=== PATIENT | female | born 1945 | race Caucasian/White ===

== ENCOUNTER → 2017-05-17 | Outpatient (CLI) | payer MEDICARE, OTHER ==
[~2017-05-17] MED LIST: ACET325 PO; ACETYLCYSTEINE 200 MG/ML NEB; ALBU90OI INH; ALBU90OI61 INH; ALBUIS; AMOCLA875 PO; ATOR10 PO; AZIT250 PO; Acetylcyst200 MG/1 M NEB; Advair Hfa 230-12 GM INH; BENZ100A PO; BIEST; BIEST TOP; CALCIUM; CIPR500 PO; CLIM.025TP TOP; Colace100 MG PO; DELTASONE20 MG PO; DOXY100 PO; ESTRASORB; ETHA400 PO; ETHAMBUTOL HCL PO; FAMO20 PO; FOLI1 PO; GABA300 PO; GUAI600T33 PO; HYDACE5 PO; HYDR1TAB94 PO; LEVFLO500 PO; LEVO750 PO; MEROPENEM1000 MG IV; METR500 PO; NAPR500 PO; NEXIUM 24HR20 MG PO; NYST100SU PO; OMEGA 3; PRAV20 PO; PRED10 PO; PRED20 PO; PREMARIN PATCH TOP; PROBIOTIC1 EAC1 PO; PROM25 PO; REQUIP PO; RIFA300 PO; ROPI2 PO; SACC250C; SERT100 PO; SERT50 PO; SODIUM CHLORIDE4 ML INH; STIOLTO RESPIMAT4 GM INH; TIOT18; TIOT18 INH; TOBRAMYCIN300 MG/5 M INH; TOBRAMYCIN300 MG/5 M NEB; TRIAMCINOLONE PO; Tylenol325 MG PO; VITAMIN B122500 MCG PO; VITAMIN D-32000 UNIT PO; Ventolin5 MG/1 ML INH; Zithromax250 MG PO; metronidazole 500 mg PO
== END | disposition home or self-care (01) ==
LOC: OLS 14:35
DX: A31.9 Mycobacterial infection, unspecified (principal)
CPT/HCPCS: 87015; 87116; 87206

== ENCOUNTER 2017-06-11 12:14 | Inpatient (IN) | payer MEDICARE, OTHER ==
[~2017-06-11] VITALS: Ht 152.4 cm; Wt 53.1 kg
[~2017-06-11 12:14] MED LIST changes: -ATOR10 PO; -Acetylcyst200 MG/1 M NEB; -Advair Hfa 230-12 GM INH; -DELTASONE20 MG PO; -FOLI1 PO; -GABA300 PO; -SODIUM CHLORIDE4 ML INH; -TOBRAMYCIN300 MG/5 M NEB; -Zithromax250 MG PO
[2017-06-11 13:30] LABS: Source, Urine Clean Catch
[2017-06-11 13:35] LABS: Bilirubin, Urine Neg (Neg); Blood, Urine Neg (Neg); Glucose Qualitative, Urine Neg (Neg); Ketones, Urine Neg (Neg); Leukocyte Esterase, Urine Neg (Neg); Nitrite, Urine Neg (Neg); Protein, Urine 1+ (Neg); Specific Gravity, Urine 1.025 (1.003-1.022); Urobilinogen, Urine NORM (Normal)
[2017-06-11 13:35] LABS: BASOPHILS ABSOLUTE AUTO 0.07 K/mm3 (0.00-0.23); BASOPHILS PERCENT AUTO 1 % (0-2); EOSINOPHILS ABSOLUTE AUTO 1.28 K/mm3 (0.00-0.68); EOSINOPHILS PERCENT AUTO 15 % (0-6); Hematocrit 35.9 % (33.0-51.0); Hemoglobin 12.2 g/dL (11.5-16.0); IMMATURE GRAN ABSOLUTE AUTO 0.02 K/mm3 (0.00-0.10); IMMATURE GRAN PERCENT AUTO 0 % (0-1); LYMPHOCYTES ABSOLUTE AUTO 0.83 K/mm3 (0.84-5.20); LYMPHOCYTES PERCENT AUTO 9 % (21-46); MONOCYTES PERCENT AUTO 8 % (4-13); Mean Corpuscular HGB 29.7 pg (26.0-34.0); Mean Corpuscular Volume 87 fL (80-100); Mean Platelet Volume 8.8 fL (9.1-12.4); NEUTROPHILS ABSOLUTE AUTO 5.93 K/mm3 (1.96-9.15); NEUTROPHILS PERCENT AUTO 67 % (41-73); Platelet Count 236 K/mm3 (150-400); RDW Coefficient Variation 12.8 % (11.7-14.2); RDW Standard Deviation 41.3 fL (35.1-46.3); Red Blood Cell Count 4.11 M/mm3 (3.80-5.20); White Blood Cell Count 8.83 K/mm3 (4.00-11.30)
[2017-06-11 13:36] LABS: Appearance, Urine Clear (Clear); Color, Urine Yellow (P-Yellow)
[2017-06-11 13:56] LABS: Alanine Aminotransfer (ALT/SGP 20 U/L (12-78); Albumin, Blood 3.3 g/dL (3.4-5.0); Albumin/Globulin Ratio 0.7 (0.8-1.8); Alk Phos 121 U/L (50-136); Anion Gap 8 mmol/L (6-16); Aspartate Aminotrans (AST/SGOT 24 U/L (12-37); Bilirubin, Total 0.3 mg/dL (0.1-1.0); Blood Urea Nitrogen 7 mg/dL (8-24); Bun/Creatinine Ratio 14.6 (12.0-20.0); CO2, Blood 25 mmol/L (21-32); Calcium, Blood 8.8 mg/dL (8.5-10.1); Chloride, Blood 92 mmol/L (98-108); Creatinine, Blood 0.48 mg/dL (0.40-1.00); Globulin, Blood 4.9 g/dL (2.2-4.0); Glomerular Filtration Rate >60 (60-); Glucose, Blood 113 mg/dL (70-99); Potassium, Blood 4.1 mmol/L (3.5-5.5); Sodium, Blood 125 mmol/L (136-145); Total Protein, Blood 8.2 g/dL (6.4-8.2); Troponin I <0.015 ng/mL (0.000-0.040)
[2017-06-11] MEDS ORDERED: Zithromax250 MG PO (16:19)
[2017-06-11] MEDS ORDERED: TOBRAMYCIN300 MG/5 M NEB (16:21)
[2017-06-12 05:06] LABS: BASOPHILS ABSOLUTE AUTO 0.02 K/mm3 (0.00-0.23); BASOPHILS PERCENT AUTO 0 % (0-2); EOSINOPHILS ABSOLUTE AUTO 0.06 K/mm3 (0.00-0.68); EOSINOPHILS PERCENT AUTO 1 % (0-6); Hematocrit 34.7 % (33.0-51.0); Hemoglobin 11.5 g/dL (11.5-16.0); IMMATURE GRAN ABSOLUTE AUTO 0.01 K/mm3 (0.00-0.10); IMMATURE GRAN PERCENT AUTO 0 % (0-1); LYMPHOCYTES PERCENT AUTO 13 % (21-46); MONOCYTES ABSOLUTE AUTO 0.17 K/mm3 (0.16-1.47); MONOCYTES PERCENT AUTO 4 % (4-13); Mean Corpuscular HGB 29.2 pg (26.0-34.0); Mean Corpuscular HGB Conc 33.1 g/dL (31.5-36.5); Mean Corpuscular Volume 88 fL (80-100); Mean Platelet Volume 8.9 fL (9.1-12.4); NEUTROPHILS ABSOLUTE AUTO 3.76 K/mm3 (1.96-9.15); NEUTROPHILS PERCENT AUTO 81 % (41-73); Platelet Count 229 K/mm3 (150-400); RDW Coefficient Variation 12.7 % (11.7-14.2); RDW Standard Deviation 41.2 fL (35.1-46.3); Red Blood Cell Count 3.94 M/mm3 (3.80-5.20); White Blood Cell Count 4.62 K/mm3 (4.00-11.30)
[2017-06-12 05:27] LABS: Alanine Aminotransfer (ALT/SGP 19 U/L (12-78); Albumin, Blood 3.2 g/dL (3.4-5.0); Albumin/Globulin Ratio 0.7 (0.8-1.8); Alk Phos 105 U/L (50-136); Anion Gap 5 mmol/L (6-16); Aspartate Aminotrans (AST/SGOT 19 U/L (12-37); Bilirubin, Total 0.5 mg/dL (0.1-1.0); Blood Urea Nitrogen 5 mg/dL (8-24); Bun/Creatinine Ratio 11.6 (12.0-20.0); CO2, Blood 27 mmol/L (21-32); Calcium, Blood 8.6 mg/dL (8.5-10.1); Chloride, Blood 96 mmol/L (98-108); Creatinine, Blood 0.43 mg/dL (0.40-1.00); Globulin, Blood 4.5 g/dL (2.2-4.0); Glomerular Filtration Rate >60 (60-); Glucose, Blood 119 mg/dL (70-99); Potassium, Blood 4.3 mmol/L (3.5-5.5); Sodium, Blood 128 mmol/L (136-145); Total Protein, Blood 7.7 g/dL (6.4-8.2)
[2017-06-13 05:38] LABS: Anion Gap 5 mmol/L (6-16); Blood Urea Nitrogen 6 mg/dL (8-24); Bun/Creatinine Ratio 13.1 (12.0-20.0); CO2, Blood 29 mmol/L (21-32); Calcium, Blood 8.4 mg/dL (8.5-10.1); Chloride, Blood 98 mmol/L (98-108); Creatinine, Blood 0.46 mg/dL (0.40-1.00); Glomerular Filtration Rate >60 (60-); Glucose, Blood 101 mg/dL (70-99); Potassium, Blood 3.9 mmol/L (3.5-5.5); Sodium, Blood 132 mmol/L (136-145)
[2017-06-13] MEDS ORDERED: Acetylcyst200 MG/1 M NEB (11:15)
[2017-06-13] MEDS ORDERED: DELTASONE20 MG PO (11:20)
[2018-04-25] MEDS ORDERED: FAMO20 PO (04:48)
[2018-04-25] MEDS ORDERED: Advair Hfa 230-12 GM INH (04:48)
[2018-04-25] MEDS ORDERED: FOLI1 PO (04:52)
[2018-04-25] MEDS ORDERED: REQUIP PO (10:04)
== END 2017-06-13 13:35 | disposition home or self-care (01) | DRG 191 ==
LOC: ER 12:14 → MEDS 15:15
PROVIDERS: Emergency Medicine; Internal Medicine
DX: J47.1 Bronchiectasis with (acute) exacerbation (principal); E87.1 Hypo-osmolality and hyponatremia; G25.81 Restless legs syndrome; M81.0 Age-related osteoporosis without current pathological fracture; Z90.710 Acquired absence of both cervix and uterus; E78.5 Hyperlipidemia, unspecified; Z99.2 Dependence on renal dialysis; F32.9 Major depressive disorder, single episode, unspecified
CPT/HCPCS: 36415; 71046; 80048; 80053; 83880; 84484; 85025; 87070; 87205; 93005; 93010; 94640; 94667; 94668; 94760; 96374; 96375; 99285; J0696; J1650; J2930; J7030

== ENCOUNTER → 2017-06-29 | Outpatient (CLI) | payer MEDICARE, OTHER ==
[~2017-06-29] MED LIST changes: +ATOR10 PO; +Acetylcyst200 MG/1 M NEB; +Advair Hfa 230-12 GM INH; +DELTASONE20 MG PO; +FOLI1 PO; +GABA300 PO; +SODIUM CHLORIDE4 ML INH; +TOBRAMYCIN300 MG/5 M NEB; +Zithromax250 MG PO
== END | disposition home or self-care (01) ==
LOC: OLS 13:53
DX: J47.9 Bronchiectasis, uncomplicated (principal)
CPT/HCPCS: 87070; 87106; 87205

== ENCOUNTER → 2017-08-08 | Outpatient (CLI) | payer MEDICARE, OTHER | END | disposition home or self-care (01) | LOC: OLS 09:00 | DX: J47.9 Bronchiectasis, uncomplicated (principal) | CPT/HCPCS: 87070; 87205 ==

== ENCOUNTER → 2017-08-19 | Outpatient (CLI) | payer MEDICARE, OTHER | END | disposition home or self-care (01) | LOC: PLD 07:58 → LAB SHORT 07:58 | DX: L72.12 Trichodermal cyst (principal); L82.1 Other seborrheic keratosis | CPT/HCPCS: 88304; 88305 ==

== ENCOUNTER → 2017-09-23 | Outpatient (CLI) | payer MEDICARE, OTHER ==
[~2017-09-23] MED LIST changes: -ATOR10 PO; -Advair Hfa 230-12 GM INH; -FOLI1 PO; -GABA300 PO; -SODIUM CHLORIDE4 ML INH
== END | disposition home or self-care (01) ==
LOC: LAB SHORT 10:00 → OLS 10:00
DX: A31.0 Pulmonary mycobacterial infection (principal)
CPT/HCPCS: 87015; 87116; 87206

== ENCOUNTER → 2017-10-19 | Outpatient (CLI) | payer MEDICARE, OTHER | END | disposition home or self-care (01) | LOC: LAB SHORT 07:30 → OLS 07:30 → LAB FUT 01-12 13:10 → EDSTATUS 01-12 13:10 | DX: A31.9 Mycobacterial infection, unspecified (principal) | CPT/HCPCS: 87015; 87116; 87206 ==

== ENCOUNTER → 2017-10-25 | Outpatient (CLI) | payer MEDICARE, OTHER ==
[2017-10-25 14:44] LABS: Anion Gap 9 mmol/L (6-16); Blood Urea Nitrogen 10 mg/dL (8-24); Bun/Creatinine Ratio 17.5 (12.0-20.0); CO2, Blood 25 mmol/L (21-32); Calcium, Blood 9.1 mg/dL (8.5-10.1); Chloride, Blood 92 mmol/L (98-108); Creatinine, Blood 0.57 mg/dL (0.40-1.00); Glomerular Filtration Rate >60 (60-); Glucose, Blood 108 mg/dL (70-99); Potassium, Blood 4.5 mmol/L (3.5-5.5); Sodium, Blood 126 mmol/L (136-145)
[2017-10-25 15:21] LABS: Uric Acid, Blood 2.3 mg/dL (2.6-6.0)
== END | disposition home or self-care (01) ==
LOC: LAB SHORT 11:56 → OLS 11:56 → LAB 11:56
PROVIDERS: Internal Medicine
DX: E87.1 Hypo-osmolality and hyponatremia (principal); M10.9 Gout, unspecified
CPT/HCPCS: 36415; 80048; 83935; 84300; 84550

== ENCOUNTER → 2018-01-05 | Outpatient (CLI) | payer MEDICARE, OTHER | END | disposition home or self-care (01) | LOC: EDSTATUS 10:52 → LAB SHORT 12:19 → LAB 12:19 | DX: J47.9 Bronchiectasis, uncomplicated (principal) | CPT/HCPCS: 87070; 87077; 87186; 87205 ==

== ENCOUNTER → 2018-02-09 | Outpatient (CLI) | payer MEDICARE, OTHER ==
[~2018-02-09] MED LIST changes: +ATOR10 PO; +GABA300 PO; +SODIUM CHLORIDE4 ML INH
== END | disposition home or self-care (01) ==
LOC: LAB 14:20 → LAB SHORT 14:20
DX: A31.0 Pulmonary mycobacterial infection (principal); J47.1 Bronchiectasis with (acute) exacerbation
CPT/HCPCS: 87070; 87106; 87205

== ENCOUNTER 2018-02-10 20:26 | Inpatient (IN) | payer MEDICARE, OTHER ==
[~2018-02-10] VITALS: Ht 152.4 cm; Wt 46.8 kg
[~2018-02-10 20:26] MED LIST changes: -ATOR10 PO; -GABA300 PO; -SODIUM CHLORIDE4 ML INH
[2018-02-10 20:55] LABS: PCO2 Arterial 43.8 mmHg (35-45); PO2 Arterial 94.9 mmHg (80-100)
[2018-02-10 21:59] LABS: BASOPHILS ABSOLUTE AUTO 0.07 K/mm3 (0.00-0.23); BASOPHILS PERCENT AUTO 1 % (0-2); EOSINOPHILS ABSOLUTE AUTO 0.65 K/mm3 (0.00-0.68); EOSINOPHILS PERCENT AUTO 7 % (0-6); Hematocrit 34.4 % (33.0-51.0); Hemoglobin 11.6 g/dL (11.5-16.0); IMMATURE GRAN ABSOLUTE AUTO 0.02 K/mm3 (0.00-0.10); IMMATURE GRAN PERCENT AUTO 0 % (0-1); LYMPHOCYTES ABSOLUTE AUTO 1.36 K/mm3 (0.84-5.20); LYMPHOCYTES PERCENT AUTO 14 % (21-46); MONOCYTES ABSOLUTE AUTO 0.72 K/mm3 (0.16-1.47); MONOCYTES PERCENT AUTO 7 % (4-13); Mean Corpuscular HGB 30.3 pg (26.0-34.0); Mean Corpuscular HGB Conc 33.7 g/dL (31.5-36.5); Mean Corpuscular Volume 90 fL (80-100); Mean Platelet Volume 8.6 fL (9.1-12.4); NEUTROPHILS ABSOLUTE AUTO 6.99 K/mm3 (1.96-9.15); NEUTROPHILS PERCENT AUTO 71 % (41-73); Platelet Count 205 K/mm3 (150-400); RDW Coefficient Variation 12.6 % (11.7-14.2); RDW Standard Deviation 41.7 fL (35.1-46.3); Red Blood Cell Count 3.83 M/mm3 (3.80-5.20); White Blood Cell Count 9.81 K/mm3 (4.00-11.30)
[2018-02-10 22:22] LABS: Alanine Aminotransfer (ALT/SGP 30 U/L (12-78); Albumin, Blood 3.5 g/dL (3.4-5.0); Albumin/Globulin Ratio 0.9 (0.8-1.8); Alk Phos 71 U/L (50-136); Anion Gap 8 mmol/L (6-16); Aspartate Aminotrans (AST/SGOT 33 U/L (12-37); Bilirubin, Total 0.6 mg/dL (0.1-1.0); Blood Urea Nitrogen 11 mg/dL (8-24); Bun/Creatinine Ratio 19.9 (12.0-20.0); CO2, Blood 25 mmol/L (21-32); Calcium, Blood 8.5 mg/dL (8.5-10.1); Chloride, Blood 95 mmol/L (98-108); Creatinine, Blood 0.55 mg/dL (0.40-1.00); Globulin, Blood 4.1 g/dL (2.2-4.0); Glomerular Filtration Rate >60 (60-); Glucose, Blood 90 mg/dL (70-99); Potassium, Blood 4.2 mmol/L (3.5-5.5); Sodium, Blood 128 mmol/L (136-145); Total Protein, Blood 7.6 g/dL (6.4-8.2); Troponin I <0.015 ng/mL (0.000-0.040)
[2018-02-11] MEDS ORDERED: ATOR10 PO (02:40)
[2018-02-11] MEDS ORDERED: GABA300 PO (02:41)
[2018-02-11 04:07] LABS: Hematocrit 33.8 % (33.0-51.0); Hemoglobin 11.7 g/dL (11.5-16.0); Mean Corpuscular HGB 31.2 pg (26.0-34.0); Mean Corpuscular HGB Conc 34.6 g/dL (31.5-36.5); Mean Corpuscular Volume 90 fL (80-100); Mean Platelet Volume 8.6 fL (9.1-12.4); Platelet Count 206 K/mm3 (150-400); RDW Coefficient Variation 12.5 % (11.7-14.2); RDW Standard Deviation 41.4 fL (35.1-46.3); Red Blood Cell Count 3.75 M/mm3 (3.80-5.20)
[2018-02-11 04:26] LABS: Anion Gap 9 mmol/L (6-16); Blood Urea Nitrogen 10 mg/dL (8-24); Bun/Creatinine Ratio 18.3 (12.0-20.0); CO2, Blood 25 mmol/L (21-32); Calcium, Blood 8.1 mg/dL (8.5-10.1); Chloride, Blood 96 mmol/L (98-108); Creatinine, Blood 0.55 mg/dL (0.40-1.00); Glomerular Filtration Rate >60 (60-); Glucose, Blood 125 mg/dL (70-99); Potassium, Blood 4.4 mmol/L (3.5-5.5); Sodium, Blood 130 mmol/L (136-145)
[2018-02-11 06:42] LABS: Adenovirus Not Detected (NOT DETECT); Bordetella pertussis Not Detected (NOT DETECT); Chlamydophila pneumoniae Not Detected (NOT DETECT); Coronavirus 229E Not Detected (NOT DETECT); Coronavirus HKU1 Not Detected (NOT DETECT); Coronavirus NL63 Not Detected (NOT DETECT); Coronavirus OC43 Not Detected (NOT DETECT); Human Metapneumovirus Not Detected (NOT DETECT); Human Rhinovirus/Enterovirus Not Detected (NOT DETECT); Influenza A/2009-H1 Not Detected (NOT DETECT); Influenza A/H1 Not Detected (NOT DETECT); Influenza A/H3 Not Detected (NOT DETECT); Influenza B Not Detected (NOT DETECT); Mycoplasma pneumoniae Not Detected (NOT DETECT); Parainfluenza Virus 1 Not Detected (NOT DETECT); Parainfluenza Virus 2 Not Detected (NOT DETECT); Parainfluenza Virus 3 Not Detected (NOT DETECT); Parainfluenza Virus 4 Not Detected (NOT DETECT); Respiratory Syncytial Virus Not Detected (NOT DETECT)
[2018-02-11 09:08] LABS: Influenza A Not Detected (NOT DETECT)
[2018-02-13] MEDS ORDERED: SODIUM CHLORIDE4 ML INH (12:50)
== END 2018-02-13 13:11 | disposition home or self-care (01) | DRG 190 ==
LOC: ER 20:26 → MEDS 22:47 → PCU 22:47 → MEDS 22:47 → PCU 02-11 00:17 → MEDS 02-11 21:19 → ENPENDDIS 02-13 11:00 → MEDS 02-13 13:11
PROVIDERS: Emergency Medicine; Nurse Practitioner Acute Care
DX: J47.1 Bronchiectasis with (acute) exacerbation (principal); J96.01 Acute respiratory failure with hypoxia; E87.1 Hypo-osmolality and hyponatremia; E44.0 Moderate protein-calorie malnutrition; T17.890A Other foreign object in other parts of respiratory tract causing asphyxiation, initial encounter; Z99.81 Dependence on supplemental oxygen; A31.0 Pulmonary mycobacterial infection; F32.9 Major depressive disorder, single episode, unspecified; E78.5 Hyperlipidemia, unspecified; J42 Unspecified chronic bronchitis; G25.81 Restless legs syndrome; Z87.891 Personal history of nicotine dependence; Z68.23 Body mass index [BMI] 23.0-23.9, adult
CPT/HCPCS: 36600; 71046; 80048; 80053; 82803; 84484; 85025; 85027; 87070; 87106; 87205; 87486; 87581; 87633; 87798; 93005; 93010; 94640; 94667; 94760; 94762; 96374; 99285-25; J1650; J2930

== ENCOUNTER → 2018-05-26 | Outpatient (CLI) | payer MEDICARE, OTHER ==
[~2018-05-26] MED LIST changes: +ATOR10 PO; +Advair Hfa 230-12 GM INH; +FOLI1 PO; +GABA300 PO; +SODIUM CHLORIDE4 ML INH
== END | disposition home or self-care (01) ==
LOC: LAB SHORT 16:00 → LAB 16:00
DX: J47.1 Bronchiectasis with (acute) exacerbation (principal)
CPT/HCPCS: 87070; 87077; 87186; 87205

== ENCOUNTER → 2018-06-22 | Outpatient (CLI) | payer MEDICARE, OTHER ==
[~2018-06-22] MED LIST changes: +ALBU2.5V5 NEB; +Acetylcyst200 MG/1 M INH; +Alora1 EAC1 TD; +CALCIUM 500 +1 EAC3 PO; +CYAN500 PO; +FLONASE ALLERG9.9 ML; +GABA600 PO; +METO25ER PO; +NAC600 MG PO; +NEBUSAL4 ML INH; +ONDA4ODT MM; +VENL75ER PO; -VITAMIN B122500 MCG PO; -Ventolin5 MG/1 ML INH
== END | disposition home or self-care (01) ==
LOC: LAB 16:45 → LAB SHORT 16:45
DX: N39.0 Urinary tract infection, site not specified (principal)
CPT/HCPCS: 87086

== ENCOUNTER → 2018-07-21 | Outpatient (CLI) | payer MEDICARE, OTHER | END | disposition home or self-care (01) | LOC: LAB SHORT 16:59 → LAB 16:59 | DX: J47.9 Bronchiectasis, uncomplicated (principal) | CPT/HCPCS: 87070; 87106; 87205 ==

== ENCOUNTER 2018-07-22 08:29 | Inpatient (IN) | payer MEDICARE, OTHER ==
[~2018-07-22] VITALS: Ht 152.4 cm; Wt 52.2 kg
[~2018-07-22 08:29] MED LIST changes: -Acetylcyst200 MG/1 M INH; -Alora1 EAC1 TD; -CALCIUM 500 +1 EAC3 PO; -FLONASE ALLERG9.9 ML; -GABA600 PO; -METO25ER PO; -NAC600 MG PO; -NEBUSAL4 ML INH; -ONDA4ODT MM; -VENL75ER PO
[2018-07-22] MEDS ORDERED: ATOR10 PO (08:50)
[2018-07-22] MEDS ORDERED: Alora1 EAC1 TD (08:52)
[2018-07-22] MEDS ORDERED: VENL75ER PO (08:55)
[2018-07-22] MEDS ORDERED: ALBU90OI INH (08:55)
[2018-07-22 09:08] LABS: BASOPHILS ABSOLUTE AUTO 0.08 K/mm3 (0.00-0.23); BASOPHILS PERCENT AUTO 1 % (0-2); EOSINOPHILS ABSOLUTE AUTO 0.57 K/mm3 (0.00-0.68); EOSINOPHILS PERCENT AUTO 5 % (0-6); Hematocrit 39.4 % (33.0-51.0); Hemoglobin 13.2 g/dL (11.5-16.0); IMMATURE GRAN ABSOLUTE AUTO 0.04 K/mm3 (0.00-0.10); IMMATURE GRAN PERCENT AUTO 0 % (0-1); LYMPHOCYTES ABSOLUTE AUTO 1.05 K/mm3 (0.84-5.20); LYMPHOCYTES PERCENT AUTO 9 % (21-46); MONOCYTES ABSOLUTE AUTO 0.68 K/mm3 (0.16-1.47); MONOCYTES PERCENT AUTO 6 % (4-13); Mean Corpuscular HGB 30.1 pg (26.0-34.0); Mean Corpuscular HGB Conc 33.5 g/dL (31.5-36.5); Mean Corpuscular Volume 90 fL (80-100); Mean Platelet Volume 8.6 fL (9.1-12.4); NEUTROPHILS ABSOLUTE AUTO 9.35 K/mm3 (1.96-9.15); NEUTROPHILS PERCENT AUTO 80 % (41-73); Platelet Count 221 K/mm3 (150-400); RDW Coefficient Variation 12.6 % (11.7-14.2); RDW Standard Deviation 41.4 fL (35.1-46.3); Red Blood Cell Count 4.39 M/mm3 (3.80-5.20); White Blood Cell Count 11.77 K/mm3 (4.00-11.30)
[2018-07-22 09:33] LABS: Alanine Aminotransfer (ALT/SGP 27 U/L (12-78); Albumin, Blood 3.9 g/dL (3.4-5.0); Albumin/Globulin Ratio 0.9 (0.8-1.8); Alk Phos 84 U/L (50-136); Anion Gap 8 mmol/L (6-16); Aspartate Aminotrans (AST/SGOT 20 U/L (12-37); Bilirubin, Total 0.6 mg/dL (0.1-1.0); Blood Urea Nitrogen 8 mg/dL (8-24); CO2, Blood 28 mmol/L (21-32); Calcium, Blood 9.1 mg/dL (8.5-10.1); Chloride, Blood 94 mmol/L (98-108); Globulin, Blood 4.4 g/dL (2.2-4.0); Glomerular Filtration Rate >60 (60-); Glucose, Blood 102 mg/dL (70-99); Potassium, Blood 4.2 mmol/L (3.5-5.5); Sodium, Blood 130 mmol/L (136-145); Total Protein, Blood 8.3 g/dL (6.4-8.2); Troponin I <0.015 ng/mL (0.000-0.040)
--- NOTE | 2018-07-22 14:20 | NUR ---
PATIENT ARRIVED TO THE FLOOR VIA STRETCHER, O2 @ 3 LITERS VIA NASAL CANULA. REPORT RECEIVED FROM THE ER. WILL CONTINUE TO MONITOR FOR CHANGES.
[2018-07-22] MEDS ORDERED: SERT100 PO (14:30)
[2018-07-22] MEDS ORDERED: ONDA4ODT MM (14:31)
--- NOTE | 2018-07-22 19:20 | NUR ---
NO ACUTE CHANGES NOTED. NO CURRENT COMPLAINTS OF PAIN OR DISCOMFORT. WILL CONTINUE TO MONITOR FOR CHANGES.
[2018-07-22 22:14] LABS: Adenovirus Not Detected (NOT DETECT); Coronavirus 229E Not Detected (NOT DETECT); Coronavirus HKU1 Not Detected (NOT DETECT); Coronavirus NL63 Not Detected (NOT DETECT)
[2018-07-22 22:15] LABS: Bordetella pertussis Not Detected (NOT DETECT); Chlamydophila pneumoniae Not Detected (NOT DETECT); Coronavirus OC43 Not Detected (NOT DETECT); Human Metapneumovirus Not Detected (NOT DETECT); Human Rhinovirus/Enterovirus Not Detected (NOT DETECT); Influenza A Not Detected (NOT DETECT); Influenza A/2009-H1 Not Detected (NOT DETECT); Influenza A/H1 Not Detected (NOT DETECT); Influenza A/H3 Not Detected (NOT DETECT); Influenza B Not Detected (NOT DETECT); Mycoplasma pneumoniae Not Detected (NOT DETECT); Parainfluenza Virus 1 Not Detected (NOT DETECT); Parainfluenza Virus 2 Not Detected (NOT DETECT); Parainfluenza Virus 3 Not Detected (NOT DETECT); Parainfluenza Virus 4 Not Detected (NOT DETECT); Respiratory Syncytial Virus Not Detected (NOT DETECT)
[2018-07-23 05:44] LABS: Anion Gap 8 mmol/L (6-16); Blood Urea Nitrogen 8 mg/dL (8-24); Bun/Creatinine Ratio 17.9 (12.0-20.0); CO2, Blood 25 mmol/L (21-32); Calcium, Blood 8.5 mg/dL (8.5-10.1); Chloride, Blood 103 mmol/L (98-108); Creatinine, Blood 0.45 mg/dL (0.40-1.00); Glomerular Filtration Rate >60 (60-); Glucose, Blood 117 mg/dL (70-99); Potassium, Blood 4.6 mmol/L (3.5-5.5); Sodium, Blood 136 mmol/L (136-145)
--- NOTE | 2018-07-23 05:51 | NUR ---
SHIFT SUMMARY PT SLEPT WELL T/O NIGHT. AOX4. VSS. DENIES PAIN OR N/V. REPORTED SOB LAST NIGHT & WAS GIVEN BREATHING TX BY RT PER ORDERS. LUNGS HAVE INSPIRATORY & EXPIRATORY WHEEZES IN UPPER LOBES W/BASES BEING DIMINISHED TO AUSCULTATION. PT ON 3L NC W/SPO2 @97%. PT STATES THIS AM, "I'M FEELING BETTER THAN I DID YESTERDAY WHEN I WAS @ HOME, I'M NOT SOB." PT INDEPENDENT IN ROOM. CALL LIGHT IS IN REACH & I WILL CONT. TO MONITOR PT UNTIL DAY SHIFT RN ASSUMES CARE.
[2018-07-23 06:20] LABS: Hemoglobin 11.5 g/dL (11.5-16.0); Mean Corpuscular HGB 29.9 pg (26.0-34.0); Mean Corpuscular HGB Conc 32.9 g/dL (31.5-36.5); Mean Corpuscular Volume 91 fL (80-100); Mean Platelet Volume 8.8 fL (9.1-12.4); Platelet Count 201 K/mm3 (150-400); RDW Coefficient Variation 12.7 % (11.7-14.2); RDW Standard Deviation 41.9 fL (35.1-46.3); Red Blood Cell Count 3.85 M/mm3 (3.80-5.20)
--- NOTE | 2018-07-23 18:34 | NUR ---
SHIFT SUMMARY PT INDEPENDENT IN ROOM. IN ROOM FOR MOST OF AFTERNOON. DOES COUGH REGULARLY. STATES SHE FEELS MUCH BETTER THAN ON ARRIVAL. NO RESP DISTRESS NOTED TODAY. USING FLUTTER VALVE WITHOUT PROMPTING. STATES IT HELPS HER GET THE PLUGS OUT MORE EASILY.
--- NOTE | 2018-07-24 06:23 | NUR ---
SHIFT SUMMARY NO ACUTE CHANGES THIS SHIFT. PT SLEPT WELL & IS AOX4. DENIES PAIN, N/V OR SOB WHILE @ REST. NO S/S OF SOB. SPO2 @93-98% ON 2L. PT STATES "I FEEL MUCH BETTER THAN WHEN I FIRST GOT HERE." PT DID GET TEARFUL THIS AM & REPORTED HER SON 4 WKS AGO & SHE IS STILL STRUGGLING W/LOSING HIM. PT INDEPENDENT IN ROOM. CALL LIGHT IN REACH & I WCTM PT UNTIL DAY SHIFT RN ASSUMES CARE.
--- NOTE | 2018-07-24 18:28 | NUR ---
SHIFT SUMMARY PT INDEPENDENT IN ROOM. HAS BEEN MOVING ABOUT WITH NO OXYGEN ON AND TOLERATING WITH NO INCREASE IN RESP DISTRESS. AT BEDSIDE THIS AFTERNOON. POSSIBLE DISCHARGE TOMORROW.
--- NOTE | 2018-07-25 06:37 | NUR ---
SHIFT SUMMARY PT SLEPT WELL T/O NIGHT. NO ACUTE CHANGES THIS SHIFT. DENIES PAIN OR N/V. REPORTS MILD SOB W/EXERTION WHEN AMBULATING BUT DENIES ANY WHILE @REST. PT HAS BEEN ON RA & 2L NC PRN WHEN SHE FEELS SHE NEEDS IT. SPO2 >90% WITH E/U BREATHING. CALL LIGHT IN REACH & WILL CONT. TO MONITOR PT.
[2018-07-25] MEDS ORDERED: NAC600 MG PO (12:38)
[2018-07-25] MEDS ORDERED: CALCIUM 500 +1 EAC3 PO (12:53)
[2018-07-25] MEDS ORDERED: LEVO750 PO (12:55)
--- NOTE | 2018-07-25 13:59 | NUR ---
PATIENT DISCHARGE: PATIENT DISCHARGED TO HOME THIS SHIFT. MEDICATION RECONCILIATION COMPLETED; [facility]; HOME MEDICATIONS RETURNED TO PATIENT. DISCHARGE EDUCATION COMPLETED WITH PATIENT AND SO. PATIENT TRANSPORTED TO EXIT BY [facility] STAFF WITH WHEELCHAIR AT 1350. PATIENT DEPARTED [facility] VIA PRIVATE AUTO.
[2018-07-27] MEDS ORDERED: AZIT250 PO (17:53)
[2018-07-27] MEDS ORDERED: FLONASE ALLERG9.9 ML (17:56)
[2018-07-27] MEDS ORDERED: Acetylcyst200 MG/1 M INH (18:12)
[2018-07-27] MEDS ORDERED: NEBUSAL4 ML INH (18:13)
[2018-07-27] MEDS ORDERED: GABA600 PO (20:24)
[2018-07-28] MEDS ORDERED: METO25ER PO (18:55)
== END 2018-07-25 13:48 | disposition home or self-care (01) | DRG 192 ==
LOC: ER 08:29 → MEDS 14:04
PROVIDERS: Physician Assistant; ADMIT Internal Medicine
DX: J47.9 Bronchiectasis, uncomplicated (principal); J40 Bronchitis, not specified as acute or chronic; A31.0 Pulmonary mycobacterial infection; Z90.49 Acquired absence of other specified parts of digestive tract; Z87.891 Personal history of nicotine dependence; M81.0 Age-related osteoporosis without current pathological fracture; G25.81 Restless legs syndrome; E78.5 Hyperlipidemia, unspecified; F32.9 Major depressive disorder, single episode, unspecified; K21.9 Gastro-esophageal reflux disease without esophagitis; Z79.52 Long term (current) use of systemic steroids
CPT/HCPCS: 36415; 71046; 80048; 80053; 83605; 84484; 85025; 85027; 87081; 87486; 87581; 87633; 87798; 93005; 93010; 94640; 94644; 94667; 94760; 96374; 96376; 99285-25; J0692; J1100; J1650; J2920; J2930; J7030

== ENCOUNTER → 2018-09-07 | Outpatient (CLI) | payer MEDICARE, OTHER ==
[~2018-09-07] MED LIST changes: +ALBU3IS INH; +Acetylcyst200 MG/1 M INH; +Alora1 EAC1 TD; +CALCIUM 500 +1 EAC3 PO; +FLONASE ALLERG9.9 ML; +GABA600 PO; +METO25ER PO; +NAC600 MG PO; +NEBUSAL4 ML INH; +ONDA4ODT MM; +Requip Xl2 MG PO; +VENL75ER PO
[2018-09-07 10:58] LABS: Albumin, Blood 3.4 g/dL (3.4-5.0); Anion Gap 8 mmol/L (6-16); Blood Urea Nitrogen 9 mg/dL (8-24); Bun/Creatinine Ratio 19.3 (12.0-20.0); CO2, Blood 23 mmol/L (21-32); Calcium, Blood 8.6 mg/dL (8.5-10.1); Chloride, Blood 99 mmol/L (98-108); Creatinine, Blood 0.47 mg/dL (0.40-1.00); Glomerular Filtration Rate >60 (60-); Glucose, Blood 120 mg/dL (70-99); Phosphorus, Blood 2.6 mg/dL (2.5-4.9); Sodium, Blood 130 mmol/L (136-145); Uric Acid, Blood 3.2 mg/dL (2.6-6.0)
[2018-09-07 11:29] LABS: Osmolality, Urine 311 mos/kg (15-1400)
[2018-09-07 11:44] LABS: Sodium, Urine, Random 46 mmol/L (20-110)
== END | disposition home or self-care (01) ==
LOC: LAB FUT 09-06 16:25 → LAB SHORT 06:30 → LAB 06:30
PROVIDERS: Internal Medicine
DX: J47.1 Bronchiectasis with (acute) exacerbation (principal)
CPT/HCPCS: 36415; 80069; 83935; 84300; 84550

== ENCOUNTER 2018-09-08 21:25 | Inpatient (IN) | payer MEDICARE, OTHER ==
[~2018-09-08] VITALS: Ht 152.4 cm; Wt 56.9 kg
[~2018-09-08 21:25] MED LIST changes: -ALBU3IS INH; -Requip Xl2 MG PO
[2018-09-08] MEDS ORDERED: PRED20 PO (22:00)
[2018-09-08] MEDS ORDERED: ATOR10 PO (22:01)
[2018-09-08] MEDS ORDERED: SERT100 PO (22:01)
[2018-09-08] MEDS ORDERED: GABA600 PO (22:01)
[2018-09-08] MEDS ORDERED: RIFA300 PO (22:03)
[2018-09-08] MEDS ORDERED: ETHA400 PO (22:03)
[2018-09-08] MEDS ORDERED: Requip Xl2 MG PO (22:03)
[2018-09-08] MEDS ORDERED: ALBU3IS INH (22:04)
[2018-09-08] MEDS ORDERED: STIOLTO RESPIMAT4 GM INH (22:04)
[2018-09-08] MEDS ORDERED: FOLI1 PO (22:05)
[2018-09-08 22:08] LABS: BASOPHILS ABSOLUTE AUTO 0.02 K/mm3 (0.00-0.23); BASOPHILS PERCENT AUTO 0 % (0-2); EOSINOPHILS ABSOLUTE AUTO 0.42 K/mm3 (0.00-0.68); EOSINOPHILS PERCENT AUTO 5 % (0-6); IMMATURE GRAN ABSOLUTE AUTO 0.03 K/mm3 (0.00-0.10); IMMATURE GRAN PERCENT AUTO 0 % (0-1); LYMPHOCYTES ABSOLUTE AUTO 0.87 K/mm3 (0.84-5.20); LYMPHOCYTES PERCENT AUTO 11 % (21-46); MONOCYTES ABSOLUTE AUTO 0.67 K/mm3 (0.16-1.47); MONOCYTES PERCENT AUTO 8 % (4-13); Mean Corpuscular HGB 30.6 pg (26.0-34.0); Mean Corpuscular HGB Conc 34.3 g/dL (31.5-36.5); Mean Corpuscular Volume 89 fL (80-100); Mean Platelet Volume 8.5 fL (9.1-12.4); NEUTROPHILS ABSOLUTE AUTO 6.08 K/mm3 (1.96-9.15); NEUTROPHILS PERCENT AUTO 75 % (41-73); Platelet Count 226 K/mm3 (150-400); RDW Coefficient Variation 13.1 % (11.7-14.2); RDW Standard Deviation 42.9 fL (35.1-46.3); Red Blood Cell Count 3.92 M/mm3 (3.80-5.20); White Blood Cell Count 8.09 K/mm3 (4.00-11.30)
[2018-09-08 22:28] LABS: Alanine Aminotransfer (ALT/SGP 26 U/L (12-78); Albumin, Blood 3.5 g/dL (3.4-5.0); Albumin/Globulin Ratio 0.9 (0.8-1.8); Alk Phos 84 U/L (50-136); Anion Gap 8 mmol/L (6-16); Aspartate Aminotrans (AST/SGOT 23 U/L (12-37); Bilirubin, Total 0.5 mg/dL (0.1-1.0); Blood Urea Nitrogen 7 mg/dL (8-24); Bun/Creatinine Ratio 14.3 (12.0-20.0); CO2, Blood 28 mmol/L (21-32); Calcium, Blood 8.7 mg/dL (8.5-10.1); Chloride, Blood 89 mmol/L (98-108); Creatinine, Blood 0.49 mg/dL (0.40-1.00); Globulin, Blood 3.9 g/dL (2.2-4.0); Glomerular Filtration Rate >60 (60-); Glucose, Blood 94 mg/dL (70-99); Potassium, Blood 3.9 mmol/L (3.5-5.5); Sodium, Blood 125 mmol/L (136-145); Total Protein, Blood 7.4 g/dL (6.4-8.2); Troponin I <0.015 ng/mL (0.000-0.040)
--- NOTE | 2018-09-09 03:59 | NUR ---
SHIFT SUMMARY 0245 RECEIVED PT TO RM 308 VIA GURNEY FROM ER. PT ABLE TO TX SELF TO BED. A&O, ABLE TO MAKE NEEDS KNOWN. ADMITTED FOR ACUTE RESPIRATORY FAILURE WITH HYPOXIA. RECEIVED REPORT FROM HÉCTOR MIRELES. PT TO ER WITH C/O DYSPNEA X4 WKS AND HAVING TO USE HOME O2 ALL DAY WELL AT HS. 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 PT INITIALLY UPSET AT ISOLATION ORDER. DISCUSSED SOME OF CLEARANCE PROTOCOL WITH PT AND . THEN REPORTED PT ON CHRONIC ABX FOR MYCOBACTERIUM AVIUM INFECTION, MAKING CLEARANCE DIFFICULT. PT INDEPENDANT TO BTHRM WITH MULTIPLE O2 EXTENSIONS. SOB WITH ACTIVITY, BUT RECOVERS AT REST. IVF BOLUS INFUSING AT ADMIT. CONTINOUS FLUIDS STARTED PER EMAR. PT ATTEMPTING TO GO TO SLEEP. MAINTENCE WORKING SOCIAL MEDIA DESIGNER LT IN PT'S RM. TO WHEN ADMITTED, BUT WENT HOME NOW. PT DECLINED FURTHER NEEDS AT THIS TIME. WILL MONITOR.
[2018-09-09 06:00] LABS: Adenovirus Not Detected (NOT DETECT); Bordetella pertussis Not Detected (NOT DETECT); Chlamydophila pneumoniae Not Detected (NOT DETECT); Coronavirus 229E Not Detected (NOT DETECT); Coronavirus HKU1 Not Detected (NOT DETECT); Coronavirus NL63 Not Detected (NOT DETECT); Coronavirus OC43 Not Detected (NOT DETECT); Human Metapneumovirus Not Detected (NOT DETECT); Human Rhinovirus/Enterovirus Not Detected (NOT DETECT); Influenza A Not Detected (NOT DETECT); Influenza A/2009-H1 Not Detected (NOT DETECT); Influenza A/H1 Not Detected (NOT DETECT); Influenza A/H3 Not Detected (NOT DETECT); Influenza B Not Detected (NOT DETECT); Mycoplasma pneumoniae Not Detected (NOT DETECT); Parainfluenza Virus 1 Not Detected (NOT DETECT); Parainfluenza Virus 2 Not Detected (NOT DETECT); Parainfluenza Virus 3 Not Detected (NOT DETECT); Parainfluenza Virus 4 Not Detected (NOT DETECT); Respiratory Syncytial Virus Detected (NOT DETECT)
--- NOTE | 2018-09-09 17:16 | NUR ---
SHIFT SUMMARY THE PATIENT PRESENTED THIS SHIFT WITH VITALS WNL, A&O X4 AND WITH INSP. AND EXP. WHEEZE FOR LUNG SOUNDS. THE PATIENT HAS RESTED MOST OF THE SHIFT, AND IS INDEPENTED IN HER ROOM. THE PATIENT HAS CALLED APPROPERITELY. THE PATIENT'S IV INFILTRATED AND WAS REPLACED THIS SHIFT. THE PATIENT WILL MOSTLIKELY GO HOME TOMORROW, WILL CONTINUE TO MONITOR.
--- NOTE | 2018-09-10 04:10 | NUR ---
lATE ENTRY: 09/09/[address] SHEPPARD REGARDING PATIENT HAVING SOME ANXIETY AND PER PATIENT HER PRIMARY PERSCRIBED EFFEXOR XR 75 MG; ALSO PATIENT HAVING SOME SOB AFTER HER COUGHING SPELLS; CALLED RT AND RECEIVED ORDER FOR ROBUTUSSIN' MEDS GIVEN PER EMAR
[2018-09-10 08:44] LABS: Anion Gap 5 mmol/L (6-16); Blood Urea Nitrogen 4 mg/dL (8-24); Bun/Creatinine Ratio 9.4 (12.0-20.0); CO2, Blood 27 mmol/L (21-32); Calcium, Blood 8.6 mg/dL (8.5-10.1); Chloride, Blood 103 mmol/L (98-108); Creatinine, Blood 0.43 mg/dL (0.40-1.00); Glomerular Filtration Rate >60 (60-); Glucose, Blood 103 mg/dL (70-99); Potassium, Blood 4.2 mmol/L (3.5-5.5); Sodium, Blood 135 mmol/L (136-145)
--- NOTE | 2018-09-10 12:49 | NUR ---
DISCHARGE SUMMARY MEDS FAXED TO [facility] REMOVED, PAPERWORK GONE OVER; PT DENIES PAIN, ON 2L OXYGEN. LEAVING BY WC WITH TO HOME
== END 2018-09-10 12:53 | disposition home or self-care (01) | DRG 178 ==
LOC: ER 21:25 → MEDS 09-09 01:10 → ENPENDDIS 09-10 11:00 → MEDS 09-10 12:53
PROVIDERS: Emergency Medicine; Hospitalist; ADMIT Family Medicine
DX: A31.0 Pulmonary mycobacterial infection (principal); E87.1 Hypo-osmolality and hyponatremia; J96.10 Chronic respiratory failure, unspecified whether with hypoxia or hypercapnia; B97.4 Respiratory syncytial virus as the cause of diseases classified elsewhere; J44.9 Chronic obstructive pulmonary disease, unspecified; F32.9 Major depressive disorder, single episode, unspecified; G25.81 Restless legs syndrome; J47.9 Bronchiectasis, uncomplicated; Z99.81 Dependence on supplemental oxygen; E78.5 Hyperlipidemia, unspecified; Z85.3 Personal history of malignant neoplasm of breast; M79.2 Neuralgia and neuritis, unspecified
CPT/HCPCS: 36415; 71046; 80048; 80053; 82947; 84145; 84484; 85025; 87070; 87106; 87205; 87486; 87581; 87633; 87798; 93005; 93010; 94640; 94644; 94760; 96361; 96365; 96366; 96375; 99285-25; J1650; J1956; J2930; J7030

== ENCOUNTER 2018-11-29 21:53 | Inpatient (IN) | payer MEDICARE, OTHER ==
[~2018-11-29] VITALS: Ht 152.4 cm; Wt 55.9 kg
[~2018-11-29 21:53] MED LIST changes: +ALBU3IS INH; +Requip Xl2 MG PO
[2018-11-29 22:18] LABS: BASOPHILS ABSOLUTE AUTO 0.09 K/mm3 (0.00-0.23); BASOPHILS PERCENT AUTO 1 % (0-2); EOSINOPHILS ABSOLUTE AUTO 0.65 K/mm3 (0.00-0.68); EOSINOPHILS PERCENT AUTO 7 % (0-6); Hematocrit 36.9 % (33.0-51.0); Hemoglobin 12.6 g/dL (11.5-16.0); IMMATURE GRAN ABSOLUTE AUTO 0.04 K/mm3 (0.00-0.10); IMMATURE GRAN PERCENT AUTO 0 % (0-1); LYMPHOCYTES ABSOLUTE AUTO 1.54 K/mm3 (0.84-5.20); LYMPHOCYTES PERCENT AUTO 15 % (21-46); MONOCYTES ABSOLUTE AUTO 0.81 K/mm3 (0.16-1.47); MONOCYTES PERCENT AUTO 8 % (4-13); Mean Corpuscular HGB Conc 34.1 g/dL (31.5-36.5); Mean Corpuscular Volume 91 fL (80-100); Mean Platelet Volume 8.7 fL (9.1-12.4); NEUTROPHILS ABSOLUTE AUTO 6.86 K/mm3 (1.96-9.15); NEUTROPHILS PERCENT AUTO 69 % (41-73); Platelet Count 214 K/mm3 (150-400); RDW Coefficient Variation 12.7 % (11.7-14.2); RDW Standard Deviation 42.1 fL (35.1-46.3); Red Blood Cell Count 4.06 M/mm3 (3.80-5.20); White Blood Cell Count 9.99 K/mm3 (4.00-11.30)
[2018-11-29 22:37] LABS: Alanine Aminotransfer (ALT/SGP 25 U/L (12-78); Albumin, Blood 3.7 g/dL (3.4-5.0); Albumin/Globulin Ratio 0.9 (0.8-1.8); Alk Phos 78 U/L (50-136); Anion Gap 5 mmol/L (6-16); Aspartate Aminotrans (AST/SGOT 20 U/L (12-37); Bilirubin, Total 0.4 mg/dL (0.1-1.0); Blood Urea Nitrogen 8 mg/dL (8-24); Bun/Creatinine Ratio 14.2 (12.0-20.0); CO2, Blood 30 mmol/L (21-32); Calcium, Blood 8.9 mg/dL (8.5-10.1); Chloride, Blood 93 mmol/L (98-108); Creatinine, Blood 0.56 mg/dL (0.40-1.00); Globulin, Blood 4.2 g/dL (2.2-4.0); Glomerular Filtration Rate >60 (60-); Glucose, Blood 94 mg/dL (70-99); Sodium, Blood 128 mmol/L (136-145); Total Protein, Blood 7.9 g/dL (6.4-8.2); Troponin I <0.015 ng/mL (0.000-0.040)
[2018-11-30] MEDS ORDERED: Zantac150 MG PO (01:08)
[2018-11-30] MEDS ORDERED: PROBIOTIC1 EAC4 PO (01:09)
[2018-11-30 02:16] LABS: Base Excess Venous 2.3 mmol/L; Bicarbonate Venous 26.3 mmol/L (24.0-30.0); PCO2 Venous 40.4 mmHg (38-42); PO2 Venous 105 mmHg (38-42); pH Blood Venous 7.43 (7.34-7.37)
--- NOTE | 2018-11-30 03:32 | NUR ---
73Y/O PT. ARRIVED FROM ER @0100 INTO ROOM 308 VIA STRETCHER. PT. WAS ACCOMPANIED BY SPOUSE WHO THEN WENT HOME FOR THE NIGHT. DX'S OF SOB, COPD EXACERABTION. A&O X4. STANDBY ASSISTANCE WITH BRP. PT. ON 3L OF 02 NASAL CANNULA SATS @95-97%. PT. RECEIVING IV ABX'S, STEROIDS, AND NEBULIZER TX'S. ON TELEMETRY, SR WITH PAC'S. PT. HAS BEEN RESTING COMFORTABLY T/O THE SHIFT, NO APPARENT DISTRESS NOTED. CALL LIGHT WITHIN REACH AND SIDE RAILS UP X2.
[2018-11-30 11:09] LABS: Hematocrit 36.5 % (33.0-51.0); Hemoglobin 12.3 g/dL (11.5-16.0); Mean Corpuscular HGB 31.1 pg (26.0-34.0); Mean Corpuscular HGB Conc 33.7 g/dL (31.5-36.5); Mean Corpuscular Volume 92 fL (80-100); Mean Platelet Volume 8.7 fL (9.1-12.4); Platelet Count 212 K/mm3 (150-400); RDW Coefficient Variation 12.8 % (11.7-14.2); RDW Standard Deviation 43.8 fL (35.1-46.3); Red Blood Cell Count 3.96 M/mm3 (3.80-5.20); White Blood Cell Count 5.59 K/mm3 (4.00-11.30)
[2018-11-30 11:31] LABS: Alanine Aminotransfer (ALT/SGP 25 U/L (12-78); Albumin, Blood 3.5 g/dL (3.4-5.0); Albumin/Globulin Ratio 0.9 (0.8-1.8); Alk Phos 71 U/L (50-136); Anion Gap 7 mmol/L (6-16); Aspartate Aminotrans (AST/SGOT 12 U/L (12-37); Bilirubin, Total 0.4 mg/dL (0.1-1.0); Blood Urea Nitrogen 6 mg/dL (8-24); Bun/Creatinine Ratio 11.1 (12.0-20.0); CO2, Blood 25 mmol/L (21-32); Calcium, Blood 8.9 mg/dL (8.5-10.1); Chloride, Blood 100 mmol/L (98-108); Creatinine, Blood 0.54 mg/dL (0.40-1.00); Globulin, Blood 4.1 g/dL (2.2-4.0); Glomerular Filtration Rate >60 (60-); Glucose, Blood 130 mg/dL (70-99); Potassium, Blood 4.3 mmol/L (3.5-5.5); Sodium, Blood 132 mmol/L (136-145); Total Protein, Blood 7.6 g/dL (6.4-8.2)
[2018-11-30 11:59] LABS: Adenovirus Not Detected (NOT DETECT); Bordetella pertussis Not Detected (NOT DETECT); Chlamydophila pneumoniae Not Detected (NOT DETECT); Coronavirus 229E Not Detected (NOT DETECT); Coronavirus HKU1 Not Detected (NOT DETECT); Coronavirus NL63 Not Detected (NOT DETECT); Coronavirus OC43 Not Detected (NOT DETECT); Human Metapneumovirus Not Detected (NOT DETECT); Human Rhinovirus/Enterovirus Not Detected (NOT DETECT); Influenza A Not Detected (NOT DETECT); Influenza A/2009-H1 Not Detected (NOT DETECT); Influenza A/H1 Not Detected (NOT DETECT); Influenza A/H3 Not Detected (NOT DETECT); Influenza B Not Detected (NOT DETECT); Mycoplasma pneumoniae Not Detected (NOT DETECT); Parainfluenza Virus 1 Not Detected (NOT DETECT); Parainfluenza Virus 2 Not Detected (NOT DETECT); Parainfluenza Virus 3 Not Detected (NOT DETECT); Parainfluenza Virus 4 Not Detected (NOT DETECT); Respiratory Syncytial Virus Not Detected (NOT DETECT)
[2018-11-30] MEDS ORDERED: AZIT250 PO (12:45)
--- NOTE | 2018-11-30 13:19 | NUR ---
SHIFT SUMMARY PT IS A&O, PLEASANT AND CO-OP. INDEPENDANT IN TO BTHRM. ADMITTED FOR COPD EXAC. C/O DYSPNEA X1 WEEK WITH WHEEZING AND COUGH. HX COPD, SOB, AND HTN. PCR CULTURE OBTAINED AND SENT. SPUTUM CX'S STILL WAITING TO BE OBTAINED PT HASN'T HAD PC TO PRESENT. HOME MEDICATIONS TO BE BROUGHT IN BY PT'S . DR GOLD NOTIFIED FOR DAILY PO AZITHROMYCIN. DR CARMONA PUT IN ORDER. PT REPORTED THAT SHE IS FEELING MUCH BETTER. DENIED FURTHER NEEDS. CALL LT IN REACH.
[2018-12-01 05:04] LABS: Hemoglobin 11.9 g/dL (11.5-16.0); Mean Corpuscular HGB 30.6 pg (26.0-34.0); Mean Corpuscular HGB Conc 33.1 g/dL (31.5-36.5); Mean Corpuscular Volume 93 fL (80-100); Mean Platelet Volume 8.9 fL (9.1-12.4); Platelet Count 213 K/mm3 (150-400); RDW Coefficient Variation 12.8 % (11.7-14.2); RDW Standard Deviation 43.4 fL (35.1-46.3); Red Blood Cell Count 3.89 M/mm3 (3.80-5.20); White Blood Cell Count 6.37 K/mm3 (4.00-11.30)
--- NOTE | 2018-12-01 05:29 | NUR ---
SHIFT SUMMARY NO ACUTE CHANGES THIS SHIFT. AOX4. VSS. DENIES PAIN OR N/V. REPORTS DYSPNEA W/EXERTION ONLY & DENIES ANY @REST. SPO2 >90% ON 2L NC, LUNGS HAVE EXPIRATORY WHEEZES HEARD T/O, REPORTS BREATHING "FEELS BETTER TODAY" DENIES ANY MUCUS PRODUCTION W/COUGH-STILL UNABLE TO COLLECT SPUTUM SAMPLE. ON TELE W/NSR & HR 81 PER PCU INSURANCE ACCOUNT SPECIALIST. INDEPENDENT IN ROOM & CALL LIGHT IN REACH.
[2018-12-01 05:47] LABS: Anion Gap 6 mmol/L (6-16); Blood Urea Nitrogen 8 mg/dL (8-24); Bun/Creatinine Ratio 16.4 (12.0-20.0); CO2, Blood 26 mmol/L (21-32); Calcium, Blood 8.9 mg/dL (8.5-10.1); Chloride, Blood 101 mmol/L (98-108); Creatinine, Blood 0.49 mg/dL (0.40-1.00); Glomerular Filtration Rate >60 (60-); Glucose, Blood 112 mg/dL (70-99); Potassium, Blood 4.5 mmol/L (3.5-5.5); Sodium, Blood 133 mmol/L (136-145)
--- NOTE | 2018-12-01 15:00 | NUR ---
LATE ENTRY-MUCOLYTIC REQUEST PT REQUESTING MUCOLYTIC. DR. GOLD CALLED & INFORMED. DR. GOLD STATED HE WOULD PLACE ORDER.
--- NOTE | 2018-12-01 17:00 | NUR ---
SHIFT SUMMARY NO CHANGES IN ASSESSMENT AT THIS TIME. VSS. PT STABLE & IND IN ROOM. DENIES NEEDS AT THIS TIME. PT CONTINUES TO USE 2L O2 VIA NC. HUMIDIFIER ADDED FOR COMFORT. WILL CONTINUE TO MONITOR UNTIL TURNOVER IS COMPLETE.
--- NOTE | 2018-12-02 05:14 | NUR ---
SHIFT SUMMARY NO ACUTE CHANGES THIS SHIFT. AOX4. VSS. DENIES PAIN OR NAUSEA. REPORTS DYSPNEA AFTER AMBULATION TO RESTROOM, SPO2 >95% ON 2L NC, EXPIRATORY WHEEZES HEARD T/O LUNGS. INDEPENDENT IN ROOM. CALL LIGHT IN REACH & I WILL CONTINUE TO MONITOR.
[2018-12-02 06:01] LABS: Anion Gap 6 mmol/L (6-16); Blood Urea Nitrogen 12 mg/dL (8-24); Bun/Creatinine Ratio 20.5 (12.0-20.0); CO2, Blood 27 mmol/L (21-32); Calcium, Blood 8.8 mg/dL (8.5-10.1); Chloride, Blood 98 mmol/L (98-108); Creatinine, Blood 0.58 mg/dL (0.40-1.00); Glomerular Filtration Rate >60 (60-); Glucose, Blood 102 mg/dL (70-99); Potassium, Blood 4.1 mmol/L (3.5-5.5); Sodium, Blood 131 mmol/L (136-145)
--- NOTE | 2018-12-02 16:42 | NUR ---
SHIFT SUMMARY NO CHANGES IN ASSESSMENT AT THIS TIME. VSS. PT DENIES NEEDS AT THIS TIME. PT WHEEZY THROUGHOUT. SATING IN THE 90S ON 2L VIA NC. WILL CONTINUE TO MONITOR UNTIL TURNOVER IS COMPLETE.
--- NOTE | 2018-12-03 04:08 | NUR ---
SHIFT SUMMARY NO ACUTE EVENTS OVERNIGHT. PATIENT AMBULATING SELF IN ROOM WITHOUT O2 REQUIREMENT. ALERT AND ORIENTED. VSS. BILATERAL EXPIRATORY WHEEZES ON EXAM. PATIENT RESTING COMFORTABLY IN BED THROUGH OUT CAFETERIA MANAGER. VERY PLEASANT.
--- NOTE | 2018-12-03 18:38 | NUR ---
SHIFT SUMMARY BREATHING MUCH IMPROVED, NO OXYGEN USED TODAY. PATIENT HOPEFUL TO DISCHARGE TOMORROW. NO ACUTE CHANGES NOTED.
--- NOTE | 2018-12-04 04:11 | NUR ---
SHIFT SUMMARY NO ACUTE EVENTS OVERNIGHT. PATIENT ALERT AND ORIENTED. AMBULATING IN ROOM BY SELF.
[2018-12-04] MEDS ORDERED: PRED20 PO (09:04)
[2018-12-04] MEDS ORDERED: GUAI600T33 PO (09:06)
--- NOTE | 2018-12-04 09:18 | NUR ---
discharge note DISCHARGE EDUCATION GIVEN TO PATIENT. PATIENT TO FOLLOW UP WITH DR. QUEEN TOMORROW. STATES SHE HAS [address] APPOINTMENTS COMING UP WELL. PATIENT TAKING OWN RESPIRTORY CARE ITEMS HOME WITH HER. TO KITCHEN PORTER PATIENT. IV REMOVED. PATIENT CURRENTLY PUTTING TOGETHER PERSONAL BELONGINGS.
== END 2018-12-04 09:43 | disposition home or self-care (01) | DRG 189 ==
LOC: ER 21:53 → MEDS 23:52 → ENPENDDIS 12-04 08:30 → MEDS 12-04 09:43
PROVIDERS: Emergency Medicine; Internal Medicine; ADMIT Internal Medicine
DX: J96.21 Acute and chronic respiratory failure with hypoxia (principal); A31.0 Pulmonary mycobacterial infection; J44.1 Chronic obstructive pulmonary disease with (acute) exacerbation; E87.1 Hypo-osmolality and hyponatremia; I10 Essential (primary) hypertension; J98.01 Acute bronchospasm; E78.5 Hyperlipidemia, unspecified; F32.9 Major depressive disorder, single episode, unspecified; G25.81 Restless legs syndrome; Z79.52 Long term (current) use of systemic steroids; Z79.899 Other long term (current) drug therapy; Z87.891 Personal history of nicotine dependence; Z85.3 Personal history of malignant neoplasm of breast
CPT/HCPCS: 36415; 71046; 80048; 80053; 82803; 83880; 84145; 84484; 85025; 85027; 87070; 87102; 87106; 87205; 87486; 87581; 87633; 87798; 93005; 93010; 94640; 94644; 94760; 96374; 96375; 99285-25; J1650; J1956; J2930; J7030; J7512; J7605

== ENCOUNTER → 2019-03-10 | Outpatient (CLI) | payer MEDICARE, OTHER ==
[~2019-03-10] MED LIST changes: +PROBIOTIC1 EAC4 PO; +Zantac150 MG PO
== END | disposition home or self-care (01) ==
LOC: LAB SHORT 15:50 → OLS 15:50
DX: J47.9 Bronchiectasis, uncomplicated (principal)
CPT/HCPCS: 87070; 87077; 87106; 87186; 87205

== ENCOUNTER → 2019-03-20 | Outpatient (CLI) | payer MEDICARE, OTHER ==
[~2019-03-20] MED LIST changes: +CAND4 PO; +TRAZ50 PO
== END | disposition home or self-care (01) ==
LOC: LAB SHORT 16:11 → OLS 16:11 → LAB FUT 12-07 11:05 → EDSTATUS 12-07 11:05
DX: A31.0 Pulmonary mycobacterial infection (principal)
CPT/HCPCS: 87015; 87116; 87206

== ENCOUNTER 2019-04-08 21:50 | Emergency (ER) | payer MEDICARE, OTHER ==
[~2019-04-08] VITALS: Ht 152.4 cm; Wt 58.1 kg
== END 2019-04-08 22:46 | disposition left against medical advice (07) ==
LOC: ER 21:50
DX: Z53.21 Procedure and treatment not carried out due to patient leaving prior to being seen by health care provider (principal)

== ENCOUNTER → 2019-05-02 | Outpatient (CLI) | payer MEDICARE, OTHER | END | disposition home or self-care (01) | LOC: LAB SHORT 06:00 → LAB 06:00 | DX: J47.1 Bronchiectasis with (acute) exacerbation (principal) | CPT/HCPCS: 87070; 87077; 87186; 87205 ==

== ENCOUNTER → 2019-06-29 | Outpatient (CLI) | payer MEDICARE, OTHER ==
[~2019-06-29] MED LIST changes: +ACETYLCYSTEINE; +Levaquin750 MG PO; +Norco 5-325 Ta1 EACH PO
== END | disposition home or self-care (01) ==
LOC: LAB 15:00 → LAB SHORT 15:00 → LAB FUT 07-01 12:15
DX: A31.0 Pulmonary mycobacterial infection (principal); J47.1 Bronchiectasis with (acute) exacerbation
CPT/HCPCS: 87070; 87077; 87186; 87205

== ENCOUNTER 2019-07-03 21:44 | Emergency (ER) | payer MEDICARE, OTHER ==
[~2019-07-03] VITALS: Ht 152.4 cm; Wt 61.3 kg
[~2019-07-03 21:44] MED LIST changes: -ACETYLCYSTEINE; -Levaquin750 MG PO; -Norco 5-325 Ta1 EACH PO
[2019-07-03 22:44] LABS: BASOPHILS ABSOLUTE AUTO 0.06 K/mm3 (0.00-0.23); BASOPHILS PERCENT AUTO 1 % (0-2); EOSINOPHILS ABSOLUTE AUTO 0.39 K/mm3 (0.00-0.68); EOSINOPHILS PERCENT AUTO 5 % (0-6); Hematocrit 37.1 % (33.0-51.0); Hemoglobin 12.8 g/dL (11.5-16.0); IMMATURE GRAN ABSOLUTE AUTO 0.03 K/mm3 (0.00-0.10); IMMATURE GRAN PERCENT AUTO 0 % (0-1); LYMPHOCYTES ABSOLUTE AUTO 1.52 K/mm3 (0.84-5.20); LYMPHOCYTES PERCENT AUTO 19 % (21-46); MONOCYTES ABSOLUTE AUTO 0.73 K/mm3 (0.16-1.47); MONOCYTES PERCENT AUTO 9 % (4-13); Mean Corpuscular HGB 31.1 pg (26.0-34.0); Mean Corpuscular HGB Conc 34.5 g/dL (31.5-36.5); Mean Corpuscular Volume 90 fL (80-100); Mean Platelet Volume 8.7 fL (9.1-12.4); NEUTROPHILS PERCENT AUTO 67 % (41-73); Platelet Count 222 K/mm3 (150-400); RDW Coefficient Variation 12.8 % (11.7-14.2); RDW Standard Deviation 41.9 fL (35.1-46.3); Red Blood Cell Count 4.12 M/mm3 (3.80-5.20); White Blood Cell Count 8.23 K/mm3 (4.00-11.30)
[2019-07-03 23:04] LABS: Alanine Aminotransfer (ALT/SGP 26 U/L (12-78); Albumin, Blood 3.8 g/dL (3.4-5.0); Albumin/Globulin Ratio 0.9 (0.8-1.8); Alk Phos 83 U/L (50-136); Anion Gap 11 mmol/L (6-16); Aspartate Aminotrans (AST/SGOT 16 U/L (12-37); Bilirubin, Total 0.3 mg/dL (0.1-1.0); Blood Urea Nitrogen 8 mg/dL (8-24); Bun/Creatinine Ratio 15.7 (12.0-20.0); CO2, Blood 25 mmol/L (21-32); Chloride, Blood 96 mmol/L (98-108); Creatinine, Blood 0.51 mg/dL (0.40-1.00); Globulin, Blood 4.1 g/dL (2.2-4.0); Glomerular Filtration Rate >60 (60-); Glucose, Blood 99 mg/dL (70-99); Potassium, Blood 3.7 mmol/L (3.5-5.5); Sodium, Blood 132 mmol/L (136-145); Total Protein, Blood 7.9 g/dL (6.4-8.2); Troponin I <0.015 ng/mL (0.000-0.040)
[2019-07-04] MEDS ORDERED: GABA300 PO (00:39)
[2019-07-04] MEDS ORDERED: ACETYLCYSTEINE (00:42)
[2019-07-04] MEDS ORDERED: Levaquin750 MG PO (00:59)
[2019-07-04] MEDS ORDERED: Norco 5-325 Ta1 EACH PO (00:59)
== END 2019-07-04 03:37 | disposition home or self-care (01) ==
LOC: ER 21:44
PROVIDERS: Emergency Medicine
DX: J47.9 Bronchiectasis, uncomplicated (principal); Z79.899 Other long term (current) drug therapy; Z79.51 Long term (current) use of inhaled steroids; Z79.52 Long term (current) use of systemic steroids; Z87.891 Personal history of nicotine dependence
CPT/HCPCS: 36415; 71046; 71260; 80053; 84484; 85025; 93005; 93010; 94640; 94644; 96365; 96375; 99284-25; A9270-GY; J1956; J2930; Q9967

== ENCOUNTER 2019-10-12 23:10 | Emergency (ER) | payer MEDICARE, OTHER ==
[~2019-10-12] VITALS: Ht 152.4 cm; Wt 56.7 kg
[2019-10-13 00:37] LABS: Source, Urine Clean Catch
[2019-10-13 00:40] LABS: Bilirubin, Urine Neg (Neg); Blood, Urine Neg (Neg); Glucose Qualitative, Urine Neg (Neg); Ketones, Urine Neg (Neg); Leukocyte Esterase, Urine Neg (Neg); Nitrite, Urine Neg (Neg); Protein, Urine Neg (Neg); Urobilinogen, Urine NORM (Normal)
[2019-10-13 00:50] LABS: Appearance, Urine Clear (Clear); Color, Urine Yellow (P-Yellow)
[2019-10-13 01:02] LABS: BASOPHILS ABSOLUTE AUTO 0.04 K/mm3 (0.00-0.23); BASOPHILS PERCENT AUTO 0 % (0-2); EOSINOPHILS ABSOLUTE AUTO 0.19 K/mm3 (0.00-0.68); EOSINOPHILS PERCENT AUTO 2 % (0-6); Hemoglobin 12.8 g/dL (11.5-16.0); IMMATURE GRAN ABSOLUTE AUTO 0.08 K/mm3 (0.00-0.10); IMMATURE GRAN PERCENT AUTO 1 % (0-1); LYMPHOCYTES ABSOLUTE AUTO 1.48 K/mm3 (0.84-5.20); LYMPHOCYTES PERCENT AUTO 15 % (21-46); MONOCYTES ABSOLUTE AUTO 0.68 K/mm3 (0.16-1.47); MONOCYTES PERCENT AUTO 7 % (4-13); Mean Corpuscular HGB 31.3 pg (26.0-34.0); Mean Corpuscular HGB Conc 34.6 g/dL (31.5-36.5); Mean Corpuscular Volume 91 fL (80-100); NEUTROPHILS ABSOLUTE AUTO 7.17 K/mm3 (1.96-9.15); NEUTROPHILS PERCENT AUTO 74 % (41-73); RDW Coefficient Variation 12.8 % (11.7-14.2); RDW Standard Deviation 42.2 fL (35.1-46.3); Red Blood Cell Count 4.09 M/mm3 (3.80-5.20); White Blood Cell Count 9.64 K/mm3 (4.00-11.30)
[2019-10-13 01:11] LABS: Alanine Aminotransfer (ALT/SGP 27 U/L (12-78); Albumin, Blood 3.2 g/dL (3.4-5.0); Albumin/Globulin Ratio 0.7 (0.8-1.8); Alk Phos 79 U/L (50-136); Anion Gap 6 mmol/L (6-16); Aspartate Aminotrans (AST/SGOT 21 U/L (12-37); Bilirubin, Total 0.5 mg/dL (0.1-1.0); Blood Urea Nitrogen 10 mg/dL (8-24); Bun/Creatinine Ratio 18.2 (12.0-20.0); CO2, Blood 28 mmol/L (21-32); Calcium, Blood 8.9 mg/dL (8.5-10.1); Chloride, Blood 94 mmol/L (98-108); Creatinine, Blood 0.55 mg/dL (0.40-1.00); Globulin, Blood 4.8 g/dL (2.2-4.0); Glomerular Filtration Rate >60 (60-); Glucose, Blood 103 mg/dL (70-99); Sodium, Blood 128 mmol/L (136-145)
== END 2019-10-13 04:17 | disposition home or self-care (01) ==
LOC: ER 23:10
PROVIDERS: Emergency Medicine
DX: R10.9 Unspecified abdominal pain (principal); Z79.899 Other long term (current) drug therapy; Z87.891 Personal history of nicotine dependence
CPT/HCPCS: 36415; 71045; 74176; 80053; 81003; 84484; 85025; 93005; 93010; 99284-25

== ENCOUNTER → 2019-10-12 | Outpatient (CLI) | payer MEDICARE, OTHER ==
[~2019-10-12] MED LIST changes: +ACETYLCYSTEINE; +Levaquin750 MG PO; +Norco 5-325 Ta1 EACH PO
== END | disposition home or self-care (01) ==
LOC: LAB 08:30 → LAB SHORT 08:30
DX: J47.1 Bronchiectasis with (acute) exacerbation (principal)
CPT/HCPCS: 87070; 87077; 87106; 87186; 87205

== ENCOUNTER 2019-11-20 15:15 | Emergency (ER) | payer MEDICARE, OTHER ==
[~2019-11-20] VITALS: Ht 152.4 cm; Wt 56.7 kg
[2019-11-20 15:57] LABS: BASOPHILS ABSOLUTE AUTO 0.07 K/mm3 (0.00-0.23); BASOPHILS PERCENT AUTO 1 % (0-2); EOSINOPHILS ABSOLUTE AUTO 0.09 K/mm3 (0.00-0.68); EOSINOPHILS PERCENT AUTO 1 % (0-6); Hematocrit 36.8 % (33.0-51.0); Hemoglobin 12.2 g/dL (11.5-16.0); IMMATURE GRAN ABSOLUTE AUTO 0.03 K/mm3 (0.00-0.10); IMMATURE GRAN PERCENT AUTO 0 % (0-1); LYMPHOCYTES ABSOLUTE AUTO 0.79 K/mm3 (0.84-5.20); LYMPHOCYTES PERCENT AUTO 8 % (21-46); MONOCYTES ABSOLUTE AUTO 0.47 K/mm3 (0.16-1.47); MONOCYTES PERCENT AUTO 5 % (4-13); Mean Corpuscular HGB 30.3 pg (26.0-34.0); Mean Corpuscular HGB Conc 33.2 g/dL (31.5-36.5); Mean Corpuscular Volume 92 fL (80-100); Mean Platelet Volume 8.4 fL (9.1-12.4); NEUTROPHILS ABSOLUTE AUTO 8.16 K/mm3 (1.96-9.15); NEUTROPHILS PERCENT AUTO 85 % (41-73); Platelet Count 223 K/mm3 (150-400); RDW Coefficient Variation 13.2 % (11.7-14.2); RDW Standard Deviation 44.8 fL (35.1-46.3); Red Blood Cell Count 4.02 M/mm3 (3.80-5.20); White Blood Cell Count 9.61 K/mm3 (4.00-11.30)
[2019-11-20 16:03] LABS: Source, Urine Clean Catch
[2019-11-20 16:21] LABS: Troponin I <0.015 ng/mL (0.000-0.040)
[2019-11-20 16:28] LABS: Alanine Aminotransfer (ALT/SGP 24 U/L (12-78); Albumin, Blood 3.7 g/dL (3.4-5.0); Alk Phos 54 U/L (50-136); Anion Gap 7 mmol/L (6-16); Aspartate Aminotrans (AST/SGOT 19 U/L (12-37); Bilirubin, Total 0.3 mg/dL (0.1-1.0); Blood Urea Nitrogen 10 mg/dL (8-24); Bun/Creatinine Ratio 18.9 (12.0-20.0); CO2, Blood 23 mmol/L (21-32); Calcium, Blood 8.6 mg/dL (8.5-10.1); Chloride, Blood 99 mmol/L (98-108); Creatinine, Blood 0.53 mg/dL (0.40-1.00); Globulin, Blood 3.8 g/dL (2.2-4.0); Glomerular Filtration Rate >60 (60-); Glucose, Blood 121 mg/dL (70-99); Potassium, Blood 4.3 mmol/L (3.5-5.5); Sodium, Blood 129 mmol/L (136-145); Total Protein, Blood 7.5 g/dL (6.4-8.2)
[2019-11-20 16:29] LABS: Appearance, Urine Clear (Clear); Bilirubin, Urine Neg (Neg); Blood, Urine Neg (Neg); Color, Urine Yellow (P-Yellow); Glucose Qualitative, Urine Neg (Neg); Ketones, Urine Neg (Neg); Leukocyte Esterase, Urine Neg (Neg); Nitrite, Urine Neg (Neg); Protein, Urine Neg (Neg); Specific Gravity, Urine 1.015 (1.003-1.022); Urobilinogen, Urine NORM (Normal); pH, Urine 5.5 (5.0-8.0)
[2019-11-20] MEDS ORDERED: Vibramycin100 MG PO (17:57)
== END 2019-11-20 18:15 | disposition home or self-care (01) ==
LOC: ER 15:15
PROVIDERS: Physician Assistant
DX: J47.9 Bronchiectasis, uncomplicated (principal); R39.15 Urgency of urination; E87.1 Hypo-osmolality and hyponatremia; Z79.899 Other long term (current) drug therapy; Z79.52 Long term (current) use of systemic steroids; I10 Essential (primary) hypertension; F32.9 Major depressive disorder, single episode, unspecified; E78.5 Hyperlipidemia, unspecified; G25.81 Restless legs syndrome; Z85.3 Personal history of malignant neoplasm of breast
CPT/HCPCS: 36415; 71046; 80053; 81003; 83880; 84484; 85025; 93005; 93010; 94640; 99285-25

== ENCOUNTER 2020-02-21 09:01 | Inpatient (IN) | payer MEDICARE, OTHER ==
[~2020-02-21] VITALS: Ht 149.9 cm; Wt 57.6 kg
[~2020-02-21 09:01] MED LIST changes: -ALBU8HFA2 INH; -ALPR.25 PO; -CAND4; -CLIMARA1 EACH TOP; -Diflucan150 MG PO; -FLUT.05NI; -LACTOBACILLUS1 EAC4 PO; -LOSA50 PO; -MERREM IV; -NYSTRIT TOP; -ONDA4 PO; -PERIDEX15 ML MM; -PROBIOTIC PO; -STIOLTO RESPIMAT4 G1 INH; -Sodium Chloride15 M1 INH; -TOBRAMYCIN300 MG/52 INH
[2020-02-21] MEDS ORDERED: ALPR.25 PO (09:31)
[2020-02-21] MEDS ORDERED: AZIT250 PO (09:32)
[2020-02-21] MEDS ORDERED: CYAN500 PO (09:32)
[2020-02-21] MEDS ORDERED: CAND4 (09:33)
[2020-02-21] MEDS ORDERED: CLIMARA1 EACH TOP (09:35)
[2020-02-21] MEDS ORDERED: PERIDEX15 ML MM (09:35)
[2020-02-21] MEDS ORDERED: ETHA400 PO (09:37)
[2020-02-21] MEDS ORDERED: Diflucan150 MG PO (09:38)
[2020-02-21] MEDS ORDERED: FLUT.05NI (09:38)
[2020-02-21] MEDS ORDERED: FOLI1 PO (09:38)
[2020-02-21] MEDS ORDERED: METO25ER PO ×2 (09:39)
[2020-02-21] MEDS ORDERED: LOSA50 PO (09:39)
[2020-02-21] MEDS ORDERED: NYSTRIT TOP (09:40)
[2020-02-21] MEDS ORDERED: ONDA4 PO (09:40)
[2020-02-21] MEDS ORDERED: FAMO20 PO (09:41)
[2020-02-21] MEDS ORDERED: PROBIOTIC PO (09:42)
[2020-02-21 09:44] LABS: BASOPHILS ABSOLUTE AUTO 0.06 K/mm3 (0.00-0.23); BASOPHILS PERCENT AUTO 1 % (0-2); EOSINOPHILS ABSOLUTE AUTO 0.27 K/mm3 (0.00-0.68); EOSINOPHILS PERCENT AUTO 2 % (0-6); Hemoglobin 12.3 g/dL (11.5-16.0); IMMATURE GRAN ABSOLUTE AUTO 0.05 K/mm3 (0.00-0.10); IMMATURE GRAN PERCENT AUTO 0 % (0-1); LYMPHOCYTES ABSOLUTE AUTO 0.52 K/mm3 (0.84-5.20); LYMPHOCYTES PERCENT AUTO 4 % (21-46); MONOCYTES ABSOLUTE AUTO 0.33 K/mm3 (0.16-1.47); MONOCYTES PERCENT AUTO 3 % (4-13); Mean Corpuscular HGB 30.4 pg (26.0-34.0); Mean Corpuscular HGB Conc 34.2 g/dL (31.5-36.5); Mean Corpuscular Volume 89 fL (80-100); Mean Platelet Volume 8.5 fL (9.1-12.4); NEUTROPHILS ABSOLUTE AUTO 10.89 K/mm3 (1.96-9.15); NEUTROPHILS PERCENT AUTO 90 % (41-73); Platelet Count 266 K/mm3 (150-400); RDW Coefficient Variation 13.1 % (11.7-14.2); RDW Standard Deviation 42.8 fL (35.1-46.3); Red Blood Cell Count 4.04 M/mm3 (3.80-5.20); White Blood Cell Count 12.12 K/mm3 (4.00-11.30)
[2020-02-21] MEDS ORDERED: TOBRAMYCIN300 MG/52 INH (09:44)
[2020-02-21] MEDS ORDERED: STIOLTO RESPIMAT4 G1 INH (09:44)
[2020-02-21] MEDS ORDERED: ALBU8HFA2 INH (09:45)
[2020-02-21 09:50] LABS: Alanine Aminotransfer (ALT/SGP 23 U/L (12-78); Albumin, Blood 3.6 g/dL (3.4-5.0); Albumin/Globulin Ratio 0.9 (0.8-1.8); Alk Phos 65 U/L (50-136); Anion Gap 5 mmol/L (6-16); Aspartate Aminotrans (AST/SGOT 21 U/L (12-37); Bilirubin, Total 0.7 mg/dL (0.1-1.0); Blood Urea Nitrogen 7 mg/dL (8-24); Bun/Creatinine Ratio 14.3 (12.0-20.0); CO2, Blood 26 mmol/L (21-32); Calcium, Blood 8.9 mg/dL (8.5-10.1); Chloride, Blood 96 mmol/L (98-108); Creatinine, Blood 0.49 mg/dL (0.40-1.00); Globulin, Blood 4.2 g/dL (2.2-4.0); Glomerular Filtration Rate >60 (60-); Glucose, Blood 112 mg/dL (70-99); Potassium, Blood 4.4 mmol/L (3.5-5.5); Sodium, Blood 127 mmol/L (136-145); Total Protein, Blood 7.8 g/dL (6.4-8.2)
[2020-02-21] MEDS ORDERED: Sodium Chloride15 M1 INH (16:37)
--- NOTE | 2020-02-21 19:03 | NUR ---
MEDICATIONS THIS RN TALKED WITH DR. BANKS AND LET HIM KNOW THAT PT'S MEDICATIONS WEREN'T ACCURATE AND IF HE COULD LOOK AT THEM OR THIS RN COULD CHANGE THEM. THIS RN LET DR. BANKS KNOW THE METOPROLOL WAS A HIGHER DOSE THAN PT TAKES. DR. BANKS DID NOT WANT MEDICATIONS CHANGED AND THAT THE DAY SHIFT DOCTOR COULD LOOK THEM OVER TOMORROW. THIS RN LET THE NOC RN KNOW THAT PT REPORTS MEDICATIONS ARE NOT RIGHT DOSING THAT ARE LISTED.
--- NOTE | 2020-02-21 19:06 | NUR ---
SHIFT SUMMARY PT IS A NEW ADMISSION THIS AFTERNOON. PT HAS HAD NO COMPLAINTS. IVF INFUSING WITHOUT DIFFICULTY. OXYGEN AT 2 LITER VIA NC. PT RECEIVED BREATHING TREATMENT. INDEPENDENT IN ROOM. SPOUSE AT BEDSIDE. CALL LIGHT IN REACH. REPORT GIVEN TO MONI MIRELES.
--- NOTE | 2020-02-22 04:36 | NUR ---
SHIFT SUMMARY PT HAS HAD NO ACUTE CHANGES THIS SHIFT, NO C/O ANY KIND, SLEPT T/O THE NIGHT, CALL LIGHT IN REACH, WILL CONT TO MONITOR UNTIL REPORT GIVEN TO DAY RN.
[2020-02-22 05:38] LABS: BASOPHILS ABSOLUTE AUTO 0.05 K/mm3 (0.00-0.23); BASOPHILS PERCENT AUTO 1 % (0-2); EOSINOPHILS ABSOLUTE AUTO 0.47 K/mm3 (0.00-0.68); EOSINOPHILS PERCENT AUTO 6 % (0-6); Hematocrit 34.9 % (33.0-51.0); Hemoglobin 11.3 g/dL (11.5-16.0); IMMATURE GRAN ABSOLUTE AUTO 0.03 K/mm3 (0.00-0.10); IMMATURE GRAN PERCENT AUTO 0 % (0-1); LYMPHOCYTES ABSOLUTE AUTO 1.19 K/mm3 (0.84-5.20); LYMPHOCYTES PERCENT AUTO 15 % (21-46); MONOCYTES ABSOLUTE AUTO 0.67 K/mm3 (0.16-1.47); MONOCYTES PERCENT AUTO 8 % (4-13); Mean Corpuscular HGB 29.8 pg (26.0-34.0); Mean Corpuscular HGB Conc 32.4 g/dL (31.5-36.5); Mean Corpuscular Volume 92 fL (80-100); Mean Platelet Volume 8.4 fL (9.1-12.4); NEUTROPHILS ABSOLUTE AUTO 5.69 K/mm3 (1.96-9.15); NEUTROPHILS PERCENT AUTO 70 % (41-73); Platelet Count 231 K/mm3 (150-400); RDW Coefficient Variation 13.2 % (11.7-14.2); Red Blood Cell Count 3.79 M/mm3 (3.80-5.20)
[2020-02-22 05:57] LABS: Anion Gap 5 mmol/L (6-16); Blood Urea Nitrogen 6 mg/dL (8-24); Bun/Creatinine Ratio 11.1 (12.0-20.0); CO2, Blood 28 mmol/L (21-32); Calcium, Blood 8.6 mg/dL (8.5-10.1); Chloride, Blood 104 mmol/L (98-108); Creatinine, Blood 0.54 mg/dL (0.40-1.00); Glomerular Filtration Rate >60 (60-); Glucose, Blood 97 mg/dL (70-99)
[2020-02-22 05:58] LABS: Sodium, Blood 137 mmol/L (136-145)
--- NOTE | 2020-02-22 18:49 | NUR ---
SHIFT SUMMARY PT IS AOX4. PT HAD A PICC PLACED THIS BRITTNI. PLAN IS TO DC TOMORROW WITH ABX. PT HAS SOB, COUGH INTERMITTENTLY. DR. GEORGE SAW THE PT TODAY FOR CONSULT. PT WORKED WITH PT TODAY WELL. PT DENIES PAIN. PT IS IN BED, LOW POSITION, CALL LIGHT IN REACH.
--- NOTE | 2020-02-23 04:23 | NUR ---
SHIFT SUMMARY PT HAS HAD NO ACUTE CHANGES THIS SHIFT, MEDICATED FOR ANXIETY X1, REPORTS SOB GOING TO BR- COMMODE PLACED AT BEDSIDE, PT STATES SHE WILL CALL IF NEEDING ASSISTANCE, PT SLEPT T/O THE NIGHT AND IS BEDRESTING AT THIS TIME, CALL LIGHT IN REACH, WILL CONT TO MONITOR UNTIL REPORT GIVEN TO DAY RN.
[2020-02-23 05:27] LABS: BASOPHILS ABSOLUTE AUTO 0.07 K/mm3 (0.00-0.23); BASOPHILS PERCENT AUTO 1 % (0-2); EOSINOPHILS ABSOLUTE AUTO 0.45 K/mm3 (0.00-0.68); EOSINOPHILS PERCENT AUTO 4 % (0-6); Hemoglobin 11.8 g/dL (11.5-16.0); IMMATURE GRAN ABSOLUTE AUTO 0.04 K/mm3 (0.00-0.10); IMMATURE GRAN PERCENT AUTO 0 % (0-1); LYMPHOCYTES ABSOLUTE AUTO 1.11 K/mm3 (0.84-5.20); LYMPHOCYTES PERCENT AUTO 11 % (21-46); MONOCYTES ABSOLUTE AUTO 0.81 K/mm3 (0.16-1.47); MONOCYTES PERCENT AUTO 8 % (4-13); Mean Corpuscular HGB Conc 32.8 g/dL (31.5-36.5); Mean Corpuscular Volume 92 fL (80-100); Mean Platelet Volume 8.4 fL (9.1-12.4); NEUTROPHILS ABSOLUTE AUTO 8.05 K/mm3 (1.96-9.15); NEUTROPHILS PERCENT AUTO 76 % (41-73); Platelet Count 241 K/mm3 (150-400); RDW Coefficient Variation 13.2 % (11.7-14.2); RDW Standard Deviation 44.2 fL (35.1-46.3); Red Blood Cell Count 3.93 M/mm3 (3.80-5.20); White Blood Cell Count 10.53 K/mm3 (4.00-11.30)
[2020-02-23 05:56] LABS: Anion Gap 5 mmol/L (6-16); Blood Urea Nitrogen 6 mg/dL (8-24); Bun/Creatinine Ratio 11.3 (12.0-20.0); CO2, Blood 29 mmol/L (21-32); Calcium, Blood 8.8 mg/dL (8.5-10.1); Chloride, Blood 98 mmol/L (98-108); Creatinine, Blood 0.53 mg/dL (0.40-1.00); Glomerular Filtration Rate >60 (60-); Glucose, Blood 103 mg/dL (70-99); Potassium, Blood 3.8 mmol/L (3.5-5.5); Sodium, Blood 132 mmol/L (136-145)
--- NOTE | 2020-02-23 17:45 | NUR ---
SHIFT SUMMARY PATIENT IS ALERT AND ORIENTED INDEPENDENT IN THE ROOM. DENIES ANY PAIN AT THIS TIME. IS STILL HAVING OCCASIONAL SHORTNESS OF BREATH, NO NEW SYMPTOMS. REPORTS SHE IS FEELING MUCH BETTER THIS EVENING. SHE HAS A SPUTUM SAMPLE TURNED IN. AWAITING RESULTS. AT THIS TIME NO ACUTE CONCERNS.
--- NOTE | 2020-02-23 19:05 | NUR ---
ASSUMED CARE RECEIVED REPORT FROM ALINE CLIFTON. ASSUMED CARE OF PT. SITTING UP IN CHAIR AT THIS TIME, NO S/S ACUTE DISTRESS NOTED, RESPS EVEN AND UNLABORED. AT THE BEDSIDE. EXPLAINED PLAN OF CARE TO PT, ALLOWED FOR QUESTIONS. PT DENIES NEEDS AT THIS TIME. CALL LIGHT, POSSESSIONS IN REACH. WILL CONTINUE TO MONITOR AND PROVIDE CARE NEEDED T/O NIGHT.
--- NOTE | 2020-02-24 03:58 | NUR ---
SHIFT SUMMARY PT HAS HAD AN UNEVENTFUL NIGHT, INDEPENDENT IN ROOM. NO C/O SOB, DYSPNEA. PT ASLEEP T/O MUCH OF NIGHT, CALLED APPROPRIATELY TO MAKE NEEDS KNOWN. VSS. AM LABS PENDING AT THIS TIME, WILL MONITOR FOR RESULTS. PT ASLEEP AT THIS TIME, RESP EVEN AND UNLABORED. CALL LIGHT, POSSESSIONS IN REACH. WILL CONTINUE TO MONITOR AND PROVIDE CARE NEEDED UNTIL DAY RN ASSUMES CARE.
[2020-02-24 05:57] LABS: Anion Gap 3 mmol/L (6-16); Blood Urea Nitrogen 6 mg/dL (8-24); Bun/Creatinine Ratio 11.2 (12.0-20.0); CO2, Blood 32 mmol/L (21-32); Calcium, Blood 9.1 mg/dL (8.5-10.1); Chloride, Blood 99 mmol/L (98-108); Creatinine, Blood 0.54 mg/dL (0.40-1.00); Glomerular Filtration Rate >60 (60-); Glucose, Blood 92 mg/dL (70-99); Potassium, Blood 4.2 mmol/L (3.5-5.5); Sodium, Blood 134 mmol/L (136-145)
[2020-02-24] MEDS ORDERED: LEVO750 PO (14:52)
[2020-02-24] MEDS ORDERED: CLIMARA1 EACH TOP (14:52)
[2020-02-24] MEDS ORDERED: LACTOBACILLUS1 EAC4 PO (14:52)
[2020-02-24] MEDS ORDERED: MERREM IV (14:53)
--- NOTE | 2020-02-24 15:48 | NUR ---
DSCAHRGE SUMMARY PATIENT SI PLEASANT ALERT AND ORIENTED. DENIES ANY CHEST PAIN OR EXCESS SHORTNESS OF BREATH. PERIPHERAL IV REMOVED. PICC LINE IN PLACE AND FLUSHED. PATIENT WALKED OUT BY TAHMINA MIRELES. PATIENT'S SPOUSE WITH HER AT TIME OF DISCAHRGE. ANTIBIOTICS ORAL SENT TO [facility]. INSTRUCTIONS GIVEN TO THE PATIENT PRIOR TO DISCHARGE.
== END 2020-02-24 15:44 | disposition home or self-care (01) | DRG 871 ==
LOC: ER 09:01 → MEDS 13:55 → ENPENDDIS 02-24 14:14 → MEDS 02-24 15:44
PROVIDERS: Family Medicine; Nurse Practitioner Acute Care; Physician Assistant; ADMIT Family Medicine
PROC: 02HV33Z Insertion of Infusion Device into Superior Vena Cava, Percutaneous Approach (ICD-10-PCS; principal; 2020-02-22)
PROC: 4A02X4A Measurement of Cardiac Electrical Activity, Guidance, External Approach (ICD-10-PCS; 2020-02-22)
DX: A41.9 Sepsis, unspecified organism (principal); J96.21 Acute and chronic respiratory failure with hypoxia; J18.9 Pneumonia, unspecified organism; J47.1 Bronchiectasis with (acute) exacerbation; E87.1 Hypo-osmolality and hyponatremia; A31.0 Pulmonary mycobacterial infection; R65.20 Severe sepsis without septic shock; K21.9 Gastro-esophageal reflux disease without esophagitis; E78.5 Hyperlipidemia, unspecified; F32.9 Major depressive disorder, single episode, unspecified; I10 Essential (primary) hypertension; Z85.3 Personal history of malignant neoplasm of breast; Z87.891 Personal history of nicotine dependence; Z79.2 Long term (current) use of antibiotics; Z79.891 Long term (current) use of opiate analgesic; Z79.51 Long term (current) use of inhaled steroids; Z79.899 Other long term (current) drug therapy
CPT/HCPCS: 36415; 80048; 80053; 85025; 87070; 87077; 87186; 87205; 93005; 93010; 94640; 94760; 96374; 99285-25; A9270-GY; J1650; J2185; J7030; J7050; J7512

== ENCOUNTER → 2020-02-21 | Outpatient (CLI) | payer MEDICARE, OTHER ==
[~2020-02-21] MED LIST changes: +ALBU8HFA2 INH; +ALPR.25 PO; +CAND4; +CLIMARA1 EACH TOP; +Diflucan150 MG PO; +FLUT.05NI; +LACTOBACILLUS1 EAC4 PO; +LOSA50 PO; +MERREM IV; +NYSTRIT TOP; +ONDA4 PO; +PERIDEX15 ML MM; +PROBIOTIC PO; +STIOLTO RESPIMAT4 G1 INH; +Sodium Chloride15 M1 INH; +TOBRAMYCIN300 MG/52 INH; +Vibramycin100 MG PO
== END | disposition home or self-care (01) ==
LOC: LAB 09:05 → LAB SHORT 09:05
DX: J47.9 Bronchiectasis, uncomplicated (principal)
CPT/HCPCS: 87070; 87077; 87186; 87205

== ENCOUNTER 2020-02-25 06:35 | Day surgery (SDC) | payer MEDICARE, OTHER ==
[~2020-02-25 06:35] MED LIST changes: +ALBU8HFA2 INH; +ALPR.25 PO; +CAND4; +CLIMARA1 EACH TOP; +Diflucan150 MG PO; +FLUT.05NI; +LACTOBACILLUS1 EAC4 PO; +LOSA50 PO; +MERREM IV; +NYSTRIT TOP; +ONDA4 PO; +PERIDEX15 ML MM; +PROBIOTIC PO; +STIOLTO RESPIMAT4 G1 INH; +Sodium Chloride15 M1 INH; +TOBRAMYCIN300 MG/52 INH
== END 2020-02-25 16:55 | disposition home or self-care (01) ==
LOC: ATC 06:35
DX: A41.89 Other specified sepsis (principal); J47.0 Bronchiectasis with acute lower respiratory infection; J15.8 Pneumonia due to other specified bacteria; J96.21 Acute and chronic respiratory failure with hypoxia; E78.5 Hyperlipidemia, unspecified; F41.9 Anxiety disorder, unspecified; I10 Essential (primary) hypertension; E87.1 Hypo-osmolality and hyponatremia; F32.9 Major depressive disorder, single episode, unspecified; K21.9 Gastro-esophageal reflux disease without esophagitis; Z79.899 Other long term (current) drug therapy
CPT/HCPCS: 96365; J2185

== ENCOUNTER 2020-02-26 00:25 | Day surgery (SDC) | payer MEDICARE, OTHER | END 2020-02-26 17:06 | disposition home or self-care (01) | LOC: ATC 00:25 | DX: A41.89 Other specified sepsis (principal); J47.0 Bronchiectasis with acute lower respiratory infection; J16.8 Pneumonia due to other specified infectious organisms; F32.9 Major depressive disorder, single episode, unspecified; K21.9 Gastro-esophageal reflux disease without esophagitis; I10 Essential (primary) hypertension; J96.21 Acute and chronic respiratory failure with hypoxia; F41.9 Anxiety disorder, unspecified; E87.1 Hypo-osmolality and hyponatremia; E78.5 Hyperlipidemia, unspecified; Z79.899 Other long term (current) drug therapy | CPT/HCPCS: 96365; J2185 ==

== ENCOUNTER 2020-02-27 00:13 | Day surgery (SDC) | payer MEDICARE, OTHER | END 2020-02-27 17:10 | disposition home or self-care (01) | LOC: ATC 00:13 | DX: A41.89 Other specified sepsis (principal); J47.0 Bronchiectasis with acute lower respiratory infection; J18.9 Pneumonia, unspecified organism; F41.9 Anxiety disorder, unspecified; E78.5 Hyperlipidemia, unspecified; I10 Essential (primary) hypertension; E87.1 Hypo-osmolality and hyponatremia; J96.21 Acute and chronic respiratory failure with hypoxia; F32.9 Major depressive disorder, single episode, unspecified; K21.9 Gastro-esophageal reflux disease without esophagitis; Z79.899 Other long term (current) drug therapy | CPT/HCPCS: 96365; J2185 ==

== ENCOUNTER 2020-02-28 00:34 | Day surgery (SDC) | payer MEDICARE, OTHER | END 2020-02-28 16:55 | disposition home or self-care (01) | LOC: ATC 00:34 | DX: A41.89 Other specified sepsis (principal); J47.0 Bronchiectasis with acute lower respiratory infection; J15.8 Pneumonia due to other specified bacteria; F32.9 Major depressive disorder, single episode, unspecified; K21.9 Gastro-esophageal reflux disease without esophagitis; I10 Essential (primary) hypertension; J96.21 Acute and chronic respiratory failure with hypoxia; F41.9 Anxiety disorder, unspecified; E78.5 Hyperlipidemia, unspecified; E87.1 Hypo-osmolality and hyponatremia; Z79.899 Other long term (current) drug therapy | CPT/HCPCS: 96365; J2185 ==

== ENCOUNTER 2020-02-29 00:47 | Day surgery (SDC) | payer MEDICARE, OTHER | END 2020-02-29 16:01 | disposition home or self-care (01) | LOC: ATC 00:47 | DX: A41.89 Other specified sepsis (principal); J47.0 Bronchiectasis with acute lower respiratory infection; J18.9 Pneumonia, unspecified organism; F41.9 Anxiety disorder, unspecified; E78.5 Hyperlipidemia, unspecified; I10 Essential (primary) hypertension; E87.1 Hypo-osmolality and hyponatremia; J96.21 Acute and chronic respiratory failure with hypoxia; Z79.899 Other long term (current) drug therapy | CPT/HCPCS: 96365; J2185 ==

== ENCOUNTER 2020-03-01 00:01 | Day surgery (SDC) | payer MEDICARE, OTHER | END 2020-03-01 17:00 | disposition home or self-care (01) | LOC: ATC 00:01 | DX: A41.89 Other specified sepsis (principal); J47.0 Bronchiectasis with acute lower respiratory infection; J15.8 Pneumonia due to other specified bacteria; K21.9 Gastro-esophageal reflux disease without esophagitis; F32.9 Major depressive disorder, single episode, unspecified; I10 Essential (primary) hypertension; J96.21 Acute and chronic respiratory failure with hypoxia; F41.9 Anxiety disorder, unspecified; E78.5 Hyperlipidemia, unspecified; E87.1 Hypo-osmolality and hyponatremia; Z79.899 Other long term (current) drug therapy | CPT/HCPCS: J2185 ==

== ENCOUNTER 2020-03-02 01:39 | Day surgery (SDC) | payer MEDICARE, OTHER | END 2020-03-02 16:55 | disposition home or self-care (01) | LOC: ATC 01:39 | DX: A41.89 Other specified sepsis (principal); J47.0 Bronchiectasis with acute lower respiratory infection; J15.8 Pneumonia due to other specified bacteria; F32.9 Major depressive disorder, single episode, unspecified; K21.9 Gastro-esophageal reflux disease without esophagitis; I10 Essential (primary) hypertension; J96.21 Acute and chronic respiratory failure with hypoxia; F41.9 Anxiety disorder, unspecified; E78.5 Hyperlipidemia, unspecified; E87.1 Hypo-osmolality and hyponatremia; Z79.899 Other long term (current) drug therapy | CPT/HCPCS: 96365; J2185 ==

== ENCOUNTER 2020-03-03 00:01 | Day surgery (SDC) | payer MEDICARE, OTHER ==
--- NOTE | 2020-03-03 08:36 | NUR ---
D/C IN AM AT 0800
== END 2020-03-03 16:56 | disposition home or self-care (01) ==
LOC: ATC 00:01
DX: A41.89 Other specified sepsis (principal); J47.0 Bronchiectasis with acute lower respiratory infection; J15.8 Pneumonia due to other specified bacteria; F32.9 Major depressive disorder, single episode, unspecified; K21.9 Gastro-esophageal reflux disease without esophagitis; I10 Essential (primary) hypertension; J96.21 Acute and chronic respiratory failure with hypoxia; F41.9 Anxiety disorder, unspecified; E78.5 Hyperlipidemia, unspecified; E87.1 Hypo-osmolality and hyponatremia; Z79.899 Other long term (current) drug therapy
CPT/HCPCS: J2185

== ENCOUNTER 2020-03-04 00:02 | Day surgery (SDC) | payer MEDICARE, OTHER | END 2020-03-04 17:02 | disposition home or self-care (01) | LOC: ATC 00:02 | DX: A41.89 Other specified sepsis (principal); J47.0 Bronchiectasis with acute lower respiratory infection; J15.8 Pneumonia due to other specified bacteria; J96.21 Acute and chronic respiratory failure with hypoxia; F41.9 Anxiety disorder, unspecified; E78.5 Hyperlipidemia, unspecified; I10 Essential (primary) hypertension; E87.1 Hypo-osmolality and hyponatremia; K21.9 Gastro-esophageal reflux disease without esophagitis; F32.9 Major depressive disorder, single episode, unspecified; Z79.899 Other long term (current) drug therapy | CPT/HCPCS: J2185 ==

== ENCOUNTER 2020-03-05 00:01 | Day surgery (SDC) | payer MEDICARE, OTHER ==
--- NOTE | 2020-03-05 07:59 | NUR ---
PT TO DEPARTMENT IN [facility] CHAIR PUSHED BY . PT STATES SHE FEELS AWFUL. PT REQUESTED O2 AT 3L. BIOX TAKEN AND 98%. PT TO SEE DR. GEORGE AT 1100.
== END 2020-03-05 17:02 | disposition home or self-care (01) ==
LOC: ATC 00:01
DX: A41.89 Other specified sepsis (principal); J47.0 Bronchiectasis with acute lower respiratory infection; J15.8 Pneumonia due to other specified bacteria; J96.21 Acute and chronic respiratory failure with hypoxia; F41.9 Anxiety disorder, unspecified; E78.5 Hyperlipidemia, unspecified; I10 Essential (primary) hypertension; E87.1 Hypo-osmolality and hyponatremia; K21.9 Gastro-esophageal reflux disease without esophagitis; Z79.899 Other long term (current) drug therapy; F32.9 Major depressive disorder, single episode, unspecified
CPT/HCPCS: 96365; J2185

== ENCOUNTER 2020-03-06 00:10 | Day surgery (SDC) | payer MEDICARE, OTHER ==
[2020-03-06 08:27] LABS: BASOPHILS ABSOLUTE AUTO 0.03 K/mm3 (0.00-0.23); BASOPHILS PERCENT AUTO 0 % (0-2); EOSINOPHILS ABSOLUTE AUTO 0.09 K/mm3 (0.00-0.68); EOSINOPHILS PERCENT AUTO 1 % (0-6); Hemoglobin 11.8 g/dL (11.5-16.0); IMMATURE GRAN ABSOLUTE AUTO 0.03 K/mm3 (0.00-0.10); IMMATURE GRAN PERCENT AUTO 0 % (0-1); LYMPHOCYTES ABSOLUTE AUTO 0.52 K/mm3 (0.84-5.20); LYMPHOCYTES PERCENT AUTO 8 % (21-46); MONOCYTES ABSOLUTE AUTO 0.33 K/mm3 (0.16-1.47); MONOCYTES PERCENT AUTO 5 % (4-13); Mean Corpuscular HGB 29.2 pg (26.0-34.0); Mean Corpuscular HGB Conc 31.9 g/dL (31.5-36.5); Mean Corpuscular Volume 92 fL (80-100); Mean Platelet Volume 8.5 fL (9.1-12.4); NEUTROPHILS ABSOLUTE AUTO 5.89 K/mm3 (1.96-9.15); NEUTROPHILS PERCENT AUTO 86 % (41-73); Platelet Count 234 K/mm3 (150-400); RDW Standard Deviation 43.8 fL (35.1-46.3); Red Blood Cell Count 4.04 M/mm3 (3.80-5.20); White Blood Cell Count 6.89 K/mm3 (4.00-11.30)
[2020-03-06 08:55] LABS: Alanine Aminotransfer (ALT/SGP 21 U/L (12-78); Albumin, Blood 3.4 g/dL (3.4-5.0); Albumin/Globulin Ratio 0.8 (0.8-1.8); Alk Phos 58 U/L (50-136); Anion Gap 2 mmol/L (6-16); Aspartate Aminotrans (AST/SGOT 13 U/L (12-37); Bilirubin, Total 0.4 mg/dL (0.1-1.0); Blood Urea Nitrogen 8 mg/dL (8-24); Bun/Creatinine Ratio 19.4 (12.0-20.0); CO2, Blood 31 mmol/L (21-32); Calcium, Blood 8.6 mg/dL (8.5-10.1); Chloride, Blood 99 mmol/L (98-108); Creatinine, Blood 0.41 mg/dL (0.40-1.00); Glomerular Filtration Rate >60 (60-); Glucose, Blood 145 mg/dL (70-99); Potassium, Blood 4.1 mmol/L (3.5-5.5); Sodium, Blood 132 mmol/L (136-145); Total Protein, Blood 7.4 g/dL (6.4-8.2)
== END 2020-03-06 16:40 | disposition home or self-care (01) ==
LOC: ATC 00:10
PROVIDERS: Internal Medicine Infectious Disease
DX: A41.89 Other specified sepsis (principal); J47.1 Bronchiectasis with (acute) exacerbation; J47.0 Bronchiectasis with acute lower respiratory infection; J15.8 Pneumonia due to other specified bacteria; K21.9 Gastro-esophageal reflux disease without esophagitis; F32.9 Major depressive disorder, single episode, unspecified; I10 Essential (primary) hypertension; J96.21 Acute and chronic respiratory failure with hypoxia; F41.9 Anxiety disorder, unspecified; E78.5 Hyperlipidemia, unspecified; E87.1 Hypo-osmolality and hyponatremia; Z79.899 Other long term (current) drug therapy
CPT/HCPCS: 80053; 85025; 96365; J2185

== ENCOUNTER 2020-03-08 00:27 | Day surgery (SDC) | payer MEDICARE, OTHER | END 2020-03-08 18:07 | disposition home or self-care (01) | LOC: ATC 00:27 | DX: A41.89 Other specified sepsis (principal); J47.0 Bronchiectasis with acute lower respiratory infection; J15.8 Pneumonia due to other specified bacteria; J47.1 Bronchiectasis with (acute) exacerbation; J96.21 Acute and chronic respiratory failure with hypoxia; F41.9 Anxiety disorder, unspecified; E78.5 Hyperlipidemia, unspecified; I10 Essential (primary) hypertension; E87.1 Hypo-osmolality and hyponatremia; K21.9 Gastro-esophageal reflux disease without esophagitis; F32.9 Major depressive disorder, single episode, unspecified; Z79.899 Other long term (current) drug therapy ==

== ENCOUNTER 2020-03-08 08:15 | Emergency (ER) | payer MEDICARE, OTHER ==
[~2020-03-08] VITALS: Ht 157.5 cm; Wt 68.0 kg
== END 2020-03-08 11:09 | disposition home or self-care (01) ==
LOC: ER 08:15
DX: I82.612 Acute embolism and thrombosis of superficial veins of left upper extremity (principal); F32.9 Major depressive disorder, single episode, unspecified; K21.9 Gastro-esophageal reflux disease without esophagitis; I10 Essential (primary) hypertension; Z79.52 Long term (current) use of systemic steroids; Z87.891 Personal history of nicotine dependence; Z79.899 Other long term (current) drug therapy
CPT/HCPCS: 93971; 99283-25

== ENCOUNTER 2020-03-11 00:09 | Day surgery (SDC) | payer MEDICARE, OTHER | END 2020-03-11 16:52 | disposition home or self-care (01) | LOC: ATC 00:09 | DX: A41.89 Other specified sepsis (principal); J47.1 Bronchiectasis with (acute) exacerbation; J47.0 Bronchiectasis with acute lower respiratory infection; J15.8 Pneumonia due to other specified bacteria; K21.9 Gastro-esophageal reflux disease without esophagitis; F32.9 Major depressive disorder, single episode, unspecified; E78.5 Hyperlipidemia, unspecified; E87.1 Hypo-osmolality and hyponatremia; I10 Essential (primary) hypertension; Z79.899 Other long term (current) drug therapy | CPT/HCPCS: 96365; J2185 ==

== ENCOUNTER 2020-03-12 05:16 | Day surgery (SDC) | payer MEDICARE, OTHER | END 2020-03-12 16:55 | disposition home or self-care (01) | LOC: ATC 05:16 | DX: A41.89 Other specified sepsis (principal); J47.0 Bronchiectasis with acute lower respiratory infection; J47.1 Bronchiectasis with (acute) exacerbation; J15.8 Pneumonia due to other specified bacteria; J96.21 Acute and chronic respiratory failure with hypoxia; F32.9 Major depressive disorder, single episode, unspecified; K21.9 Gastro-esophageal reflux disease without esophagitis; I10 Essential (primary) hypertension; E78.5 Hyperlipidemia, unspecified; E87.1 Hypo-osmolality and hyponatremia; Z79.899 Other long term (current) drug therapy | CPT/HCPCS: 96365; J2185 ==

== ENCOUNTER 2020-03-13 00:03 | Day surgery (SDC) | payer MEDICARE, OTHER | END 2020-03-13 17:07 | disposition home or self-care (01) | LOC: ATC 00:03 | DX: A41.89 Other specified sepsis (principal); J47.1 Bronchiectasis with (acute) exacerbation; J47.0 Bronchiectasis with acute lower respiratory infection; J15.8 Pneumonia due to other specified bacteria; F32.9 Major depressive disorder, single episode, unspecified; K21.9 Gastro-esophageal reflux disease without esophagitis; I10 Essential (primary) hypertension; J96.21 Acute and chronic respiratory failure with hypoxia; E78.5 Hyperlipidemia, unspecified; E87.1 Hypo-osmolality and hyponatremia; Z79.899 Other long term (current) drug therapy | CPT/HCPCS: 96365; J2185 ==

== ENCOUNTER → 2020-03-26 | Outpatient (CLI) | payer MEDICARE, OTHER ==
[~2020-03-26] MED LIST changes: +LEVAQUIN750 MG PO; +Mucinex600 MG PO
== END | disposition home or self-care (01) ==
LOC: LAB SHORT 10:23 → LAB 10:23
DX: J47.1 Bronchiectasis with (acute) exacerbation (principal)
CPT/HCPCS: 87070; 87077; 87186; 87205

== ENCOUNTER 2020-04-04 09:43 | Day surgery (SDC) | payer MEDICARE, OTHER ==
[~2020-04-04 09:43] MED LIST changes: -LEVAQUIN750 MG PO; -Mucinex600 MG PO
== END 2020-04-04 16:50 | disposition home or self-care (01) ==
LOC: ATC 09:43
DX: A31.0 Pulmonary mycobacterial infection (principal); Z88.2 Allergy status to sulfonamides; Z88.1 Allergy status to other antibiotic agents; E78.00 Pure hypercholesterolemia, unspecified; E78.5 Hyperlipidemia, unspecified; F41.9 Anxiety disorder, unspecified; K21.9 Gastro-esophageal reflux disease without esophagitis; Z87.891 Personal history of nicotine dependence; E87.1 Hypo-osmolality and hyponatremia; F32.9 Major depressive disorder, single episode, unspecified
CPT/HCPCS: 96365; J0692

== ENCOUNTER 2020-04-05 01:57 | Day surgery (SDC) | payer MEDICARE, OTHER ==
[2020-04-06] MEDS ORDERED: Mucinex600 MG PO (13:56)
[2020-04-06] MEDS ORDERED: LEVAQUIN750 MG PO (13:57)
== END 2020-04-05 16:30 | disposition home or self-care (01) ==
LOC: ATC 01:57
DX: A31.0 Pulmonary mycobacterial infection (principal); Z88.2 Allergy status to sulfonamides; Z88.1 Allergy status to other antibiotic agents; Z79.899 Other long term (current) drug therapy; Z87.891 Personal history of nicotine dependence; F32.9 Major depressive disorder, single episode, unspecified; K21.9 Gastro-esophageal reflux disease without esophagitis; E87.1 Hypo-osmolality and hyponatremia; E78.00 Pure hypercholesterolemia, unspecified
CPT/HCPCS: J0692

== ENCOUNTER 2020-04-05 22:18 | Inpatient (IN) | payer MEDICARE, OTHER ==
[~2020-04-05] VITALS: Ht 152.4 cm; Wt 56.2 kg
[2020-04-05 23:07] LABS: BASOPHILS ABSOLUTE AUTO 0.09 K/mm3 (0.00-0.23); BASOPHILS PERCENT AUTO 1 % (0-2); EOSINOPHILS ABSOLUTE AUTO 0.46 K/mm3 (0.00-0.68); EOSINOPHILS PERCENT AUTO 3 % (0-6); Hematocrit 40.9 % (33.0-51.0); Hemoglobin 13.2 g/dL (11.5-16.0); IMMATURE GRAN ABSOLUTE AUTO 0.06 K/mm3 (0.00-0.10); IMMATURE GRAN PERCENT AUTO 0 % (0-1); LYMPHOCYTES ABSOLUTE AUTO 1.24 K/mm3 (0.84-5.20); LYMPHOCYTES PERCENT AUTO 9 % (21-46); MONOCYTES ABSOLUTE AUTO 0.93 K/mm3 (0.16-1.47); MONOCYTES PERCENT AUTO 7 % (4-13); Mean Corpuscular HGB 29.9 pg (26.0-34.0); Mean Corpuscular HGB Conc 32.3 g/dL (31.5-36.5); Mean Corpuscular Volume 93 fL (80-100); Mean Platelet Volume 8.8 fL (9.1-12.4); NEUTROPHILS ABSOLUTE AUTO 11.38 K/mm3 (1.96-9.15); NEUTROPHILS PERCENT AUTO 80 % (41-73); Platelet Count 255 K/mm3 (150-400); RDW Coefficient Variation 13.3 % (11.7-14.2); RDW Standard Deviation 45.4 fL (35.1-46.3); Red Blood Cell Count 4.41 M/mm3 (3.80-5.20); White Blood Cell Count 14.16 K/mm3 (4.00-11.30)
[2020-04-05 23:10] LABS: PCO2 Arterial 52.6 mmHg (35-45); PO2 Arterial 87.2 mmHg (80-100); pH Blood Arterial 7.33 (7.35-7.45)
[2020-04-05 23:29] LABS: Alanine Aminotransfer (ALT/SGP 23 U/L (12-78); Albumin, Blood 3.9 g/dL (3.4-5.0); Albumin/Globulin Ratio 0.9 (0.8-1.8); Alk Phos 60 U/L (50-136); Anion Gap 7 mmol/L (6-16); Aspartate Aminotrans (AST/SGOT 19 U/L (12-37); Bilirubin, Total 0.7 mg/dL (0.1-1.0); Blood Urea Nitrogen 7 mg/dL (8-24); CO2, Blood 26 mmol/L (21-32); Calcium, Blood 9.8 mg/dL (8.5-10.1); Chloride, Blood 97 mmol/L (98-108); Creatinine, Blood 0.58 mg/dL (0.40-1.00); Globulin, Blood 4.3 g/dL (2.2-4.0); Glomerular Filtration Rate >60 (60-); Glucose, Blood 108 mg/dL (70-99); Potassium, Blood 4.1 mmol/L (3.5-5.5); Sodium, Blood 130 mmol/L (136-145); Total Protein, Blood 8.2 g/dL (6.4-8.2); Troponin I <0.015 ng/mL (0.000-0.040)
--- NOTE | 2020-04-06 02:30 | NUR ---
ADMIT NOTE PT CAME TO PCU FROM ED AT APPROX 0200. PT SLID FROM ED STRETCHER TO PCU BED WITH 3 PEOPLE ASSISTING. PT A&OX4. SP02>94% ON 4L NC. PT SOB UPON EXERTION, LUNGS COARSE W/ EXPIRATORY WHEEZE. PT C/O HEADACHE WITH 8/10 PAIN. MEDICATED PER EMAR. INSERTED NEW IV IN PT'S R FOREARM. NS INFUSING PER EMAR. IN ROOM WITH PT. WILL CONTINUE TO MONITOR.
[2020-04-06 05:06] LABS: PCO2 Arterial 49.4 mmHg (35-45); PO2 Arterial 133 mmHg (80-100); pH Blood Arterial 7.38 (7.35-7.45)
--- NOTE | 2020-04-06 06:02 | NUR ---
SHIFT SUMMARY PT A&OX4. SP02>94% ON 4L NC. PT USING OWN/HOME NC CONNECTED TO PCU TUBING. PT DENIES SOB. TELEMETRY READS SINUS TACH, HR 100'S. PT UP TO BSC, PRODUCING ONE BROWN, FORMED BM. LATER IN THE SHIFT, PT AMBULATED W/ WALKER FOR STABILITY, TO BATHROOM WITH MINIMAL ASSISTANCE. PT C/O OF 8/10 HEADACHE PAIN. MEDICATED WITH TYLENOL PER EMAR AND PLACED COOL RAG ON FOREHEAD. PT NOW REPORTS 4/10 PAIN. PT IN ROOM T/O THE NIGHT. PT CONTINUES TO BE NPO. CALL LIGHT IN REACH. WILL CONTINUE TO MONITOR.
[2020-04-06 06:06] LABS: BASOPHILS ABSOLUTE AUTO 0.05 K/mm3 (0.00-0.23); BASOPHILS PERCENT AUTO 0 % (0-2); EOSINOPHILS ABSOLUTE AUTO 0.03 K/mm3 (0.00-0.68); EOSINOPHILS PERCENT AUTO 0 % (0-6); Hematocrit 34.6 % (33.0-51.0); Hemoglobin 11.6 g/dL (11.5-16.0); IMMATURE GRAN ABSOLUTE AUTO 0.05 K/mm3 (0.00-0.10); IMMATURE GRAN PERCENT AUTO 0 % (0-1); LYMPHOCYTES PERCENT AUTO 2 % (21-46); MONOCYTES ABSOLUTE AUTO 0.18 K/mm3 (0.16-1.47); MONOCYTES PERCENT AUTO 1 % (4-13); Mean Corpuscular HGB 29.7 pg (26.0-34.0); Mean Corpuscular HGB Conc 33.5 g/dL (31.5-36.5); Mean Corpuscular Volume 89 fL (80-100); Mean Platelet Volume 8.5 fL (9.1-12.4); NEUTROPHILS ABSOLUTE AUTO 12.67 K/mm3 (1.96-9.15); NEUTROPHILS PERCENT AUTO 95 % (41-73); Platelet Count 217 K/mm3 (150-400); RDW Coefficient Variation 13.3 % (11.7-14.2); RDW Standard Deviation 43.2 fL (35.1-46.3); White Blood Cell Count 13.28 K/mm3 (4.00-11.30)
[2020-04-06 06:24] LABS: Anion Gap 5 mmol/L (6-16); Blood Urea Nitrogen 7 mg/dL (8-24); Bun/Creatinine Ratio 13.4 (12.0-20.0); CO2, Blood 29 mmol/L (21-32); Calcium, Blood 9.5 mg/dL (8.5-10.1); Chloride, Blood 97 mmol/L (98-108); Creatinine, Blood 0.52 mg/dL (0.40-1.00); Glomerular Filtration Rate >60 (60-); Glucose, Blood 132 mg/dL (70-99); Potassium, Blood 4.6 mmol/L (3.5-5.5); Sodium, Blood 131 mmol/L (136-145)
--- NOTE | 2020-04-06 07:44 | NUR ---
CARE ASSUMED REPORT RECEIVED, CARE ASSUMED AT 0700 FROM ALINE HOPSON. PT ASLEEP ON ROUNDS, AROUSES EASILY FOR ASSESSMENT. ALERT AND ORIENTED. VITALS STABLE, SEE FLOWSHEET. PT ON 4 LPM NASAL CANNULA. DENIES SOB. PT IN STREET CLOTHES, DECLINES GOWN. DECLINES FULL SKIN ASSESSMENT DENIES BRUISING OR ALTERATIONS IN SKIN INTEGRITY. SEE FULL SHIFT ASSESSMENT. PT EDUCATED AND AGREES TO CALL FOR NEEDS. AT BEDSIDE. JEREMIAS, RT AT BEDSIDE UPON EXITING ROOM.
[2020-04-06] MEDS ORDERED: Mucinex600 MG PO (13:56)
[2020-04-06] MEDS ORDERED: LEVAQUIN750 MG PO (13:57)
--- NOTE | 2020-04-06 14:30 | NUR ---
SUMMARY PT HAS BEEN TITRATED OFF OF OXYGEN. VITALS STABLE. PT HAS DENIED PAIN/DISCOMFORT. UP TO BATHROOM AND IN ROOM INDEPENDENTLY. PT REPORTS FEELING MUCH BETTER. DR. POE, FRONTEND ENGINEER TO BEDSIDE FOR ASSESSMENT. PLAN FOR DISCHARGE. DISCHARGE ORDER RECEIVED FROM DR. SAXENA. PT UPDATED AND AGREEABLE. STATES SHE WILL CALL WEDNESDAY FOR AN APPOINTMENT WITH HER INFECTIOUS DISEASE DOCTOR. PRESCRIPTION CALLED TO [facility]. PT DENIES QUESTIONS REGARDING MEDICATIONS AND PLAN OF CARE. REPORT TO ALINE MCCONNELL TO REVIEW DISCHARGE PACKET WITH PATIENT AND FINALIZE DISCHARGE.
--- NOTE | 2020-04-06 15:02 | NUR ---
IV DC'D WNL. PT WAS GIVEN DC INSTRUCTIONS ABOUT MEDICATIONS AND FOLLOW UP APPOINTMENTS. DENIED FURTHER QUESTIONS OR CONCERNS. TRANSPORTED OUT VIA WHEEL CHAIR BY HOSPITAL STAFF
== END 2020-04-06 14:39 | disposition home or self-care (01) | DRG 189 ==
LOC: ER 22:18 → PCU 04-06 00:53
PROVIDERS: Emergency Medicine; ADMIT Internal Medicine
DX: J96.21 Acute and chronic respiratory failure with hypoxia (principal); J44.1 Chronic obstructive pulmonary disease with (acute) exacerbation; A31.0 Pulmonary mycobacterial infection; J96.22 Acute and chronic respiratory failure with hypercapnia; F41.9 Anxiety disorder, unspecified; E78.5 Hyperlipidemia, unspecified; F32.9 Major depressive disorder, single episode, unspecified; K21.9 Gastro-esophageal reflux disease without esophagitis; I10 Essential (primary) hypertension; Z79.51 Long term (current) use of inhaled steroids; Z79.52 Long term (current) use of systemic steroids; Z87.891 Personal history of nicotine dependence
CPT/HCPCS: 36415; 36600; 71045; 80048; 80053; 82803; 83880; 84484; 85025; 93005; 93010; 94640; 94660; 94762; 96372-59; 96374; 96375; 99285-25; A9270; A9270-GY; J1650; J1956; J2060; J2930; J7030; J7512

== ENCOUNTER 2020-04-19 08:18 | Day surgery (SDC) | payer MEDICARE, OTHER ==
[~2020-04-19 08:18] MED LIST changes: +LEVAQUIN750 MG PO; +Mucinex600 MG PO
[2020-04-19 11:07] LABS: BASOPHILS ABSOLUTE AUTO 0.06 K/mm3 (0.00-0.23); BASOPHILS PERCENT AUTO 0 % (0-2); EOSINOPHILS ABSOLUTE AUTO 0.14 K/mm3 (0.00-0.68); EOSINOPHILS PERCENT AUTO 1 % (0-6); Hematocrit 35.1 % (33.0-51.0); IMMATURE GRAN ABSOLUTE AUTO 0.06 K/mm3 (0.00-0.10); IMMATURE GRAN PERCENT AUTO 0 % (0-1); LYMPHOCYTES ABSOLUTE AUTO 0.51 K/mm3 (0.84-5.20); LYMPHOCYTES PERCENT AUTO 4 % (21-46); MONOCYTES ABSOLUTE AUTO 0.36 K/mm3 (0.16-1.47); MONOCYTES PERCENT AUTO 3 % (4-13); Mean Corpuscular HGB 29.6 pg (26.0-34.0); Mean Corpuscular HGB Conc 34.2 g/dL (31.5-36.5); Mean Corpuscular Volume 87 fL (80-100); Mean Platelet Volume 8.4 fL (9.1-12.4); NEUTROPHILS ABSOLUTE AUTO 13.13 K/mm3 (1.96-9.15); NEUTROPHILS PERCENT AUTO 92 % (41-73); Platelet Count 247 K/mm3 (150-400); RDW Coefficient Variation 13.3 % (11.7-14.2); RDW Standard Deviation 41.8 fL (35.1-46.3); Red Blood Cell Count 4.05 M/mm3 (3.80-5.20); White Blood Cell Count 14.26 K/mm3 (4.00-11.30)
[2020-04-19 11:29] LABS: Alanine Aminotransfer (ALT/SGP 24 U/L (12-78); Albumin, Blood 3.3 g/dL (3.4-5.0); Albumin/Globulin Ratio 0.9 (0.8-1.8); Alk Phos 58 U/L (50-136); Anion Gap 5 mmol/L (6-16); Aspartate Aminotrans (AST/SGOT 18 U/L (12-37); Bilirubin, Total 0.5 mg/dL (0.1-1.0); Blood Urea Nitrogen 11 mg/dL (8-24); CO2, Blood 27 mmol/L (21-32); Calcium, Blood 8.8 mg/dL (8.5-10.1); Chloride, Blood 96 mmol/L (98-108); Creatinine, Blood 0.58 mg/dL (0.40-1.00); Globulin, Blood 3.7 g/dL (2.2-4.0); Glomerular Filtration Rate >60 (60-); Glucose, Blood 112 mg/dL (70-99); Potassium, Blood 4.3 mmol/L (3.5-5.5); Sodium, Blood 128 mmol/L (136-145)
[2020-04-19] MEDS ORDERED: [UNRECOGNIZED DRUG - CODE] PO (16:40)
== END 2020-04-19 16:50 | disposition home or self-care (01) ==
LOC: ATC 08:18
PROVIDERS: Internal Medicine Infectious Disease
DX: A31.0 Pulmonary mycobacterial infection (principal); E55.9 Vitamin D deficiency, unspecified; E78.00 Pure hypercholesterolemia, unspecified; E78.5 Hyperlipidemia, unspecified; M10.9 Gout, unspecified; F41.9 Anxiety disorder, unspecified; G47.00 Insomnia, unspecified; G25.81 Restless legs syndrome; K21.9 Gastro-esophageal reflux disease without esophagitis; M81.0 Age-related osteoporosis without current pathological fracture; F32.9 Major depressive disorder, single episode, unspecified; Z79.2 Long term (current) use of antibiotics; Z79.51 Long term (current) use of inhaled steroids; Z79.52 Long term (current) use of systemic steroids; Z79.899 Other long term (current) drug therapy; Z88.1 Allergy status to other antibiotic agents; Z87.891 Personal history of nicotine dependence
CPT/HCPCS: 36415; 80053; 85025; 96365; C1751; J2185

== ENCOUNTER 2020-04-19 22:22 | Emergency (ER) | payer MEDICARE, OTHER ==
[~2020-04-19] VITALS: Ht 160 cm; Wt 25.4 kg
[~2020-04-19 22:22] MED LIST changes: +[UNRECOGNIZED DRUG - CODE] PO
== END 2020-04-20 02:45 | disposition left against medical advice (07) ==
LOC: ER 22:22
DX: Z53.21 Procedure and treatment not carried out due to patient leaving prior to being seen by health care provider (principal)
CPT/HCPCS: 99281; J2185

== ENCOUNTER 2020-04-20 00:46 | Day surgery (SDC) | payer MEDICARE, OTHER | END 2020-04-20 16:29 | disposition home or self-care (01) | LOC: ATC 00:46 | DX: A31.0 Pulmonary mycobacterial infection (principal); J47.1 Bronchiectasis with (acute) exacerbation; Z88.2 Allergy status to sulfonamides; F32.9 Major depressive disorder, single episode, unspecified; K21.9 Gastro-esophageal reflux disease without esophagitis; E87.1 Hypo-osmolality and hyponatremia; Z90.710 Acquired absence of both cervix and uterus; Z90.79 Acquired absence of other genital organ(s); Z90.722 Acquired absence of ovaries, bilateral; Z90.49 Acquired absence of other specified parts of digestive tract; Z79.899 Other long term (current) drug therapy | CPT/HCPCS: 96365; J2185 ==

== ENCOUNTER 2020-04-20 22:02 | Emergency (ER) | payer MEDICARE, OTHER ==
[~2020-04-20] VITALS: Ht 152.4 cm; Wt 54.4 kg
== END 2020-04-20 23:17 | disposition home or self-care (01) ==
LOC: ER 22:02
DX: Z76.89 Persons encountering health services in other specified circumstances (principal); Z79.2 Long term (current) use of antibiotics; I10 Essential (primary) hypertension; F32.9 Major depressive disorder, single episode, unspecified; K21.9 Gastro-esophageal reflux disease without esophagitis; J44.9 Chronic obstructive pulmonary disease, unspecified; Z79.899 Other long term (current) drug therapy; Z88.1 Allergy status to other antibiotic agents; Z79.52 Long term (current) use of systemic steroids
CPT/HCPCS: 96365; J2185

== ENCOUNTER 2020-04-21 03:50 | Day surgery (SDC) | payer MEDICARE, OTHER | END 2020-04-21 16:26 | disposition home or self-care (01) | LOC: ATC 03:50 | DX: A31.0 Pulmonary mycobacterial infection (principal); J47.1 Bronchiectasis with (acute) exacerbation; E78.00 Pure hypercholesterolemia, unspecified; E78.5 Hyperlipidemia, unspecified; K21.9 Gastro-esophageal reflux disease without esophagitis; Z79.899 Other long term (current) drug therapy; Z88.2 Allergy status to sulfonamides; Z88.1 Allergy status to other antibiotic agents | CPT/HCPCS: 96365; J2185 ==

== ENCOUNTER 2020-04-21 21:50 | Emergency (ER) | payer MEDICARE, OTHER ==
[~2020-04-21] VITALS: Ht 152.4 cm; Wt 56.7 kg
== END 2020-04-21 23:00 | disposition home or self-care (01) ==
LOC: ER 21:50
DX: Z76.89 Persons encountering health services in other specified circumstances (principal); A31.0 Pulmonary mycobacterial infection; J44.9 Chronic obstructive pulmonary disease, unspecified; Z79.899 Other long term (current) drug therapy; Z88.1 Allergy status to other antibiotic agents; Z79.52 Long term (current) use of systemic steroids; Z87.891 Personal history of nicotine dependence
CPT/HCPCS: 96365; J2185

== ENCOUNTER 2020-04-22 21:42 | Emergency (ER) | payer MEDICARE, OTHER ==
[~2020-04-22] VITALS: Ht 152.4 cm; Wt 56.7 kg
== END 2020-04-22 23:11 | disposition home or self-care (01) ==
LOC: ER 21:42
DX: Z76.89 Persons encountering health services in other specified circumstances (principal); Z87.09 Personal history of other diseases of the respiratory system; I10 Essential (primary) hypertension; K21.9 Gastro-esophageal reflux disease without esophagitis; F32.9 Major depressive disorder, single episode, unspecified; J44.9 Chronic obstructive pulmonary disease, unspecified; Z87.891 Personal history of nicotine dependence; Z79.899 Other long term (current) drug therapy; Z79.52 Long term (current) use of systemic steroids
CPT/HCPCS: 96365; J2185

== ENCOUNTER 2020-04-23 00:01 | Day surgery (SDC) | payer MEDICARE, OTHER | END 2020-04-23 16:35 | disposition home or self-care (01) | LOC: ATC 00:01 | DX: A31.0 Pulmonary mycobacterial infection (principal); J47.1 Bronchiectasis with (acute) exacerbation; Z88.2 Allergy status to sulfonamides; Z88.1 Allergy status to other antibiotic agents; Z79.899 Other long term (current) drug therapy; E78.00 Pure hypercholesterolemia, unspecified; K21.9 Gastro-esophageal reflux disease without esophagitis; E78.5 Hyperlipidemia, unspecified; F32.9 Major depressive disorder, single episode, unspecified; Z90.710 Acquired absence of both cervix and uterus; Z90.79 Acquired absence of other genital organ(s); Z90.722 Acquired absence of ovaries, bilateral; Z90.49 Acquired absence of other specified parts of digestive tract | CPT/HCPCS: 96365; J2185 ==

== ENCOUNTER 2020-04-23 21:54 | Emergency (ER) | payer MEDICARE, OTHER ==
[~2020-04-23] VITALS: Ht 152.4 cm; Wt 54.4 kg
== END 2020-04-23 23:15 | disposition home or self-care (01) ==
LOC: ER 21:54
DX: Z76.89 Persons encountering health services in other specified circumstances (principal); J47.9 Bronchiectasis, uncomplicated; F32.9 Major depressive disorder, single episode, unspecified; K21.9 Gastro-esophageal reflux disease without esophagitis; I10 Essential (primary) hypertension; Z87.891 Personal history of nicotine dependence; Z79.899 Other long term (current) drug therapy; Z79.52 Long term (current) use of systemic steroids; Z88.1 Allergy status to other antibiotic agents
CPT/HCPCS: 96365; J2185

== ENCOUNTER 2020-04-24 00:55 | Day surgery (SDC) | payer MEDICARE, OTHER | END 2020-04-24 16:50 | disposition home or self-care (01) | LOC: ATC 00:55 | DX: A31.0 Pulmonary mycobacterial infection (principal); J47.1 Bronchiectasis with (acute) exacerbation; E78.5 Hyperlipidemia, unspecified; F32.9 Major depressive disorder, single episode, unspecified; G25.81 Restless legs syndrome; E78.00 Pure hypercholesterolemia, unspecified; Z87.891 Personal history of nicotine dependence; Z90.49 Acquired absence of other specified parts of digestive tract; Z79.899 Other long term (current) drug therapy; Z88.2 Allergy status to sulfonamides; Z88.1 Allergy status to other antibiotic agents | CPT/HCPCS: 96365; J2185 ==

== ENCOUNTER 2020-04-24 21:30 | Emergency (ER) | payer MEDICARE, OTHER ==
[~2020-04-24] VITALS: Ht 152.4 cm; Wt 54.4 kg
== END 2020-04-24 23:09 | disposition home or self-care (01) ==
LOC: ER 21:30
DX: Z76.89 Persons encountering health services in other specified circumstances (principal); J47.9 Bronchiectasis, uncomplicated; F32.9 Major depressive disorder, single episode, unspecified; K21.9 Gastro-esophageal reflux disease without esophagitis; I10 Essential (primary) hypertension; Z87.891 Personal history of nicotine dependence; Z79.899 Other long term (current) drug therapy; Z79.52 Long term (current) use of systemic steroids; Z88.1 Allergy status to other antibiotic agents
CPT/HCPCS: 96374; J2185

== ENCOUNTER 2020-04-25 00:05 | Day surgery (SDC) | payer MEDICARE, OTHER | END 2020-04-25 16:35 | disposition home or self-care (01) | LOC: ATC 00:05 | DX: A31.0 Pulmonary mycobacterial infection (principal); J47.1 Bronchiectasis with (acute) exacerbation; E78.5 Hyperlipidemia, unspecified; F32.9 Major depressive disorder, single episode, unspecified; G25.81 Restless legs syndrome; E78.00 Pure hypercholesterolemia, unspecified; Z87.891 Personal history of nicotine dependence; Z90.49 Acquired absence of other specified parts of digestive tract; Z79.899 Other long term (current) drug therapy; Z88.2 Allergy status to sulfonamides; Z88.1 Allergy status to other antibiotic agents | CPT/HCPCS: 96365; J2185 ==

== ENCOUNTER 2020-04-26 00:19 | Day surgery (SDC) | payer MEDICARE, OTHER ==
[2020-04-26 08:07] LABS: BASOPHILS ABSOLUTE AUTO 0.06 K/mm3 (0.00-0.23); BASOPHILS PERCENT AUTO 1 % (0-2); EOSINOPHILS ABSOLUTE AUTO 0.58 K/mm3 (0.00-0.68); EOSINOPHILS PERCENT AUTO 10 % (0-6); Hematocrit 37.6 % (33.0-51.0); Hemoglobin 12.4 g/dL (11.5-16.0); IMMATURE GRAN ABSOLUTE AUTO 0.03 K/mm3 (0.00-0.10); IMMATURE GRAN PERCENT AUTO 1 % (0-1); LYMPHOCYTES ABSOLUTE AUTO 1.38 K/mm3 (0.84-5.20); LYMPHOCYTES PERCENT AUTO 23 % (21-46); MONOCYTES ABSOLUTE AUTO 0.44 K/mm3 (0.16-1.47); MONOCYTES PERCENT AUTO 7 % (4-13); Mean Corpuscular HGB 30.1 pg (26.0-34.0); Mean Corpuscular Volume 91 fL (80-100); Mean Platelet Volume 8.6 fL (9.1-12.4); NEUTROPHILS ABSOLUTE AUTO 3.42 K/mm3 (1.96-9.15); NEUTROPHILS PERCENT AUTO 58 % (41-73); Platelet Count 237 K/mm3 (150-400); RDW Standard Deviation 46.8 fL (35.1-46.3); Red Blood Cell Count 4.12 M/mm3 (3.80-5.20); White Blood Cell Count 5.91 K/mm3 (4.00-11.30)
[2020-04-26 08:31] LABS: Alanine Aminotransfer (ALT/SGP 34 U/L (12-78); Albumin, Blood 3.4 g/dL (3.4-5.0); Albumin/Globulin Ratio 0.8 (0.8-1.8); Alk Phos 54 U/L (50-136); Anion Gap 5 mmol/L (6-16); Aspartate Aminotrans (AST/SGOT 24 U/L (12-37); Bilirubin, Total 0.4 mg/dL (0.1-1.0); Blood Urea Nitrogen 9 mg/dL (8-24); Bun/Creatinine Ratio 17.9 (12.0-20.0); CO2, Blood 24 mmol/L (21-32); Calcium, Blood 8.4 mg/dL (8.5-10.1); Chloride, Blood 103 mmol/L (98-108); Glomerular Filtration Rate >60 (60-); Glucose, Blood 105 mg/dL (70-99); Potassium, Blood 4.1 mmol/L (3.5-5.5); Sodium, Blood 132 mmol/L (136-145); Total Protein, Blood 7.4 g/dL (6.4-8.2)
[2020-04-27] MEDS ORDERED: MEROPENEM1 G1 IV (09:10)
== END 2020-04-26 16:45 | disposition home or self-care (01) ==
LOC: ATC 00:19
PROVIDERS: Internal Medicine Critical Care Medicine
DX: A31.0 Pulmonary mycobacterial infection (principal); J47.1 Bronchiectasis with (acute) exacerbation; E78.5 Hyperlipidemia, unspecified; F32.9 Major depressive disorder, single episode, unspecified; G25.81 Restless legs syndrome; E78.00 Pure hypercholesterolemia, unspecified; Z87.891 Personal history of nicotine dependence; Z90.49 Acquired absence of other specified parts of digestive tract; Z79.899 Other long term (current) drug therapy; Z88.2 Allergy status to sulfonamides; Z88.1 Allergy status to other antibiotic agents
CPT/HCPCS: 80053; 85025; J2185

== ENCOUNTER 2020-04-26 21:54 | Emergency (ER) | payer MEDICARE, OTHER ==
[~2020-04-26] VITALS: Ht 152.4 cm; Wt 54.4 kg
[2020-04-27] MEDS ORDERED: MEROPENEM1 G1 IV (09:10)
== END 2020-04-26 22:49 | disposition home or self-care (01) ==
LOC: ER 21:54
DX: Z76.89 Persons encountering health services in other specified circumstances (principal); J47.9 Bronchiectasis, uncomplicated; Z88.1 Allergy status to other antibiotic agents; Z79.51 Long term (current) use of inhaled steroids; Z79.52 Long term (current) use of systemic steroids; Z79.899 Other long term (current) drug therapy
CPT/HCPCS: 96365; J2185

== ENCOUNTER 2020-04-27 00:20 | Day surgery (SDC) | payer MEDICARE, OTHER ==
[2020-04-27] MEDS ORDERED: MEROPENEM1 G1 IV (09:10)
== END 2020-04-27 16:08 | disposition home or self-care (01) ==
LOC: ATC 00:20
DX: A31.0 Pulmonary mycobacterial infection (principal); J47.1 Bronchiectasis with (acute) exacerbation; E78.5 Hyperlipidemia, unspecified; F32.9 Major depressive disorder, single episode, unspecified; G25.81 Restless legs syndrome; E78.00 Pure hypercholesterolemia, unspecified; Z87.891 Personal history of nicotine dependence; Z90.49 Acquired absence of other specified parts of digestive tract; Z79.899 Other long term (current) drug therapy; Z88.2 Allergy status to sulfonamides; Z88.1 Allergy status to other antibiotic agents
CPT/HCPCS: J2185

== ENCOUNTER 2020-04-27 21:46 | Emergency (ER) | payer MEDICARE, OTHER ==
[~2020-04-27] VITALS: Ht 152.4 cm; Wt 54.4 kg
[~2020-04-27 21:46] MED LIST changes: +MEROPENEM1 G1 IV
== END 2020-04-27 23:16 | disposition home or self-care (01) ==
LOC: ER 21:46
DX: Z76.89 Persons encountering health services in other specified circumstances (principal); A31.0 Pulmonary mycobacterial infection; Z79.52 Long term (current) use of systemic steroids; Z79.899 Other long term (current) drug therapy
CPT/HCPCS: 96365; J2185

== ENCOUNTER 2020-04-28 21:43 | Emergency (ER) | payer MEDICARE, OTHER ==
[~2020-04-28] VITALS: Ht 152.4 cm; Wt 54.4 kg
== END 2020-04-28 22:50 | disposition home or self-care (01) ==
LOC: ER 21:43
DX: A31.0 Pulmonary mycobacterial infection (principal); Z76.89 Persons encountering health services in other specified circumstances; F32.9 Major depressive disorder, single episode, unspecified; K21.9 Gastro-esophageal reflux disease without esophagitis; I10 Essential (primary) hypertension; Z87.891 Personal history of nicotine dependence; Z88.1 Allergy status to other antibiotic agents; Z79.52 Long term (current) use of systemic steroids; Z79.899 Other long term (current) drug therapy
CPT/HCPCS: 96365; J2185

== ENCOUNTER 2020-04-29 21:47 | Emergency (ER) | payer MEDICARE, OTHER ==
[~2020-04-29] VITALS: Ht 152.4 cm; Wt 54.4 kg
== END 2020-04-29 23:08 | disposition home or self-care (01) ==
LOC: ER 21:47
DX: Z76.89 Persons encountering health services in other specified circumstances (principal); J47.9 Bronchiectasis, uncomplicated; F32.9 Major depressive disorder, single episode, unspecified; K21.9 Gastro-esophageal reflux disease without esophagitis; I10 Essential (primary) hypertension; Z87.891 Personal history of nicotine dependence; Z88.1 Allergy status to other antibiotic agents; Z79.52 Long term (current) use of systemic steroids; Z79.899 Other long term (current) drug therapy
CPT/HCPCS: 96365; J2185

== ENCOUNTER 2020-04-30 21:21 | Emergency (ER) | payer MEDICARE, OTHER ==
[~2020-04-30] VITALS: Ht 167.6 cm; Wt 59.0 kg
== END 2020-04-30 22:29 | disposition home or self-care (01) ==
LOC: ER 21:21
DX: Z76.89 Persons encountering health services in other specified circumstances (principal); Z79.52 Long term (current) use of systemic steroids; Z79.899 Other long term (current) drug therapy
CPT/HCPCS: 96365; J2185

== ENCOUNTER 2020-05-01 02:49 | Day surgery (SDC) | payer MEDICARE, OTHER | END 2020-05-01 16:14 | disposition home or self-care (01) | LOC: ATC 02:49 | DX: A31.0 Pulmonary mycobacterial infection (principal); J47.1 Bronchiectasis with (acute) exacerbation; K21.9 Gastro-esophageal reflux disease without esophagitis; E55.9 Vitamin D deficiency, unspecified; E78.00 Pure hypercholesterolemia, unspecified; M10.9 Gout, unspecified; F41.9 Anxiety disorder, unspecified; G47.00 Insomnia, unspecified; G25.81 Restless legs syndrome; M81.0 Age-related osteoporosis without current pathological fracture; Z79.2 Long term (current) use of antibiotics; Z79.52 Long term (current) use of systemic steroids; Z79.899 Other long term (current) drug therapy; Z88.1 Allergy status to other antibiotic agents; Z51.5 Encounter for palliative care | CPT/HCPCS: 96365; J2185 ==

== ENCOUNTER 2020-05-01 21:29 | Emergency (ER) | payer MEDICARE, OTHER ==
[~2020-05-01] VITALS: Ht 152.4 cm; Wt 54.4 kg
== END 2020-05-01 22:37 | disposition home or self-care (01) ==
LOC: ER 21:29
DX: Z76.89 Persons encountering health services in other specified circumstances (principal); J47.9 Bronchiectasis, uncomplicated; F32.9 Major depressive disorder, single episode, unspecified; K21.9 Gastro-esophageal reflux disease without esophagitis; I10 Essential (primary) hypertension; Z87.891 Personal history of nicotine dependence; Z79.52 Long term (current) use of systemic steroids; Z79.899 Other long term (current) drug therapy; Z88.1 Allergy status to other antibiotic agents
CPT/HCPCS: 96365; J2185

== ENCOUNTER 2020-05-02 07:28 | Day surgery (SDC) | payer MEDICARE, OTHER | END 2020-05-02 16:30 | disposition home or self-care (01) | LOC: ATC 07:28 | DX: A31.0 Pulmonary mycobacterial infection (principal); J47.1 Bronchiectasis with (acute) exacerbation; E78.00 Pure hypercholesterolemia, unspecified; E78.5 Hyperlipidemia, unspecified; K21.9 Gastro-esophageal reflux disease without esophagitis; Z79.899 Other long term (current) drug therapy; Z88.2 Allergy status to sulfonamides; Z88.1 Allergy status to other antibiotic agents | CPT/HCPCS: 96365; J2185 ==

== ENCOUNTER 2020-05-02 21:20 | Emergency (ER) | payer MEDICARE, OTHER ==
[~2020-05-02] VITALS: Ht 152.4 cm; Wt 54.4 kg
== END 2020-05-02 22:36 | disposition home or self-care (01) ==
LOC: ER 21:20
DX: Z76.89 Persons encountering health services in other specified circumstances (principal); J47.9 Bronchiectasis, uncomplicated; F32.9 Major depressive disorder, single episode, unspecified; K21.9 Gastro-esophageal reflux disease without esophagitis; I10 Essential (primary) hypertension; Z87.891 Personal history of nicotine dependence; Z79.899 Other long term (current) drug therapy; Z88.1 Allergy status to other antibiotic agents; Z79.52 Long term (current) use of systemic steroids
CPT/HCPCS: 96365; J2185

== ENCOUNTER 2020-05-03 00:35 | Day surgery (SDC) | payer MEDICARE, OTHER ==
--- NOTE | 2020-05-03 08:39 | NUR ---
NOHEMI PT'S BLOOD FROM [facility]. PT TOLERATED PROCEDURE WELL.
[2020-05-03 09:21] LABS: Alanine Aminotransfer (ALT/SGP 28 U/L (12-78); Albumin, Blood 3.2 g/dL (3.4-5.0); Albumin/Globulin Ratio 0.8 (0.8-1.8); Alk Phos 48 U/L (50-136); Anion Gap 3 mmol/L (6-16); Aspartate Aminotrans (AST/SGOT 18 U/L (12-37); Bilirubin, Total 0.5 mg/dL (0.1-1.0); Blood Urea Nitrogen 12 mg/dL (8-24); Bun/Creatinine Ratio 22.1 (12.0-20.0); CO2, Blood 27 mmol/L (21-32); Calcium, Blood 8.2 mg/dL (8.5-10.1); Chloride, Blood 107 mmol/L (98-108); Creatinine, Blood 0.54 mg/dL (0.40-1.00); Globulin, Blood 3.9 g/dL (2.2-4.0); Glomerular Filtration Rate >60 (60-); Glucose, Blood 87 mg/dL (70-99); Potassium, Blood 4.1 mmol/L (3.5-5.5); Sodium, Blood 137 mmol/L (136-145); Total Protein, Blood 7.1 g/dL (6.4-8.2)
[2020-05-03 09:22] LABS: BASOPHILS ABSOLUTE AUTO 0.04 K/mm3 (0.00-0.23); BASOPHILS PERCENT AUTO 1 % (0-2); EOSINOPHILS ABSOLUTE AUTO 0.67 K/mm3 (0.00-0.68); EOSINOPHILS PERCENT AUTO 12 % (0-6); Hematocrit 38.1 % (33.0-51.0); IMMATURE GRAN ABSOLUTE AUTO 0.01 K/mm3 (0.00-0.10); IMMATURE GRAN PERCENT AUTO 0 % (0-1); LYMPHOCYTES ABSOLUTE AUTO 1.14 K/mm3 (0.84-5.20); LYMPHOCYTES PERCENT AUTO 21 % (21-46); MONOCYTES ABSOLUTE AUTO 0.55 K/mm3 (0.16-1.47); MONOCYTES PERCENT AUTO 10 % (4-13); Mean Corpuscular HGB 29.5 pg (26.0-34.0); Mean Corpuscular HGB Conc 31.5 g/dL (31.5-36.5); Mean Corpuscular Volume 94 fL (80-100); Mean Platelet Volume 8.7 fL (9.1-12.4); NEUTROPHILS ABSOLUTE AUTO 3.06 K/mm3 (1.96-9.15); NEUTROPHILS PERCENT AUTO 56 % (41-73); Platelet Count 254 K/mm3 (150-400); RDW Coefficient Variation 14.5 % (11.7-14.2); RDW Standard Deviation 49.8 fL (35.1-46.3); Red Blood Cell Count 4.07 M/mm3 (3.80-5.20); White Blood Cell Count 5.47 K/mm3 (4.00-11.30)
== END 2020-05-03 16:11 | disposition home or self-care (01) ==
LOC: ATC 00:35
PROVIDERS: Internal Medicine Infectious Disease
DX: A31.0 Pulmonary mycobacterial infection (principal); J47.1 Bronchiectasis with (acute) exacerbation; E78.00 Pure hypercholesterolemia, unspecified; K21.9 Gastro-esophageal reflux disease without esophagitis; Z79.899 Other long term (current) drug therapy; Z88.2 Allergy status to sulfonamides; Z88.1 Allergy status to other antibiotic agents
CPT/HCPCS: 80053; 85025; J2185

== ENCOUNTER 2020-05-04 07:27 | Day surgery (SDC) | payer MEDICARE, OTHER ==
--- NOTE | 2020-05-04 08:20 | NUR ---
AM DISCHARGE TIME 3239
== END 2020-05-04 16:07 | disposition home or self-care (01) ==
LOC: ATC 07:27
DX: A31.0 Pulmonary mycobacterial infection (principal); J47.1 Bronchiectasis with (acute) exacerbation; E78.00 Pure hypercholesterolemia, unspecified; E78.5 Hyperlipidemia, unspecified; K21.9 Gastro-esophageal reflux disease without esophagitis; Z79.899 Other long term (current) drug therapy; Z88.2 Allergy status to sulfonamides; Z88.1 Allergy status to other antibiotic agents
CPT/HCPCS: J2185

== ENCOUNTER 2020-05-05 01:46 | Day surgery (SDC) | payer MEDICARE, OTHER | END 2020-05-05 16:20 | disposition home or self-care (01) | LOC: ATC 01:46 | DX: A31.0 Pulmonary mycobacterial infection (principal); J47.1 Bronchiectasis with (acute) exacerbation; F32.9 Major depressive disorder, single episode, unspecified; E78.00 Pure hypercholesterolemia, unspecified; K21.9 Gastro-esophageal reflux disease without esophagitis; Z79.899 Other long term (current) drug therapy; Z88.2 Allergy status to sulfonamides; Z88.1 Allergy status to other antibiotic agents; E87.1 Hypo-osmolality and hyponatremia; Z90.710 Acquired absence of both cervix and uterus; Z90.79 Acquired absence of other genital organ(s); Z90.722 Acquired absence of ovaries, bilateral | CPT/HCPCS: J2185 ==

== ENCOUNTER 2020-05-06 00:18 | Day surgery (SDC) | payer MEDICARE, OTHER | END 2020-05-06 16:26 | disposition home or self-care (01) | LOC: ATC 00:18 | DX: A31.0 Pulmonary mycobacterial infection (principal); J47.9 Bronchiectasis, uncomplicated; E55.9 Vitamin D deficiency, unspecified; E78.5 Hyperlipidemia, unspecified; E78.00 Pure hypercholesterolemia, unspecified; F41.9 Anxiety disorder, unspecified; G47.00 Insomnia, unspecified; G25.81 Restless legs syndrome; M81.0 Age-related osteoporosis without current pathological fracture; F32.9 Major depressive disorder, single episode, unspecified; M10.9 Gout, unspecified; D64.9 Anemia, unspecified; K21.9 Gastro-esophageal reflux disease without esophagitis; Z79.2 Long term (current) use of antibiotics; Z79.899 Other long term (current) drug therapy; Z88.1 Allergy status to other antibiotic agents | CPT/HCPCS: J2185 ==

== ENCOUNTER 2020-05-07 00:08 | Day surgery (SDC) | payer MEDICARE, OTHER | END 2020-05-07 16:10 | disposition home or self-care (01) | LOC: ATC 00:08 | DX: A31.0 Pulmonary mycobacterial infection (principal); J47.9 Bronchiectasis, uncomplicated; E55.9 Vitamin D deficiency, unspecified; E78.5 Hyperlipidemia, unspecified; M10.9 Gout, unspecified; D64.9 Anemia, unspecified; F41.9 Anxiety disorder, unspecified; G47.30 Sleep apnea, unspecified; G25.81 Restless legs syndrome; K21.9 Gastro-esophageal reflux disease without esophagitis; M81.0 Age-related osteoporosis without current pathological fracture; Z79.2 Long term (current) use of antibiotics; Z79.899 Other long term (current) drug therapy; Z88.1 Allergy status to other antibiotic agents | CPT/HCPCS: 96365; J2185 ==

== ENCOUNTER 2020-05-15 00:04 | Day surgery (SDC) | payer MEDICARE, OTHER ==
[~2020-05-15 00:04] MED LIST changes: -ACETADOTE200 MG/1 M PO; -ALBU2.5V5 INH; -ALORA1 EA11 TD; -FOLIC ACID0.4 MG PO; -FUROSEMIDE20 MG PO; -GABAPENTIN600 MG PO; -GENTAMICIN NEB; -K-Dur10 MEQ PO; -MERREM1 G3 IV; -Millipred5 MG PO; -OMEP20ER PO; -ONDA4ODT SL; -PANT20 PO; -PROBIOTIC1 EA13 PO; -Prednisone10 MG PO; -Q-Tussin100 MG/5 M PO; -ROPINIROLE HCL4 MG PO; -Sodium Chloride15 M1 NEB; -TOBRAMYCIN NEB; -TOBRAMYCIN300 MG/4 M IH; -URE-NA PO; -Ventolin/Prove6.7 GM INH; -Vitamin D2000 UNIT PO; -ZEBUTAL 50-3251 EAC1 PO; -Zofran4 MG PO; -[UNRECOGNIZED DRUG - OTHER] NEB
== END 2020-05-15 10:37 | disposition home or self-care (01) ==
LOC: ATC 00:04
DX: Z45.2 Encounter for adjustment and management of vascular access device (principal); A31.0 Pulmonary mycobacterial infection; J47.9 Bronchiectasis, uncomplicated; E55.9 Vitamin D deficiency, unspecified; E78.5 Hyperlipidemia, unspecified; E78.00 Pure hypercholesterolemia, unspecified; M10.9 Gout, unspecified; F41.9 Anxiety disorder, unspecified; G47.00 Insomnia, unspecified; G25.81 Restless legs syndrome; K21.9 Gastro-esophageal reflux disease without esophagitis; Z79.52 Long term (current) use of systemic steroids; Z79.2 Long term (current) use of antibiotics; Z79.899 Other long term (current) drug therapy; Z88.1 Allergy status to other antibiotic agents
CPT/HCPCS: 99211

== ENCOUNTER → 2020-05-15 | Outpatient (CLI) | payer MEDICARE, OTHER ==
[~2020-05-15] MED LIST changes: +ACETADOTE200 MG/1 M PO; +ALBU2.5V5 INH; +ALORA1 EA11 TD; +FOLIC ACID0.4 MG PO; +FUROSEMIDE20 MG PO; +GABAPENTIN600 MG PO; +GENTAMICIN NEB; +K-Dur10 MEQ PO; +MERREM1 G3 IV; +Millipred5 MG PO; +OMEP20ER PO; +ONDA4ODT SL; +PANT20 PO; +PROBIOTIC1 EA13 PO; +Prednisone10 MG PO; +Q-Tussin100 MG/5 M PO; +ROPINIROLE HCL4 MG PO; +Sodium Chloride15 M1 NEB; +TOBRAMYCIN NEB; +TOBRAMYCIN300 MG/4 M IH; +URE-NA PO; +Ventolin/Prove6.7 GM INH; +Vitamin D2000 UNIT PO; +ZEBUTAL 50-3251 EAC1 PO; +Zofran4 MG PO; +[UNRECOGNIZED DRUG - OTHER] NEB
== END | disposition home or self-care (01) ==
LOC: LAB 10:52
DX: J47.1 Bronchiectasis with (acute) exacerbation (principal)
CPT/HCPCS: 87070; 87077; 87186; 87205

== ENCOUNTER 2020-05-20 03:23 | Emergency (ER) | payer MEDICARE, OTHER ==
[~2020-05-20] VITALS: Ht 162.6 cm; Wt 54.4 kg
[2020-05-20 03:56] LABS: BASOPHILS ABSOLUTE AUTO 0.07 K/mm3 (0.00-0.23); BASOPHILS PERCENT AUTO 1 % (0-2); EOSINOPHILS ABSOLUTE AUTO 0.81 K/mm3 (0.00-0.68); EOSINOPHILS PERCENT AUTO 9 % (0-6); Hemoglobin 11.7 g/dL (11.5-16.0); IMMATURE GRAN ABSOLUTE AUTO 0.03 K/mm3 (0.00-0.10); IMMATURE GRAN PERCENT AUTO 0 % (0-1); LYMPHOCYTES ABSOLUTE AUTO 1.39 K/mm3 (0.84-5.20); LYMPHOCYTES PERCENT AUTO 15 % (21-46); MONOCYTES ABSOLUTE AUTO 0.92 K/mm3 (0.16-1.47); MONOCYTES PERCENT AUTO 10 % (4-13); Mean Corpuscular HGB 29.9 pg (26.0-34.0); Mean Corpuscular HGB Conc 33.4 g/dL (31.5-36.5); Mean Corpuscular Volume 90 fL (80-100); Mean Platelet Volume 8.7 fL (9.1-12.4); NEUTROPHILS ABSOLUTE AUTO 5.79 K/mm3 (1.96-9.15); NEUTROPHILS PERCENT AUTO 64 % (41-73); Platelet Count 260 K/mm3 (150-400); RDW Coefficient Variation 13.5 % (11.7-14.2); RDW Standard Deviation 44.2 fL (35.1-46.3); Red Blood Cell Count 3.91 M/mm3 (3.80-5.20); White Blood Cell Count 9.01 K/mm3 (4.00-11.30)
[2020-05-20 04:07] LABS: Alanine Aminotransfer (ALT/SGP 21 U/L (12-78); Albumin, Blood 3.2 g/dL (3.4-5.0); Albumin/Globulin Ratio 0.7 (0.8-1.8); Alk Phos 71 U/L (50-136); Anion Gap 4 mmol/L (6-16); Aspartate Aminotrans (AST/SGOT 17 U/L (12-37); Bilirubin, Total 0.7 mg/dL (0.1-1.0); Blood Urea Nitrogen 9 mg/dL (8-24); Bun/Creatinine Ratio 15.2 (12.0-20.0); CO2, Blood 31 mmol/L (21-32); Calcium, Blood 9.1 mg/dL (8.5-10.1); Chloride, Blood 95 mmol/L (98-108); Creatinine, Blood 0.59 mg/dL (0.40-1.00); Globulin, Blood 4.6 g/dL (2.2-4.0); Glomerular Filtration Rate >60 (60-); Glucose, Blood 98 mg/dL (70-99); Potassium, Blood 4.2 mmol/L (3.5-5.5); Sodium, Blood 130 mmol/L (136-145); Total Protein, Blood 7.8 g/dL (6.4-8.2)
== END 2020-05-20 05:59 | disposition home or self-care (01) ==
LOC: ER 03:23
PROVIDERS: Student in an Organized Health Care Education/Training Program
DX: J47.9 Bronchiectasis, uncomplicated (principal); F32.9 Major depressive disorder, single episode, unspecified; I10 Essential (primary) hypertension; K21.9 Gastro-esophageal reflux disease without esophagitis; Z88.1 Allergy status to other antibiotic agents; Z79.52 Long term (current) use of systemic steroids; Z79.899 Other long term (current) drug therapy; Z87.891 Personal history of nicotine dependence
CPT/HCPCS: 36415; 71045; 80053; 85025; 94644; 99285-25

== ENCOUNTER 2020-05-24 04:45 | Inpatient (IN) | payer MEDICARE, OTHER ==
[~2020-05-24] VITALS: Ht 160 cm; Wt 52.2 kg
[2020-05-24 06:17] LABS: Alanine Aminotransfer (ALT/SGP 23 U/L (12-78); Albumin, Blood 3.4 g/dL (3.4-5.0); Albumin/Globulin Ratio 0.7 (0.8-1.8); Alk Phos 76 U/L (50-136); Anion Gap 6 mmol/L (6-16); Aspartate Aminotrans (AST/SGOT 20 U/L (12-37); Bilirubin, Total 0.3 mg/dL (0.1-1.0); Blood Urea Nitrogen 10 mg/dL (8-24); Bun/Creatinine Ratio 18.1 (12.0-20.0); CO2, Blood 28 mmol/L (21-32); Chloride, Blood 95 mmol/L (98-108); Creatinine, Blood 0.55 mg/dL (0.40-1.00); Globulin, Blood 4.8 g/dL (2.2-4.0); Glomerular Filtration Rate >60 (60-); Glucose, Blood 98 mg/dL (70-99); Magnesium, Blood 2.2 mg/dL (1.6-2.4); Potassium, Blood 3.9 mmol/L (3.5-5.5); Sodium, Blood 129 mmol/L (136-145); Total Protein, Blood 8.2 g/dL (6.4-8.2); Troponin I <0.015 ng/mL (0.000-0.040)
[2020-05-24 06:34] LABS: Influenza A, PCR Negative (NEGATIVE); Influenza B, PCR Negative (NEGATIVE); Resp Syncytial Virus, PCR Negative (NEGATIVE); SARS-Cov-2 (COVID-19) PCR, MMC Negative (NEGATIVE)
[2020-05-24 06:59] LABS: PCO2 Arterial 52.4 mmHg (35-45); PO2 Arterial 71.2 mmHg (80-100); pH Blood Arterial 7.33 (7.35-7.45)
[2020-05-24 10:38] LABS: BASOPHILS ABSOLUTE AUTO 0.09 K/mm3 (0.00-0.23); BASOPHILS PERCENT AUTO 1 % (0-2); EOSINOPHILS ABSOLUTE AUTO 0.49 K/mm3 (0.00-0.68); EOSINOPHILS PERCENT AUTO 4 % (0-6); Hematocrit 34.3 % (33.0-51.0); Hemoglobin 11.4 g/dL (11.5-16.0); IMMATURE GRAN ABSOLUTE AUTO 0.05 K/mm3 (0.00-0.10); IMMATURE GRAN PERCENT AUTO 0 % (0-1); LYMPHOCYTES ABSOLUTE AUTO 1.11 K/mm3 (0.84-5.20); LYMPHOCYTES PERCENT AUTO 9 % (21-46); MONOCYTES ABSOLUTE AUTO 0.96 K/mm3 (0.16-1.47); MONOCYTES PERCENT AUTO 8 % (4-13); Mean Corpuscular HGB 29.5 pg (26.0-34.0); Mean Corpuscular HGB Conc 33.2 g/dL (31.5-36.5); Mean Corpuscular Volume 89 fL (80-100); Mean Platelet Volume 8.5 fL (9.1-12.4); NEUTROPHILS ABSOLUTE AUTO 9.57 K/mm3 (1.96-9.15); NEUTROPHILS PERCENT AUTO 78 % (41-73); Platelet Count 284 K/mm3 (150-400); RDW Coefficient Variation 13.2 % (11.7-14.2); RDW Standard Deviation 43.3 fL (35.1-46.3); Red Blood Cell Count 3.86 M/mm3 (3.80-5.20); White Blood Cell Count 12.27 K/mm3 (4.00-11.30)
[2020-05-24] MEDS ORDERED: ACETADOTE200 MG/1 M PO (11:08)
[2020-05-24] MEDS ORDERED: TOBRAMYCIN300 MG/4 M IH (11:09)
--- NOTE | 2020-05-24 18:03 | NUR ---
SHIFT SUMMARY; ASSUMED CARE FROM ER ON BIPAP 25% 04/11. A/A/OX4, DYSPNEA WITH EXERTION. BIPAP INCREASED TO 35% AFTER ARRIVAL BY RT FOR SATS OF 85%. WORE BIPAP FOR SEVERAL HOURS, BREAK GIVEN FOR DINNER, PLACED ON AIRVO AT 40L 48%. TOLERATING WELL. APPEARS LESS ANXIOUS, SPEAKING FULL SENTENCES. AWAITING CONSULT FROM DR. ZEE, PER PT REQUEST DUE TO DR. LONG BEING REGULAR MEDICAL CODING TECHNICIAN AND NOT ON THIS WEEKEND. ASSISTED TO BSC WITH SLIGHT SOB AND RECOVERY AFTER GETTING BACK IN BED. MEDICATED PER ORDERS THROUGHOUT SHIFT, SPOUSE AT BEDSIDE. MINIMAL DINNER EATEN, WILL CONTINUE TO MONITOR AND TREAT UNTIL CHANGE OF SHIFT.
[2020-05-24] MEDS ORDERED: LEVO750 PO (20:27)
[2020-05-24] MEDS ORDERED: Colace100 MG PO (20:31)
--- NOTE | 2020-05-24 22:05 | NUR ---
ASSUMED CARE OF PATIENT AT APPROXIMATELY 1905 FROM ALENA Valdez RN. PATIENT ALERT AND ORIENTED, VERY ANXIOUS (WORRIES ABOUT OXYGEN SATURATION, HEART RATE, ETC..), FORGETFUL. PATIENT REPORT PAIN IN LOWER RIGHT SIDE THAT SHE THINKS IS DUE TO RECENT UTI. PATIENT DENIES NUMBNESS, TINGLING OR DIZZINESS. PATIENT NAUSEOUS X1; MEDICATED BY PRIMER ASSEMBLERALINE Medel WITH ZOFRAN; GOOD RESULTS. NSR ON TELE; OXYGEN SATURATION ABOVE 90% ON AIRVO AT 40LPM WITH 40%FIO2. PIV X2 S/L. PATIENT CURRENTLY RESTING IN BED; CALL LIGHT IN REACH; BED IN LOWEST POSISTION; BED ALARM ON; WILL CONTINUE TO MONITOR AND ASSESS UNTIL END OF SHIFT.
[2020-05-25 03:44] LABS: BASOPHILS ABSOLUTE AUTO 0.02 K/mm3 (0.00-0.23); BASOPHILS PERCENT AUTO 0 % (0-2); EOSINOPHILS ABSOLUTE AUTO 0.01 K/mm3 (0.00-0.68); EOSINOPHILS PERCENT AUTO 0 % (0-6); Hemoglobin 11.1 g/dL (11.5-16.0); IMMATURE GRAN ABSOLUTE AUTO 0.03 K/mm3 (0.00-0.10); IMMATURE GRAN PERCENT AUTO 0 % (0-1); LYMPHOCYTES ABSOLUTE AUTO 0.29 K/mm3 (0.84-5.20); LYMPHOCYTES PERCENT AUTO 4 % (21-46); MONOCYTES ABSOLUTE AUTO 0.14 K/mm3 (0.16-1.47); MONOCYTES PERCENT AUTO 2 % (4-13); Mean Corpuscular HGB 29.8 pg (26.0-34.0); Mean Corpuscular HGB Conc 33.6 g/dL (31.5-36.5); Mean Corpuscular Volume 89 fL (80-100); Mean Platelet Volume 8.5 fL (9.1-12.4); NEUTROPHILS ABSOLUTE AUTO 7.56 K/mm3 (1.96-9.15); NEUTROPHILS PERCENT AUTO 94 % (41-73); Platelet Count 281 K/mm3 (150-400); RDW Standard Deviation 42.3 fL (35.1-46.3); Red Blood Cell Count 3.72 M/mm3 (3.80-5.20); White Blood Cell Count 8.05 K/mm3 (4.00-11.30)
[2020-05-25 04:03] LABS: Alanine Aminotransfer (ALT/SGP 19 U/L (12-78); Albumin, Blood 3.1 g/dL (3.4-5.0); Albumin/Globulin Ratio 0.7 (0.8-1.8); Alk Phos 73 U/L (50-136); Anion Gap 5 mmol/L (6-16); Aspartate Aminotrans (AST/SGOT 15 U/L (12-37); Bilirubin, Total 0.5 mg/dL (0.1-1.0); Blood Urea Nitrogen 6 mg/dL (8-24); Bun/Creatinine Ratio 12.9 (12.0-20.0); CO2, Blood 29 mmol/L (21-32); Calcium, Blood 8.5 mg/dL (8.5-10.1); Chloride, Blood 95 mmol/L (98-108); Creatinine, Blood 0.47 mg/dL (0.40-1.00); Globulin, Blood 4.4 g/dL (2.2-4.0); Glomerular Filtration Rate >60 (60-); Glucose, Blood 129 mg/dL (70-99); Potassium, Blood 4.6 mmol/L (3.5-5.5); Sodium, Blood 129 mmol/L (136-145); Total Protein, Blood 7.5 g/dL (6.4-8.2)
[2020-05-25 10:12] LABS: Source, Urine Clean Catch
[2020-05-25 10:19] LABS: Appearance, Urine Clear (Clear); Bilirubin, Urine Neg (Neg); Blood, Urine Neg (Neg); Color, Urine Yellow (P-Yellow); Glucose Qualitative, Urine 2+ (Neg); Ketones, Urine 1+ (Neg); Leukocyte Esterase, Urine Neg (Neg); Nitrite, Urine Neg (Neg); Protein, Urine Neg (Neg); Specific Gravity, Urine 1.005 (1.003-1.022); Urobilinogen, Urine NORM (Normal)
--- NOTE | 2020-05-25 18:23 | NUR ---
PT SUMMARY: PT WAS TRANSITIONED TO [place] NASAL CANNULA THIS AM AT 4L FROM AIRVO. PT SATS HAS BEEN ABOVE 92%, STILL GETS MILD SOB WITH EXERTION. HRR ST 90-110'S HR INCREASES UP TO 120'S WITH ANXIETY, BP SYSTOLIC 115, AFEBRILE. ANXIETY MEDS GIVEN X1, PT DENIES CHEST PAIN/PRESSURE. PT HAS BEEN GETTING UP MOVING AROUND THE BED, USES BATHROOM FOR TOILETING SBA. BREATHING TX PER RT RECEIVED. NO OTHER ISSUES ENCOUNTERED FOR THE SHIFT, WAS IN TO VISIT REMINDED OF THE VISITING HOURS. PT NOW IN BED RESTING CALL LIGHTS IN REACH WILL REPORT TO ONCOMING SHIFT
--- NOTE | 2020-05-25 21:04 | NUR ---
ASSUMED CARE OF PATIENT AT APPROXIMATELY 1905 FROM SLIME Valdez RN. PATIENT ALERT AND ORIENTED X4; INDEPENDENT TO BATHROOM; ABLE TO SPEAK IN FULL SENTENCES; REPORTS LESS SHORTNESS OF BREATH. IMPROVED SINCE LAST NIGHT. PATIENT CAN BE ANXIOUS AT TIMES ABOUT OXYGEN LEVEL AND HEART RATE. PATIENT DENIES PAIN, NUMBNESS, TINGLING, DIZZINESS OR NAUSEA. NSR ON TELE; OXYGEN SATURATION ABOVE 90% ON 3LPM VIA NC. PIV X2 S/L. PATIENT CURRENTLY RESTING IN BED; CALL LIGHT IN REACH; BED IN LOWEST POSISTION; BED ALARM ON; WILL CONTINUE TO MONITOR AND ASSESS UNTIL END OF SHIFT.
[2020-05-26 03:34] LABS: BASOPHILS ABSOLUTE AUTO 0.01 K/mm3 (0.00-0.23); BASOPHILS PERCENT AUTO 0 % (0-2); EOSINOPHILS ABSOLUTE AUTO 0.03 K/mm3 (0.00-0.68); EOSINOPHILS PERCENT AUTO 0 % (0-6); Hematocrit 31.9 % (33.0-51.0); Hemoglobin 10.7 g/dL (11.5-16.0); IMMATURE GRAN ABSOLUTE AUTO 0.04 K/mm3 (0.00-0.10); IMMATURE GRAN PERCENT AUTO 0 % (0-1); LYMPHOCYTES ABSOLUTE AUTO 0.64 K/mm3 (0.84-5.20); LYMPHOCYTES PERCENT AUTO 5 % (21-46); MONOCYTES ABSOLUTE AUTO 0.54 K/mm3 (0.16-1.47); MONOCYTES PERCENT AUTO 5 % (4-13); Mean Corpuscular HGB 29.4 pg (26.0-34.0); Mean Corpuscular HGB Conc 33.5 g/dL (31.5-36.5); Mean Corpuscular Volume 88 fL (80-100); Mean Platelet Volume 8.5 fL (9.1-12.4); NEUTROPHILS ABSOLUTE AUTO 10.75 K/mm3 (1.96-9.15); NEUTROPHILS PERCENT AUTO 90 % (41-73); Platelet Count 294 K/mm3 (150-400); RDW Standard Deviation 41.4 fL (35.1-46.3); Red Blood Cell Count 3.64 M/mm3 (3.80-5.20); White Blood Cell Count 12.01 K/mm3 (4.00-11.30)
[2020-05-26 03:57] LABS: Albumin, Blood 2.9 g/dL (3.4-5.0); Anion Gap 4 mmol/L (6-16); Blood Urea Nitrogen 9 mg/dL (8-24); Bun/Creatinine Ratio 17.9 (12.0-20.0); CO2, Blood 29 mmol/L (21-32); Calcium, Blood 8.6 mg/dL (8.5-10.1); Chloride, Blood 94 mmol/L (98-108); Glomerular Filtration Rate >60 (60-); Glucose, Blood 124 mg/dL (70-99); Phosphorus, Blood 2.5 mg/dL (2.5-4.9); Potassium, Blood 4.5 mmol/L (3.5-5.5); Sodium, Blood 127 mmol/L (136-145)
--- NOTE | 2020-05-26 06:30 | NUR ---
PATIENT SLEPT ABOUT EIGHT HOURS LAST NIGHT. VSS. TITRATED DOWN TO 2.5LPM VIA NC. PATIENT INDEPENDENT TO BATHROOM. EMOTIONAL LAST NIGHT.
[2020-05-26] MEDS ORDERED: OMEP20ER PO (10:18)
[2020-05-26] MEDS ORDERED: Q-Tussin100 MG/5 M PO (10:18)
[2020-05-26] MEDS ORDERED: RIFA300 PO (10:18)
[2020-05-26] MEDS ORDERED: Prednisone10 MG PO ×2 (10:19→10:21)
--- NOTE | 2020-05-26 12:02 | NUR ---
PT DISCHARGE TO HOME TODAY WITH DISCHARGE ORDERS, HOME O2 EVAL DONE WITH PT REQUIRING 2L OF O2 SUPPLEMENT AND IS PT'S BASELINE AT HOME. PT TO FOLLOW UP WITH PCP, DR GEORGE AND DR QUEEN. ALL DISCHARGE INSTRUCTIONS AND NEW MEDICATIONS DISCLOSED WITH THE PT, PT VERBALIZED UNDERSTANDING, PRESCRIPTION CALLED IN TO [facility]. PT TO CONTINUE LEVAQUIN REMAINING HOME DOSE AND FF-UP WITH DR GEORGE, PREDNISONE SWITCHED TO TAPERING DOSE. ALL BELONGINGS SENT WITH PT, ACCOMPANIED VIA WHEELCHAIR BY GAS MAIN FITTER HELPER WITH 2L OF O2 ON VIA OR, PROVIDED TRANSPORTATION.
== END 2020-05-26 12:05 | disposition home or self-care (01) | DRG 189 ==
LOC: ER 04:45 → PCU 06:30 → ERHOLD 06:30 → PCU 10:42
PROVIDERS: Emergency Medicine; Internal Medicine; Internal Medicine Critical Care Medicine; ADMIT Internal Medicine
DX: J96.21 Acute and chronic respiratory failure with hypoxia (principal); A31.0 Pulmonary mycobacterial infection; J47.9 Bronchiectasis, uncomplicated; Z87.891 Personal history of nicotine dependence; Z90.49 Acquired absence of other specified parts of digestive tract; K21.9 Gastro-esophageal reflux disease without esophagitis; E78.5 Hyperlipidemia, unspecified; F41.9 Anxiety disorder, unspecified; Z20.828 Contact with and (suspected) exposure to other viral communicable diseases
CPT/HCPCS: 0241U; 36415; 36600; 71045; 80053; 80069; 81003; 82803; 83605; 83735; 83880; 84145; 84484; 85025; 93005; 93010; 94640; 94660; 94761; 94762; 96372-59; 96374; 99285-25; A9270; A9270-GY; J1650; J2405; J2920; J2930

== ENCOUNTER 2020-06-18 10:09 | Day surgery (SDC) | payer MEDICARE, OTHER ==
[~2020-06-18] VITALS: Ht 152.4 cm; Wt 54.2 kg
[~2020-06-18 10:09] MED LIST changes: +ACETADOTE200 MG/1 M PO; +Millipred5 MG PO; +OMEP20ER PO; +Prednisone10 MG PO; +Q-Tussin100 MG/5 M PO; +ROPINIROLE HCL4 MG PO; +Sodium Chloride15 M1 NEB; +TOBRAMYCIN NEB; +TOBRAMYCIN300 MG/4 M IH; +Zofran4 MG PO
--- NOTE | 2020-06-18 10:38 | NUR ---
History, Chart, Medications and Allergies reviewed before start of procedure. Patient confirms NPO status and agrees with scheduled surgery. Patient States Post-Procedure ride home has been arranged with her .
--- NOTE | 2020-06-18 14:12 | NUR ---
Patient up to Ambulate independently. Gait steady. Discharge instructions reviewed with patient. Patient verbalizes understanding. Copy given to patient to take home. Discharged via wheelchair to private car for ride home with Bruce. andino given, see paper EMAR.
[2020-09-23] MEDS ORDERED: MERREM1 G3 IV (16:26)
== END 2020-06-18 14:00 | disposition home or self-care (01) ==
LOC: ORSCMMR 10:09 → ORD 11:30 → ORSCMMR 11:30
PROVIDERS: Surgery
PROC: 05HM33Z Insertion of Infusion Device into Right Internal Jugular Vein, Percutaneous Approach (ICD-10-PCS; principal; 2020-06-18 11:30)
PROC: B5131ZA Fluoroscopy of Right Jugular Veins using Low Osmolar Contrast, Guidance (ICD-10-PCS; principal; 2020-06-18 11:30)
DX: Z78.9 Other specified health status (principal); I10 Essential (primary) hypertension; Z87.891 Personal history of nicotine dependence; J47.9 Bronchiectasis, uncomplicated; E78.00 Pure hypercholesterolemia, unspecified; Z79.899 Other long term (current) drug therapy
CPT/HCPCS: 77001; 93005; 93010; A9270; C1788; J1100; J1642; J2405; J2704; J3010; J7120

== ENCOUNTER 2020-07-18 00:25 | Day surgery (SDC) | payer MEDICARE, OTHER ==
[2020-09-23] MEDS ORDERED: MERREM1 G3 IV (16:26)
== END 2020-07-18 09:30 | disposition home or self-care (01) ==
LOC: ATC 00:25
DX: Z45.2 Encounter for adjustment and management of vascular access device (principal); J47.1 Bronchiectasis with (acute) exacerbation; A31.0 Pulmonary mycobacterial infection; R84.5 Abnormal microbiological findings in specimens from respiratory organs and thorax; E55.9 Vitamin D deficiency, unspecified; E78.5 Hyperlipidemia, unspecified; E78.00 Pure hypercholesterolemia, unspecified; M10.9 Gout, unspecified; F41.9 Anxiety disorder, unspecified; G47.00 Insomnia, unspecified; G25.81 Restless legs syndrome; Z79.52 Long term (current) use of systemic steroids; Z79.2 Long term (current) use of antibiotics; Z79.899 Other long term (current) drug therapy; Z88.1 Allergy status to other antibiotic agents
CPT/HCPCS: 96523; J1642

== ENCOUNTER → 2020-08-06 | Outpatient (CLI) | payer MEDICARE, OTHER ==
[~2020-08-06] MED LIST changes: +ALBU2.5V5 INH; +ALORA1 EA11 TD; +FOLIC ACID0.4 MG PO; +FUROSEMIDE20 MG PO; +GABAPENTIN600 MG PO; +GENTAMICIN NEB; +K-Dur10 MEQ PO; +MERREM1 G3 IV; +ONDA4ODT SL; +PANT20 PO; +PROBIOTIC1 EA13 PO; +URE-NA PO; +Ventolin/Prove6.7 GM INH; +Vitamin D2000 UNIT PO; +ZEBUTAL 50-3251 EAC1 PO; +[UNRECOGNIZED DRUG - OTHER] NEB
== END | disposition home or self-care (01) ==
LOC: LAB SHORT 07:00 → LAB 07:00
DX: J47.1 Bronchiectasis with (acute) exacerbation (principal)
CPT/HCPCS: 87015; 87070; 87077; 87116; 87186; 87205; 87206

== ENCOUNTER 2020-08-22 00:08 | Day surgery (SDC) | payer MEDICARE, OTHER ==
[~2020-08-22 00:08] MED LIST changes: -ALBU2.5V5 INH; -ALORA1 EA11 TD; -FOLIC ACID0.4 MG PO; -FUROSEMIDE20 MG PO; -GABAPENTIN600 MG PO; -GENTAMICIN NEB; -K-Dur10 MEQ PO; -MERREM1 G3 IV; -ONDA4ODT SL; -PANT20 PO; -PROBIOTIC1 EA13 PO; -URE-NA PO; -Ventolin/Prove6.7 GM INH; -Vitamin D2000 UNIT PO; -ZEBUTAL 50-3251 EAC1 PO; -[UNRECOGNIZED DRUG - OTHER] NEB
[2020-09-23] MEDS ORDERED: MERREM1 G3 IV (16:26)
== END 2020-08-22 11:30 | disposition home or self-care (01) ==
LOC: ATC 00:08
DX: J47.1 Bronchiectasis with (acute) exacerbation (principal); E78.5 Hyperlipidemia, unspecified; Z88.1 Allergy status to other antibiotic agents
CPT/HCPCS: 96523; J1642

== ENCOUNTER 2020-09-10 12:06 | Emergency (ER) | payer MEDICARE, OTHER ==
[~2020-09-10] VITALS: Ht 152.4 cm; Wt 56.7 kg
[2020-09-10 13:51] LABS: BASOPHILS ABSOLUTE AUTO 0.05 K/mm3 (0.00-0.23); BASOPHILS PERCENT AUTO 0 % (0-2); EOSINOPHILS ABSOLUTE AUTO 0.04 K/mm3 (0.00-0.68); EOSINOPHILS PERCENT AUTO 0 % (0-6); Hematocrit 35.3 % (33.0-51.0); IMMATURE GRAN ABSOLUTE AUTO 0.13 K/mm3 (0.00-0.10); IMMATURE GRAN PERCENT AUTO 1 % (0-1); LYMPHOCYTES PERCENT AUTO 4 % (21-46); MONOCYTES ABSOLUTE AUTO 0.39 K/mm3 (0.16-1.47); MONOCYTES PERCENT AUTO 3 % (4-13); Mean Corpuscular HGB 29.4 pg (26.0-34.0); Mean Corpuscular Volume 87 fL (80-100); Mean Platelet Volume 8.4 fL (9.1-12.4); NEUTROPHILS ABSOLUTE AUTO 11.03 K/mm3 (1.96-9.15); NEUTROPHILS PERCENT AUTO 91 % (41-73); Platelet Count 237 K/mm3 (150-400); RDW Coefficient Variation 14.2 % (11.7-14.2); RDW Standard Deviation 45.1 fL (35.1-46.3); Red Blood Cell Count 4.08 M/mm3 (3.80-5.20); White Blood Cell Count 12.14 K/mm3 (4.00-11.30)
[2020-09-10 14:20] LABS: Alanine Aminotransfer (ALT/SGP 22 U/L (12-78); Albumin, Blood 3.6 g/dL (3.4-5.0); Albumin/Globulin Ratio 0.9 (0.8-1.8); Alk Phos 78 U/L (50-136); Anion Gap 6 mmol/L (6-16); Aspartate Aminotrans (AST/SGOT 18 U/L (12-37); Bilirubin, Total 0.9 mg/dL (0.1-1.0); Blood Urea Nitrogen 10 mg/dL (8-24); Bun/Creatinine Ratio 18.3 (12.0-20.0); CO2, Blood 27 mmol/L (21-32); Chloride, Blood 91 mmol/L (98-108); Creatinine, Blood 0.55 mg/dL (0.40-1.00); Glomerular Filtration Rate >60 (60-); Glucose, Blood 114 mg/dL (70-99); Potassium, Blood 4.7 mmol/L (3.5-5.5); Sodium, Blood 124 mmol/L (136-145); Total Protein, Blood 7.6 g/dL (6.4-8.2); Troponin I <0.015 ng/mL (0.000-0.040)
[2020-09-23] MEDS ORDERED: MERREM1 G3 IV (16:26)
== END 2020-09-10 16:10 | disposition home or self-care (01) ==
LOC: ER 12:06
PROVIDERS: Physician Assistant
DX: J47.9 Bronchiectasis, uncomplicated (principal); Z88.2 Allergy status to sulfonamides; Z88.1 Allergy status to other antibiotic agents; Z88.8 Allergy status to other drugs, medicaments and biological substances; Z79.899 Other long term (current) drug therapy
CPT/HCPCS: 71046; 80053; 84484; 85025; 87070; 87077; 87186; 87205; 93005; 93010; 99284; J1642

== ENCOUNTER 2020-09-16 05:41 | Emergency (ER) | payer MEDICARE, OTHER ==
[~2020-09-16] VITALS: Ht 152.4 cm; Wt 56.7 kg
[2020-09-16 07:11] LABS: BASOPHILS ABSOLUTE AUTO 0.05 K/mm3 (0.00-0.23); BASOPHILS PERCENT AUTO 1 % (0-2); EOSINOPHILS ABSOLUTE AUTO 0.41 K/mm3 (0.00-0.68); EOSINOPHILS PERCENT AUTO 5 % (0-6); Hematocrit 31.7 % (33.0-51.0); Hemoglobin 10.8 g/dL (11.5-16.0); IMMATURE GRAN ABSOLUTE AUTO 0.09 K/mm3 (0.00-0.10); IMMATURE GRAN PERCENT AUTO 1 % (0-1); LYMPHOCYTES ABSOLUTE AUTO 0.82 K/mm3 (0.84-5.20); LYMPHOCYTES PERCENT AUTO 10 % (21-46); MONOCYTES ABSOLUTE AUTO 0.78 K/mm3 (0.16-1.47); MONOCYTES PERCENT AUTO 9 % (4-13); Mean Corpuscular HGB 28.9 pg (26.0-34.0); Mean Corpuscular HGB Conc 34.1 g/dL (31.5-36.5); Mean Corpuscular Volume 85 fL (80-100); Mean Platelet Volume 8.2 fL (9.1-12.4); NEUTROPHILS ABSOLUTE AUTO 6.27 K/mm3 (1.96-9.15); NEUTROPHILS PERCENT AUTO 74 % (41-73); Platelet Count 183 K/mm3 (150-400); RDW Coefficient Variation 14.1 % (11.7-14.2); RDW Standard Deviation 44.2 fL (35.1-46.3); Red Blood Cell Count 3.74 M/mm3 (3.80-5.20); White Blood Cell Count 8.42 K/mm3 (4.00-11.30)
[2020-09-16 07:35] LABS: Alanine Aminotransfer (ALT/SGP 19 U/L (12-78); Albumin, Blood 3.2 g/dL (3.4-5.0); Albumin/Globulin Ratio 0.9 (0.8-1.8); Alk Phos 75 U/L (50-136); Anion Gap 6 mmol/L (6-16); Aspartate Aminotrans (AST/SGOT 18 U/L (12-37); Bilirubin, Total 0.9 mg/dL (0.1-1.0); Blood Urea Nitrogen 8 mg/dL (8-24); Bun/Creatinine Ratio 15.4 (12.0-20.0); CO2, Blood 29 mmol/L (21-32); Calcium, Blood 7.9 mg/dL (8.5-10.1); Chloride, Blood 88 mmol/L (98-108); Creatinine, Blood 0.52 mg/dL (0.40-1.00); Globulin, Blood 3.6 g/dL (2.2-4.0); Glomerular Filtration Rate >60 (60-); Glucose, Blood 93 mg/dL (70-99); Potassium, Blood 3.7 mmol/L (3.5-5.5); Sodium, Blood 123 mmol/L (136-145); Total Protein, Blood 6.8 g/dL (6.4-8.2); Troponin I <0.015 ng/mL (0.000-0.040)
[2020-09-16] MEDS ORDERED: GENTAMICIN NEB (08:04)
[2020-09-16] MEDS ORDERED: [UNRECOGNIZED DRUG - OTHER] NEB (08:04)
[2020-09-16] MEDS ORDERED: DOXY100 PO (09:24)
[2020-09-16] MEDS ORDERED: ZEBUTAL 50-3251 EAC1 PO (09:24)
[2020-09-23] MEDS ORDERED: MERREM1 G3 IV (16:26)
== END 2020-09-16 10:00 | disposition home or self-care (01) ==
LOC: ER 05:41
PROVIDERS: Emergency Medicine
DX: J47.1 Bronchiectasis with (acute) exacerbation (principal); I10 Essential (primary) hypertension; K21.9 Gastro-esophageal reflux disease without esophagitis; Z79.899 Other long term (current) drug therapy
CPT/HCPCS: 71045; 80053; 83880; 84484; 85025; 93005; 93010; 94640; 96374; 96375; 99285-25; A9270; J1170; J1642; J2405; J2930; J7030

== ENCOUNTER 2020-09-20 06:33 | Emergency (ER) | payer MEDICARE, OTHER ==
[~2020-09-20] VITALS: Ht 152.4 cm; Wt 56.7 kg
[~2020-09-20 06:33] MED LIST changes: +GENTAMICIN NEB; +ZEBUTAL 50-3251 EAC1 PO; +[UNRECOGNIZED DRUG - OTHER] NEB
[2020-09-20 08:25] LABS: BASOPHILS ABSOLUTE AUTO 0.06 K/mm3 (0.00-0.23); BASOPHILS PERCENT AUTO 1 % (0-2); EOSINOPHILS ABSOLUTE AUTO 0.37 K/mm3 (0.00-0.68); EOSINOPHILS PERCENT AUTO 4 % (0-6); Hematocrit 33.7 % (33.0-51.0); Hemoglobin 11.4 g/dL (11.5-16.0); IMMATURE GRAN ABSOLUTE AUTO 0.06 K/mm3 (0.00-0.10); IMMATURE GRAN PERCENT AUTO 1 % (0-1); LYMPHOCYTES PERCENT AUTO 8 % (21-46); MONOCYTES ABSOLUTE AUTO 0.74 K/mm3 (0.16-1.47); MONOCYTES PERCENT AUTO 9 % (4-13); Mean Corpuscular HGB 28.9 pg (26.0-34.0); Mean Corpuscular HGB Conc 33.8 g/dL (31.5-36.5); Mean Corpuscular Volume 86 fL (80-100); Mean Platelet Volume 8.3 fL (9.1-12.4); NEUTROPHILS ABSOLUTE AUTO 6.67 K/mm3 (1.96-9.15); NEUTROPHILS PERCENT AUTO 78 % (41-73); Platelet Count 216 K/mm3 (150-400); RDW Standard Deviation 44.3 fL (35.1-46.3); Red Blood Cell Count 3.94 M/mm3 (3.80-5.20)
[2020-09-20 08:49] LABS: Alanine Aminotransfer (ALT/SGP 20 U/L (12-78); Albumin, Blood 3.4 g/dL (3.4-5.0); Albumin/Globulin Ratio 0.9 (0.8-1.8); Alk Phos 84 U/L (50-136); Anion Gap 6 mmol/L (6-16); Aspartate Aminotrans (AST/SGOT 16 U/L (12-37); Bilirubin, Total 0.6 mg/dL (0.1-1.0); Blood Urea Nitrogen 12 mg/dL (8-24); Bun/Creatinine Ratio 22.9 (12.0-20.0); CO2, Blood 29 mmol/L (21-32); Calcium, Blood 8.5 mg/dL (8.5-10.1); Chloride, Blood 93 mmol/L (98-108); Creatinine, Blood 0.52 mg/dL (0.40-1.00); Globulin, Blood 3.8 g/dL (2.2-4.0); Glomerular Filtration Rate >60 (60-); Glucose, Blood 93 mg/dL (70-99); Sodium, Blood 128 mmol/L (136-145); Total Protein, Blood 7.2 g/dL (6.4-8.2); Troponin I <0.015 ng/mL (0.000-0.040)
[2020-09-20] MEDS ORDERED: ROPINIROLE HCL4 MG PO (12:47)
[2020-09-20] MEDS ORDERED: PRED20 PO (12:49)
[2020-09-20] MEDS ORDERED: ONDA4ODT SL (12:49)
[2020-09-20] MEDS ORDERED: ALORA1 EA11 TD (12:51)
[2020-09-20] MEDS ORDERED: GABAPENTIN600 MG PO (12:57)
[2020-09-20] MEDS ORDERED: Ventolin/Prove6.7 GM INH (12:58)
[2020-09-20] MEDS ORDERED: ATOR10 PO (12:59)
[2020-09-23] MEDS ORDERED: MERREM1 G3 IV (16:26)
== END 2020-09-20 14:00 | disposition home or self-care (01) ==
LOC: ER 06:33
PROVIDERS: Emergency Medicine
DX: J47.1 Bronchiectasis with (acute) exacerbation (principal); Z79.52 Long term (current) use of systemic steroids; Z79.899 Other long term (current) drug therapy
CPT/HCPCS: 71045; 80053; 83880; 84484; 85025; 93005; 93010; 94640; 96365; 96375; 99285-25; J0713; J1170; J1642; J2405; J7030

== ENCOUNTER 2020-09-20 19:55 | Emergency (ER) | payer MEDICARE, OTHER ==
[~2020-09-20] VITALS: Ht 160 cm; Wt 54.4 kg
[~2020-09-20 19:55] MED LIST changes: +ALORA1 EA11 TD; +GABAPENTIN600 MG PO; +ONDA4ODT SL; +Ventolin/Prove6.7 GM INH
[2020-09-23] MEDS ORDERED: MERREM1 G3 IV (16:26)
== END 2020-09-20 22:39 | disposition home or self-care (01) ==
LOC: ER 19:55
DX: Z76.89 Persons encountering health services in other specified circumstances (principal); Z88.1 Allergy status to other antibiotic agents; Z88.2 Allergy status to sulfonamides; Z76.0 Encounter for issue of repeat prescription; Z79.899 Other long term (current) drug therapy
CPT/HCPCS: 96365; A9270; J0696; J0713; J1642

== ENCOUNTER 2020-09-21 08:27 | Day surgery (SDC) | payer MEDICARE, OTHER ==
[2020-09-23] MEDS ORDERED: MERREM1 G3 IV (16:26)
== END 2020-09-21 16:46 | disposition home or self-care (01) ==
LOC: ATC 08:27
DX: J18.9 Pneumonia, unspecified organism (principal); J47.0 Bronchiectasis with acute lower respiratory infection; Z88.1 Allergy status to other antibiotic agents; Z88.2 Allergy status to sulfonamides; Z87.891 Personal history of nicotine dependence
CPT/HCPCS: J0713; J1642

== ENCOUNTER 2020-09-22 07:30 | Day surgery (SDC) | payer MEDICARE, OTHER ==
[2020-09-23] MEDS ORDERED: MERREM1 G3 IV (16:26)
== END 2020-09-22 14:42 | disposition home or self-care (01) ==
LOC: ATC 07:30
DX: A31.0 Pulmonary mycobacterial infection (principal); J47.1 Bronchiectasis with (acute) exacerbation; R84.5 Abnormal microbiological findings in specimens from respiratory organs and thorax; K21.9 Gastro-esophageal reflux disease without esophagitis; E78.00 Pure hypercholesterolemia, unspecified; M10.9 Gout, unspecified; G25.81 Restless legs syndrome; Z88.1 Allergy status to other antibiotic agents; Z88.2 Allergy status to sulfonamides
CPT/HCPCS: J0713; J1642

== ENCOUNTER 2020-09-24 00:37 | Day surgery (SDC) | payer MEDICARE, OTHER ==
[~2020-09-24 00:37] MED LIST changes: +MERREM1 G3 IV
--- NOTE | 2020-09-24 08:32 | NUR ---
PT STATES SHE HAS STARTED HAVING DARK STOOLS AND DIARRHEA. PT HAS AAN APPOINTMENT WITH DR. GEORGE THIS AM.
[2020-09-25] MEDS ORDERED: FOLIC ACID0.4 MG PO (08:26)
[2020-09-25] MEDS ORDERED: Vitamin D2000 UNIT PO (08:27)
[2020-09-25] MEDS ORDERED: PROBIOTIC1 EA13 PO (08:27)
== END 2020-09-24 16:28 | disposition home or self-care (01) ==
LOC: ATC 00:37
DX: A31.0 Pulmonary mycobacterial infection (principal); J47.9 Bronchiectasis, uncomplicated; E78.00 Pure hypercholesterolemia, unspecified; M10.9 Gout, unspecified; G25.81 Restless legs syndrome; Z88.2 Allergy status to sulfonamides; Z88.1 Allergy status to other antibiotic agents; Z87.891 Personal history of nicotine dependence
CPT/HCPCS: 96365; J1642; J2185

== ENCOUNTER 2020-09-25 02:52 | Inpatient (IN) | payer MEDICARE, OTHER ==
[~2020-09-25] VITALS: Ht 160 cm; Wt 57.9 kg
[2020-09-25 03:06] LABS: BASOPHILS ABSOLUTE AUTO 0.08 K/mm3 (0.00-0.23); BASOPHILS PERCENT AUTO 1 % (0-2); EOSINOPHILS ABSOLUTE AUTO 0.66 K/mm3 (0.00-0.68); EOSINOPHILS PERCENT AUTO 7 % (0-6); Hematocrit 35.3 % (33.0-51.0); Hemoglobin 11.9 g/dL (11.5-16.0); IMMATURE GRAN ABSOLUTE AUTO 0.05 K/mm3 (0.00-0.10); IMMATURE GRAN PERCENT AUTO 1 % (0-1); LYMPHOCYTES ABSOLUTE AUTO 1.01 K/mm3 (0.84-5.20); LYMPHOCYTES PERCENT AUTO 11 % (21-46); MONOCYTES ABSOLUTE AUTO 0.77 K/mm3 (0.16-1.47); MONOCYTES PERCENT AUTO 9 % (4-13); Mean Corpuscular HGB Conc 33.7 g/dL (31.5-36.5); Mean Corpuscular Volume 86 fL (80-100); NEUTROPHILS PERCENT AUTO 71 % (41-73); Platelet Count 240 K/mm3 (150-400); RDW Standard Deviation 44.2 fL (35.1-46.3); White Blood Cell Count 8.97 K/mm3 (4.00-11.30)
[2020-09-25 03:22] LABS: PCO2 Arterial 60.1 mmHg (35-45); PO2 Arterial 141 mmHg (80-100); pH Blood Arterial 7.32 (7.35-7.45)
[2020-09-25 03:23] LABS: Alanine Aminotransfer (ALT/SGP 21 U/L (12-78); Albumin, Blood 3.6 g/dL (3.4-5.0); Albumin/Globulin Ratio 0.8 (0.8-1.8); Alk Phos 94 U/L (50-136); Anion Gap 3 mmol/L (6-16); Aspartate Aminotrans (AST/SGOT 19 U/L (12-37); Bilirubin, Total 0.5 mg/dL (0.1-1.0); Blood Urea Nitrogen 6 mg/dL (8-24); CO2, Blood 33 mmol/L (21-32); Calcium, Blood 8.5 mg/dL (8.5-10.1); Chloride, Blood 94 mmol/L (98-108); Creatinine, Blood 0.54 mg/dL (0.40-1.00); Globulin, Blood 4.4 g/dL (2.2-4.0); Glomerular Filtration Rate >60 (60-); Glucose, Blood 106 mg/dL (70-99); Magnesium, Blood 2.1 mg/dL (1.6-2.4); Potassium, Blood 3.8 mmol/L (3.5-5.5); Sodium, Blood 130 mmol/L (136-145); Troponin I <0.015 ng/mL (0.000-0.040)
[2020-09-25] MEDS ORDERED: FOLIC ACID0.4 MG PO (08:26)
[2020-09-25] MEDS ORDERED: PROBIOTIC1 EA13 PO (08:27)
[2020-09-25] MEDS ORDERED: Vitamin D2000 UNIT PO (08:27)
--- NOTE | 2020-09-25 09:56 | NUR ---
PT ARRIVED [facility]IA [facility] WITH GUEST SERVICES OFFICER, OXYGEN THERAPY, ABX INFUSION, AND CARDIAC MONITORING AT 0755 . PT PLACED ON TELEMETRY AT 0800. PT PLACED ON 3.5L O2 VIA WI. PT DENIES ADDITIONAL CONCERNS AT THIS TIME.
--- NOTE | 2020-09-25 19:32 | NUR ---
PT ON 4LNC HUMIDIFIED AND REPORTS DIMINISHED WOB AND SOB. PT'S LUNGS STILL WHEEZY ON AUSCULTATION IN ALL [place]RAY[place]. PLAN FOR ECHOCARDIOGRAM TOMORROW FOR BLE EDEMA AT HOME. PT REPORTS NO ADDITIONAL CONCERNS OR QUESTIONS AT THIS TIME.
[2020-09-26] MEDS ORDERED: ALPR.25 PO (09:14)
--- NOTE | 2020-09-26 10:25 | NUR ---
THIS RN AGREES WITH STUDENT NURSE SHIFT ASSESSMENT DOCUMENTATION.
--- NOTE | 2020-09-26 18:01 | NUR ---
REPORT GIVEN TO DERIK MIRELES.
--- NOTE | 2020-09-26 18:01 | NUR ---
NO ACUTE EVENTS THIS SHIFT, PATIENT ON 3-4 L VIA NASAL CANNULA. PATIENT REMAINS IN 90s O2 SATURATION. ALERT AND ORIENTED, ANXIOUS AT TIMES. CALLS APPROPRIATELY. PATIENT IS ABLE TO AMBULATE INDEPENDENTLY IN ROOM. SPEECH THERAPY SAW PATIENT, TO GIVE MEDS IN APPLESAUCE, TOLERATING WELL. PATIENT COMPLAINS OF COUGHING FITS, ROBITUSSIN GIVEN AND DECREASE IN COUGHING NOTED THROUGH REST OF SHIFT.
--- NOTE | 2020-09-26 18:32 | NUR ---
PT ARRIVED TO ROOM AT 1830 NO DISTRESS NOTED. PT IS INDEPENDENT AND CAN CALL APPROPRIATELY. PT SETTLED INTO ROOM AND CALL LIGHT IS WITHIN REACH. WILL CONTINUE TO MONITOR.
--- NOTE | 2020-09-27 04:18 | NUR ---
SCORER HELPER SUMMARY PT A/O X4. INDEPENDENT IN ROOM. CONTINUES TO BE ON 3L O2 VIA NC SATTING AT 92% OR ABOVE. DENIES PAIN, NAUSEA, DIZZINIESS. GETS SOB WITH EXERTION. PT STILL HAVING QUITE A BIT OF COUGHS, PROTUCTIVE AT TIMES. PT IS SR IN THE 70'S THIS MORNING PER CONDUIT CLEANER. PT USES CALL LIGHT APPROPRIATELY. VSS. NO ACUTE CHANGES. CALL LIGHT WITHIN REACH, WILL CONTINUE TO MONITOR.
[2020-09-27 06:36] LABS: BASOPHILS ABSOLUTE AUTO 0.02 K/mm3 (0.00-0.23); BASOPHILS PERCENT AUTO 0 % (0-2); EOSINOPHILS PERCENT AUTO 0 % (0-6); Hematocrit 34.6 % (33.0-51.0); Hemoglobin 11.6 g/dL (11.5-16.0); IMMATURE GRAN ABSOLUTE AUTO 0.12 K/mm3 (0.00-0.10); IMMATURE GRAN PERCENT AUTO 1 % (0-1); LYMPHOCYTES ABSOLUTE AUTO 0.42 K/mm3 (0.84-5.20); LYMPHOCYTES PERCENT AUTO 3 % (21-46); MONOCYTES ABSOLUTE AUTO 0.63 K/mm3 (0.16-1.47); MONOCYTES PERCENT AUTO 4 % (4-13); Mean Corpuscular HGB 29.6 pg (26.0-34.0); Mean Corpuscular HGB Conc 33.5 g/dL (31.5-36.5); Mean Corpuscular Volume 88 fL (80-100); Mean Platelet Volume 8.6 fL (9.1-12.4); NEUTROPHILS ABSOLUTE AUTO 14.11 K/mm3 (1.96-9.15); NEUTROPHILS PERCENT AUTO 92 % (41-73); Platelet Count 274 K/mm3 (150-400); RDW Coefficient Variation 14.3 % (11.7-14.2); Red Blood Cell Count 3.92 M/mm3 (3.80-5.20)
[2020-09-27 06:52] LABS: Anion Gap 5 mmol/L (6-16); Blood Urea Nitrogen 10 mg/dL (8-24); Bun/Creatinine Ratio 21.3 (12.0-20.0); CO2, Blood 31 mmol/L (21-32); Calcium, Blood 8.8 mg/dL (8.5-10.1); Chloride, Blood 93 mmol/L (98-108); Creatinine, Blood 0.47 mg/dL (0.40-1.00); Glomerular Filtration Rate >60 (60-); Glucose, Blood 108 mg/dL (70-99); Potassium, Blood 4.4 mmol/L (3.5-5.5); Sodium, Blood 129 mmol/L (136-145)
[2020-09-28 04:50] LABS: BASOPHILS ABSOLUTE AUTO 0.01 K/mm3 (0.00-0.23); BASOPHILS PERCENT AUTO 0 % (0-2); EOSINOPHILS PERCENT AUTO 0 % (0-6); Hematocrit 35.3 % (33.0-51.0); Hemoglobin 11.7 g/dL (11.5-16.0); IMMATURE GRAN PERCENT AUTO 1 % (0-1); LYMPHOCYTES ABSOLUTE AUTO 0.38 K/mm3 (0.84-5.20); LYMPHOCYTES PERCENT AUTO 4 % (21-46); MONOCYTES PERCENT AUTO 4 % (4-13); Mean Corpuscular HGB Conc 33.1 g/dL (31.5-36.5); Mean Corpuscular Volume 87 fL (80-100); Mean Platelet Volume 8.5 fL (9.1-12.4); NEUTROPHILS PERCENT AUTO 92 % (41-73); Platelet Count 278 K/mm3 (150-400); RDW Coefficient Variation 14.2 % (11.7-14.2); RDW Standard Deviation 45.4 fL (35.1-46.3); Red Blood Cell Count 4.04 M/mm3 (3.80-5.20); White Blood Cell Count 10.69 K/mm3 (4.00-11.30)
[2020-09-28 05:09] LABS: Anion Gap 4 mmol/L (6-16); Blood Urea Nitrogen 11 mg/dL (8-24); Bun/Creatinine Ratio 22.1 (12.0-20.0); CO2, Blood 30 mmol/L (21-32); Calcium, Blood 8.7 mg/dL (8.5-10.1); Chloride, Blood 93 mmol/L (98-108); Glomerular Filtration Rate >60 (60-); Glucose, Blood 111 mg/dL (70-99); Potassium, Blood 4.3 mmol/L (3.5-5.5); Sodium, Blood 127 mmol/L (136-145)
--- NOTE | 2020-09-28 05:41 | NUR ---
SHIFT SUMMARY- PT. A&OX4, PLEASANT AND COOPERATIVE. INDEPENDENT IN ROOM. ON 3L NC, REPORTS DIFFICULTY COUGHING UP MUCOUS. PT. ON SCHEDULED AND PRN NEB TX'S, APPEARS TO BE TOLERATING WELL. NO COMPLAINTS OF PAIN OR DISCOMFORT T/O THE NIGHT. RESTED ON/OFF DURING THE NIGHT, NO APPARENT DISTRESS NOTED. CALL LIGHT WITHIN REACH AND SIDE RAILS UPX2. WILL CONT TO MONITOR.
--- NOTE | 2020-09-28 18:25 | NUR ---
PT HAS BEEN QUITE PLEASANT TODAY. NO C/O PAIN. STATES WILFRID BROUGHT HIS DINNER IN FOR HER. SHE STATES SHE ATE THAT INSTEAD OF HOSP FOOD. HAS BEEN IN THIS AFT FOR FULL VISITING HOURS. PT STATES FEELS BETTER, HOPEFUL FOR HOME IN DAY OR SO. AMBULATING SELF TO BATHROOM. BED IN LOW POSITION, CALL LITE IN REACH, CALLS APROP.NO OTHER CONCERNS NOTED TODAY
--- NOTE | 2020-09-29 05:43 | NUR ---
SHIFT SUMMARY- NO ACUTE EVENTS OVERNIGHT. PT. HAD NO COMPLAINTS OF PAIN OR DISCOMFORT T/O THE NIGHT. APPEARED TO HAVE RESTED COMFORTABLY DURING THE NIGHT, NO APPARENT DISTRESS NOTED. PT. STATES IS FEELING BETTER, ON 3L NC. PT. ANTICPATING D/C TODAY, VSS. CALL LIGHT WITHIN REACH AND SIDE RAILS UPX2. WILL CONT TO MONITOR.
[2020-09-29 06:04] LABS: Albumin, Blood 3.4 g/dL (3.4-5.0); Anion Gap 5 mmol/L (6-16); Blood Urea Nitrogen 10 mg/dL (8-24); CO2, Blood 27 mmol/L (21-32); Calcium, Blood 8.5 mg/dL (8.5-10.1); Chloride, Blood 94 mmol/L (98-108); Creatinine, Blood 0.48 mg/dL (0.40-1.00); Glomerular Filtration Rate >60 (60-); Glucose, Blood 109 mg/dL (70-99); Phosphorus, Blood 1.6 mg/dL (2.5-4.9); Potassium, Blood 4.2 mmol/L (3.5-5.5); Sodium, Blood 126 mmol/L (136-145)
[2020-09-29] MEDS ORDERED: GUAI600T33 PO (11:18)
[2020-09-29] MEDS ORDERED: PANT20 PO (11:18)
[2020-09-29] MEDS ORDERED: Prednisone10 MG PO (11:21)
[2020-09-29] MEDS ORDERED: ALBU2.5V5 INH (13:36)
--- NOTE | 2020-09-29 18:23 | NUR ---
DISCHARGE REVIEWED WITH PT AND SPOUSE. PT VERBALIZED UNDERSTANDING MEDS AND INST. MEDIPORT HEPARIN PACKED PER PROTOCOL. NEEDLE PULLED INTACT. NO BLEEDING. BNDAIDE PLACED OVER PRECAUTION. TELE REMOVED AND RETUNRED. PT WHEELED TO DOOR AT 1828 BY EULALIA.
== END 2020-09-29 18:37 | disposition home or self-care (01) | DRG 189 ==
LOC: ER 02:52 → MEDS 06:13 → PCU 06:13 → MEDS 09-26 18:19
PROVIDERS: Emergency Medicine; Family Medicine; Internal Medicine; ADMIT Internal Medicine
DX: J96.22 Acute and chronic respiratory failure with hypercapnia (principal); J44.1 Chronic obstructive pulmonary disease with (acute) exacerbation; E87.1 Hypo-osmolality and hyponatremia; J47.0 Bronchiectasis with acute lower respiratory infection; I10 Essential (primary) hypertension; I16.0 Hypertensive urgency; F41.9 Anxiety disorder, unspecified; F32.9 Major depressive disorder, single episode, unspecified; K21.9 Gastro-esophageal reflux disease without esophagitis; M79.7 Fibromyalgia; R13.10 Dysphagia, unspecified; Z99.81 Dependence on supplemental oxygen; Z87.891 Personal history of nicotine dependence
CPT/HCPCS: 36415; 36600; 71045; 80048; 80053; 80069; 82103; 82803; 83735; 83880; 84484; 85025; 87070; 87205; 92610; 93005; 93010; 93306; 94640; 94644; 94667; 94760; 96374; 96375; 99285-25; A9270; A9270-GY; C9113; J0360; J1642; J1650; J1885; J2185; J2405; J2930; J7050

== ENCOUNTER 2020-10-01 07:24 | Day surgery (SDC) | payer MEDICARE, OTHER ==
[~2020-10-01 07:24] MED LIST changes: +ALBU2.5V5 INH; +FOLIC ACID0.4 MG PO; +PANT20 PO; +PROBIOTIC1 EA13 PO; +Vitamin D2000 UNIT PO
== END 2020-10-01 17:16 | disposition home or self-care (01) ==
LOC: ATC 07:24
DX: A31.0 Pulmonary mycobacterial infection (principal); J47.1 Bronchiectasis with (acute) exacerbation; E78.00 Pure hypercholesterolemia, unspecified; E78.5 Hyperlipidemia, unspecified; K21.9 Gastro-esophageal reflux disease without esophagitis; M81.0 Age-related osteoporosis without current pathological fracture; E55.9 Vitamin D deficiency, unspecified; E87.1 Hypo-osmolality and hyponatremia; D64.9 Anemia, unspecified
CPT/HCPCS: J1642; J2185

== ENCOUNTER 2020-10-02 00:52 | Day surgery (SDC) | payer MEDICARE, OTHER | END 2020-10-02 16:49 | disposition home or self-care (01) | LOC: ATC 00:52 | DX: A31.0 Pulmonary mycobacterial infection (principal); J47.9 Bronchiectasis, uncomplicated; E78.00 Pure hypercholesterolemia, unspecified; G25.81 Restless legs syndrome; K21.9 Gastro-esophageal reflux disease without esophagitis; E55.9 Vitamin D deficiency, unspecified; Z88.2 Allergy status to sulfonamides; Z88.1 Allergy status to other antibiotic agents; Z87.891 Personal history of nicotine dependence | CPT/HCPCS: 96365; J1642; J2185 ==

== ENCOUNTER → 2020-11-06 | Outpatient (CLI) | payer MEDICARE, OTHER ==
[~2020-11-06] MED LIST changes: +FUROSEMIDE20 MG PO; +K-Dur10 MEQ PO; +URE-NA PO
== END | disposition home or self-care (01) ==
LOC: LAB SHORT 06:00 → LAB 06:00
DX: J47.1 Bronchiectasis with (acute) exacerbation (principal)
CPT/HCPCS: 87070; 87205

== ENCOUNTER 2020-11-18 00:15 | Day surgery (SDC) | payer MEDICARE, OTHER ==
[~2020-11-18 00:15] MED LIST changes: -FUROSEMIDE20 MG PO; -K-Dur10 MEQ PO; -URE-NA PO
== END 2020-11-18 16:18 | disposition home or self-care (01) ==
LOC: ATC 00:15
DX: A31.0 Pulmonary mycobacterial infection (principal); J47.1 Bronchiectasis with (acute) exacerbation; Z87.891 Personal history of nicotine dependence
CPT/HCPCS: 96523; J1642

== ENCOUNTER 2020-11-20 00:11 | Emergency (ER) | payer MEDICARE, OTHER ==
[~2020-11-20] VITALS: Ht 152.4 cm; Wt 56.7 kg
[2020-11-20 01:53] LABS: BASOPHILS ABSOLUTE AUTO 0.04 K/mm3 (0.00-0.23); BASOPHILS PERCENT AUTO 0 % (0-2); EOSINOPHILS ABSOLUTE AUTO 0.16 K/mm3 (0.00-0.68); EOSINOPHILS PERCENT AUTO 2 % (0-6); Hemoglobin 11.2 g/dL (11.5-16.0); IMMATURE GRAN ABSOLUTE AUTO 0.15 K/mm3 (0.00-0.10); IMMATURE GRAN PERCENT AUTO 2 % (0-1); LYMPHOCYTES ABSOLUTE AUTO 1.21 K/mm3 (0.84-5.20); LYMPHOCYTES PERCENT AUTO 12 % (21-46); MONOCYTES ABSOLUTE AUTO 0.67 K/mm3 (0.16-1.47); MONOCYTES PERCENT AUTO 7 % (4-13); Mean Corpuscular HGB 29.4 pg (26.0-34.0); Mean Corpuscular HGB Conc 33.9 g/dL (31.5-36.5); Mean Corpuscular Volume 87 fL (80-100); Mean Platelet Volume 8.3 fL (9.1-12.4); NEUTROPHILS ABSOLUTE AUTO 7.62 K/mm3 (1.96-9.15); NEUTROPHILS PERCENT AUTO 77 % (41-73); Platelet Count 184 K/mm3 (150-400); RDW Coefficient Variation 14.6 % (11.7-14.2); RDW Standard Deviation 46.4 fL (35.1-46.3); Red Blood Cell Count 3.81 M/mm3 (3.80-5.20); White Blood Cell Count 9.85 K/mm3 (4.00-11.30)
[2020-11-20 02:14] LABS: Magnesium, Blood 2.2 mg/dL (1.6-2.4)
[2020-11-20 02:15] LABS: Anion Gap 7 mmol/L (6-16); Blood Urea Nitrogen 8 mg/dL (8-24); Bun/Creatinine Ratio 15.9 (12.0-20.0); CO2, Blood 27 mmol/L (21-32); Calcium, Blood 8.8 mg/dL (8.5-10.1); Chloride, Blood 97 mmol/L (98-108); Glomerular Filtration Rate >60 (60-); Glucose, Blood 85 mg/dL (70-99); Potassium, Blood 3.5 mmol/L (3.5-5.5); Sodium, Blood 131 mmol/L (136-145)
== END 2020-11-20 03:22 | disposition home or self-care (01) ==
LOC: ER 00:11
PROVIDERS: Emergency Medicine
DX: I10 Essential (primary) hypertension (principal); Z88.1 Allergy status to other antibiotic agents; Z88.2 Allergy status to sulfonamides; Z79.899 Other long term (current) drug therapy
CPT/HCPCS: 36415; 80048; 83735; 85025; 93005; 93010; 99283-25

== ENCOUNTER 2020-11-28 00:22 | Day surgery (SDC) | payer MEDICARE, OTHER ==
[2020-11-28] MEDS ORDERED: FAMO20 PO (17:06)
[2020-11-28] MEDS ORDERED: PRED20 PO (17:08)
[2020-11-28] MEDS ORDERED: K-Dur10 MEQ PO (17:10)
[2020-11-28] MEDS ORDERED: FUROSEMIDE20 MG PO (17:10)
[2020-11-28] MEDS ORDERED: URE-NA PO (17:20)
== END 2020-11-28 17:10 | disposition home or self-care (01) ==
LOC: ATC 00:22
DX: A31.0 Pulmonary mycobacterial infection (principal); J47.1 Bronchiectasis with (acute) exacerbation; Z88.1 Allergy status to other antibiotic agents; E78.5 Hyperlipidemia, unspecified; G25.81 Restless legs syndrome; K21.9 Gastro-esophageal reflux disease without esophagitis; Z87.891 Personal history of nicotine dependence
CPT/HCPCS: 96365; J0256; J1642

== ENCOUNTER 2020-12-05 00:15 | Day surgery (SDC) | payer MEDICARE, OTHER ==
[~2020-12-05 00:15] MED LIST changes: +FUROSEMIDE20 MG PO; +K-Dur10 MEQ PO; +URE-NA PO
== END 2020-12-05 15:27 | disposition home or self-care (01) ==
LOC: ATC 00:15
DX: A31.0 Pulmonary mycobacterial infection (principal); J47.1 Bronchiectasis with (acute) exacerbation; Z88.1 Allergy status to other antibiotic agents; E78.5 Hyperlipidemia, unspecified; G25.81 Restless legs syndrome; K21.9 Gastro-esophageal reflux disease without esophagitis; Z87.891 Personal history of nicotine dependence
CPT/HCPCS: 96365; J0256; J1642

== ENCOUNTER 2020-12-12 01:00 | Day surgery (SDC) | payer MEDICARE, OTHER ==
--- NOTE | 2020-12-12 17:26 | NUR ---
CALLED [facility] IN PHARMACY REGADING DOSE OF PROLASTIN. IV BAG WAS MADE WITH 4 VIALS. DISCUSSED ORDER CLARIFICATION. PHARMACY STATES TO INFUSE 60ML OF THE 80ML BAG. 60 ML INFUSED TODAY PER PHARMACY FOR DOSE 3432MG +/- 10%
== END 2020-12-12 17:24 | disposition home or self-care (01) ==
LOC: ATC 01:00
DX: A31.0 Pulmonary mycobacterial infection (principal)
CPT/HCPCS: 96365; J0256; J1642

== ENCOUNTER → 2020-12-18 | Outpatient (CLI) | payer MEDICARE, OTHER | END | disposition home or self-care (01) | LOC: LAB SHORT 07:30 → LAB 07:30 | DX: J47.1 Bronchiectasis with (acute) exacerbation (principal) | CPT/HCPCS: 87070; 87077; 87106; 87186; 87205 ==

== ENCOUNTER 2021-01-22 01:50 | Day surgery (SDC) | payer MEDICARE, OTHER ==
[~2021-01-22 01:50] MED LIST changes: -HYDCHL25 PO; -ROPINIROLE HCL4 M2 PO
== END 2021-01-22 16:11 | disposition home or self-care (01) ==
LOC: ATC 01:50
DX: J47.1 Bronchiectasis with (acute) exacerbation (principal); E78.5 Hyperlipidemia, unspecified; M81.0 Age-related osteoporosis without current pathological fracture; G25.81 Restless legs syndrome; M10.9 Gout, unspecified; K21.9 Gastro-esophageal reflux disease without esophagitis; Z45.2 Encounter for adjustment and management of vascular access device; Z88.1 Allergy status to other antibiotic agents; Z88.2 Allergy status to sulfonamides; Z87.891 Personal history of nicotine dependence
CPT/HCPCS: 96523; J1642

== ENCOUNTER → 2021-01-22 | Outpatient (CLI) | payer MEDICARE, OTHER ==
[~2021-01-22] MED LIST changes: +HYDCHL25 PO; +ROPINIROLE HCL4 M2 PO
== END | disposition home or self-care (01) ==
LOC: LAB SHORT 14:02 → LAB 14:02
DX: Z09 Encounter for follow-up examination after completed treatment for conditions other than malignant neoplasm (principal); Z86.19 Personal history of other infectious and parasitic diseases
CPT/HCPCS: 87070; 87205

== ENCOUNTER → 2021-01-27 | Outpatient (CLI) | payer MEDICARE, OTHER ==
[~2021-01-27] MED LIST changes: +HYDCHL25 PO; +ROPINIROLE HCL4 M2 PO
[2021-01-27 21:29] LABS: Campylobacter Sp Not Detected (NOT DETECT); E. Coli O157 Not Detected (NOT DETECT); Enteroaggregative E. coli-EAEC Not Detected (NOT DETECT); Enteropathogenic E. coli-EPEC Not Detected (NOT DETECT); Enterotoxigenic E. coli-ETEC Not Detected (NOT DETECT); Plesiomonas Shigelloides Not Detected (NOT DETECT); Salmonella Sp Not Detected (NOT DETECT); Shiga Toxin-prod E. coli-STEC Not Detected (NOT DETECT); Shigella/Enteroin E. coli-EIEC Not Detected (NOT DETECT); Vibrio Cholerae Not Detected (NOT DETECT); Vibrio Sp Not Detected (NOT DETECT); Yersinia Enterocolitica Not Detected (NOT DETECT)
[2021-01-27 21:30] LABS: Adenovirus F 40/41 Not Detected (NOT DETECT); Astrovirus Not Detected (NOT DETECT); Cryptosporidium Not Detected (NOT DETECT); Cyclospora Cayetanensis Not Detected (NOT DETECT); Entamoeba Histolytica Not Detected (NOT DETECT); Giardia Lamblia Not Detected (NOT DETECT); Norovirus GI/GII Not Detected (NOT DETECT); Rotavirus A Not Detected (NOT DETECT); Sapovirus Not Detected (NOT DETECT)
== END | disposition home or self-care (01) ==
LOC: LAB SHORT 17:26 → LAB 17:26 → LAB FUT 01-27 11:00
PROVIDERS: Family Medicine
DX: R19.7 Diarrhea, unspecified (principal); N39.0 Urinary tract infection, site not specified
CPT/HCPCS: 0097U

== ENCOUNTER → 2021-02-06 | Outpatient (CLI) | payer MEDICARE, OTHER | LOC: LAB 08:30 → RAD SHORT 08:30 | DX: J47.1 Bronchiectasis with (acute) exacerbation (principal); Z88.1 Allergy status to other antibiotic agents; Z88.2 Allergy status to sulfonamides | CPT/HCPCS: 87070; 87205 ==

== ENCOUNTER 2021-02-13 01:34 | Day surgery (SDC) | payer MEDICARE, OTHER ==
[~2021-02-13 01:34] MED LIST changes: -HYDCHL25 PO; -ROPINIROLE HCL4 M2 PO
--- NOTE | 2021-02-13 16:25 | NUR ---
PATIENT ARRIVES TO [facility] VIA W/C ACCOMPANIED BY HER , MAIRA. C/O OF HAVING AN APPROX 5 MIN PERIOD OF TIME WHERE SHE FELT CONFUSED. ALERT, SPEECH SMOOTH AND UNDERSTANDABLE, EXTRUDING MACHINE OPERATOR EQUAL AND STRONG, FACIAL EXPRESSION EQUAL BILAT. PATIENT ORIENTED X4, BREATHING 6L/O2/NC HOME O2. BIOX 98-99%. PATIENT ENCOURAGED TO CALL HER PROVIDER AND INFORM OF HER C/O.
--- NOTE | 2021-02-13 16:38 | NUR ---
PATIENT DENIES HEADACHE.
--- NOTE | 2021-02-13 16:39 | NUR ---
MAIRA, PATIENT'S , CALLED DR CARR, PATIENT'S GARAGE DOOR INSTALLER TO REPORT NEW ONSET SYMPTOMS.
--- NOTE | 2021-02-13 17:12 | NUR ---
STILL AWAITING CALL FROM . ADVISED FOR PT TO BE EVALUATED IN ED. AGREES TO TAKE HER THERE. PT ALERT AND ORIENTED BUT CONTINUES TO FEEL LIKE SHE CAN'T REMEMBER THINGS. AGREES THAT PATIENT IS NOT HERSELF. CALLED ER AND SPOKE WITH ALINE VILLATORO AND INFORMED HIM PT WAS GOING TO BE CHECKING IN.
[2021-02-13] MEDS ORDERED: ROPINIROLE HCL4 M2 PO (18:22)
[2021-02-13] MEDS ORDERED: ROPINIROLE HCL4 MG PO (18:23)
[2021-02-13] MEDS ORDERED: LOSA50 PO (18:25)
[2021-02-13] MEDS ORDERED: HYDCHL25 PO (18:25)
[2021-02-15] MEDS ORDERED: HYDCHL12.5 PO (07:50)
== END 2021-02-13 17:06 | disposition home or self-care (01) ==
LOC: ATC 01:34
DX: J47.1 Bronchiectasis with (acute) exacerbation (principal); K21.9 Gastro-esophageal reflux disease without esophagitis; Z77.22 Contact with and (suspected) exposure to environmental tobacco smoke (acute) (chronic); Z88.1 Allergy status to other antibiotic agents; Z88.2 Allergy status to sulfonamides
CPT/HCPCS: 96365; J1642; J2185

== ENCOUNTER 2021-02-13 17:18 | Emergency (ER) | payer MEDICARE, OTHER ==
[~2021-02-13] VITALS: Ht 152.4 cm; Wt 57.6 kg
[2021-02-13 17:58] LABS: BASOPHILS ABSOLUTE AUTO 0.02 K/mm3 (0.00-0.23); BASOPHILS PERCENT AUTO 0 % (0-2); EOSINOPHILS ABSOLUTE AUTO 0.02 K/mm3 (0.00-0.68); EOSINOPHILS PERCENT AUTO 0 % (0-6); Hemoglobin 11.1 g/dL (11.5-16.0); IMMATURE GRAN PERCENT AUTO 3 % (0-1); LYMPHOCYTES ABSOLUTE AUTO 0.49 K/mm3 (0.84-5.20); LYMPHOCYTES PERCENT AUTO 3 % (21-46); MONOCYTES ABSOLUTE AUTO 0.56 K/mm3 (0.16-1.47); MONOCYTES PERCENT AUTO 4 % (4-13); Mean Corpuscular HGB 28.6 pg (26.0-34.0); Mean Corpuscular HGB Conc 34.7 g/dL (31.5-36.5); Mean Corpuscular Volume 83 fL (80-100); Mean Platelet Volume 7.8 fL (9.1-12.4); NEUTROPHILS ABSOLUTE AUTO 12.84 K/mm3 (1.96-9.15); NEUTROPHILS PERCENT AUTO 90 % (41-73); Platelet Count 282 K/mm3 (150-400); RDW Coefficient Variation 14.5 % (11.7-14.2); RDW Standard Deviation 43.8 fL (35.1-46.3); Red Blood Cell Count 3.88 M/mm3 (3.80-5.20); White Blood Cell Count 14.33 K/mm3 (4.00-11.30)
[2021-02-13] MEDS ORDERED: ROPINIROLE HCL4 M2 PO (18:22)
[2021-02-13] MEDS ORDERED: ROPINIROLE HCL4 MG PO (18:23)
[2021-02-13] MEDS ORDERED: LOSA50 PO (18:25)
[2021-02-13] MEDS ORDERED: HYDCHL25 PO (18:25)
[2021-02-13 18:43] LABS: Source, Urine Clean Catch
[2021-02-13 18:49] LABS: Appearance, Urine Clear (Clear); Bilirubin, Urine Neg (Neg); Blood, Urine Neg (Neg); Color, Urine Yellow (P-Yellow); Glucose Qualitative, Urine Neg (Neg); Ketones, Urine Neg (Neg); Leukocyte Esterase, Urine Neg (Neg); Nitrite, Urine Neg (Neg); Protein, Urine Neg (Neg); Specific Gravity, Urine 1.015 (1.003-1.022); Urobilinogen, Urine NORM (Normal)
[2021-02-13 18:54] LABS: Alanine Aminotransfer (ALT/SGP 39 U/L (12-78); Albumin/Globulin Ratio 0.7 (0.8-1.8); Alk Phos 116 U/L (50-136); Anion Gap 8 mmol/L (6-16); Aspartate Aminotrans (AST/SGOT 22 U/L (12-37); Bilirubin, Total 0.7 mg/dL (0.1-1.0); Blood Urea Nitrogen 11 mg/dL (8-24); Bun/Creatinine Ratio 22.1 (12.0-20.0); CO2, Blood 29 mmol/L (21-32); Calcium, Blood 9.4 mg/dL (8.5-10.1); Chloride, Blood 85 mmol/L (98-108); Globulin, Blood 4.5 g/dL (2.2-4.0); Glomerular Filtration Rate >60 (60-); Glucose, Blood 119 mg/dL (70-99); Potassium, Blood 4.3 mmol/L (3.5-5.5); Sodium, Blood 122 mmol/L (136-145); Total Protein, Blood 7.5 g/dL (6.4-8.2)
[2021-02-15] MEDS ORDERED: HYDCHL12.5 PO (07:50)
== END 2021-02-13 20:56 | disposition home or self-care (01) ==
LOC: ER 17:18
PROVIDERS: Physician Assistant
DX: E87.1 Hypo-osmolality and hyponatremia (principal); F41.9 Anxiety disorder, unspecified; I10 Essential (primary) hypertension; J44.9 Chronic obstructive pulmonary disease, unspecified; K21.9 Gastro-esophageal reflux disease without esophagitis; Z88.8 Allergy status to other drugs, medicaments and biological substances; Z88.1 Allergy status to other antibiotic agents; Z88.2 Allergy status to sulfonamides; Z79.899 Other long term (current) drug therapy
CPT/HCPCS: 36415; 80053; 81003; 82947; 85025; 93005; 93010; 99285-25

== ENCOUNTER 2021-02-17 01:38 | Day surgery (SDC) | payer MEDICARE, OTHER ==
[~2021-02-17 01:38] MED LIST changes: +HYDCHL12.5 PO; +HYDCHL25 PO; +ROPINIROLE HCL4 M2 PO
== END 2021-02-17 16:45 | disposition home or self-care (01) ==
LOC: ATC 01:38
DX: J47.1 Bronchiectasis with (acute) exacerbation (principal); Z88.8 Allergy status to other drugs, medicaments and biological substances
CPT/HCPCS: J1642; J2185

== ENCOUNTER 2021-02-18 02:29 | Day surgery (SDC) | payer MEDICARE, OTHER ==
[2021-02-19] MEDS ORDERED: COLISTIMETHATE150 MG INH (16:12)
== END 2021-02-18 16:46 | disposition home or self-care (01) ==
LOC: ATC 02:29
DX: J47.1 Bronchiectasis with (acute) exacerbation (principal); K21.9 Gastro-esophageal reflux disease without esophagitis; E78.00 Pure hypercholesterolemia, unspecified; Z90.710 Acquired absence of both cervix and uterus
CPT/HCPCS: J1642; J2185

== ENCOUNTER 2021-02-19 00:37 | Day surgery (SDC) | payer MEDICARE, OTHER ==
[2021-02-19] MEDS ORDERED: COLISTIMETHATE150 MG INH (16:12)
== END 2021-02-19 16:50 | disposition home or self-care (01) ==
LOC: ATC 00:37
DX: J47.1 Bronchiectasis with (acute) exacerbation (principal)
CPT/HCPCS: J1642; J2185

== ENCOUNTER 2021-02-22 01:18 | Day surgery (SDC) | payer MEDICARE, OTHER ==
[~2021-02-22 01:18] MED LIST changes: +COLISTIMETHATE150 MG INH
[2021-02-22 09:55] LABS: C DIFFICILE DNA Negative (Negative)
[2021-02-23] MEDS ORDERED: PRED5 PO (13:57)
[2021-02-23] MEDS ORDERED: URE-NA PO (19:41)
== END 2021-02-22 22:35 | disposition home or self-care (01) ==
LOC: ATC 01:18
PROVIDERS: Internal Medicine Infectious Disease
DX: J47.1 Bronchiectasis with (acute) exacerbation (principal); Z77.22 Contact with and (suspected) exposure to environmental tobacco smoke (acute) (chronic); Z88.1 Allergy status to other antibiotic agents; Z88.2 Allergy status to sulfonamides; Z88.8 Allergy status to other drugs, medicaments and biological substances
CPT/HCPCS: 87493; J1642; J2185

== ENCOUNTER 2021-02-23 07:56 | Day surgery (SDC) | payer MEDICARE, OTHER ==
[2021-02-23] MEDS ORDERED: PRED5 PO (13:57)
--- NOTE | 2021-02-23 14:13 | NUR ---
0805: PT SENT TO ER, SOB HAS INCREASED AND HR HIGH, REPORTED TO ADINA MIRELES IN ER. VITO VELÁZQUEZ ATTENDED PT TO ER WITH AT SIDE
[2021-02-23] MEDS ORDERED: URE-NA PO (19:41)
== END 2021-02-23 08:50 | disposition home or self-care (01) ==
LOC: ATC 07:56
DX: J47.1 Bronchiectasis with (acute) exacerbation (principal); E88.01 Alpha-1-antitrypsin deficiency; K21.9 Gastro-esophageal reflux disease without esophagitis; M10.9 Gout, unspecified; E78.00 Pure hypercholesterolemia, unspecified; E55.9 Vitamin D deficiency, unspecified; Z79.51 Long term (current) use of inhaled steroids
CPT/HCPCS: J1642; J2185

== ENCOUNTER 2021-02-26 07:12 | Day surgery (SDC) | payer MEDICARE, OTHER ==
[~2021-02-26 07:12] MED LIST changes: +PRED5 PO; +SODCHL1 PO
== END 2021-02-26 16:51 | disposition home or self-care (01) ==
LOC: ATC 07:12
DX: J47.9 Bronchiectasis, uncomplicated (principal); E88.01 Alpha-1-antitrypsin deficiency; K21.9 Gastro-esophageal reflux disease without esophagitis
CPT/HCPCS: 96365; J1642; J2185

== ENCOUNTER → 2021-03-07 | Outpatient (CLI) | payer MEDICARE, OTHER | END | disposition home or self-care (01) | LOC: LAB 07:41 → LAB SHORT 07:41 | DX: J47.9 Bronchiectasis, uncomplicated (principal); A31.8 Other mycobacterial infections | CPT/HCPCS: 87070; 87106; 87205 ==

== ENCOUNTER → 2021-03-15 | Outpatient (CLI) | payer MEDICARE, OTHER | LOC: LAB 14:09 → LAB SHORT 14:09 | DX: J47.1 Bronchiectasis with (acute) exacerbation (principal) | CPT/HCPCS: 87070; 87106; 87205 ==

== ENCOUNTER → 2021-03-19 | Outpatient (CLI) | payer MEDICARE, OTHER | LOC: LAB SHORT 15:15 → LAB 15:15 | DX: N39.0 Urinary tract infection, site not specified (principal); Z88.2 Allergy status to sulfonamides; Z88.1 Allergy status to other antibiotic agents; Z88.8 Allergy status to other drugs, medicaments and biological substances | CPT/HCPCS: 87077; 87086; 87186 ==

== ENCOUNTER → 2021-03-19 | Outpatient (CLI) | payer MEDICARE, OTHER ==
[~2021-03-19] MED LIST changes: +Amoxicillin875 MG PO; +VITAMIN D310 MC1 PO
== END | disposition home or self-care (01) ==
LOC: LAB SHORT 22:00 → LAB FUT 03-04 10:05
DX: J47.1 Bronchiectasis with (acute) exacerbation (principal)
CPT/HCPCS: 87015; 87116; 87206

== ENCOUNTER → 2021-04-18 | Outpatient (CLI) | payer MEDICARE, OTHER ==
[~2021-04-18] MED LIST changes: -Amoxicillin875 MG PO; -VITAMIN D310 MC1 PO
== END | disposition home or self-care (01) ==
LOC: LAB SHORT 16:07 → LAB 16:07
DX: N39.0 Urinary tract infection, site not specified (principal)
CPT/HCPCS: 87077; 87086; 87186

== ENCOUNTER 2021-04-25 16:20 | Day surgery (SDC) | payer MEDICARE, OTHER ==
[2021-04-25] MEDS ORDERED: Amoxicillin875 MG PO (17:11)
[2021-04-25] MEDS ORDERED: VITAMIN D310 MC1 PO (17:12)
== END 2021-04-25 16:35 | disposition home or self-care (01) ==
LOC: ATC 16:20
DX: J47.1 Bronchiectasis with (acute) exacerbation (principal); K21.9 Gastro-esophageal reflux disease without esophagitis; E78.00 Pure hypercholesterolemia, unspecified; M10.9 Gout, unspecified; Z88.1 Allergy status to other antibiotic agents; Z88.2 Allergy status to sulfonamides
CPT/HCPCS: J1642

== ENCOUNTER 2021-05-10 07:35 | Day surgery (SDC) | payer MEDICARE, OTHER ==
[~2021-05-10 07:35] MED LIST changes: +Amoxicillin875 MG PO; +VITAMIN D310 MC1 PO
--- NOTE | 2021-05-10 10:09 | NUR ---
PT REFUSES STIM TEST LABS DRAWS FROM PERIPHERAL IV. PT STATES DR AWARE OF PT'S MEDIPORT AND STATES THAT WILL BE GREAT FOR THIS PROCEDURE. PT GIVES NURSE VERBAL PERMISSION TO USE MEDIPORT FOR LAB DRAWS.
== END 2021-05-10 09:10 | disposition home or self-care (01) ==
LOC: ATC 07:35
DX: E27.3 Drug-induced adrenocortical insufficiency (principal); T38.0X5A Adverse effect of glucocorticoids and synthetic analogues, initial encounter
CPT/HCPCS: 80400; 82533; J0834; J1642

== ENCOUNTER → 2021-06-10 | Outpatient (CLI) | payer MEDICARE, OTHER | END | disposition home or self-care (01) | LOC: LAB SHORT 14:52 → LAB FUT 05-29 11:35 | DX: J47.9 Bronchiectasis, uncomplicated (principal); A31.8 Other mycobacterial infections | CPT/HCPCS: 87070; 87106; 87205 ==

== ENCOUNTER 2021-06-20 05:41 | Day surgery (SDC) | payer MEDICARE, OTHER | END 2021-06-20 15:14 | disposition home or self-care (01) | LOC: ATC 05:41 | DX: Z45.2 Encounter for adjustment and management of vascular access device (principal); Z95.828 Presence of other vascular implants and grafts | CPT/HCPCS: J1642 ==

== ENCOUNTER → 2021-07-28 | Outpatient (CLI) | payer MEDICARE, OTHER | END | disposition home or self-care (01) | LOC: LAB SHORT 12:30 → LAB 12:30 → EDSTATUS 07-28 12:50 → LAB FUT 07-28 12:50 | DX: R05.9 Cough, unspecified (principal) | CPT/HCPCS: 87070; 87077; 87186; 87205 ==

== ENCOUNTER 2021-08-16 07:48 | Day surgery (SDC) | payer MEDICARE, OTHER | END 2021-08-16 15:39 | disposition home or self-care (01) | LOC: ATC 07:48 | DX: J47.9 Bronchiectasis, uncomplicated (principal) | CPT/HCPCS: J1642; J2185 ==

== ENCOUNTER 2021-08-17 08:01 | Day surgery (SDC) | payer MEDICARE, OTHER | END 2021-08-17 15:33 | disposition home or self-care (01) | LOC: ATC 08:01 | DX: J47.9 Bronchiectasis, uncomplicated (principal); Z95.828 Presence of other vascular implants and grafts; Z88.1 Allergy status to other antibiotic agents; Z88.2 Allergy status to sulfonamides; Z88.8 Allergy status to other drugs, medicaments and biological substances | CPT/HCPCS: 96365; J1642; J2185 ==

== ENCOUNTER 2021-08-18 02:07 | Day surgery (SDC) | payer MEDICARE, OTHER ==
[2021-08-19] MEDS ORDERED: Hydrocortisone10 MG PO (08:17)
[2021-08-19] MEDS ORDERED: AZIT250 PO (08:21)
[2021-08-19] MEDS ORDERED: [UNRECOGNIZED DRUG - OTHER] PO (08:26)
[2021-08-19] MEDS ORDERED: Ventolin/Prove6.7 GM INH (08:27)
[2021-08-19] MEDS ORDERED: FLUC150A PO (08:27)
== END 2021-08-18 16:21 | disposition home or self-care (01) ==
LOC: ATC 02:07
DX: J47.9 Bronchiectasis, uncomplicated (principal)
CPT/HCPCS: J1642; J2185

== ENCOUNTER 2021-08-19 05:04 | Day surgery (SDC) | payer MEDICARE, OTHER ==
[2021-08-19] MEDS ORDERED: Hydrocortisone10 MG PO (08:17)
[2021-08-19] MEDS ORDERED: AZIT250 PO (08:21)
[2021-08-19] MEDS ORDERED: [UNRECOGNIZED DRUG - OTHER] PO (08:26)
[2021-08-19] MEDS ORDERED: Ventolin/Prove6.7 GM INH (08:27)
[2021-08-19] MEDS ORDERED: FLUC150A PO (08:27)
== END 2021-08-19 16:35 | disposition home or self-care (01) ==
LOC: ATC 05:04
DX: J47.9 Bronchiectasis, uncomplicated (principal)
CPT/HCPCS: 96365; J1642; J2185

== ENCOUNTER 2021-08-20 00:38 | Day surgery (SDC) | payer MEDICARE, OTHER ==
[~2021-08-20 00:38] MED LIST changes: +FLUC150A PO; +Hydrocortisone10 MG PO; +[UNRECOGNIZED DRUG - OTHER] PO
== END 2021-08-20 16:37 | disposition home or self-care (01) ==
LOC: ATC 00:38
DX: J47.9 Bronchiectasis, uncomplicated (principal)
CPT/HCPCS: 96365; J1642; J2185

== ENCOUNTER 2021-08-21 01:17 | Day surgery (SDC) | payer MEDICARE, OTHER | END 2021-08-21 16:45 | disposition home or self-care (01) | LOC: ATC 01:17 | DX: J47.9 Bronchiectasis, uncomplicated (principal) | CPT/HCPCS: 96365; J1642; J2185 ==

== ENCOUNTER 2021-08-22 02:52 | Day surgery (SDC) | payer MEDICARE, OTHER | END 2021-08-22 16:14 | disposition home or self-care (01) | LOC: ATC 02:52 | DX: J47.9 Bronchiectasis, uncomplicated (principal); Z88.1 Allergy status to other antibiotic agents | CPT/HCPCS: 96365; J1642; J2185 ==

== ENCOUNTER 2021-08-23 07:56 | Day surgery (SDC) | payer MEDICARE, OTHER | END 2021-08-23 16:42 | disposition home or self-care (01) | LOC: ATC 07:56 | DX: J47.9 Bronchiectasis, uncomplicated (principal) | CPT/HCPCS: 96365; J1642; J2185 ==

== ENCOUNTER 2021-08-24 01:01 | Day surgery (SDC) | payer MEDICARE, OTHER | END 2021-08-24 16:37 | disposition home or self-care (01) | LOC: ATC 01:01 | DX: J47.9 Bronchiectasis, uncomplicated (principal) | CPT/HCPCS: J1642; J2185 ==

== ENCOUNTER 2021-08-25 01:56 | Day surgery (SDC) | payer MEDICARE, OTHER ==
[2021-08-26] MEDS ORDERED: MEROPENEM1 G1 IV (10:41)
== END 2021-08-25 16:36 | disposition home or self-care (01) ==
LOC: ATC 01:56
DX: J47.9 Bronchiectasis, uncomplicated (principal); Z88.1 Allergy status to other antibiotic agents; Z88.2 Allergy status to sulfonamides
CPT/HCPCS: J1642; J2185

== ENCOUNTER 2021-08-26 03:23 | Day surgery (SDC) | payer MEDICARE, OTHER ==
[2021-08-26] MEDS ORDERED: MEROPENEM1 G1 IV (10:41)
== END 2021-08-26 16:41 | disposition home or self-care (01) ==
LOC: ATC 03:23
DX: J47.9 Bronchiectasis, uncomplicated (principal)
CPT/HCPCS: J1642; J2185

== ENCOUNTER 2021-08-27 00:54 | Day surgery (SDC) | payer MEDICARE, OTHER | END 2021-08-27 16:35 | disposition home or self-care (01) | LOC: ATC 00:54 | DX: J47.9 Bronchiectasis, uncomplicated (principal) | CPT/HCPCS: J1642; J2185 ==

== ENCOUNTER 2021-08-28 00:40 | Day surgery (SDC) | payer MEDICARE, OTHER ==
[~2021-08-28 00:40] MED LIST changes: -PULMOZYME INH; -SENN187 PO; -SULTRIDS PO
== END 2021-08-28 16:43 | disposition home or self-care (01) ==
LOC: ATC 00:40
DX: J47.9 Bronchiectasis, uncomplicated (principal)
CPT/HCPCS: 96365; J1642; J2185

== ENCOUNTER → 2021-08-28 | Outpatient (CLI) | payer MEDICARE, OTHER ==
[~2021-08-28] MED LIST changes: +PULMOZYME INH; +SENN187 PO; +SULTRIDS PO
== END | disposition home or self-care (01) ==
LOC: LAB SHORT 12:00 → LAB 12:00
DX: J47.9 Bronchiectasis, uncomplicated (principal); B96.5 Pseudomonas (aeruginosa) (mallei) (pseudomallei) as the cause of diseases classified elsewhere; B96.89 Other specified bacterial agents as the cause of diseases classified elsewhere
CPT/HCPCS: 87070; 87077; 87186; 87205

== ENCOUNTER 2021-08-29 03:13 | Day surgery (SDC) | payer MEDICARE, OTHER | END 2021-08-29 16:43 | disposition home or self-care (01) | LOC: ATC 03:13 | DX: J47.9 Bronchiectasis, uncomplicated (principal) | CPT/HCPCS: J1642; J2185 ==

== ENCOUNTER 2021-08-30 13:57 | Inpatient (IN) | payer MEDICARE, OTHER ==
[~2021-08-30] VITALS: Ht 154.9 cm; Wt 56.5 kg
[2021-08-30 14:27] LABS: PCO2 Arterial 47.4 mmHg (35-45); PO2 Arterial 97.9 mmHg (80-100); pH Blood Arterial 7.44 (7.35-7.45)
[2021-08-30 14:33] LABS: BASOPHILS ABSOLUTE AUTO 0.08 K/mm3 (0.00-0.23); BASOPHILS PERCENT AUTO 1 % (0-2); EOSINOPHILS ABSOLUTE AUTO 0.38 K/mm3 (0.00-0.68); EOSINOPHILS PERCENT AUTO 4 % (0-6); Hematocrit 38.2 % (33.0-51.0); Hemoglobin 12.7 g/dL (11.5-16.0); IMMATURE GRAN ABSOLUTE AUTO 0.03 K/mm3 (0.00-0.10); IMMATURE GRAN PERCENT AUTO 0 % (0-1); LYMPHOCYTES ABSOLUTE AUTO 0.76 K/mm3 (0.84-5.20); LYMPHOCYTES PERCENT AUTO 8 % (21-46); MONOCYTES PERCENT AUTO 4 % (4-13); Mean Corpuscular HGB 27.5 pg (26.0-34.0); Mean Corpuscular HGB Conc 33.2 g/dL (31.5-36.5); Mean Corpuscular Volume 83 fL (80-100); Mean Platelet Volume 8.7 fL (9.1-12.4); NEUTROPHILS ABSOLUTE AUTO 7.59 K/mm3 (1.96-9.15); NEUTROPHILS PERCENT AUTO 82 % (41-73); Platelet Count 258 K/mm3 (150-400); RDW Coefficient Variation 13.6 % (11.7-14.2); RDW Standard Deviation 41.5 fL (35.1-46.3); Red Blood Cell Count 4.61 M/mm3 (3.80-5.20); White Blood Cell Count 9.24 K/mm3 (4.00-11.30)
[2021-08-30 15:05] LABS: Alanine Aminotransfer (ALT/SGP 27 U/L (12-78); Albumin, Blood 3.7 g/dL (3.4-5.0); Albumin/Globulin Ratio 0.9 (0.8-1.8); Alk Phos 115 U/L (50-136); Anion Gap 6 mmol/L (6-16); Aspartate Aminotrans (AST/SGOT 28 U/L (12-37); Blood Urea Nitrogen 19 mg/dL (8-24); Bun/Creatinine Ratio 50.5 (12.0-20.0); CO2, Blood 31 mmol/L (21-32); Calcium, Blood 9.4 mg/dL (8.5-10.1); Chloride, Blood 91 mmol/L (98-108); Creatinine, Blood 0.38 mg/dL (0.40-1.00); Globulin, Blood 4.2 g/dL (2.2-4.0); Glomerular Filtration Rate >60 (60-); Glucose, Blood 109 mg/dL (70-99); Magnesium, Blood 2.2 mg/dL (1.6-2.4); Potassium, Blood 4.5 mmol/L (3.5-5.5); Sodium, Blood 128 mmol/L (136-145); Total Protein, Blood 7.9 g/dL (6.4-8.2)
[2021-08-30 16:12] LABS: Influenza A, PCR NEGATIVE (NEGATIVE); Influenza B, PCR NEGATIVE (NEGATIVE); Resp Syncytial Virus, PCR NEGATIVE (NEGATIVE); SARS-Cov-2 (COVID-19) PCR, MMC NEGATIVE (NEGATIVE)
[2021-08-31 04:01] LABS: BASOPHILS ABSOLUTE AUTO 0.01 K/mm3 (0.00-0.23); BASOPHILS PERCENT AUTO 0 % (0-2); EOSINOPHILS PERCENT AUTO 0 % (0-6); Hematocrit 39.2 % (33.0-51.0); IMMATURE GRAN ABSOLUTE AUTO 0.01 K/mm3 (0.00-0.10); IMMATURE GRAN PERCENT AUTO 0 % (0-1); LYMPHOCYTES ABSOLUTE AUTO 0.25 K/mm3 (0.84-5.20); LYMPHOCYTES PERCENT AUTO 7 % (21-46); MONOCYTES ABSOLUTE AUTO 0.04 K/mm3 (0.16-1.47); MONOCYTES PERCENT AUTO 1 % (4-13); Mean Corpuscular HGB 27.1 pg (26.0-34.0); Mean Corpuscular HGB Conc 33.2 g/dL (31.5-36.5); Mean Corpuscular Volume 82 fL (80-100); Mean Platelet Volume 8.6 fL (9.1-12.4); NEUTROPHILS ABSOLUTE AUTO 3.45 K/mm3 (1.96-9.15); NEUTROPHILS PERCENT AUTO 92 % (41-73); Platelet Count 198 K/mm3 (150-400); RDW Coefficient Variation 13.2 % (11.7-14.2); RDW Standard Deviation 39.8 fL (35.1-46.3); Red Blood Cell Count 4.79 M/mm3 (3.80-5.20); White Blood Cell Count 3.76 K/mm3 (4.00-11.30)
--- NOTE | 2021-08-31 04:07 | NUR ---
PT ARRIVED UNIT AT 2205 FROM ER WITH RIGHT CHEST PORT, ACCESSED IN ER. CALL MD CAMP ASSISTANT , HE GAVE OK TO USE PERT AND TO HEPERIN LOCK. CHARGE NURSE PUTTING ORDERS IN.
[2021-08-31 04:32] LABS: Anion Gap 4 mmol/L (6-16); Blood Urea Nitrogen 13 mg/dL (8-24); Bun/Creatinine Ratio 33.9 (12.0-20.0); CO2, Blood 32 mmol/L (21-32); Calcium, Blood 9.3 mg/dL (8.5-10.1); Chloride, Blood 94 mmol/L (98-108); Creatinine, Blood 0.38 mg/dL (0.40-1.00); Glomerular Filtration Rate >60 (60-); Glucose, Blood 140 mg/dL (70-99); Potassium, Blood 4.1 mmol/L (3.5-5.5); Sodium, Blood 130 mmol/L (136-145)
--- NOTE | 2021-08-31 06:07 | NUR ---
PT STATE THAT HER RIGHT CHEST PORT WAS FLUSH WITH HEPARIN IN THE ED BEFORE TRANSFERING TO FLOOR. PT REFUSED HEPARIN FLUSH AT THIS TIME, CHARGE NURSE NOTIFIED.
--- NOTE | 2021-08-31 18:53 | NUR ---
SHIFT SUMMARY PT IS ALERT AND ORIENTED X4. SPO2 HAS MAINTAINED >90% VIA 4L NC, TELE MONITORING IS IN PLACE AND SHOWS SINUS RYTHM 90-100. BP STABLE. PT DENIED NAUSEA/VOMITTING BUT REPORTED ANXIETY THIS AFTERNOON, SEE EMAR. SHE BECAME TEARFUL AND REPORTED LOSING HER SON RECENTLY. AT APPROX. 1730 PT REPORTED 8/10 PAIN IN RIGHT CHEST WALL THAT BECAME MORE SEVERE UPON INSPIRATION. PT WAS REPOSITIONED, OFFERED TYLENOL WHICH SHE REFUSED, AND OFFERED HEATING PAD. DR. URIAS MADE AWARE AND ORDER FOR EKG REQUESTED. SEE EKG IN CHART. DR URIAS THEN CONSULTED AGAIN BY THIS NURSE IN REGARD TO REQUESTING PAIN MANAGEMENT, SEE EMAR. INCINERATOR PLANT SUPERVISOR EDGAR CALLED THIS NURSE AT APPROX. 1840 AND ASKED IF PT WAS READY TO GO DOWN TO IMAGING, PT STILL REPORTED 8/[address] THOMPSON CALLED BY THIS NURSE AND ORDER PUT IN FOR ONE TIME DOSE OF MORPHINE. SLIME SNYDER RN ADMINISTERED MORPHINE FOR THIS NURSE. WHEN PT FIRST REPORTED PAIN AT 1730, THIS NURSE ALSO ASKED PT IF THIS WAS NEW PAIN WELL ASSESSED VITALS AND LUNG SOUNDS. VITALS REMAINED UNCHANGED BUT EXPIRATORY WHEEZES WERE AUDIBLE W/O STETHOSCOPE SO RESPIRATORY THERAPY ALSO CALLED TO REQUEST BREATHING TREATMENT. RESPIRATORY THERAPY TOLD THIS NURSE THAT THEY WOULD ROUND ON PATIENT TO PROVIDE TREATMENT. HAS BEEN AT BEDSIDE FOR MAJORITY OF SHIFT. PER REPORT FROM THE PATIENT, PAIN IS NOW 2/10 AND SHE APPEARS COMFORTABLE. SHE IS A 1 PERSON SBA TO BATHROOM AND HAS BEEN ASSISTING HER T/O SHIFT. WILL CONTINUE TO MONITOR UNTIL REPORT GIVEN. CALL LIGHT IN REACH.
--- NOTE | 2021-08-31 21:38 | NUR ---
UPDATE AT BEDSIDE. GAVE PT HOME MED, UREA-AIDE WHILE RN WAS NOT IN ROOM. MEDICATIONS REMOVED FROM PT'S BEDSIDE. PHYSICIAN NOTIFIED. NO NEW ORDERS AT THIS TIME. WILL CONT TO MONITOR.
[2021-09-01 04:38] LABS: BASOPHILS ABSOLUTE AUTO 0.01 K/mm3 (0.00-0.23); BASOPHILS PERCENT AUTO 0 % (0-2); EOSINOPHILS PERCENT AUTO 0 % (0-6); Hematocrit 38.6 % (33.0-51.0); Hemoglobin 12.3 g/dL (11.5-16.0); IMMATURE GRAN ABSOLUTE AUTO 0.08 K/mm3 (0.00-0.10); IMMATURE GRAN PERCENT AUTO 1 % (0-1); LYMPHOCYTES PERCENT AUTO 2 % (21-46); MONOCYTES ABSOLUTE AUTO 0.24 K/mm3 (0.16-1.47); MONOCYTES PERCENT AUTO 2 % (4-13); Mean Corpuscular HGB 26.9 pg (26.0-34.0); Mean Corpuscular HGB Conc 31.9 g/dL (31.5-36.5); Mean Corpuscular Volume 84 fL (80-100); Mean Platelet Volume 9.2 fL (9.1-12.4); NEUTROPHILS ABSOLUTE AUTO 12.84 K/mm3 (1.96-9.15); NEUTROPHILS PERCENT AUTO 95 % (41-73); Platelet Count 217 K/mm3 (150-400); RDW Coefficient Variation 13.7 % (11.7-14.2); Red Blood Cell Count 4.58 M/mm3 (3.80-5.20); White Blood Cell Count 13.47 K/mm3 (4.00-11.30)
[2021-09-01 05:01] LABS: Alanine Aminotransfer (ALT/SGP 25 U/L (12-78); Albumin, Blood 3.3 g/dL (3.4-5.0); Albumin/Globulin Ratio 0.8 (0.8-1.8); Alk Phos 100 U/L (50-136); Anion Gap 6 mmol/L (6-16); Aspartate Aminotrans (AST/SGOT 19 U/L (12-37); Bilirubin, Total 0.8 mg/dL (0.1-1.0); Blood Urea Nitrogen 27 mg/dL (8-24); Bun/Creatinine Ratio 56.7 (12.0-20.0); CO2, Blood 31 mmol/L (21-32); Calcium, Blood 9.2 mg/dL (8.5-10.1); Chloride, Blood 94 mmol/L (98-108); Creatinine, Blood 0.48 mg/dL (0.40-1.00); Globulin, Blood 4.2 g/dL (2.2-4.0); Glomerular Filtration Rate >60 (60-); Glucose, Blood 132 mg/dL (70-99); Potassium, Blood 4.9 mmol/L (3.5-5.5); Sodium, Blood 131 mmol/L (136-145); Total Protein, Blood 7.5 g/dL (6.4-8.2)
--- NOTE | 2021-09-01 05:34 | NUR ---
SHIFT SUMMARY PT ALERT AND ORIENTED X 4. HR STABLE. BP STABLE. NO CP OR PRESSURE REPORTED. PT SBA TO COMMODE NEEDED. ABLE TO TURN SELF IN BED. RT NOTIFIED FOR BREATHING TREATMENTS T/O SHIFT, SEE EHR. GAVE PT HOME MEDICATION WITHOUT RN IN ROOM. PHYSICIAN NOTIFIED AND PT'S INFORMED OF HOSPITAL POLICIES. HOME MED REMOVED FROM ROOM, SEE NOTES. OXYGEN SATURATION MAINTAINED ABOVE 92% ON 5 L VIA NC. PT TO CT AT BEGINNING OF SHIFT. PT SLEPT T/O SHIFT. WILL CONT TO MONITOR UNTIL REPORT GIVEN TO DAYSHIFT RN.
--- NOTE | 2021-09-01 18:56 | NUR ---
end of shift: PATIENT DENIES CHEST PAIN OR ABNORMAL SOB, DOES HAVE SOME SOB WITH EXERTION. NEBULIZERS DID CAUSE SOME MILD COUGHING FITS THIS AM RESOLVED. PATIENT CONDITION SLIGHTLY IMPROVED. DR. ZEE CONSULTED TODAY RECOMMENDING A DIFFERENT ANTIBIOTIC IF INSURANCE WILL COVER. PATIENT HAS BEEN ON 4-6L THROUGH THE DAY AND STILL WHEEZY BILAT, PATIENT ABLE TO SLEEP. CHEST CT PE -. WILL CONTINUE TO MONITOR UNTIL SHIFT CHANGE. NO CONCERNS AT THIS TIME.
[2021-09-02 05:25] LABS: BASOPHILS ABSOLUTE AUTO 0.01 K/mm3 (0.00-0.23); BASOPHILS PERCENT AUTO 0 % (0-2); EOSINOPHILS PERCENT AUTO 0 % (0-6); Hematocrit 38.2 % (33.0-51.0); Hemoglobin 12.2 g/dL (11.5-16.0); IMMATURE GRAN ABSOLUTE AUTO 0.05 K/mm3 (0.00-0.10); IMMATURE GRAN PERCENT AUTO 1 % (0-1); LYMPHOCYTES ABSOLUTE AUTO 0.32 K/mm3 (0.84-5.20); LYMPHOCYTES PERCENT AUTO 3 % (21-46); MONOCYTES ABSOLUTE AUTO 0.27 K/mm3 (0.16-1.47); MONOCYTES PERCENT AUTO 3 % (4-13); Mean Corpuscular HGB 27.1 pg (26.0-34.0); Mean Corpuscular HGB Conc 31.9 g/dL (31.5-36.5); Mean Corpuscular Volume 85 fL (80-100); Mean Platelet Volume 9.1 fL (9.1-12.4); NEUTROPHILS ABSOLUTE AUTO 9.54 K/mm3 (1.96-9.15); NEUTROPHILS PERCENT AUTO 94 % (41-73); Platelet Count 232 K/mm3 (150-400); RDW Coefficient Variation 13.8 % (11.7-14.2); Red Blood Cell Count 4.51 M/mm3 (3.80-5.20); White Blood Cell Count 10.19 K/mm3 (4.00-11.30)
[2021-09-02 05:48] LABS: Alanine Aminotransfer (ALT/SGP 22 U/L (12-78); Albumin, Blood 3.2 g/dL (3.4-5.0); Albumin/Globulin Ratio 0.8 (0.8-1.8); Alk Phos 96 U/L (50-136); Anion Gap 6 mmol/L (6-16); Aspartate Aminotrans (AST/SGOT 12 U/L (12-37); Bilirubin, Total 0.7 mg/dL (0.1-1.0); Blood Urea Nitrogen 16 mg/dL (8-24); Bun/Creatinine Ratio 31.3 (12.0-20.0); CO2, Blood 31 mmol/L (21-32); Chloride, Blood 93 mmol/L (98-108); Creatinine, Blood 0.51 mg/dL (0.40-1.00); Glomerular Filtration Rate >60 (60-); Glucose, Blood 118 mg/dL (70-99); Potassium, Blood 4.9 mmol/L (3.5-5.5); Sodium, Blood 130 mmol/L (136-145); Total Protein, Blood 7.2 g/dL (6.4-8.2)
--- NOTE | 2021-09-02 06:37 | NUR ---
SHIFT SUMMARY: PT HAD ANOTHER EPISODE OF DYSPNEA, INCREASED WHEEZING (AUDIBLE) AND O2 DESAT WHEN RECEIVING NEB TREATMENT. PT STOPPED TREATMENT LESS THAN HALF WAY THROUGH. DISCUSSION WITH RT CONCLUDED THAT THE ONLY NEW ITEM TO THE NEB WAS THE 7% SOLUTION. MD WAS NOTIFIED AND THIS MED WAS D/C'd. BREATH SOUNDS AUSCULTATED WERE RALES THROUGHOUT, WITH INSPIRATORY WHEEZING AND DIMINISHED BASES. PT RECOVERED FROM EPISODE WITHIN A FEW MINUTES. NO OTHER ACUTE EVENTS OVERNIGHT. VSS. PT REPORTS HAVING RESTED WELL OVERNIGHT WITHOUT INTERRUPTION IN SLEEP.
--- NOTE | 2021-09-02 08:47 | NUR ---
NURSING PCU DAYSHIFT: Assumed care of pt at approx 0700. A/O, very pleasant, mildly anxious, cooperative w/care. Denies any pain/discomfort at rest. Tremulous, general weakness noted, ambulates w/SBA. Skin is fragile w/small scattered bruising, no breakdown noted. Tele in place, NSR w/HR 80-90's, no c/o CP/pressure, SBP 140's, no noted edema. Respirations shallow, wheezes t/o mid and upper loves, bibasilar crackles (L>R), bases tight, O2 sat 88-90% on 7L NC, dyspnea w/minimal exertion, cough producing thick/yellow sputum. Abd SNT, BT+, voiding w/o difficulty per pt. Mediport present in RCW, hep locked, dressing intact. No s/s of acute distress. Pt sitting up in bed having breakfast. Primary medical claims processor and medical student at bedside for assessment and discussion of plan of care. Discussed w/and educated pt on importance of deep breathing exercises, offered I/S which pt denied at this time. Plan for PT/OT eval/tx. Pt denies any current needs, call light in reach, cont to monitor for any changes.
--- NOTE | 2021-09-02 17:36 | NUR ---
NURSING PCU DAYSHIFT SUMMARY: Pt has done well t/o the shift. Worked with PT/OT as per d/o, tolerated well. Pt has been able to ambulate in room w/minimal dyspnea. Independently showered w/o difficulty. Continues to have cough, guaifenesin administered this afternoon as ordered. Seen by PMD and escalator mechanic, new d/o received. IV solumedrol decreased, a.m. labs scheduled. RT at bedside t/o shift to monitor pt during neb tx's of 7% saline, tolerated well. Pt continues to work on deep breathing exercises as discussed this a.m. Pt denies any current needs. S/O at bedside assisting w/ADL's. No s/s of acute distress, call light in reach. Cont to monitor until rpt is given to MONI RN.
--- NOTE | 2021-09-03 05:28 | NUR ---
SHIFT SUMMARY: PT RESPIRATORY STATUS IMPROVED FROM YESTERDAY WITH CLEAR BUT COARSE BREATH SOUNDS AND FINE EXP WHEEZING HEARD IN BLL. PT UP TO BATHROOM WITH DESAT TO 87% ON 7L HFNC. PT ABLE TO TOLERATE LONG CONVERSATIONS WITHOUT BREAK IN SPEECH, SHORTNESS OF BREATH OR INCREASED O2 DEMAND. VSS WITH CONTINUES MODERATE ELEVATION TO SBP. PT REPORTS BACK ACHE THIS MORNING, ALONG WITH MILD NAUSEA. HEATING PAD PLACED ON BACK. ZOFRAN GIVEN AND HOT TEA, REQUESTED BY PT.
[2021-09-03 05:40] LABS: Anion Gap 7 mmol/L (6-16); Blood Urea Nitrogen 16 mg/dL (8-24); Bun/Creatinine Ratio 30.7 (12.0-20.0); CO2, Blood 30 mmol/L (21-32); Calcium, Blood 9.2 mg/dL (8.5-10.1); Chloride, Blood 92 mmol/L (98-108); Creatinine, Blood 0.52 mg/dL (0.40-1.00); Glomerular Filtration Rate >60 (60-); Glucose, Blood 113 mg/dL (70-99); Potassium, Blood 4.8 mmol/L (3.5-5.5); Sodium, Blood 129 mmol/L (136-145)
--- NOTE | 2021-09-04 06:41 | NUR ---
SHIFT SUMMARY: NO ACUTE CHANGES OVERNIGHT. VSS. PT REPORTS FEELING MUCH BETTER ON AIRVO. RHONCHI AUSCULATED THROUGHOUT. PT TOLERATING ACTIVITY TO BATHROOM WELL.
[2021-09-04 06:46] LABS: Anion Gap 6 mmol/L (6-16); Blood Urea Nitrogen 18 mg/dL (8-24); Bun/Creatinine Ratio 34.1 (12.0-20.0); CO2, Blood 30 mmol/L (21-32); Chloride, Blood 90 mmol/L (98-108); Creatinine, Blood 0.53 mg/dL (0.40-1.00); Glomerular Filtration Rate >60 (60-); Glucose, Blood 119 mg/dL (70-99); Potassium, Blood 4.8 mmol/L (3.5-5.5); Sodium, Blood 126 mmol/L (136-145)
--- NOTE | 2021-09-04 17:24 | NUR ---
NO ACUTE EVENTS T/O THE SHIFT. PT ON AIRVO MOST OF THE DAY. PT STATES SHE IS FEELING A LITTLE STRONGER TODAY, PT ABLE TO AMBULATE IN ROOM W ASSISTANCE, UP IN CHAIR WELL SITTING UP AT THE SIDE OF THE BED. NO NEEDS IDENTIFIED AT THIS TIME. WILL CONTINUE TO MONITOR AND GIVE REPORT TO NOC SHIFT RN.
[2021-09-05 05:59] LABS: Anion Gap 6 mmol/L (6-16); Blood Urea Nitrogen 20 mg/dL (8-24); Bun/Creatinine Ratio 37.1 (12.0-20.0); CO2, Blood 29 mmol/L (21-32); Calcium, Blood 8.9 mg/dL (8.5-10.1); Chloride, Blood 89 mmol/L (98-108); Creatinine, Blood 0.54 mg/dL (0.40-1.00); Glomerular Filtration Rate >60 (60-); Glucose, Blood 129 mg/dL (70-99); Potassium, Blood 4.8 mmol/L (3.5-5.5); Sodium, Blood 124 mmol/L (136-145)
--- NOTE | 2021-09-05 06:36 | NUR ---
SHIFT SUMMARY [id number] 2119 - PT TOLD BY CAN DOFFER THAT FAMILY MEMBER CALLED OUT AND SAID HE "FIXED" THE NASAL CANNULA. THIS RN ENTERED ROOM AND SAW PTS HAD DISCONNECTED HER OXYGEN TUBING AND SWITCHED IT TO THE HFNC. EDUCATED PT AND ON NOT TOUCHING WITH OR CHANGING SETTINGS ON ANY AND ALL EQUIPMENT AND TO CALL STAFF. PT AND VERBALIZE UNDERSTANDING AND AGREE TO CALL FOR ALL ALARMS. RT CALLED TO ROOM TO CHECK FLOW OF OXYGEN AND HFNC. PT REPORTS SLEEPING "OK" OVERNIGHT, ORIENTED X4, NO COMPLAINTS OF PAIN. ON 5-7L NC OR HFNC MANAGED PER RT. VSS PER PT TREND, SR ON CONTINOUS TELEMETRY MONITORING. WILL CONTINUE TO MONITOR AND PASS ON TO DAY RN.
--- NOTE | 2021-09-05 14:10 | NUR ---
PT REQUESTED STOOL SOFTENER, NON ON EMAR. NOTIFIED, AWAITING ORDERS.
--- NOTE | 2021-09-05 17:15 | NUR ---
SHIFT SUMMARY PT A/OX4 AND COOPERATIVE OF CARE. VSS THROUGHOUT SHIFT WITH O2 SATS >92% ON 4L NC. NO RRPORT OF CHEST PAIN/PRESSURE THROUGHOUT SHIFT. PT REPROTED SOB WHEN TAKING SHOWER, STATED "SOMEONE TURNED HER O2 UP WHILE SHE WAS SHOWERING. I GOT INTO TROUBLE FOR DOING IT YESTERDAY." THIS RN EDUCATED PT AND THAT O2 IS A FORM OF MEDICATION USED FOR TREATMENT AND THAT DOCTORS, RN'S AND RT'S SHOULD BE THE ONES ADJUSTING THE O2, PT AND EXPRESSED UNDERSTANDING. PT REQUESTED STOOL SOFTENERS, DR NOTIFIED AND ORDERS IN PLACE. PT WAS UP IN ROOM FOR SHOWER, MEDIPORT DRESSING CHANGED BY PLANT CYTOLOGISTALINE HALL AFTER SHOWER.
[2021-09-06] MEDS ORDERED: BENZ100A PO (11:30)
[2021-09-06] MEDS ORDERED: PULMOZYME INH (11:31)
[2021-09-06] MEDS ORDERED: SENN187 PO (11:31)
[2021-09-06] MEDS ORDERED: SODIUM CHLORIDE4 ML INH (11:32)
[2021-09-06] MEDS ORDERED: SULTRIDS PO (11:33)
[2021-09-06] MEDS ORDERED: Prednisone10 MG PO (12:18)
--- NOTE | 2021-09-06 12:53 | NUR ---
UPDATE PT REMAINS ALERT AND ORIENTED. VS STABLE. ORDERS FOR DISCHARGE PLACED THIS AM. O2 SATS REMAIN ABOVE 90% ON 3L NC. DC INSTRUCTIONS PROVIDED TO PT. PT EDUCATED ON MEDICATIONS. ALL QUESTIONS ANSWERED. PT WAITING FOR HER RIDE.
== END 2021-09-06 15:47 | disposition home or self-care (01) | DRG 177 ==
LOC: ER 13:57 → PCU 19:41
PROVIDERS: Family Medicine; Student in an Organized Health Care Education/Training Program; ADMIT Hospitalist
PROC: 5A09357 Assistance with Respiratory Ventilation, Less than 24 Consecutive Hours, Continuous Positive Airway Pressure (ICD-10-PCS; principal; 2021-08-30)
PROC: 5A0935A Assistance with Respiratory Ventilation, Less than 24 Consecutive Hours, High Flow/Velocity Cannula (ICD-10-PCS; 2021-09-04)
DX: J15.6 Pneumonia due to other Gram-negative bacteria (principal); J96.21 Acute and chronic respiratory failure with hypoxia; J96.22 Acute and chronic respiratory failure with hypercapnia; J44.0 Chronic obstructive pulmonary disease with (acute) lower respiratory infection; E87.1 Hypo-osmolality and hyponatremia; J44.1 Chronic obstructive pulmonary disease with (acute) exacerbation; Z20.822 Contact with and (suspected) exposure to COVID-19; Z28.21 Immunization not carried out because of patient refusal; M79.7 Fibromyalgia; F32.A Depression, unspecified; K21.9 Gastro-esophageal reflux disease without esophagitis; I10 Essential (primary) hypertension; F41.8 Other specified anxiety disorders; Z99.81 Dependence on supplemental oxygen; Z88.1 Allergy status to other antibiotic agents; Z88.2 Allergy status to sulfonamides; Z88.8 Allergy status to other drugs, medicaments and biological substances; Z79.899 Other long term (current) drug therapy; Z90.49 Acquired absence of other specified parts of digestive tract; Z90.711 Acquired absence of uterus with remaining cervical stump
CPT/HCPCS: 0241U; 36415; 36600; 71045; 71260; 80048; 80053; 82803; 83735; 83880; 84145; 84484; 85025; 87070; 87205; 93005; 93010; 94640; 94660; 94664; 94668; 94760; 94761; 94762; 96365; 96367; 97110; 97116; 97162; 97165; 97530; 97535; 99285-25; A9270; J1642; J1650; J2185; J2270; J2920; J2930; J3475; J7512; Q9967

== ENCOUNTER → 2021-10-01 | Outpatient (CLI) | payer MEDICARE, OTHER ==
[~2021-10-01] MED LIST changes: +PULMOZYME INH; +SENN187 PO; +SULTRIDS PO
== END | disposition home or self-care (01) ==
LOC: LAB 13:30 → LAB SHORT 13:30
DX: R05.9 Cough, unspecified (principal)
CPT/HCPCS: 87070; 87106; 87205

== ENCOUNTER 2021-11-04 12:01 | Day surgery (SDC) | payer MEDICARE, OTHER ==
[~2021-11-04] VITALS: Ht 152.4 cm; Wt 59.2 kg
== END 2021-11-04 14:33 | disposition home or self-care (01) ==
LOC: ORSCSDS 12:01
PROVIDERS: Student in an Organized Health Care Education/Training Program
PROC: 0DB58ZX Excision of Esophagus, Via Natural or Artificial Opening Endoscopic, Diagnostic (ICD-10-PCS; principal; 2021-11-04 13:45)
PROC: 0D758ZZ Dilation of Esophagus, Via Natural or Artificial Opening Endoscopic (ICD-10-PCS; principal; 2021-11-04 13:45)
PROC: 0DB68ZX Excision of Stomach, Via Natural or Artificial Opening Endoscopic, Diagnostic (ICD-10-PCS; principal; 2021-11-04 13:45)
DX: R13.10 Dysphagia, unspecified (principal); K21.9 Gastro-esophageal reflux disease without esophagitis; K44.9 Diaphragmatic hernia without obstruction or gangrene; K29.70 Gastritis, unspecified, without bleeding; I10 Essential (primary) hypertension; J44.9 Chronic obstructive pulmonary disease, unspecified; G47.33 Obstructive sleep apnea (adult) (pediatric); Z79.899 Other long term (current) drug therapy
CPT/HCPCS: 88305; 88342; J0330; J0461; J2405; J2704; J7120

== ENCOUNTER → 2021-11-10 | Outpatient (CLI) | payer MEDICARE, OTHER | END | disposition home or self-care (01) | LOC: LAB SHORT 12:01 → LAB 12:01 | DX: J47.1 Bronchiectasis with (acute) exacerbation (principal) | CPT/HCPCS: 87015; 87116; 87206 ==

== ENCOUNTER 2021-12-12 00:39 | Day surgery (SDC) | payer MEDICARE, OTHER ==
[2021-12-12] MEDS ORDERED: AZIT250 PO (11:26)
== END 2021-12-12 11:25 | disposition home or self-care (01) ==
LOC: ATC 00:39
DX: Z45.2 Encounter for adjustment and management of vascular access device (principal); J47.9 Bronchiectasis, uncomplicated
CPT/HCPCS: J1642

== ENCOUNTER → 2022-01-13 | Outpatient (CLI) | payer MEDICARE, OTHER | END | disposition home or self-care (01) | LOC: LAB SHORT 16:30 → LAB 16:30 | DX: N39.0 Urinary tract infection, site not specified (principal); R79.9 Abnormal finding of blood chemistry, unspecified; R05.9 Cough, unspecified | CPT/HCPCS: 87086 ==

== ENCOUNTER → 2022-01-20 | Outpatient (CLI) | payer MEDICARE, OTHER ==
[2022-01-20 08:34] LABS: Appearance, Urine Clear (Clear); Bilirubin, Urine Neg (Neg); Blood, Urine Neg (Neg); Color, Urine Yellow (P-Yellow); Glucose Qualitative, Urine Neg (Neg); Ketones, Urine Neg (Neg); Leukocyte Esterase, Urine Neg (Neg); Nitrite, Urine Neg (Neg); Protein, Urine Neg (Neg); Urobilinogen, Urine NORM (Normal); pH, Urine 6.5 (5.0-8.0)
== END | disposition home or self-care (01) ==
LOC: LAB SHORT 06:30 → LAB 06:30
PROVIDERS: Family Medicine
DX: R82.90 Unspecified abnormal findings in urine (principal)
CPT/HCPCS: 81003

== ENCOUNTER 2022-01-29 02:45 | Day surgery (SDC) | payer MEDICARE, OTHER ==
[2022-01-29] MEDS ORDERED: FAMO20 PO (11:20)
--- NOTE | 2022-01-29 22:53 | NUR ---
PT ACCOMPANIED BY ARRIVED APPX 2240 FOR SCHEDULED 2300 ZOSYN INFUSION. PT A/O, VSS, MEDIPORT FLUSHED W/O DIFFICULTY, SITE WNL. ABX STARTED PER ORDERS. PT ORIENTED TO CALL LIGHT.
--- NOTE | 2022-01-29 23:59 | NUR ---
EVANGELINA COMPLETED, MEDIPORT HEPARIN FLUSHED AND CLAMPED. PT REP MILD NAUSEA NEAR END OF ABX INFUSION, SHE REPORTED SIMILAR EPISODE W/PREV DOSES EARLIER TODAY. PT LEFT VIA WC W/. NO DISTRESS NOTED AT D/C.
== END 2022-01-29 23:36 | disposition home or self-care (01) ==
LOC: ATC 02:45
DX: J47.1 Bronchiectasis with (acute) exacerbation (principal)
CPT/HCPCS: 96365; J1642; J2543

== ENCOUNTER → 2022-02-04 | Outpatient (CLI) | payer MEDICARE, OTHER ==
[2022-02-05 11:04] LABS: Adenovirus F 40/41 Not Detected (NOT DETECT); Astrovirus Not Detected (NOT DETECT); Campylobacter Sp Not Detected (NOT DETECT); Cryptosporidium Not Detected (NOT DETECT); Cyclospora Cayetanensis Not Detected (NOT DETECT); E. Coli O157 Not Detected (NOT DETECT); Entamoeba Histolytica Not Detected (NOT DETECT); Enteroaggregative E. coli-EAEC Not Detected (NOT DETECT); Enteropathogenic E. coli-EPEC Detected (NOT DETECT); Enterotoxigenic E. coli-ETEC Not Detected (NOT DETECT); Giardia Lamblia Not Detected (NOT DETECT); Norovirus GI/GII Not Detected (NOT DETECT); Plesiomonas Shigelloides Not Detected (NOT DETECT); Rotavirus A Not Detected (NOT DETECT); Salmonella Sp Not Detected (NOT DETECT); Sapovirus Not Detected (NOT DETECT); Shiga Toxin-prod E. coli-STEC Not Detected (NOT DETECT); Shigella/Enteroin E. coli-EIEC Not Detected (NOT DETECT); Vibrio Cholerae Not Detected (NOT DETECT); Vibrio Sp Not Detected (NOT DETECT); Yersinia Enterocolitica Not Detected (NOT DETECT)
== END | disposition home or self-care (01) ==
LOC: LAB SHORT 22:30
PROVIDERS: Family Medicine
DX: R19.7 Diarrhea, unspecified (principal)
CPT/HCPCS: 87507

== ENCOUNTER 2022-02-06 00:43 | Day surgery (SDC) | payer MEDICARE, OTHER | END 2022-02-06 17:13 | disposition home or self-care (01) | LOC: ATC 00:43 | DX: A31.2 Disseminated mycobacterium avium-intracellulare complex (DMAC) (principal); J47.9 Bronchiectasis, uncomplicated; E78.5 Hyperlipidemia, unspecified | CPT/HCPCS: J0713; J1642 ==

== ENCOUNTER 2022-02-07 07:31 | Day surgery (SDC) | payer MEDICARE, OTHER | END 2022-02-07 16:23 | disposition home or self-care (01) | LOC: ATC 07:31 | DX: A31.2 Disseminated mycobacterium avium-intracellulare complex (DMAC) (principal); J47.9 Bronchiectasis, uncomplicated | CPT/HCPCS: 96365; J0713; J1642 ==

== ENCOUNTER 2022-02-08 00:29 | Day surgery (SDC) | payer MEDICARE, OTHER | END 2022-02-08 16:00 | disposition home or self-care (01) | LOC: ATC 00:29 | DX: A31.2 Disseminated mycobacterium avium-intracellulare complex (DMAC) (principal); J47.9 Bronchiectasis, uncomplicated | CPT/HCPCS: 96365; J0713; J1642 ==

== ENCOUNTER 2022-02-09 07:30 | Day surgery (SDC) | payer MEDICARE, OTHER | END 2022-02-09 16:48 | disposition home or self-care (01) | LOC: ATC 07:30 | DX: A31.2 Disseminated mycobacterium avium-intracellulare complex (DMAC) (principal); J47.9 Bronchiectasis, uncomplicated; E78.5 Hyperlipidemia, unspecified; M81.0 Age-related osteoporosis without current pathological fracture | CPT/HCPCS: J0713; J1642 ==

== ENCOUNTER 2022-02-10 00:19 | Day surgery (SDC) | payer MEDICARE, OTHER | END 2022-02-10 17:15 | disposition home or self-care (01) | LOC: ATC 00:19 | DX: A31.2 Disseminated mycobacterium avium-intracellulare complex (DMAC) (principal); J47.9 Bronchiectasis, uncomplicated; E78.5 Hyperlipidemia, unspecified | CPT/HCPCS: 96365; J0713; J1642 ==

== ENCOUNTER 2022-02-11 06:20 | Day surgery (SDC) | payer MEDICARE, OTHER | END 2022-02-11 17:00 | disposition home or self-care (01) | LOC: ATC 06:20 | DX: A31.0 Pulmonary mycobacterial infection (principal); J47.9 Bronchiectasis, uncomplicated; E78.5 Hyperlipidemia, unspecified; M81.0 Age-related osteoporosis without current pathological fracture | CPT/HCPCS: 96365; J0713; J1642 ==

== ENCOUNTER 2022-02-12 00:10 | Day surgery (SDC) | payer MEDICARE, OTHER | END 2022-02-12 23:09 | disposition home or self-care (01) | LOC: ATC 00:10 | DX: A31.0 Pulmonary mycobacterial infection (principal); R19.7 Diarrhea, unspecified; J47.9 Bronchiectasis, uncomplicated; F32.A Depression, unspecified; E78.5 Hyperlipidemia, unspecified; M81.0 Age-related osteoporosis without current pathological fracture; G25.81 Restless legs syndrome; M10.9 Gout, unspecified; Z87.01 Personal history of pneumonia (recurrent); Z90.710 Acquired absence of both cervix and uterus; Z98.82 Breast implant status; Z88.1 Allergy status to other antibiotic agents; Z88.2 Allergy status to sulfonamides; Z88.0 Allergy status to penicillin | CPT/HCPCS: 96365; J0713; J1642 ==

== ENCOUNTER 2022-04-10 02:22 | Day surgery (SDC) | payer MEDICARE, OTHER | END 2022-04-10 09:05 | disposition home or self-care (01) | LOC: ATC 02:22 | DX: J47.9 Bronchiectasis, uncomplicated (principal); F32.A Depression, unspecified; E78.5 Hyperlipidemia, unspecified; M81.0 Age-related osteoporosis without current pathological fracture | CPT/HCPCS: 96523; J1642 ==

== ENCOUNTER → 2022-04-17 | Outpatient (CLI) | payer MEDICARE, OTHER | END | disposition home or self-care (01) | LOC: LAB 13:00 → LAB SHORT 13:00 | DX: J47.9 Bronchiectasis, uncomplicated (principal) | CPT/HCPCS: 87070; 87106; 87205 ==

== ENCOUNTER 2022-05-11 21:30 | Emergency (ER) | payer MEDICARE, OTHER ==
[~2022-05-11] VITALS: Ht 152.4 cm; Wt 61.2 kg
[2022-05-11 21:57] LABS: BASOPHILS ABSOLUTE AUTO 0.06 K/mm3 (0.00-0.23); BASOPHILS PERCENT AUTO 1 % (0-2); EOSINOPHILS ABSOLUTE AUTO 0.18 K/mm3 (0.00-0.68); EOSINOPHILS PERCENT AUTO 2 % (0-6); Hemoglobin 11.4 g/dL (11.5-16.0); IMMATURE GRAN ABSOLUTE AUTO 0.06 K/mm3 (0.00-0.10); IMMATURE GRAN PERCENT AUTO 1 % (0-1); LYMPHOCYTES ABSOLUTE AUTO 1.06 K/mm3 (0.84-5.20); LYMPHOCYTES PERCENT AUTO 11 % (21-46); MONOCYTES ABSOLUTE AUTO 0.65 K/mm3 (0.16-1.47); MONOCYTES PERCENT AUTO 7 % (4-13); Mean Corpuscular HGB 29.7 pg (26.0-34.0); Mean Corpuscular HGB Conc 33.5 g/dL (31.5-36.5); Mean Corpuscular Volume 89 fL (80-100); Mean Platelet Volume 8.2 fL (9.1-12.4); NEUTROPHILS PERCENT AUTO 80 % (41-73); Platelet Count 185 K/mm3 (150-400); RDW Standard Deviation 45.2 fL (35.1-46.3); Red Blood Cell Count 3.84 M/mm3 (3.80-5.20); White Blood Cell Count 9.91 K/mm3 (4.00-11.30)
[2022-05-11 22:20] LABS: Albumin, Blood 3.7 g/dL (3.4-5.0); Albumin/Globulin Ratio 0.9 (0.8-1.8); Bilirubin, Total 0.6 mg/dL (0.1-1.0); Bun/Creatinine Ratio 48.3 (12.0-20.0); Calcium, Blood 8.9 mg/dL (8.5-10.1); Creatinine, Blood 0.6 mg/dL (0.40-1.00); Globulin, Blood 3.9 g/dL (2.2-4.0); Potassium, Blood 4.4 mmol/L (3.5-5.5); Total Protein, Blood 7.6 g/dL (6.4-8.2)
[2022-05-11 22:34] LABS: Influenza A, PCR NEGATIVE (NEGATIVE); Influenza B, PCR NEGATIVE (NEGATIVE); Resp Syncytial Virus, PCR NEGATIVE (NEGATIVE); SARS-Cov-2 (COVID-19) PCR, MMC NEGATIVE (NEGATIVE)
== END 2022-05-11 23:36 | disposition home or self-care (01) ==
LOC: ER 21:30
PROVIDERS: Student in an Organized Health Care Education/Training Program
DX: R06.2 Wheezing (principal); J44.9 Chronic obstructive pulmonary disease, unspecified; I10 Essential (primary) hypertension; Z88.8 Allergy status to other drugs, medicaments and biological substances; Z79.899 Other long term (current) drug therapy; Z20.822 Contact with and (suspected) exposure to COVID-19
CPT/HCPCS: 0241U; 36415; 71046; 80053; 85025; 94640; 94664

== ENCOUNTER 2022-05-21 01:03 | Day surgery (SDC) | payer MEDICARE, OTHER | END 2022-05-21 15:52 | disposition home or self-care (01) | LOC: ATC 01:03 | DX: J47.9 Bronchiectasis, uncomplicated (principal) | CPT/HCPCS: 96523; J1642 ==

== ENCOUNTER 2022-06-25 00:05 | Day surgery (SDC) | payer MEDICARE, OTHER | END 2022-06-25 17:02 | disposition home or self-care (01) | LOC: ATC 00:05 | DX: A31.2 Disseminated mycobacterium avium-intracellulare complex (DMAC) (principal); E78.5 Hyperlipidemia, unspecified | CPT/HCPCS: 96365; J0713; J1642 ==

== ENCOUNTER 2022-06-26 01:57 | Day surgery (SDC) | payer MEDICARE, OTHER | END 2022-06-26 16:58 | disposition home or self-care (01) | LOC: ATC 01:57 | DX: A31.2 Disseminated mycobacterium avium-intracellulare complex (DMAC) (principal) | CPT/HCPCS: J0713; J1642 ==

== ENCOUNTER 2022-06-27 00:09 | Day surgery (SDC) | payer MEDICARE, OTHER ==
--- NOTE | 2022-06-27 12:31 | NUR ---
ADA RN WILL BE GIVING AFTERNOON DOSE OF ANTIBIOTICS, PT AWARE AND ADA RN/PATROLLER ON 2ND INSTRUCTED.
--- NOTE | 2022-06-28 09:42 | NUR ---
STOP TIME 8375 FROM SECOND FLOOR ALINE CABALLERO
== END 2022-06-27 22:38 | disposition home or self-care (01) ==
LOC: ATC 00:09
DX: A31.2 Disseminated mycobacterium avium-intracellulare complex (DMAC) (principal)
CPT/HCPCS: J0713; J1642

== ENCOUNTER 2022-06-28 00:23 | Day surgery (SDC) | payer MEDICARE, OTHER ==
--- NOTE | 2022-06-28 09:42 | NUR ---
2ND FLOOR FIELD APPRAISER ARICA WILL BE INFUSING PTS LAST DOSE. INSTRUCTIONS GIVEN, HEPARIN PULLED, PT AWARE ALSO
--- NOTE | 2022-06-28 15:02 | NUR ---
pt arrived at 1505
[2022-06-29] MEDS ORDERED: TAZICEF2 G2 IV (08:28)
== END 2022-06-28 22:36 | disposition home or self-care (01) ==
LOC: ATC 00:23
DX: A31.2 Disseminated mycobacterium avium-intracellulare complex (DMAC) (principal); F32.9 Major depressive disorder, single episode, unspecified; E78.5 Hyperlipidemia, unspecified; M81.0 Age-related osteoporosis without current pathological fracture; J47.9 Bronchiectasis, uncomplicated
CPT/HCPCS: J0713; J1642

== ENCOUNTER 2022-07-01 01:26 | Day surgery (SDC) | payer MEDICARE, OTHER ==
[~2022-07-01 01:26] MED LIST changes: +TAZICEF2 G2 IV
== END 2022-07-01 17:06 | disposition home or self-care (01) ==
LOC: ATC 01:26
DX: A31.2 Disseminated mycobacterium avium-intracellulare complex (DMAC) (principal)
CPT/HCPCS: J0713; J1642

== ENCOUNTER 2022-07-02 02:36 | Day surgery (SDC) | payer MEDICARE, OTHER | END 2022-07-02 23:07 | disposition home or self-care (01) | LOC: ATC 02:36 | DX: A31.2 Disseminated mycobacterium avium-intracellulare complex (DMAC) (principal); E78.5 Hyperlipidemia, unspecified; M81.0 Age-related osteoporosis without current pathological fracture; G25.81 Restless legs syndrome; F32.A Depression, unspecified; Z79.899 Other long term (current) drug therapy; Z88.1 Allergy status to other antibiotic agents; Z88.2 Allergy status to sulfonamides; Z88.8 Allergy status to other drugs, medicaments and biological substances | CPT/HCPCS: 96365; J0713; J1642 ==

== ENCOUNTER 2022-07-03 01:52 | Day surgery (SDC) | payer MEDICARE, OTHER ==
--- NOTE | 2022-07-03 08:00 | NUR ---
PT CALLED AND SAID SHE WILL NOT BE COMING IN TODAY FOR ANTIBIOTICS.
--- NOTE | 2022-07-03 16:55 | NUR ---
PATIENT CALLED IN THIS AM AND SAID THAT SHE REFUSES TO CONTINUE THIS MEDICATION ANY FURTHER BECAUSE SHE THINKS SHE IS ALLERGIC. MEDICATION HAD ALREADY BEEN CONSTITUTED. THE OTHER DOSE RETURNED TO PHARMACY. 1SST DOSE WASTED. DID NOT ADMINISTER TO PATIENT
== END 2022-07-03 22:43 | disposition home or self-care (01) ==
LOC: ATC 01:52
DX: A31.2 Disseminated mycobacterium avium-intracellulare complex (DMAC) (principal)
CPT/HCPCS: J0713; J1642

== ENCOUNTER 2022-07-08 11:40 | Day surgery (SDC) | payer MEDICARE, OTHER ==
[2022-07-08] MEDS ORDERED: TETR250 PO (15:44)
== END 2022-07-08 23:34 | disposition home or self-care (01) ==
LOC: ATC 11:40
DX: Z45.2 Encounter for adjustment and management of vascular access device (principal)
CPT/HCPCS: 96523; J1642

== ENCOUNTER → 2022-07-31 | Outpatient (CLI) | payer MEDICARE, OTHER ==
[~2022-07-31] MED LIST changes: +TETR250 PO
== END | disposition home or self-care (01) ==
LOC: LAB SHORT 11:45
DX: R10.84 Generalized abdominal pain (principal)
CPT/HCPCS: 87086

== ENCOUNTER → 2022-08-03 | Outpatient (CLI) | payer MEDICARE, OTHER ==
[~2022-08-03] MED LIST changes: +B-12500 MC2 PO; -VITAMIN D310 MC1 PO; +VITAMIN D31000 UNI1 PO; -[UNRECOGNIZED DRUG - OTHER] PO
== END | disposition home or self-care (01) ==
LOC: LAB 15:48 → LAB SHORT 15:48
DX: J47.9 Bronchiectasis, uncomplicated (principal)
CPT/HCPCS: 87070; 87077; 87186; 87205

== ENCOUNTER 2022-08-06 01:16 | Day surgery (SDC) | payer MEDICARE, OTHER ==
[~2022-08-06 01:16] MED LIST changes: -B-12500 MC2 PO
[2022-08-06] MEDS ORDERED: AZIT250 PO (15:09)
[2022-08-06] MEDS ORDERED: B-12500 MC2 PO (15:11)
[2022-08-06] MEDS ORDERED: FOLI1 PO (15:12)
== END 2022-08-06 16:15 | disposition home or self-care (01) ==
LOC: ATC 01:16
DX: E88.01 Alpha-1-antitrypsin deficiency (principal)
CPT/HCPCS: 96365; J0256; J1642

== ENCOUNTER 2022-08-13 00:34 | Day surgery (SDC) | payer MEDICARE, OTHER ==
[~2022-08-13 00:34] MED LIST changes: +B-12500 MC2 PO
== END 2022-08-13 16:43 | disposition home or self-care (01) ==
LOC: ATC 00:34
DX: E88.01 Alpha-1-antitrypsin deficiency (principal)
CPT/HCPCS: 96365; J0256; J1642

== ENCOUNTER 2022-08-20 02:13 | Day surgery (SDC) | payer MEDICARE, OTHER | END 2022-08-20 11:04 | disposition home or self-care (01) | LOC: ATC 02:13 | DX: E88.01 Alpha-1-antitrypsin deficiency (principal) | CPT/HCPCS: 96365; J1642 ==

== ENCOUNTER 2022-08-27 03:02 | Day surgery (SDC) | payer MEDICARE, OTHER ==
[~2022-08-27] VITALS: Wt 62.8 kg
[2022-08-27] MEDS ORDERED: SULTRIDS PO (16:22)
[2022-08-27] MEDS ORDERED: [UNRECOGNIZED DRUG - CODE] IV (16:23)
== END 2022-08-27 16:30 | disposition home or self-care (01) ==
LOC: ATC 03:02
DX: E88.01 Alpha-1-antitrypsin deficiency (principal)
CPT/HCPCS: 96365; J0256; J1642

== ENCOUNTER 2022-09-03 01:55 | Day surgery (SDC) | payer MEDICARE, OTHER ==
[~2022-09-03] VITALS: Wt 63.3 kg
[~2022-09-03 01:55] MED LIST changes: +[UNRECOGNIZED DRUG - CODE] IV
== END 2022-09-03 16:46 | disposition home or self-care (01) ==
LOC: ATC 01:55
DX: E88.01 Alpha-1-antitrypsin deficiency (principal)
CPT/HCPCS: 96374; J0256; J1642

== ENCOUNTER 2022-09-09 02:29 | Day surgery (SDC) | payer MEDICARE, OTHER ==
[2022-09-09 09:44] VITALS: BP 116/65
[2022-09-09] MEDS ORDERED: MEROPENEM114 IV (10:01)
[2022-09-09 16:11] VITALS: BP 126/74
== END 2022-09-09 22:59 | disposition home or self-care (01) ==
LOC: ATC 02:29
DX: J47.1 Bronchiectasis with (acute) exacerbation (principal)
CPT/HCPCS: 96365; J1642; J2185

== ENCOUNTER 2022-09-10 02:43 | Day surgery (SDC) | payer MEDICARE, OTHER ==
[~2022-09-10 02:43] MED LIST changes: +MEROPENEM114 IV
== END 2022-09-10 22:49 | disposition home or self-care (01) ==
LOC: ATC 02:43
DX: J47.1 Bronchiectasis with (acute) exacerbation (principal); B96.89 Other specified bacterial agents as the cause of diseases classified elsewhere
CPT/HCPCS: 96365; 96374; J0256; J1642; J2185

== ENCOUNTER 2022-09-11 02:09 | Day surgery (SDC) | payer MEDICARE, OTHER ==
--- NOTE | 2022-09-11 23:26 | NUR ---
2253 PT HERE TO RECIEVE ATC INFUSION OF MERREM, STARTED AT 2253. PT DENIES NEED FOR ANYTHING ELSE AT THIS TIME, IN ROOM WITH PT. NO APPARENT SIGSN OF DISTRESS. CALL LIGHT IS IN REACH.
--- NOTE | 2022-09-11 23:35 | NUR ---
INFUSION COMPLETED, FLUSHED WITH 20 ML OF SALINE AND THEN HEPARIN. PT TOLERATED PROCEDURE WELL. NO APPARENT SIGNS OF DISTRESS. PT ESCORTED OUT IN WHEELCHAIR BY HER .
== END 2022-09-11 22:46 | disposition home or self-care (01) ==
LOC: ATC 02:09
DX: J47.1 Bronchiectasis with (acute) exacerbation (principal)
CPT/HCPCS: 96365; 96374; J1642; J2185

== ENCOUNTER 2022-09-12 00:14 | Day surgery (SDC) | payer MEDICARE, OTHER ==
[2022-09-12 07:40] VITALS: BP 131/65
[2022-09-12 15:02] VITALS: BP 141/61
[2022-09-12 23:03] VITALS: BP 133/68
--- NOTE | 2022-09-12 23:09 | NUR ---
PT ARRIVED WITH VIA WHEELCHAIR, ASSESSED MEDIPORT, MEDIPORT IS WNL. STARTED MERREM AT 2300. VS ARE WNL. PT AND DENY NEED FOR ANYTHING ELSE AT THIS TIME. CALL LIGHT IS IN REACH.
--- NOTE | 2022-09-12 23:42 | NUR ---
2338 PT LEFT ESCORTED BY IN WHEELCHAIR, DENIED NEED OF ANYTHING ELSE AT THIS TIME. NO APPARENT SIGNS OF DISTRESS.
== END 2022-09-12 22:57 | disposition home or self-care (01) ==
LOC: ATC 00:14
DX: J47.1 Bronchiectasis with (acute) exacerbation (principal)
CPT/HCPCS: 96365; 96374; J1642; J2185

== ENCOUNTER 2022-09-13 01:04 | Day surgery (SDC) | payer MEDICARE, OTHER ==
[2022-09-13 07:35] VITALS: BP 141/59
[2022-09-13 15:00] VITALS: BP 148/80
[2022-09-13 16:06] LABS: BASOPHILS ABSOLUTE AUTO 0.03 K/mm3 (0.00-0.23); BASOPHILS PERCENT AUTO 0 % (0-2); EOSINOPHILS ABSOLUTE AUTO 0.12 K/mm3 (0.00-0.68); EOSINOPHILS PERCENT AUTO 2 % (0-6); Hematocrit 31.3 % (33.0-51.0); Hemoglobin 10.4 g/dL (11.5-16.0); IMMATURE GRAN ABSOLUTE AUTO 0.06 K/mm3 (0.00-0.10); IMMATURE GRAN PERCENT AUTO 1 % (0-1); LYMPHOCYTES ABSOLUTE AUTO 0.59 K/mm3 (0.84-5.20); LYMPHOCYTES PERCENT AUTO 7 % (21-46); MONOCYTES ABSOLUTE AUTO 0.44 K/mm3 (0.16-1.47); MONOCYTES PERCENT AUTO 6 % (4-13); Mean Corpuscular HGB 29.7 pg (26.0-34.0); Mean Corpuscular HGB Conc 33.2 g/dL (31.5-36.5); Mean Corpuscular Volume 89 fL (80-100); Mean Platelet Volume 8.4 fL (9.1-12.4); NEUTROPHILS ABSOLUTE AUTO 6.73 K/mm3 (1.96-9.15); NEUTROPHILS PERCENT AUTO 84 % (41-73); Platelet Count 210 K/mm3 (150-400); RDW Coefficient Variation 14.4 % (11.7-14.2); White Blood Cell Count 7.97 K/mm3 (4.00-11.30)
[2022-09-13 16:29] LABS: Albumin, Blood 3.5 g/dL (3.4-5.0); Albumin/Globulin Ratio 0.9 (0.8-1.8); Bilirubin, Total 0.5 mg/dL (0.1-1.0); Calcium, Blood 9.2 mg/dL (8.5-10.1); Creatinine, Blood 0.47 mg/dL (0.40-1.00); Globulin, Blood 3.7 g/dL (2.2-4.0); Potassium, Blood 4.5 mmol/L (3.5-5.5); Total Protein, Blood 7.2 g/dL (6.4-8.2)
[2022-09-13 22:45] VITALS: BP 124/64
--- NOTE | 2022-09-13 22:59 | NUR ---
2250 PT ARRIVED VIA ESCORT FROM IN WHEELCHAIR. MEDIPORT ASSESSED. ANTIBIOTIC STARTED. PT AND DENY NEED FOR ANYTHING ELSE AT THIS TIME. NO APPARENT SIGNS OF DISTRESS. CALL LIGHT IS IN REACH.
--- NOTE | 2022-09-13 23:36 | NUR ---
2332 PT ESCORTED OUT BY VIA WHEELCHAIR. DENIES ANY NEED FOR ANYTHING AT THIS TIME. NO APPARENT SIGNS OF DISTRESS.
[2022-09-14] MEDS ORDERED: AZIT250 PO (08:06)
== END 2022-09-13 22:34 | disposition home or self-care (01) ==
LOC: ATC 01:04
PROVIDERS: Internal Medicine Pulmonary Disease
DX: J47.1 Bronchiectasis with (acute) exacerbation (principal)
CPT/HCPCS: 80053; 85025; 96365; 96376; J1642; J2185

== ENCOUNTER 2022-09-14 01:09 | Day surgery (SDC) | payer MEDICARE, OTHER ==
[2022-09-14] MEDS ORDERED: AZIT250 PO (08:06)
== END 2022-09-14 15:30 | disposition home or self-care (01) ==
LOC: ATC 01:09
DX: J47.1 Bronchiectasis with (acute) exacerbation (principal)
CPT/HCPCS: J1642; J2185

== ENCOUNTER 2022-09-17 00:58 | Day surgery (SDC) | payer MEDICARE, OTHER ==
[~2022-09-17] VITALS: Wt 63.4 kg
[2022-09-17 09:50] VITALS: BP 139/71
[2022-09-17] MEDS ORDERED: Prednisone20 MG PO (10:18)
[2022-09-17] MEDS ORDERED: LEVO750 PO (10:18)
[2022-09-17] MEDS ORDERED: MINOCYCLINE HC PO (10:18)
== END 2022-09-17 10:36 | disposition home or self-care (01) ==
LOC: ATC 00:58
DX: E88.01 Alpha-1-antitrypsin deficiency (principal)
CPT/HCPCS: 96365; J0256; J1642

== ENCOUNTER 2022-09-24 01:19 | Day surgery (SDC) | payer MEDICARE, OTHER ==
[~2022-09-24 01:19] MED LIST changes: +MINOCYCLINE HC PO; +Prednisone20 MG PO
[2022-09-24 15:58] VITALS: BP 138/74
[2022-09-24 16:40] LABS: BASOPHILS ABSOLUTE AUTO 0.01 K/mm3 (0.00-0.23); BASOPHILS PERCENT AUTO 0 % (0-2); EOSINOPHILS ABSOLUTE AUTO 0.01 K/mm3 (0.00-0.68); EOSINOPHILS PERCENT AUTO 0 % (0-6); Hematocrit 35.1 % (33.0-51.0); Hemoglobin 11.8 g/dL (11.5-16.0); IMMATURE GRAN ABSOLUTE AUTO 0.02 K/mm3 (0.00-0.10); IMMATURE GRAN PERCENT AUTO 0 % (0-1); LYMPHOCYTES ABSOLUTE AUTO 0.25 K/mm3 (0.84-5.20); LYMPHOCYTES PERCENT AUTO 3 % (21-46); MONOCYTES ABSOLUTE AUTO 0.16 K/mm3 (0.16-1.47); MONOCYTES PERCENT AUTO 2 % (4-13); Mean Corpuscular HGB 29.4 pg (26.0-34.0); Mean Corpuscular HGB Conc 33.6 g/dL (31.5-36.5); Mean Corpuscular Volume 87 fL (80-100); Mean Platelet Volume 8.6 fL (9.1-12.4); NEUTROPHILS ABSOLUTE AUTO 7.45 K/mm3 (1.96-9.15); NEUTROPHILS PERCENT AUTO 94 % (41-73); Platelet Count 243 K/mm3 (150-400); RDW Standard Deviation 45.1 fL (35.1-46.3); Red Blood Cell Count 4.02 M/mm3 (3.80-5.20)
[2022-09-24 16:56] LABS: Albumin, Blood 3.6 g/dL (3.4-5.0); Bilirubin, Total 0.8 mg/dL (0.1-1.0); Bun/Creatinine Ratio 32.5 (12.0-20.0); Calcium, Blood 9.3 mg/dL (8.5-10.1); Creatinine, Blood 0.62 mg/dL (0.40-1.00); Globulin, Blood 3.6 g/dL (2.2-4.0); Potassium, Blood 4.3 mmol/L (3.5-5.5); Total Protein, Blood 7.2 g/dL (6.4-8.2)
== END 2022-09-24 16:48 | disposition home or self-care (01) ==
LOC: ATC 01:19
PROVIDERS: Internal Medicine Infectious Disease
DX: J47.1 Bronchiectasis with (acute) exacerbation (principal); E88.01 Alpha-1-antitrypsin deficiency; J43.1 Panlobular emphysema
CPT/HCPCS: 80053; 85025; 96365; J0256; J1642

== ENCOUNTER → 2022-09-27 | Outpatient (CLI) | payer MEDICARE, OTHER | LOC: LAB SHORT 10:00 → LAB 10:00 | DX: J47.1 Bronchiectasis with (acute) exacerbation (principal); E88.01 Alpha-1-antitrypsin deficiency; R06.09 Other forms of dyspnea | CPT/HCPCS: 87015; 87116; 87206 ==

== ENCOUNTER → 2022-09-28 | Outpatient (CLI) | payer MEDICARE, OTHER | LOC: LAB 11:00 → LAB SHORT 11:00 | DX: J47.1 Bronchiectasis with (acute) exacerbation (principal); E88.01 Alpha-1-antitrypsin deficiency; R06.09 Other forms of dyspnea | CPT/HCPCS: 87070; 87106; 87205 ==

== ENCOUNTER 2022-10-01 02:50 | Day surgery (SDC) | payer MEDICARE, OTHER ==
[2022-10-01 16:02] VITALS: BP 123/69
== END 2022-10-01 16:50 | disposition home or self-care (01) ==
LOC: ATC 02:50
DX: E88.01 Alpha-1-antitrypsin deficiency (principal); J43.1 Panlobular emphysema; Z79.899 Other long term (current) drug therapy
CPT/HCPCS: 96365; J1642

== ENCOUNTER 2022-10-08 00:26 | Day surgery (SDC) | payer MEDICARE, OTHER ==
[2022-10-08 07:55] VITALS: BP 143/75
== END 2022-10-08 08:45 | disposition home or self-care (01) ==
LOC: ATC 00:26
DX: E88.01 Alpha-1-antitrypsin deficiency (principal); J43.1 Panlobular emphysema; Z79.899 Other long term (current) drug therapy
CPT/HCPCS: 96365; J0256; J1642

== ENCOUNTER 2022-10-27 01:34 | Day surgery (SDC) | payer MEDICARE, OTHER ==
[2022-10-27 14:57] VITALS: BP 120/78
== END 2022-10-27 15:05 | disposition home or self-care (01) ==
LOC: ATC 01:34
DX: E88.01 Alpha-1-antitrypsin deficiency (principal)
CPT/HCPCS: J0256; J1642

== ENCOUNTER 2022-11-10 03:13 | Day surgery (SDC) | payer MEDICARE, OTHER ==
[2022-11-10 14:26] VITALS: BP 138/65
== END 2022-11-10 15:20 | disposition home or self-care (01) ==
LOC: ATC 03:13
DX: E88.01 Alpha-1-antitrypsin deficiency (principal); J43.1 Panlobular emphysema
CPT/HCPCS: J0256; J1642

== ENCOUNTER 2022-12-08 02:03 | Day surgery (SDC) | payer MEDICARE, OTHER ==
[2022-12-08 14:16] VITALS: BP 134/65
== END 2022-12-08 15:00 | disposition home or self-care (01) ==
LOC: ATC 02:03
DX: E88.01 Alpha-1-antitrypsin deficiency (principal)
CPT/HCPCS: 96374; J0256; J1642

== ENCOUNTER 2022-12-15 02:57 | Day surgery (SDC) | payer MEDICARE, OTHER ==
[2022-12-15 14:06] VITALS: BP 133/73
== END 2022-12-15 15:00 | disposition home or self-care (01) ==
LOC: ATC 02:57
DX: E88.01 Alpha-1-antitrypsin deficiency (principal)
CPT/HCPCS: 96365; J0256; J1642

== ENCOUNTER → 2022-12-28 | Outpatient (CLI) | payer MEDICARE, OTHER ==
[~2022-12-28] MED LIST changes: +OSEL75CA PO
== END ==
LOC: LAB SHORT 12:45 → LAB 12:45
DX: R30.0 Dysuria (principal)
CPT/HCPCS: 87086

== ENCOUNTER → 2023-01-06 | Outpatient (CLI) | payer MEDICARE, OTHER | LOC: LAB SHORT 08:00 → LAB 08:00 | DX: J47.1 Bronchiectasis with (acute) exacerbation (principal) | CPT/HCPCS: 87070; 87106; 87205 ==

== ENCOUNTER 2023-01-12 01:52 | Day surgery (SDC) | payer MEDICARE, OTHER ==
[2023-01-12 14:40] VITALS: BP 129/76
== END 2023-01-12 15:29 | disposition home or self-care (01) ==
LOC: ATC 01:52
DX: E88.01 Alpha-1-antitrypsin deficiency (principal)
CPT/HCPCS: 96365; J0256; J1642

== ENCOUNTER 2023-01-19 01:35 | Day surgery (SDC) | payer MEDICARE, OTHER ==
[2023-01-19 08:38] VITALS: BP 135/67
== END 2023-01-19 09:21 | disposition home or self-care (01) ==
LOC: ATC 01:35
DX: E88.01 Alpha-1-antitrypsin deficiency (principal)
CPT/HCPCS: 96365; J0256; J1642

== ENCOUNTER 2023-01-26 02:12 | Day surgery (SDC) | payer MEDICARE, OTHER ==
[2023-01-26 14:11] VITALS: BP 120/59
== END 2023-01-26 15:03 | disposition home or self-care (01) ==
LOC: ATC 02:12
DX: E88.01 Alpha-1-antitrypsin deficiency (principal); J47.9 Bronchiectasis, uncomplicated
CPT/HCPCS: 96365; J0256; J1642

== ENCOUNTER 2023-02-02 00:57 | Day surgery (SDC) | payer MEDICARE, OTHER ==
[2023-02-02 14:05] VITALS: BP 123/60
== END 2023-02-02 14:45 | disposition home or self-care (01) ==
LOC: ATC 00:57
DX: E88.01 Alpha-1-antitrypsin deficiency (principal); D51.0 Vitamin B12 deficiency anemia due to intrinsic factor deficiency; R79.9 Abnormal finding of blood chemistry, unspecified
CPT/HCPCS: 36415; 80053; 85027; 96365; J0256; J1642

== ENCOUNTER 2023-02-09 08:45 | Day surgery (SDC) | payer MEDICARE, OTHER ==
[2023-02-09 14:15] VITALS: BP 117/66
== END 2023-02-09 15:25 | disposition home or self-care (01) ==
LOC: ATC 08:45
DX: E88.01 Alpha-1-antitrypsin deficiency (principal)
CPT/HCPCS: 96365; J0256; J1642

== ENCOUNTER 2023-02-16 02:03 | Day surgery (SDC) | payer MEDICARE, OTHER ==
[2023-02-16 14:12] VITALS: BP 120/71
== END 2023-02-16 14:51 | disposition home or self-care (01) ==
LOC: ATC 02:03
DX: E88.01 Alpha-1-antitrypsin deficiency (principal)
CPT/HCPCS: 96365; J0256; J1642

== ENCOUNTER 2023-02-23 02:21 | Day surgery (SDC) | payer MEDICARE, OTHER ==
[2023-02-23 14:15] VITALS: BP 121/70
[2023-02-23] MEDS ORDERED: BUSP5 PO (15:49)
== END 2023-02-23 15:25 | disposition home or self-care (01) ==
LOC: ATC 02:21
DX: E88.01 Alpha-1-antitrypsin deficiency (principal)
CPT/HCPCS: 96365; J0256; J1642

== ENCOUNTER 2023-03-16 02:27 | Day surgery (SDC) | payer MEDICARE, OTHER ==
[~2023-03-16 02:27] MED LIST changes: +BUSP5 PO
[2023-03-16 14:47] VITALS: BP 144/80
== END 2023-03-16 15:15 | disposition home or self-care (01) ==
LOC: ATC 02:27
DX: E88.01 Alpha-1-antitrypsin deficiency (principal)
CPT/HCPCS: 96374; J0256; J1642

== ENCOUNTER 2023-03-23 01:45 | Day surgery (SDC) | payer MEDICARE, OTHER ==
[2023-03-23 15:22] VITALS: BP 115/69
[2023-03-23] MEDS ORDERED: PRED1 PO (15:26)
[2023-03-23] MEDS ORDERED: URE-NA (15:31)
[2023-03-23] MEDS ORDERED: Ventolin/Prove6.7 GM INH (15:32)
== END 2023-03-23 15:48 | disposition home or self-care (01) ==
LOC: ATC 01:45
DX: E88.01 Alpha-1-antitrypsin deficiency (principal)
CPT/HCPCS: 96365; J0256; J1642

== ENCOUNTER → 2023-03-25 | Outpatient (CLI) | payer MEDICARE, OTHER ==
[~2023-03-25] MED LIST changes: +PRED1 PO; +URE-NA
== END | disposition home or self-care (01) ==
LOC: LAB SHORT 16:08 → LAB 16:08
DX: N39.0 Urinary tract infection, site not specified (principal)
CPT/HCPCS: 87086

== ENCOUNTER 2023-03-29 10:20 | Day surgery (SDC) | payer MEDICARE, OTHER ==
[2023-03-29 16:23] VITALS: BP 122/71
[2023-03-29 23:02] VITALS: BP 123/62
== END 2023-03-30 22:56 | disposition home or self-care (01) ==
LOC: ATC 10:20
DX: J47.1 Bronchiectasis with (acute) exacerbation (principal)
CPT/HCPCS: 96365; J1642; J2185

== ENCOUNTER 2023-03-30 08:30 | Day surgery (SDC) | payer MEDICARE, OTHER ==
[2023-03-30 08:23] VITALS: BP 126/70
[2023-03-30 15:55] VITALS: BP 123/73
[2023-03-30 23:04] VITALS: BP 128/75
--- NOTE | 2023-03-31 20:45 | NUR ---
LATE ENTRY: [facility] END TIME 4896. REASSESSMENT DOCUMENTATION NOT AVAIALABLE TO CHART ON. PT MEME WELL.
== END 2023-03-30 22:56 | disposition home or self-care (01) ==
LOC: ATC 08:30
DX: E88.01 Alpha-1-antitrypsin deficiency (principal); J47.1 Bronchiectasis with (acute) exacerbation
CPT/HCPCS: 96365; 96367; J0256; J1642; J2185

== ENCOUNTER 2023-03-31 02:18 | Day surgery (SDC) | payer MEDICARE, OTHER ==
[2023-03-31 08:14] VITALS: BP 135/69
[2023-03-31 16:07] VITALS: BP 132/68
[2023-03-31 18:06] LABS: BASOPHILS ABSOLUTE AUTO 0.02 K/mm3 (0.00-0.23); BASOPHILS PERCENT AUTO 0 % (0-2); EOSINOPHILS ABSOLUTE AUTO 0.01 K/mm3 (0.00-0.68); EOSINOPHILS PERCENT AUTO 0 % (0-6); Hematocrit 37.4 % (33.0-51.0); Hemoglobin 12.1 g/dL (11.5-16.0); IMMATURE GRAN ABSOLUTE AUTO 0.08 K/mm3 (0.00-0.10); IMMATURE GRAN PERCENT AUTO 1 % (0-1); LYMPHOCYTES ABSOLUTE AUTO 0.46 K/mm3 (0.84-5.20); LYMPHOCYTES PERCENT AUTO 6 % (21-46); MONOCYTES ABSOLUTE AUTO 0.22 K/mm3 (0.16-1.47); MONOCYTES PERCENT AUTO 3 % (4-13); Mean Corpuscular HGB 29.2 pg (26.0-34.0); Mean Corpuscular HGB Conc 32.4 g/dL (31.5-36.5); Mean Corpuscular Volume 90 fL (80-100); Mean Platelet Volume 8.8 fL (9.1-12.4); NEUTROPHILS ABSOLUTE AUTO 7.22 K/mm3 (1.96-9.15); NEUTROPHILS PERCENT AUTO 90 % (41-73); Platelet Count 211 K/mm3 (150-400); RDW Coefficient Variation 15.4 % (11.7-14.2); RDW Standard Deviation 50.7 fL (35.1-46.3); Red Blood Cell Count 4.15 M/mm3 (3.80-5.20); White Blood Cell Count 8.01 K/mm3 (4.00-11.30)
[2023-03-31 18:24] LABS: Albumin, Blood 3.6 g/dL (3.4-5.0); Albumin/Globulin Ratio 0.9 (0.8-1.8); Bilirubin, Total 0.6 mg/dL (0.1-1.0); Bun/Creatinine Ratio 59.2 (12.0-20.0); Calcium, Blood 8.9 mg/dL (8.5-10.1); Creatinine, Blood 0.56 mg/dL (0.40-1.00); Globulin, Blood 4.1 g/dL (2.2-4.0); Potassium, Blood 4.6 mmol/L (3.5-5.5); Total Protein, Blood 7.7 g/dL (6.4-8.2)
[2023-03-31 22:54] VITALS: BP 125/63
--- NOTE | 2023-03-31 23:35 | NUR ---
MERREM STOP TIME 2326. PT MEME WELL.
== END 2023-03-31 22:47 | disposition home or self-care (01) ==
LOC: ATC 02:18
PROVIDERS: Internal Medicine Pulmonary Disease
DX: J47.1 Bronchiectasis with (acute) exacerbation (principal)
CPT/HCPCS: 80053; 85025; 96365; J1642; J2185

== ENCOUNTER 2023-04-01 03:10 | Day surgery (SDC) | payer MEDICARE, OTHER ==
[2023-04-01 08:30] VITALS: BP 124/66
[2023-04-01 16:10] VITALS: BP 128/69
[2023-04-01 22:55] VITALS: BP 127/63
--- NOTE | 2023-04-01 23:33 | NUR ---
ANTIBIOTIC FINISH ABX FINISH TIME @ 2330. PT TOLLERATED WELL
== END 2023-04-01 22:35 | disposition home or self-care (01) ==
LOC: ATC 03:10
DX: J47.1 Bronchiectasis with (acute) exacerbation (principal)
CPT/HCPCS: 96365; J1642; J2185

== ENCOUNTER 2023-04-02 02:57 | Day surgery (SDC) | payer MEDICARE, OTHER ==
[2023-04-02 07:54] VITALS: BP 134/69
--- NOTE | 2023-04-02 15:15 | NUR ---
PT CALLED [facility] STAFF. SHE IS STILL IN [place] AND WILL NOT MAKE IT BACK HOME FOR HER 1600 INFUSION. SHE WILL BE BACK INTO TOWN TO RECEIVE HER INFUSION LATER THIS EVENING. ANTIBIOTIC AND HEPARIN TAKEN UP TO SECOND FLOOR SURGICAL FLOOR NURSES STATION TO BE GIVEN TO PT LATER.
== END 2023-04-02 23:08 | disposition home or self-care (01) ==
LOC: ATC 02:57
DX: J47.1 Bronchiectasis with (acute) exacerbation (principal)
CPT/HCPCS: 96365; J1642; J2185

== ENCOUNTER 2023-04-03 07:51 | Day surgery (SDC) | payer MEDICARE, OTHER ==
[2023-04-03 08:14] VITALS: BP 117/56
[2023-04-03 16:16] VITALS: BP 115/62
[2023-04-03 22:59] VITALS: BP 127/64
[2023-04-04] MEDS ORDERED: DOXY100 PO (22:56)
--- NOTE | 2023-04-05 02:15 | NUR ---
LATE ENTRY ANTIBIOTIC STOP TIME FOR HS DOSING ENDED 232604/03/23.
== END 2023-04-03 22:43 | disposition home or self-care (01) ==
LOC: ATC 07:51
DX: J47.1 Bronchiectasis with (acute) exacerbation (principal)
CPT/HCPCS: 96365; J1642; J2185

== ENCOUNTER 2023-04-04 06:25 | Day surgery (SDC) | payer MEDICARE, OTHER ==
[2023-04-04 08:22] VITALS: BP 132/65
[2023-04-04 14:58] VITALS: BP 111/56
[2023-04-04 22:51] VITALS: BP 110/64
[2023-04-04] MEDS ORDERED: DOXY100 PO (22:56)
--- NOTE | 2023-04-05 00:12 | NUR ---
ABX COMPLETED AT 0212. PT MEME WELL
[2023-04-05] MEDS ORDERED: DOXY100 PO (08:25)
== END 2023-04-04 22:32 | disposition home or self-care (01) ==
LOC: ATC 06:25
DX: J47.1 Bronchiectasis with (acute) exacerbation (principal)
CPT/HCPCS: 96365; J1642; J2185

== ENCOUNTER 2023-04-05 02:12 | Day surgery (SDC) | payer MEDICARE, OTHER ==
[2023-04-05 07:40] VITALS: BP 123/66
[2023-04-05] MEDS ORDERED: DOXY100 PO (08:25)
[2023-04-05 16:09] VITALS: BP 141/76
[2023-04-05 22:57] VITALS: BP 115/60
--- NOTE | 2023-04-05 23:43 | NUR ---
MERSHAHRAM STOP TIME 0380 04/05/23
== END 2023-04-05 22:50 | disposition home or self-care (01) ==
LOC: ATC 02:12
DX: J47.1 Bronchiectasis with (acute) exacerbation (principal)
CPT/HCPCS: 96365; J1642; J2185

== ENCOUNTER 2023-04-06 01:30 | Day surgery (SDC) | payer MEDICARE, OTHER ==
[2023-04-06 08:20] VITALS: BP 122/71
[2023-04-06 15:41] VITALS: BP 122/61
[2023-04-06 22:48] VITALS: BP 115/64
--- NOTE | 2023-04-06 23:31 | NUR ---
ABX STOP TIME 1399. PT MEME WELL
== END 2023-04-06 22:35 | disposition home or self-care (01) ==
LOC: ATC 01:30
DX: J47.1 Bronchiectasis with (acute) exacerbation (principal); E88.01 Alpha-1-antitrypsin deficiency
CPT/HCPCS: 96365; 96367; J0256; J1642; J2185

== ENCOUNTER 2023-04-07 04:54 | Day surgery (SDC) | payer MEDICARE, OTHER ==
[2023-04-07 08:03] VITALS: BP 130/67
[2023-04-07 16:06] VITALS: BP 129/69
[2023-04-07 23:00] VITALS: BP 127/70
--- NOTE | 2023-04-07 23:41 | NUR ---
PT RECEIVED ANTIBIOTIC INFUSION AND COMPLETED AT 2330.
== END 2023-04-07 23:13 | disposition home or self-care (01) ==
LOC: ATC 04:54
DX: J47.1 Bronchiectasis with (acute) exacerbation (principal); Z79.899 Other long term (current) drug therapy
CPT/HCPCS: 96365; J1642; J2185

== ENCOUNTER 2023-04-08 05:11 | Day surgery (SDC) | payer MEDICARE, OTHER ==
[2023-04-08 08:21] VITALS: BP 129/74
[2023-04-08 16:11] VITALS: BP 132/71
[2023-04-08 22:57] VITALS: BP 129/80
--- NOTE | 2023-04-08 23:29 | NUR ---
pt received infusion which ended at 2320.
== END 2023-04-08 22:43 | disposition home or self-care (01) ==
LOC: ATC 05:11
DX: J47.1 Bronchiectasis with (acute) exacerbation (principal)
CPT/HCPCS: 96365; J1642; J2185

== ENCOUNTER 2023-04-09 04:45 | Day surgery (SDC) | payer MEDICARE, OTHER ==
[2023-04-09 08:11] VITALS: BP 148/74
[2023-04-09 16:20] VITALS: BP 127/76
--- NOTE | 2023-04-10 08:41 | NUR ---
LATE ENTRY: PT RECEIVED HER MEROPENEM DOSE AT 2255 ON 04/09/23 PER Roro HWANG RN
== END 2023-04-09 22:49 | disposition home or self-care (01) ==
LOC: ATC 04:45
DX: J47.1 Bronchiectasis with (acute) exacerbation (principal); Z79.899 Other long term (current) drug therapy
CPT/HCPCS: 96365; J1642; J2185

== ENCOUNTER 2023-04-10 03:22 | Day surgery (SDC) | payer MEDICARE, OTHER ==
[2023-04-10 07:53] VITALS: BP 117/74
[2023-04-10 16:00] VITALS: BP 111/71
[2023-04-10 23:15] VITALS: BP 117/59
== END 2023-04-10 22:35 | disposition home or self-care (01) ==
LOC: ATC 03:22
DX: J47.1 Bronchiectasis with (acute) exacerbation (principal); Z79.899 Other long term (current) drug therapy
CPT/HCPCS: 96365; 96376; J1642; J2185

== ENCOUNTER 2023-04-11 05:28 | Day surgery (SDC) | payer MEDICARE, OTHER ==
[2023-04-11 07:58] VITALS: BP 121/69
[2023-04-11 15:35] VITALS: BP 119/67
[2023-04-11 22:53] VITALS: BP 125/65
--- NOTE | 2023-04-11 23:33 | NUR ---
MERSHAHRAM STOP TIME 4973. PT MEME WELL.
== END 2023-04-11 22:55 | disposition home or self-care (01) ==
LOC: ATC 05:28
DX: J47.1 Bronchiectasis with (acute) exacerbation (principal)
CPT/HCPCS: 96365; J1642; J2185

== ENCOUNTER 2023-04-12 07:32 | Day surgery (SDC) | payer MEDICARE, OTHER ==
[2023-04-12 08:00] VITALS: BP 131/69
[2023-04-12 16:07] VITALS: BP 144/68
== END 2023-04-12 16:49 | disposition home or self-care (01) ==
LOC: ATC 07:32
DX: J47.1 Bronchiectasis with (acute) exacerbation (principal)
CPT/HCPCS: 96365; 96367; J0256; J1642; J2185

== ENCOUNTER → 2023-04-12 | Outpatient (CLI) | payer MEDICARE, OTHER ==
[2023-04-13 17:29] LABS: Campylobacter Sp Not Detected (NOT DETECT); Plesiomonas Shigelloides Not Detected (NOT DETECT)
[2023-04-13 17:30] LABS: Adenovirus F 40/41 Not Detected (NOT DETECT); Astrovirus Not Detected (NOT DETECT); Cryptosporidium Not Detected (NOT DETECT); Cyclospora Cayetanensis Not Detected (NOT DETECT); E. Coli O157 Not Detected (NOT DETECT); Entamoeba Histolytica Not Detected (NOT DETECT); Enteroaggregative E. coli-EAEC Not Detected (NOT DETECT); Enteropathogenic E. coli-EPEC Not Detected (NOT DETECT); Enterotoxigenic E. coli-ETEC Not Detected (NOT DETECT); Giardia Lamblia Not Detected (NOT DETECT); Norovirus GI/GII Not Detected (NOT DETECT); Rotavirus A Not Detected (NOT DETECT); Salmonella Sp Not Detected (NOT DETECT); Sapovirus Not Detected (NOT DETECT); Shiga Toxin-prod E. coli-STEC Not Detected (NOT DETECT); Shigella/Enteroin E. coli-EIEC Not Detected (NOT DETECT); Vibrio Cholerae Not Detected (NOT DETECT); Vibrio Sp Not Detected (NOT DETECT); Yersinia Enterocolitica Not Detected (NOT DETECT)
== END ==
LOC: LAB 19:30 → LAB SHORT 19:30
PROVIDERS: Family Medicine
DX: R19.7 Diarrhea, unspecified (principal)
CPT/HCPCS: 87507

== ENCOUNTER 2023-04-20 02:12 | Day surgery (SDC) | payer MEDICARE, OTHER ==
[2023-04-20 15:38] VITALS: BP 135/76
== END 2023-04-20 15:57 | disposition home or self-care (01) ==
LOC: ATC 02:12
DX: E88.01 Alpha-1-antitrypsin deficiency (principal); J47.1 Bronchiectasis with (acute) exacerbation; R19.5 Other fecal abnormalities; I10 Essential (primary) hypertension; J44.9 Chronic obstructive pulmonary disease, unspecified; Z88.1 Allergy status to other antibiotic agents; Z88.2 Allergy status to sulfonamides; Z88.8 Allergy status to other drugs, medicaments and biological substances; Z79.899 Other long term (current) drug therapy; Z79.52 Long term (current) use of systemic steroids
CPT/HCPCS: 80053; 85025; 85610; 85730; 86850; 86900; 86901; 96365; 99283; J0256; J1642

== ENCOUNTER 2023-04-21 14:21 | Day surgery (SDC) | payer MEDICARE, OTHER ==
[2023-04-21 14:45] VITALS: BP 129/57
== END 2023-04-21 14:40 | disposition home or self-care (01) ==
LOC: ATC 14:21
DX: J47.1 Bronchiectasis with (acute) exacerbation (principal)
CPT/HCPCS: 96523; J1642

== ENCOUNTER 2023-04-27 02:58 | Day surgery (SDC) | payer MEDICARE, OTHER ==
[2023-04-27 15:30] VITALS: BP 117/72
== END 2023-04-27 15:43 | disposition home or self-care (01) ==
LOC: ATC 02:58
DX: E88.01 Alpha-1-antitrypsin deficiency (principal); J47.1 Bronchiectasis with (acute) exacerbation
CPT/HCPCS: 96365; J0256; J1642

== ENCOUNTER 2023-05-03 09:21 | Emergency (ER) | payer MEDICARE, OTHER ==
[~2023-05-03] VITALS: Ht 152.4 cm; Wt 56.7 kg
[2023-05-03 09:45] VITALS: BP 146/72
[2023-05-03] MEDS ORDERED: Norco 5-325 Ta1 EACH PO (11:17)
== END 2023-05-03 11:37 | disposition home or self-care (01) ==
LOC: ER 09:21
DX: S81.811A Laceration without foreign body, right lower leg, initial encounter (principal); I10 Essential (primary) hypertension; J44.9 Chronic obstructive pulmonary disease, unspecified; W19.XXXA Unspecified fall, initial encounter; Z88.0 Allergy status to penicillin; Z88.1 Allergy status to other antibiotic agents; Z88.2 Allergy status to sulfonamides; Z88.8 Allergy status to other drugs, medicaments and biological substances; Z79.890 Hormone replacement therapy; Z79.899 Other long term (current) drug therapy; Z79.52 Long term (current) use of systemic steroids
CPT/HCPCS: 71046; 72220; 73110; 99283-25; A9270

== ENCOUNTER 2023-05-04 01:25 | Day surgery (SDC) | payer MEDICARE, OTHER ==
[2023-05-04 14:30] VITALS: BP 134/68
== END 2023-05-04 15:25 | disposition home or self-care (01) ==
LOC: ATC 01:25
DX: E88.01 Alpha-1-antitrypsin deficiency (principal)
CPT/HCPCS: 96365; J0256; J1642

== ENCOUNTER → 2023-05-07 | Outpatient (CLI) | payer MEDICARE, OTHER | END | disposition home or self-care (01) | LOC: LAB SHORT 21:11 → LAB 21:11 | DX: J34.81 Nasal mucositis (ulcerative) (principal) | CPT/HCPCS: 87070 ==

== ENCOUNTER 2023-05-11 03:04 | Day surgery (SDC) | payer MEDICARE, OTHER ==
[2023-05-11 14:45] VITALS: BP 136/69
== END 2023-05-11 15:37 | disposition home or self-care (01) ==
LOC: ATC 03:04
DX: E88.01 Alpha-1-antitrypsin deficiency (principal); J47.9 Bronchiectasis, uncomplicated; Z79.899 Other long term (current) drug therapy
CPT/HCPCS: 96365; J0256; J1642

== ENCOUNTER → 2023-05-13 | Outpatient (CLI) | payer MEDICARE, OTHER ==
[2023-05-13 17:35] LABS: Adenovirus F 40/41 Not Detected (NOT DETECT); Astrovirus Not Detected (NOT DETECT); Campylobacter Sp Not Detected (NOT DETECT); Cryptosporidium Not Detected (NOT DETECT); Cyclospora Cayetanensis Not Detected (NOT DETECT); E. Coli O157 Not Detected (NOT DETECT); Entamoeba Histolytica Not Detected (NOT DETECT); Enteroaggregative E. coli-EAEC Not Detected (NOT DETECT); Enteropathogenic E. coli-EPEC Not Detected (NOT DETECT); Enterotoxigenic E. coli-ETEC Not Detected (NOT DETECT); Giardia Lamblia Not Detected (NOT DETECT); Norovirus GI/GII Not Detected (NOT DETECT); Plesiomonas Shigelloides Not Detected (NOT DETECT); Rotavirus A Not Detected (NOT DETECT); Salmonella Sp Not Detected (NOT DETECT); Sapovirus Not Detected (NOT DETECT); Shiga Toxin-prod E. coli-STEC Not Detected (NOT DETECT); Shigella/Enteroin E. coli-EIEC Not Detected (NOT DETECT); Vibrio Cholerae Not Detected (NOT DETECT); Vibrio Sp Not Detected (NOT DETECT); Yersinia Enterocolitica Not Detected (NOT DETECT)
== END ==
LOC: LAB 15:18 → LAB SHORT 15:18
PROVIDERS: Family Medicine
DX: A04.72 Enterocolitis due to Clostridium difficile, not specified as recurrent (principal); R19.7 Diarrhea, unspecified
CPT/HCPCS: 87507

== ENCOUNTER 2023-05-17 07:52 | Emergency (ER) | payer MEDICARE, OTHER ==
[~2023-05-17] VITALS: Ht 152.4 cm; Wt 59.0 kg
[2023-05-17 08:32] LABS: BASOPHILS ABSOLUTE AUTO 0.03 K/mm3 (0.00-0.23); BASOPHILS PERCENT AUTO 0 % (0-2); EOSINOPHILS ABSOLUTE AUTO 0.24 K/mm3 (0.00-0.68); EOSINOPHILS PERCENT AUTO 3 % (0-6); Hematocrit 32.4 % (33.0-51.0); IMMATURE GRAN ABSOLUTE AUTO 0.04 K/mm3 (0.00-0.10); IMMATURE GRAN PERCENT AUTO 1 % (0-1); LYMPHOCYTES ABSOLUTE AUTO 0.57 K/mm3 (0.84-5.20); LYMPHOCYTES PERCENT AUTO 8 % (21-46); MONOCYTES ABSOLUTE AUTO 0.52 K/mm3 (0.16-1.47); MONOCYTES PERCENT AUTO 7 % (4-13); Mean Corpuscular HGB 29.3 pg (26.0-34.0); Mean Corpuscular Volume 86 fL (80-100); Mean Platelet Volume 8.3 fL (9.1-12.4); NEUTROPHILS ABSOLUTE AUTO 5.95 K/mm3 (1.96-9.15); NEUTROPHILS PERCENT AUTO 81 % (41-73); Platelet Count 155 K/mm3 (150-400); RDW Standard Deviation 47.6 fL (35.1-46.3); Red Blood Cell Count 3.75 M/mm3 (3.80-5.20); White Blood Cell Count 7.35 K/mm3 (4.00-11.30)
[2023-05-17 08:58] LABS: Albumin, Blood 3.4 g/dL (3.4-5.0); Albumin/Globulin Ratio 0.8 (0.8-1.8); Bilirubin, Total 0.5 mg/dL (0.1-1.0); Bun/Creatinine Ratio 85.9 (12.0-20.0); Calcium, Blood 8.7 mg/dL (8.5-10.1); Creatinine, Blood 0.45 mg/dL (0.40-1.00); Globulin, Blood 4.2 g/dL (2.2-4.0); Potassium, Blood 4.1 mmol/L (3.5-5.5); Total Protein, Blood 7.6 g/dL (6.4-8.2)
[2023-05-17] MEDS ORDERED: LEVFLO500 PO (09:48)
[2023-05-17 10:22] VITALS: BP 135/72
== END 2023-05-17 10:22 | disposition home or self-care (01) ==
LOC: ER 07:52
PROVIDERS: Emergency Medicine
DX: J47.9 Bronchiectasis, uncomplicated (principal); J44.9 Chronic obstructive pulmonary disease, unspecified; R09.02 Hypoxemia; Z99.81 Dependence on supplemental oxygen; I10 Essential (primary) hypertension; K21.9 Gastro-esophageal reflux disease without esophagitis; M79.7 Fibromyalgia; Z79.52 Long term (current) use of systemic steroids; Z79.2 Long term (current) use of antibiotics; Z79.899 Other long term (current) drug therapy; Z88.1 Allergy status to other antibiotic agents; Z88.0 Allergy status to penicillin; Z88.2 Allergy status to sulfonamides; Z88.8 Allergy status to other drugs, medicaments and biological substances
CPT/HCPCS: 71045; 80053; 83880; 84484; 85025; 93005; 93010; 94640; 94644; 94664; 96374; 99285-25; J2930

== ENCOUNTER 2023-05-18 04:09 | Day surgery (SDC) | payer MEDICARE, OTHER ==
[2023-05-18 14:23] VITALS: BP 134/78
== END 2023-05-18 15:55 | disposition home or self-care (01) ==
LOC: ATC 04:09
DX: E88.01 Alpha-1-antitrypsin deficiency (principal); Z79.899 Other long term (current) drug therapy
CPT/HCPCS: 96365; J0256; J1642

== ENCOUNTER → 2023-05-18 | Outpatient (CLI) | payer MEDICARE, OTHER | LOC: LAB 09:41 → LAB SHORT 09:41 | DX: J47.1 Bronchiectasis with (acute) exacerbation (principal) | CPT/HCPCS: 87070; 87077; 87106; 87186; 87205 ==

== ENCOUNTER 2023-05-25 00:40 | Day surgery (SDC) | payer MEDICARE, OTHER ==
[2023-05-25 14:20] VITALS: BP 136/72
== END 2023-05-25 15:24 | disposition home or self-care (01) ==
LOC: ATC 00:40
DX: E88.01 Alpha-1-antitrypsin deficiency (principal); Z79.899 Other long term (current) drug therapy
CPT/HCPCS: 96365; J0256; J1642

== ENCOUNTER 2023-05-26 00:43 | Day surgery (SDC) | payer MEDICARE, OTHER | END 2023-05-26 22:46 | disposition home or self-care (01) | LOC: WOUND 00:43 | DX: S81.812D Laceration without foreign body, left lower leg, subsequent encounter (principal); J47.9 Bronchiectasis, uncomplicated; L97.922 Non-pressure chronic ulcer of unspecified part of left lower leg with fat layer exposed; M19.042 Primary osteoarthritis, left hand; I73.9 Peripheral vascular disease, unspecified; I87.2 Venous insufficiency (chronic) (peripheral); R06.02 Shortness of breath; Z88.8 Allergy status to other drugs, medicaments and biological substances; X58.XXXD Exposure to other specified factors, subsequent encounter | CPT/HCPCS: A9270 ==

== ENCOUNTER 2023-06-08 02:47 | Day surgery (SDC) | payer MEDICARE, OTHER ==
[2023-06-08 14:10] VITALS: BP 127/71
== END 2023-06-08 15:10 | disposition home or self-care (01) ==
LOC: ATC 02:47
DX: E88.01 Alpha-1-antitrypsin deficiency (principal); Z79.899 Other long term (current) drug therapy
CPT/HCPCS: 96365; J0256; J1642

== ENCOUNTER 2023-06-10 04:56 | Day surgery (SDC) | payer MEDICARE, OTHER | END 2023-06-10 22:48 | disposition home or self-care (01) | LOC: WOUND 04:56 | DX: S81.812A Laceration without foreign body, left lower leg, initial encounter (principal); W22.09XA Striking against other stationary object, initial encounter; L97.822 Non-pressure chronic ulcer of other part of left lower leg with fat layer exposed; M19.042 Primary osteoarthritis, left hand; I73.9 Peripheral vascular disease, unspecified; I87.2 Venous insufficiency (chronic) (peripheral); R06.02 Shortness of breath | CPT/HCPCS: G0463 ==

== ENCOUNTER 2023-07-04 08:41 | Day surgery (SDC) | payer MEDICARE, OTHER ==
[2023-07-04 09:25] VITALS: BP 134/65
== END 2023-07-04 10:00 | disposition home or self-care (01) ==
LOC: ATC 08:41
DX: J47.1 Bronchiectasis with (acute) exacerbation (principal); E88.01 Alpha-1-antitrypsin deficiency
CPT/HCPCS: 96365; J0256; J1642

== ENCOUNTER 2023-07-09 01:33 | Day surgery (SDC) | payer MEDICARE, OTHER | END 2023-07-09 22:47 | disposition home or self-care (01) | LOC: WOUND 01:33 | DX: S80.811D Abrasion, right lower leg, subsequent encounter (principal); J47.1 Bronchiectasis with (acute) exacerbation; L97.922 Non-pressure chronic ulcer of unspecified part of left lower leg with fat layer exposed; M19.042 Primary osteoarthritis, left hand; I73.9 Peripheral vascular disease, unspecified; I87.2 Venous insufficiency (chronic) (peripheral); R06.02 Shortness of breath; Z99.81 Dependence on supplemental oxygen; X58.XXXD Exposure to other specified factors, subsequent encounter; J84.9 Interstitial pulmonary disease, unspecified; J98.4 Other disorders of lung | CPT/HCPCS: 71046; 87070; 87077; 87106; 87186; 87205; G0463 ==

== ENCOUNTER → 2023-07-09 | Outpatient (CLI) | payer MEDICARE, OTHER | LOC: LAB 16:18 → LAB SHORT 16:18 | DX: J47.1 Bronchiectasis with (acute) exacerbation (principal) | CPT/HCPCS: 87070; 87077; 87106; 87186; 87205 ==

== ENCOUNTER 2023-07-11 08:23 | Day surgery (SDC) | payer MEDICARE, OTHER ==
[~2023-07-11 08:23] MED LIST changes: +ALPHA IV SCH
[2023-07-11 08:44] VITALS: BP 137/63
== END 2023-07-11 09:25 | disposition home or self-care (01) ==
LOC: ATC 08:23
DX: E88.01 Alpha-1-antitrypsin deficiency (principal); Z79.899 Other long term (current) drug therapy
CPT/HCPCS: 96365; J0256; J1642

== ENCOUNTER → 2023-09-12 | Outpatient (CLI) | payer MEDICARE, OTHER ==
[~2023-09-12] MED LIST changes: -ALPHA IV SCH
== END ==
LOC: LAB 11:07 → LAB SHORT 11:07
DX: J47.1 Bronchiectasis with (acute) exacerbation (principal)
CPT/HCPCS: 87070; 87077; 87102; 87106; 87186; 87205

== ENCOUNTER 2023-09-28 01:22 | Day surgery (SDC) | payer MEDICARE, OTHER ==
[2023-09-28] MEDS ORDERED: ALPHA IV SCH (06:00)
[2023-09-28 14:22] VITALS: BP 130/65
== END 2023-09-28 15:26 | disposition home or self-care (01) ==
LOC: ATC 01:22
DX: E88.01 Alpha-1-antitrypsin deficiency (principal); Z79.899 Other long term (current) drug therapy
CPT/HCPCS: 96365; J0256; J1642

== ENCOUNTER 2023-09-29 03:20 | Day surgery (SDC) | payer MEDICARE, OTHER | END 2023-09-29 22:52 | disposition home or self-care (01) | LOC: WOUND 03:20 | DX: S80.811D Abrasion, right lower leg, subsequent encounter (principal); W22.8XXD Striking against or struck by other objects, subsequent encounter; M19.042 Primary osteoarthritis, left hand; I73.9 Peripheral vascular disease, unspecified; I87.2 Venous insufficiency (chronic) (peripheral); R06.02 Shortness of breath | CPT/HCPCS: G0463 ==

== ENCOUNTER 2023-10-04 08:00 | Day surgery (SDC) | payer MEDICARE, OTHER ==
[2023-10-04] MEDS ORDERED: ALPHA 1 PROTEINASE INHIBITOR IV SCH (14:15)
[2023-10-04 14:19] VITALS: BP 127/60
== END 2023-10-04 23:59 | disposition home or self-care (01) ==
LOC: ATC 08:00
DX: E88.01 Alpha-1-antitrypsin deficiency (principal); Z51.81 Encounter for therapeutic drug level monitoring; Z79.899 Other long term (current) drug therapy
CPT/HCPCS: 36415; 96365; G0480; J0256; J1642

== ENCOUNTER 2023-10-12 00:51 | Day surgery (SDC) | payer MEDICARE, OTHER ==
[2023-10-12 14:10] VITALS: BP 141/65
== END 2023-10-12 15:15 | disposition home or self-care (01) ==
LOC: ATC 00:51
DX: E88.01 Alpha-1-antitrypsin deficiency (principal); Z79.899 Other long term (current) drug therapy

== ENCOUNTER 2023-11-14 07:15 | Day surgery (SDC) | payer MEDICARE, OTHER ==
[~2023-11-14 07:15] MED LIST changes: +Aztreonam 2,000 MG in NS 100 ML IV SCH
[2023-11-14 07:28] VITALS: BP 123/61
[2023-11-14 15:33] VITALS: BP 114/63
[2023-11-14 22:37] VITALS: BP 131/63
--- NOTE | 2023-11-14 23:17 | NUR ---
PT ARRIVED FOR SCHEDULED ABX INFUSION. PT A/O, VSS. MEDIPORT PREV BEFORE ARRIVAL, FLUSHED W/O DIFFICULTY. ABX COMPLETED IN 30 MIN, FLUSHED W/10ML NS AND 50 UNIT HEPARIN FLUSH. PT EMME ABX WELL. PLAN TO RETURN TO [facility] IN AM FOR CONT ABX TX.
--- NOTE | 2023-11-14 23:22 | NUR ---
ABX: ABX START TIME: 11/14/232237 END TIME: 11/14/234
== END 2023-11-14 22:51 | disposition home or self-care (01) ==
LOC: ATC 07:15
DX: J47.9 Bronchiectasis, uncomplicated (principal); E88.01 Alpha-1-antitrypsin deficiency; K21.9 Gastro-esophageal reflux disease without esophagitis; G25.81 Restless legs syndrome; E22.2 Syndrome of inappropriate secretion of antidiuretic hormone; F41.9 Anxiety disorder, unspecified; I10 Essential (primary) hypertension; Z88.1 Allergy status to other antibiotic agents; Z88.8 Allergy status to other drugs, medicaments and biological substances; Z79.899 Other long term (current) drug therapy
CPT/HCPCS: 96365; J1642

== ENCOUNTER 2023-11-15 03:27 | Day surgery (SDC) | payer MEDICARE, OTHER ==
[~2023-11-15 03:27] MED LIST changes: -Aztreonam 2,000 MG in NS 100 ML IV SCH
[2023-11-15] MEDS ORDERED: Aztreonam 2,000 MG in NS 100 ML IV SCH (06:00)
[2023-11-15 07:41] VITALS: BP 129/57
[2023-11-15 14:21] VITALS: BP 125/58
[2023-11-15 22:41] VITALS: BP 124/60
--- NOTE | 2023-11-15 23:28 | NUR ---
PT ARRIVED FOR SCHEDULED ABX INFUSION. PT VSS, MEDIPORT FLUSHED W/O DIFFICULTY. ABX COMPLETED IN 30 MIN, PT MEME WELL. PORT FLUSHED W/HEAPRIN PER EMAR. PT TO RETURN TO [facility] IN AM.
--- NOTE | 2023-11-15 23:31 | NUR ---
ABX START TIME: 11/15/23 6623 END TIME 11/15/23 7186 TOTAL RUN TIME 30 MIN
== END 2023-11-15 23:52 | disposition home or self-care (01) ==
LOC: ATC 03:27
DX: J47.9 Bronchiectasis, uncomplicated (principal); E88.01 Alpha-1-antitrypsin deficiency; K21.9 Gastro-esophageal reflux disease without esophagitis; I10 Essential (primary) hypertension; G25.81 Restless legs syndrome
CPT/HCPCS: 96365; J1642

== ENCOUNTER 2023-11-16 03:37 | Day surgery (SDC) | payer MEDICARE, OTHER ==
[2023-11-16] MEDS ORDERED: Aztreonam 2,000 MG in NS 100 ML IV SCH (06:00)
[2023-11-16 08:01] VITALS: BP 146/77
--- NOTE | 2023-11-16 09:14 | NUR ---
PT LEFT FIRST ABX APPT THIS MORNING AT 0830
[2023-11-16] MEDS ORDERED: ALPHA IV SCH (14:00)
[2023-11-16 14:22] VITALS: BP 143/76
[2023-11-16 22:37] VITALS: BP 133/74
--- NOTE | 2023-11-16 23:23 | NUR ---
ABX COMPLETED, PT MEME WELL. VSS. ABX START TIME 2916 END TIME 230
== END 2023-11-16 23:24 | disposition home or self-care (01) ==
LOC: ATC 03:37
DX: J47.9 Bronchiectasis, uncomplicated (principal); E88.01 Alpha-1-antitrypsin deficiency; E78.00 Pure hypercholesterolemia, unspecified
CPT/HCPCS: 96365; 96367; J0256; J1642

== ENCOUNTER 2023-11-17 02:50 | Day surgery (SDC) | payer MEDICARE, OTHER ==
[2023-11-17] MEDS ORDERED: Aztreonam 2,000 MG in NS 100 ML IV SCH (06:00)
[2023-11-17 07:56] VITALS: BP 149/74
[2023-11-17 15:59] VITALS: BP 136/78
[2023-11-17 22:22] VITALS: BP 130/71
--- NOTE | 2023-11-17 23:15 | NUR ---
PT ARRIVED FOR SCHEDULED ABX. PT MEME ABX WELL. VSS, MEDIPORT FLUSHED W/O DIFFIUCULTY (10ML NS BEFORE INFUSION, 10ML NS AFTER AND 50 UNITS HEPARIN FLUSH PER EMAR). PT TO RETURN TOMORROW [facility] FOR FINAL SCHEDULED ABX/ ABX START TIME 11/17/232225 END TIME 11/17/23 5392
== END 2023-11-17 22:54 | disposition home or self-care (01) ==
LOC: ATC 02:50
DX: J47.9 Bronchiectasis, uncomplicated (principal); E88.01 Alpha-1-antitrypsin deficiency; E78.00 Pure hypercholesterolemia, unspecified; Z88.8 Allergy status to other drugs, medicaments and biological substances; Z88.2 Allergy status to sulfonamides
CPT/HCPCS: 96365; J1642

== ENCOUNTER 2023-11-18 02:51 | Day surgery (SDC) | payer MEDICARE, OTHER ==
[~2023-11-18 02:51] MED LIST changes: +Aztreonam 2,000 MG in NS 100 ML IV SCH
--- NOTE | 2023-11-18 10:57 | NUR ---
PATIENT CALLED AND CANCELLED HER 0730 APPT FOR TODAY
--- NOTE | 2023-11-18 16:05 | NUR ---
PT STATES HER MD HAS DISCONTINUED THE AZTREONAM SHE DECLINES ANY FURTHER DOSES OF THIS MEDICATION. PT ARRIVED AT [facility] TO [facility].
== END 2023-11-18 16:05 | disposition home or self-care (01) ==
LOC: ATC 02:51
DX: J47.9 Bronchiectasis, uncomplicated (principal); E88.01 Alpha-1-antitrypsin deficiency; I10 Essential (primary) hypertension; K21.9 Gastro-esophageal reflux disease without esophagitis; F41.9 Anxiety disorder, unspecified; G25.81 Restless legs syndrome; Z88.1 Allergy status to other antibiotic agents; Z88.8 Allergy status to other drugs, medicaments and biological substances; Z79.899 Other long term (current) drug therapy
CPT/HCPCS: 96523; J1642

== ENCOUNTER 2023-11-23 05:26 | Day surgery (SDC) | payer MEDICARE, OTHER ==
[~2023-11-23 05:26] MED LIST changes: -Aztreonam 2,000 MG in NS 100 ML IV SCH
[2023-11-23] MEDS ORDERED: ALPHA 1 PROTEINASE INHIBITOR IV SCH (14:20)
[2023-11-23 14:26] VITALS: BP 118/56
== END 2023-11-23 15:19 | disposition home or self-care (01) ==
LOC: ATC 05:26
DX: E88.01 Alpha-1-antitrypsin deficiency (principal); E78.00 Pure hypercholesterolemia, unspecified; I10 Essential (primary) hypertension; K21.9 Gastro-esophageal reflux disease without esophagitis; G25.81 Restless legs syndrome
CPT/HCPCS: 96365; J0256; J1642

== ENCOUNTER 2023-11-30 00:50 | Day surgery (SDC) | payer MEDICARE, OTHER ==
[2023-11-30] MEDS ORDERED: ALPHA IV SCH (14:20)
[2023-11-30 14:40] VITALS: BP 134/60
== END 2023-11-30 15:18 | disposition home or self-care (01) ==
LOC: ATC 00:50
DX: E88.01 Alpha-1-antitrypsin deficiency (principal); E78.00 Pure hypercholesterolemia, unspecified
CPT/HCPCS: 96365; J0256; J1642

== ENCOUNTER 2023-12-07 00:53 | Day surgery (SDC) | payer MEDICARE, OTHER ==
[2023-12-07] MEDS ORDERED: ALPHA IV SCH (14:15)
[2023-12-07 14:21] VITALS: BP 145/65
[2023-12-07] MEDS ORDERED: ACETADOTE200 MG/1 M PO (14:33)
== END 2023-12-07 15:05 | disposition home or self-care (01) ==
LOC: ATC 00:53
DX: E88.01 Alpha-1-antitrypsin deficiency (principal); K21.9 Gastro-esophageal reflux disease without esophagitis; I10 Essential (primary) hypertension; F41.9 Anxiety disorder, unspecified; G25.81 Restless legs syndrome; E22.2 Syndrome of inappropriate secretion of antidiuretic hormone; Z88.1 Allergy status to other antibiotic agents; Z88.8 Allergy status to other drugs, medicaments and biological substances; Z79.899 Other long term (current) drug therapy
CPT/HCPCS: 96365; J0256; J1642

== ENCOUNTER 2023-12-14 14:37 | Day surgery (SDC) | payer MEDICARE, OTHER ==
[2023-12-14 16:04] VITALS: BP 126/69
[2023-12-14] MEDS ORDERED: ALPHA IV SCH (16:10)
--- NOTE | 2023-12-14 17:18 | NUR ---
CBC AND CMP FAXED TO DR GRANADOS
== END 2023-12-14 17:00 | disposition home or self-care (01) ==
LOC: ATC 14:37
DX: E88.01 Alpha-1-antitrypsin deficiency (principal); I10 Essential (primary) hypertension; K21.9 Gastro-esophageal reflux disease without esophagitis; G25.81 Restless legs syndrome; E87.1 Hypo-osmolality and hyponatremia; F41.9 Anxiety disorder, unspecified; Z79.2 Long term (current) use of antibiotics; Z79.899 Other long term (current) drug therapy; Z88.1 Allergy status to other antibiotic agents; Z88.2 Allergy status to sulfonamides; Z88.8 Allergy status to other drugs, medicaments and biological substances
CPT/HCPCS: 96365; J0256; J1642

== ENCOUNTER 2023-12-20 03:17 | Day surgery (SDC) | payer MEDICARE, OTHER ==
[2023-12-20 11:25] VITALS: BP 147/76
[2023-12-20] MEDS ORDERED: ALPHA IV SCH (11:30)
== END 2023-12-20 12:17 | disposition home or self-care (01) ==
LOC: ATC 03:17
DX: E88.01 Alpha-1-antitrypsin deficiency (principal); I10 Essential (primary) hypertension; K21.9 Gastro-esophageal reflux disease without esophagitis; Z88.1 Allergy status to other antibiotic agents; Z88.2 Allergy status to sulfonamides; Z88.8 Allergy status to other drugs, medicaments and biological substances; Z79.899 Other long term (current) drug therapy
CPT/HCPCS: 96365; J0256; J1642

== ENCOUNTER 2023-12-29 01:04 | Day surgery (SDC) | payer MEDICARE, OTHER ==
[~2023-12-29] VITALS: Wt 57.6 kg
[2023-12-29 15:53] VITALS: BP 140/84
[2023-12-29] MEDS ORDERED: ALPHA IV SCH (16:00)
== END 2023-12-29 16:40 | disposition home or self-care (01) ==
LOC: ATC 01:04
DX: E88.01 Alpha-1-antitrypsin deficiency (principal); I10 Essential (primary) hypertension; K21.9 Gastro-esophageal reflux disease without esophagitis; Z79.899 Other long term (current) drug therapy; Z88.1 Allergy status to other antibiotic agents; Z88.2 Allergy status to sulfonamides; Z88.8 Allergy status to other drugs, medicaments and biological substances
CPT/HCPCS: 96365; J0256; J1642

== ENCOUNTER 2024-01-25 03:34 | Day surgery (SDC) | payer MEDICARE, OTHER ==
[2024-01-25 15:21] VITALS: BP 146/75
[2024-01-25] MEDS ORDERED: ALPHA IV SCH (15:30)
== END 2024-01-25 16:12 | disposition home or self-care (01) ==
LOC: ATC 03:34
DX: E88.01 Alpha-1-antitrypsin deficiency (principal); I10 Essential (primary) hypertension; K21.9 Gastro-esophageal reflux disease without esophagitis; Z88.1 Allergy status to other antibiotic agents; Z88.2 Allergy status to sulfonamides; Z88.8 Allergy status to other drugs, medicaments and biological substances; Z79.899 Other long term (current) drug therapy
CPT/HCPCS: 96365; J0256; J1642

== ENCOUNTER 2024-01-31 08:32 | Day surgery (SDC) | payer MEDICARE, OTHER ==
[~2024-01-31] VITALS: Ht 152.4 cm; Wt 56.3 kg
[~2024-01-31 08:32] MED LIST changes: +Lactated Ringer's 1,000 ML IV ONE; +Lidocaine 2%-Epineph 1:100000 20 ML MDV ONE
[2024-01-31] MEDS ORDERED: CeFAZolin Sodium 2,000 MG VIAL ONE (08:46)
[2024-01-31] MEDS ORDERED: NS 0 ML IV ONE (08:46)
[2024-01-31] MEDS ORDERED: Lactated Ringer's 1,000 ML IV ONE (09:02)
[2024-01-31] MEDS ORDERED: Clindamycin 900mg in D5W 50ML 50 ML IV ONE (09:07)
--- NOTE | 2024-01-31 09:18 | NUR ---
01/31/24 0918 Norma Hernandez 8ML LIDOCAINE 1% WITH EPI 1:100,00 BUFFERRED WITH 1 ML OF SODIUM BICARB BY DR SCHAEFFER. PT TOLERATED WELL.
[2024-01-31] MEDS ORDERED: propofoL 20 ML IV ONE (09:30)
[2024-01-31 10:29] VITALS: BP 123/59
--- NOTE | 2024-01-31 10:50 | NUR ---
01/31/24 1050 YUE CONNORS PT GIVEN A MEDIAUM SLING APPLIED TO OP ARM PRIOR TO DC
== END 2024-01-31 10:49 | disposition home or self-care (01) ==
LOC: ORSCSDS 08:32
PROVIDERS: Orthopaedic Surgery
PROC: 0LS80ZZ Reposition Left Hand Tendon, Open Approach (ICD-10-PCS; principal; 2024-01-31 09:45)
DX: M66.242 Spontaneous rupture of extensor tendons, left hand (principal); F41.9 Anxiety disorder, unspecified; I10 Essential (primary) hypertension; J44.9 Chronic obstructive pulmonary disease, unspecified; G47.33 Obstructive sleep apnea (adult) (pediatric); F41.8 Other specified anxiety disorders; K21.9 Gastro-esophageal reflux disease without esophagitis; M10.9 Gout, unspecified; E78.00 Pure hypercholesterolemia, unspecified; G25.81 Restless legs syndrome; Z79.899 Other long term (current) drug therapy
CPT/HCPCS: J0690; J2704; J7120

== ENCOUNTER 2024-02-08 00:36 | Day surgery (SDC) | payer MEDICARE, OTHER ==
--- NOTE | 2024-01-18 11:48 | NUR ---
Pt called this morning to cancel her appointment in the [facility] today.
[~2024-02-08 00:36] MED LIST changes: -Lactated Ringer's 1,000 ML IV ONE; -Lidocaine 2%-Epineph 1:100000 20 ML MDV ONE
[2024-02-08 16:05] VITALS: BP 134/66
[2024-02-08] MEDS ORDERED: Norco 5-325 Ta1 EACH PO (16:07)
[2024-02-08] MEDS ORDERED: ALPHA 1 PROTEINASE INHIBITOR IV SCH (16:30)
== END 2024-02-08 17:05 | disposition home or self-care (01) ==
LOC: ATC 00:36
DX: E88.01 Alpha-1-antitrypsin deficiency (principal); E78.00 Pure hypercholesterolemia, unspecified; K21.9 Gastro-esophageal reflux disease without esophagitis; I10 Essential (primary) hypertension; Z79.899 Other long term (current) drug therapy; Z88.2 Allergy status to sulfonamides; Z88.8 Allergy status to other drugs, medicaments and biological substances
CPT/HCPCS: 96365; J0256; J1642

== ENCOUNTER → 2024-03-05 | Outpatient (CLI) | payer MEDICARE, OTHER | LOC: LAB 09:00 → LAB SHORT 09:00 → LAB FUT 02-27 13:05 | DX: J47.1 Bronchiectasis with (acute) exacerbation (principal); A31.0 Pulmonary mycobacterial infection | CPT/HCPCS: 87116 ==

== ENCOUNTER 2024-03-07 02:12 | Day surgery (SDC) | payer MEDICARE, OTHER ==
[2024-03-07] MEDS ORDERED: ALPHA 1 PROTEINASE INHIBITOR IV SCH (16:55)
[2024-03-07 16:57] VITALS: BP 121/72
== END 2024-03-07 17:36 | disposition home or self-care (01) ==
LOC: ATC 02:12
DX: E88.01 Alpha-1-antitrypsin deficiency (principal); E22.2 Syndrome of inappropriate secretion of antidiuretic hormone; I10 Essential (primary) hypertension; K21.9 Gastro-esophageal reflux disease without esophagitis; F41.9 Anxiety disorder, unspecified; G25.81 Restless legs syndrome; Z88.1 Allergy status to other antibiotic agents; Z88.8 Allergy status to other drugs, medicaments and biological substances; Z79.899 Other long term (current) drug therapy
CPT/HCPCS: 96365; J0256; J1642

== ENCOUNTER 2024-03-14 03:33 | Day surgery (SDC) | payer MEDICARE, OTHER ==
[2024-03-14] MEDS ORDERED: ALPHA 1 PROTEINASE INHIBITOR IV SCH (06:00)
[2024-03-14 16:29] VITALS: BP 130/64
== END 2024-03-14 17:00 | disposition home or self-care (01) ==
LOC: ATC 03:33
DX: E88.01 Alpha-1-antitrypsin deficiency (principal); J47.9 Bronchiectasis, uncomplicated; I10 Essential (primary) hypertension; K21.9 Gastro-esophageal reflux disease without esophagitis; E78.00 Pure hypercholesterolemia, unspecified; G25.81 Restless legs syndrome; E22.2 Syndrome of inappropriate secretion of antidiuretic hormone; Z79.899 Other long term (current) drug therapy; Z88.2 Allergy status to sulfonamides; Z88.1 Allergy status to other antibiotic agents; Z88.8 Allergy status to other drugs, medicaments and biological substances
CPT/HCPCS: 96365; J0256; J1642

== ENCOUNTER 2024-03-21 01:59 | Day surgery (SDC) | payer MEDICARE, OTHER ==
[~2024-03-21] VITALS: Wt 55.3 kg
[2024-03-21] MEDS ORDERED: ALPHA 1 PROTEINASE INHIBITOR IV SCH (06:00)
[2024-03-21 16:18] VITALS: BP 128/65
== END 2024-03-21 16:46 | disposition home or self-care (01) ==
LOC: ATC 01:59
DX: E88.01 Alpha-1-antitrypsin deficiency (principal); J47.9 Bronchiectasis, uncomplicated; E78.00 Pure hypercholesterolemia, unspecified; I10 Essential (primary) hypertension; K21.9 Gastro-esophageal reflux disease without esophagitis; G25.81 Restless legs syndrome; Z79.899 Other long term (current) drug therapy; Z88.2 Allergy status to sulfonamides; Z88.8 Allergy status to other drugs, medicaments and biological substances
CPT/HCPCS: 96365; J0256; J1642

== ENCOUNTER 2024-04-04 01:47 | Day surgery (SDC) | payer MEDICARE, OTHER ==
[2024-04-04 16:14] VITALS: BP 119/68
[2024-04-04] MEDS ORDERED: ALPHA IV SCH (16:20)
== END 2024-04-04 17:00 | disposition home or self-care (01) ==
LOC: ATC 01:47
DX: E88.01 Alpha-1-antitrypsin deficiency (principal); E78.00 Pure hypercholesterolemia, unspecified; K21.9 Gastro-esophageal reflux disease without esophagitis; G25.81 Restless legs syndrome; Z88.2 Allergy status to sulfonamides; Z88.8 Allergy status to other drugs, medicaments and biological substances
CPT/HCPCS: 96365; J0256; J1642

== ENCOUNTER → 2024-04-10 | Outpatient (CLI) | payer MEDICARE, OTHER | LOC: LAB SHORT 15:50 → LAB 15:50 | DX: J47.1 Bronchiectasis with (acute) exacerbation (principal); A31.0 Pulmonary mycobacterial infection | CPT/HCPCS: 87070; 87077; 87186; 87205 ==

== ENCOUNTER 2024-04-11 02:38 | Day surgery (SDC) | payer MEDICARE, OTHER ==
[2024-04-11 16:00] VITALS: BP 102/64
[2024-04-11] MEDS ORDERED: ALPHA IV SCH (16:20)
== END 2024-04-11 17:11 | disposition home or self-care (01) ==
LOC: ATC 02:38
DX: E88.01 Alpha-1-antitrypsin deficiency (principal); E78.00 Pure hypercholesterolemia, unspecified; K21.9 Gastro-esophageal reflux disease without esophagitis; G25.81 Restless legs syndrome; I10 Essential (primary) hypertension; Z88.2 Allergy status to sulfonamides; Z88.8 Allergy status to other drugs, medicaments and biological substances
CPT/HCPCS: 96365; J0256; J1642

== ENCOUNTER 2024-05-09 05:49 | Day surgery (SDC) | payer MEDICARE, OTHER ==
[2024-05-09] MEDS ORDERED: ALPHA 1 PROTEINASE INHIBITOR IV SCH (16:20)
[2024-05-09 16:22] VITALS: BP 121/65
== END 2024-05-09 17:01 | disposition home or self-care (01) ==
LOC: ATC 05:49
DX: E88.01 Alpha-1-antitrypsin deficiency (principal); J47.9 Bronchiectasis, uncomplicated; E78.00 Pure hypercholesterolemia, unspecified; I10 Essential (primary) hypertension; G25.81 Restless legs syndrome; K21.9 Gastro-esophageal reflux disease without esophagitis; Z79.899 Other long term (current) drug therapy; Z88.1 Allergy status to other antibiotic agents
CPT/HCPCS: 96365; J0256; J1642

== ENCOUNTER → 2024-05-15 | Outpatient (CLI) | payer MEDICARE, OTHER | END | disposition home or self-care (01) | LOC: LAB 09:18 → LAB SHORT 09:18 | DX: R06.02 Shortness of breath (principal); E87.1 Hypo-osmolality and hyponatremia | CPT/HCPCS: 36415; 80048; 87070; 87077; 87186; 87205 ==

== ENCOUNTER 2024-05-16 03:10 | Day surgery (SDC) | payer MEDICARE, OTHER ==
[2024-05-16] MEDS ORDERED: ALPHA 1 PROTEINASE INHIBITOR IV SCH (16:10)
[2024-05-16 16:12] VITALS: BP 129/77
[2024-05-16] MEDS ORDERED: CIPR500 PO (16:46)
== END 2024-05-16 17:08 | disposition home or self-care (01) ==
LOC: ATC 03:10
DX: E88.01 Alpha-1-antitrypsin deficiency (principal); J47.9 Bronchiectasis, uncomplicated; E78.2 Mixed hyperlipidemia; K21.9 Gastro-esophageal reflux disease without esophagitis; G25.81 Restless legs syndrome; I10 Essential (primary) hypertension; Z79.899 Other long term (current) drug therapy; Z88.1 Allergy status to other antibiotic agents; Z88.2 Allergy status to sulfonamides; Z88.8 Allergy status to other drugs, medicaments and biological substances
CPT/HCPCS: 96365; J0256; J1642

== ENCOUNTER 2024-05-30 03:19 | Day surgery (SDC) | payer MEDICARE, OTHER ==
[~2024-05-30] VITALS: Wt 54.0 kg
[2024-05-30 16:07] VITALS: BP 121/60
[2024-05-30] MEDS ORDERED: ALPHA IV SCH (16:15)
== END 2024-05-30 16:57 | disposition home or self-care (01) ==
LOC: ATC 03:19
DX: E88.01 Alpha-1-antitrypsin deficiency (principal); E78.00 Pure hypercholesterolemia, unspecified; I10 Essential (primary) hypertension; K21.9 Gastro-esophageal reflux disease without esophagitis; Z88.2 Allergy status to sulfonamides; Z88.8 Allergy status to other drugs, medicaments and biological substances
CPT/HCPCS: 96365; J0256; J1642

== ENCOUNTER → 2024-06-19 | Outpatient (CLI) | payer MEDICARE, OTHER | END | disposition home or self-care (01) | LOC: LAB SHORT 15:28 → LAB 15:28 | DX: R30.0 Dysuria (principal); R35.0 Frequency of micturition | CPT/HCPCS: 87086 ==

== ENCOUNTER 2024-06-20 06:53 | Day surgery (SDC) | payer MEDICARE, OTHER ==
[2024-06-20 16:00] VITALS: BP 117/72
[2024-06-20] MEDS ORDERED: ALPHA 1 PROTEINASE INHIBITOR IV SCH (16:05)
== END 2024-06-20 16:55 | disposition home or self-care (01) ==
LOC: ATC 06:53
DX: E88.01 Alpha-1-antitrypsin deficiency (principal); E78.00 Pure hypercholesterolemia, unspecified; I10 Essential (primary) hypertension; K21.9 Gastro-esophageal reflux disease without esophagitis; G25.81 Restless legs syndrome; Z88.8 Allergy status to other drugs, medicaments and biological substances; Z88.2 Allergy status to sulfonamides
CPT/HCPCS: 96365; J0256; J1642

== ENCOUNTER → 2024-06-21 | Outpatient (CLI) | payer MEDICARE, OTHER ==
[2024-06-21 19:22] LABS: Adenovirus F 40/41 Not Detected (NOT DETECT); Astrovirus Not Detected (NOT DETECT); Campylobacter Sp Not Detected (NOT DETECT); Cryptosporidium Not Detected (NOT DETECT); Cyclospora Cayetanensis Not Detected (NOT DETECT); E. Coli O157 Not Detected (NOT DETECT); Entamoeba Histolytica Not Detected (NOT DETECT); Enteroaggregative E. coli-EAEC Not Detected (NOT DETECT); Enteropathogenic E. coli-EPEC Not Detected (NOT DETECT); Enterotoxigenic E. coli-ETEC Not Detected (NOT DETECT); Giardia Lamblia Not Detected (NOT DETECT); Norovirus GI/GII Not Detected (NOT DETECT); Plesiomonas Shigelloides Not Detected (NOT DETECT); Rotavirus A Not Detected (NOT DETECT); Salmonella Sp Not Detected (NOT DETECT); Sapovirus Not Detected (NOT DETECT); Shiga Toxin-prod E. coli-STEC Not Detected (NOT DETECT); Shigella/Enteroin E. coli-EIEC Not Detected (NOT DETECT); Vibrio Cholerae Not Detected (NOT DETECT); Vibrio Sp Not Detected (NOT DETECT); Yersinia Enterocolitica Not Detected (NOT DETECT)
== END ==
LOC: LAB 15:40 → LAB SHORT 15:40
PROVIDERS: Family Medicine
DX: R19.7 Diarrhea, unspecified (principal); E55.9 Vitamin D deficiency, unspecified; R79.9 Abnormal finding of blood chemistry, unspecified; R10.84 Generalized abdominal pain
CPT/HCPCS: 87507

== ENCOUNTER 2024-06-27 04:36 | Day surgery (SDC) | payer MEDICARE, OTHER ==
[~2024-06-27] VITALS: Wt 52.2 kg
[2024-06-27] MEDS ORDERED: ALPHA 1 PROTEINASE INHIBITOR IV SCH (16:15)
[2024-06-27 16:19] VITALS: BP 140/61
== END 2024-06-27 17:11 | disposition home or self-care (01) ==
LOC: ATC 04:36
DX: E88.01 Alpha-1-antitrypsin deficiency (principal); J47.9 Bronchiectasis, uncomplicated; I10 Essential (primary) hypertension; K21.9 Gastro-esophageal reflux disease without esophagitis; G25.81 Restless legs syndrome; F41.9 Anxiety disorder, unspecified; E78.2 Mixed hyperlipidemia; Z79.899 Other long term (current) drug therapy; Z88.2 Allergy status to sulfonamides; Z88.1 Allergy status to other antibiotic agents; Z88.8 Allergy status to other drugs, medicaments and biological substances
CPT/HCPCS: 96365; J0256; J1642

== ENCOUNTER 2024-07-04 11:47 | Day surgery (SDC) | payer MEDICARE, OTHER ==
[2024-07-04] MEDS ORDERED: ALPHA IV SCH (16:05)
[2024-07-04 16:13] VITALS: BP 130/75
== END 2024-07-04 16:55 | disposition home or self-care (01) ==
LOC: ATC 11:47
DX: E88.01 Alpha-1-antitrypsin deficiency (principal); E78.00 Pure hypercholesterolemia, unspecified; I10 Essential (primary) hypertension; K21.9 Gastro-esophageal reflux disease without esophagitis; G25.81 Restless legs syndrome; Z88.8 Allergy status to other drugs, medicaments and biological substances
CPT/HCPCS: 96365; J0256; J1642

== ENCOUNTER 2024-07-11 01:13 | Day surgery (SDC) | payer MEDICARE, OTHER ==
[2024-07-11] MEDS ORDERED: ALPHA IV SCH (16:20)
[2024-07-11 16:28] VITALS: BP 107/55
== END 2024-07-11 16:57 | disposition home or self-care (01) ==
LOC: ATC 01:13
DX: E88.01 Alpha-1-antitrypsin deficiency (principal); E78.00 Pure hypercholesterolemia, unspecified; I10 Essential (primary) hypertension; K21.9 Gastro-esophageal reflux disease without esophagitis; G25.81 Restless legs syndrome; Z79.899 Other long term (current) drug therapy; Z88.2 Allergy status to sulfonamides; Z88.8 Allergy status to other drugs, medicaments and biological substances
CPT/HCPCS: 96365; J0256; J1642

== ENCOUNTER 2024-08-01 22:07 | Emergency (ER) | payer MEDICARE, OTHER ==
[~2024-08-01] VITALS: Ht 152.4 cm; Wt 54.4 kg
[2024-08-01] MEDS ORDERED: Albuterol 2.5 MG/3 ML VIAL INH SCH (23:10)
[2024-08-01] MEDS ORDERED: MethylPREDNISolone Sod Succ 125 MG Vial IV ONE (23:10)
[2024-08-01 23:35] LABS: BASOPHILS ABSOLUTE AUTO 0.05 K/mm3 (0.00-0.23); BASOPHILS PERCENT AUTO 1 % (0-2); EOSINOPHILS ABSOLUTE AUTO 0.24 K/mm3 (0.00-0.68); EOSINOPHILS PERCENT AUTO 3 % (0-6); Hematocrit 30.7 % (33.0-51.0); Hemoglobin 10.3 g/dL (11.5-16.0); IMMATURE GRAN ABSOLUTE AUTO 0.03 K/mm3 (0.00-0.10); IMMATURE GRAN PERCENT AUTO 0 % (0-1); LYMPHOCYTES PERCENT AUTO 11 % (21-46); MONOCYTES ABSOLUTE AUTO 0.86 K/mm3 (0.16-1.47); MONOCYTES PERCENT AUTO 9 % (4-13); Mean Corpuscular HGB 27.4 pg (26.0-34.0); Mean Corpuscular HGB Conc 33.6 g/dL (31.5-36.5); Mean Corpuscular Volume 82 fL (80-100); Mean Platelet Volume 8.4 fL (9.1-12.4); NEUTROPHILS ABSOLUTE AUTO 7.38 K/mm3 (1.96-9.15); NEUTROPHILS PERCENT AUTO 77 % (41-73); Platelet Count 327 K/mm3 (150-400); RDW Coefficient Variation 14.4 % (11.7-14.2); RDW Standard Deviation 42.4 fL (35.1-46.3); Red Blood Cell Count 3.76 M/mm3 (3.80-5.20); White Blood Cell Count 9.56 K/mm3 (4.00-11.30)
[2024-08-01 23:44] LABS: Bun/Creatinine Ratio 86.2 (12.0-20.0); Calcium, Blood 9.5 mg/dL (8.5-10.1); Creatinine, Blood 0.52 mg/dL (0.40-1.00); Potassium, Blood 4.5 mmol/L (3.5-5.5)
[2024-08-02 00:27] VITALS: BP 129/63
== END 2024-08-02 01:11 | disposition home or self-care (01) ==
LOC: ER 22:07
PROVIDERS: Emergency Medicine
DX: J44.1 Chronic obstructive pulmonary disease with (acute) exacerbation (principal); J18.9 Pneumonia, unspecified organism; I10 Essential (primary) hypertension; Z79.2 Long term (current) use of antibiotics; Z79.899 Other long term (current) drug therapy; Z88.8 Allergy status to other drugs, medicaments and biological substances; Z88.1 Allergy status to other antibiotic agents; Z88.2 Allergy status to sulfonamides
CPT/HCPCS: 71045; 80048; 84484; 85025; 93005; 93010; 94644; 94664; 96374; 99283-25; J2919

== ENCOUNTER 2024-08-06 10:26 | Inpatient (IN) | payer MEDICARE, OTHER ==
[~2024-08-06] VITALS: Ht 152.4 cm; Wt 49.7 kg
[~2024-08-06 10:26] MED LIST changes: +Losartan Potassium 50 MG Tab PO SCH; +UREA
[2024-08-06 11:25] LABS: Influenza A, PCR NEGATIVE (NEGATIVE); Influenza B, PCR NEGATIVE (NEGATIVE); Resp Syncytial Virus, PCR NEGATIVE (NEGATIVE); SARS-Cov-2 (COVID-19) PCR, MMC NEGATIVE (NEGATIVE)
[2024-08-06 11:26] LABS: BASOPHILS ABSOLUTE AUTO 0.04 K/mm3 (0.00-0.23); BASOPHILS PERCENT AUTO 0 % (0-2); EOSINOPHILS PERCENT AUTO 1 % (0-6); Hematocrit 29.9 % (33.0-51.0); Hemoglobin 9.8 g/dL (11.5-16.0); IMMATURE GRAN ABSOLUTE AUTO 0.02 K/mm3 (0.00-0.10); IMMATURE GRAN PERCENT AUTO 0 % (0-1); LYMPHOCYTES ABSOLUTE AUTO 0.33 K/mm3 (0.84-5.20); LYMPHOCYTES PERCENT AUTO 3 % (21-46); MONOCYTES PERCENT AUTO 8 % (4-13); Mean Corpuscular HGB 27.2 pg (26.0-34.0); Mean Corpuscular HGB Conc 32.8 g/dL (31.5-36.5); Mean Corpuscular Volume 83 fL (80-100); Mean Platelet Volume 8.5 fL (9.1-12.4); NEUTROPHILS ABSOLUTE AUTO 8.33 K/mm3 (1.96-9.15); NEUTROPHILS PERCENT AUTO 87 % (41-73); Platelet Count 281 K/mm3 (150-400); RDW Coefficient Variation 14.5 % (11.7-14.2); RDW Standard Deviation 43.8 fL (35.1-46.3); White Blood Cell Count 9.62 K/mm3 (4.00-11.30)
[2024-08-06 11:43] LABS: Albumin, Blood 2.9 g/dL (3.4-5.0); Albumin/Globulin Ratio 0.6 (0.8-1.8); Bilirubin, Total 0.6 mg/dL (0.1-1.0); Bun/Creatinine Ratio 48.5 (12.0-20.0); Calcium, Blood 8.9 mg/dL (8.5-10.1); Creatinine, Blood 0.5 mg/dL (0.40-1.00); Globulin, Blood 4.7 g/dL (2.2-4.0); Potassium, Blood 4.3 mmol/L (3.5-5.5); Total Protein, Blood 7.6 g/dL (6.4-8.2)
[2024-08-06] MEDS ORDERED: Ipratropium/Albuterol SulF 2.5-0.5MG/3 ML Amp INH ONE (15:25)
[2024-08-06] MEDS ORDERED: Ondansetron HCl 2 MG / ML 2ML Vial IV ONE (15:25)
[2024-08-06] MEDS ORDERED: Meropenem 2,000 MG in NS 250 ML IV ONE ×2 (15:35→23:00)
[2024-08-06] MEDS ORDERED: Ipratropium/Albuterol SulF 2.5-0.5MG/3 ML Amp ONE (18:14)
[2024-08-06] MEDS ORDERED: PRED5 PO (19:17)
[2024-08-06] MEDS ORDERED: PEPCID20 MG PO (19:18)
[2024-08-06] MEDS ORDERED: HYDROcodone 5-APAP 325 TAB PO ONE (19:45)
[2024-08-06] MEDS ORDERED: rOPINIRole HCl 1 MG Tab PO ONE (19:45)
[2024-08-06] MEDS ORDERED: Azithromycin 250 MG Tab PO ONE (19:45)
[2024-08-06] MEDS ORDERED: rOPINIRole HCl 2 MG Tab PO ONE (19:55)
[2024-08-06] MEDS ORDERED: FLU VACC TS2024-25(6MOS UP)/PF 45 MCG/0.5 ML SYRINGE IM SCH (20:10)
[2024-08-06] MEDS ORDERED: Ipratropium/Albuterol SulF 2.5-0.5MG/3 ML Amp INH PRN (20:10)
[2024-08-06] MEDS ORDERED: Ondansetron HCl 2 MG / ML 2ML Vial IV PRN (20:10)
[2024-08-06] MEDS ORDERED: Acetaminophen 325 MG TABLET PO PRN (20:35)
[2024-08-06] MEDS ORDERED: HYDROcodone 5-APAP 325 TAB PO PRN (20:50)
[2024-08-06] MEDS ORDERED: Enoxaparin 40 MG/0.4 ML SYR SC SCH (21:00)
[2024-08-06] MEDS ORDERED: MEROPENEM IV SCH (23:00)
[2024-08-06] MEDS ORDERED: Losartan Potassium 50 MG Tab PO SCH (23:11)
[2024-08-06] MEDS ORDERED: ALPRAZolam 0.25 MG Tab PO PRN (23:40)
[2024-08-07] MEDS ORDERED: MethylPREDNISolone Sod Succ 125 MG Vial IV SCH
[2024-08-07 06:50] LABS: BASOPHILS ABSOLUTE AUTO 0.01 K/mm3 (0.00-0.23); BASOPHILS PERCENT AUTO 0 % (0-2); EOSINOPHILS PERCENT AUTO 0 % (0-6); Hemoglobin 9.9 g/dL (11.5-16.0); IMMATURE GRAN ABSOLUTE AUTO 0.01 K/mm3 (0.00-0.10); IMMATURE GRAN PERCENT AUTO 0 % (0-1); LYMPHOCYTES ABSOLUTE AUTO 0.12 K/mm3 (0.84-5.20); LYMPHOCYTES PERCENT AUTO 2 % (21-46); MONOCYTES ABSOLUTE AUTO 0.07 K/mm3 (0.16-1.47); MONOCYTES PERCENT AUTO 1 % (4-13); Mean Corpuscular Volume 82 fL (80-100); Mean Platelet Volume 8.3 fL (9.1-12.4); NEUTROPHILS ABSOLUTE AUTO 5.89 K/mm3 (1.96-9.15); NEUTROPHILS PERCENT AUTO 97 % (41-73); Platelet Count 255 K/mm3 (150-400); RDW Coefficient Variation 14.2 % (11.7-14.2); RDW Standard Deviation 42.5 fL (35.1-46.3); Red Blood Cell Count 3.66 M/mm3 (3.80-5.20)
[2024-08-07 07:16] LABS: Albumin, Blood 2.7 g/dL (3.4-5.0); Albumin/Globulin Ratio 0.6 (0.8-1.8); Bilirubin, Total 0.6 mg/dL (0.1-1.0); Bun/Creatinine Ratio 26.8 (12.0-20.0); Calcium, Blood 8.6 mg/dL (8.5-10.1); Creatinine, Blood 0.41 mg/dL (0.40-1.00); Globulin, Blood 4.9 g/dL (2.2-4.0); Potassium, Blood 4.3 mmol/L (3.5-5.5); Total Protein, Blood 7.6 g/dL (6.4-8.2)
[2024-08-07] MEDS ORDERED: Sertraline HCl 100 MG Tab PO SCH (09:00)
[2024-08-07] MEDS ORDERED: Azithromycin 250 MG Tab PO SCH (09:00)
[2024-08-07] MEDS ORDERED: Famotidine 20 MG Tab PO SCH (09:00)
[2024-08-07] MEDS ORDERED: Lactobacil 2-S.Thermo-Bifido 1 1 Cap PO SCH (09:00)
[2024-08-07] MEDS ORDERED: Metoprolol Succinate 25 MG TABCR PO SCH (09:00)
[2024-08-07] MEDS ORDERED: Meropenem 1,000 MG in NS 100 ML IV SCH ×2 (11:00→20:00)
[2024-08-07] MEDS ORDERED: UREA 15 GM POWD.PACK PO ONE (12:05)
[2024-08-07 12:49] LABS: Percent Saturation 10.5 % (15.0-50.0)
[2024-08-07] MEDS ORDERED: Ipratropium/Albuterol SulF 2.5-0.5MG/3 ML Amp INH SCH (14:25)
[2024-08-07 15:14] VITALS: BP 147/78
[2024-08-07] MEDS ORDERED: Misc. Tablet PO SCH ×3 (15:30→21:30)
--- NOTE | 2024-08-07 18:02 | NUR ---
SHIFT SUMMARY PT AOX4, SBA TO THE BSC. ADMIT THIS SHIFT. ON 2.5L NC WHICH IS HER BASELINE. CALLS AND MAKES HER NEEDS KNOWN. REPOSITIONS SELF IN BED. NO ACUTE ISSUES SINCE THE ADMIT. NO EVENTS PER TELE. CALL LIGHT WITHIN REACH, BED LOCKED AND IN THE LOWEST POSITION. WILL REPORT TO ONCOMING NURSE.
[2024-08-07 20:39] VITALS: BP 140/68
[2024-08-07] MEDS ORDERED: UREA 15 GM POWD.PACK PO SCH (21:00)
[2024-08-08 00:20] VITALS: BP 131/76
[2024-08-08 06:01] VITALS: BP 134/84
[2024-08-08 07:52] LABS: Bun/Creatinine Ratio 43.9 (12.0-20.0); Calcium, Blood 8.8 mg/dL (8.5-10.1); Creatinine, Blood 0.41 mg/dL (0.40-1.00); Potassium, Blood 4.2 mmol/L (3.5-5.5)
[2024-08-08] MEDS ORDERED: Ferrous Sulfate 325 MG Tab PO SCH (08:00)
[2024-08-08 08:04] VITALS: BP 148/77
[2024-08-08] MEDS ORDERED: Iron Dextran 50 MG / ML 2ML Vial IV ONE (10:25)
[2024-08-08] MEDS ORDERED: NS 250 ML IV PRN (11:40)
[2024-08-08] MEDS ORDERED: Iron Dextran 975 MG in NS 250 ML IV ONE (12:00)
--- NOTE | 2024-08-08 12:18 | NUR ---
PALLITIVE VOLUNTEER VISITED WITH PT THIS MORNING. VOLUNTEER REPORTS "GREAT VISIT. I WAS IN THERE FOR QUITE AWHILE." PALLIATIVE VOLUNTEER THINKS PT WOULD BENEFIT FROM A THERAPY DOG VISIT. ORDER PLACED ACCORDINGLY.
[2024-08-08] MEDS ORDERED: Acetylcysteine 200 MG/ML 4ML Vial INH SCH (14:55)
[2024-08-08] MEDS ORDERED: Sodium Chloride For Inhalation 7% 4 ML VIAL.NEB INH SCH (14:55)
[2024-08-08 17:07] VITALS: BP 157/91
--- NOTE | 2024-08-08 17:45 | NUR ---
SHIFT SUMMARY PT AOX4, CALLS AND MAKES HER NEEDS KNOWN. SBA TO THE BSC. FAMILY AT THE BS THIS SHIFT. NO ACUTE COMPLAINTS. REPOSITIONS SELF IN BED. NO EVENTS PER TELE. PT IS TO BE HERE FOR 10 TOTAL DAYS TO RECIEVE MEROPENEM, SHE IS AWARE. CALL LIGHT WITHIN REACH, BED LOCKED AND IN THE LOWEST POSITION. WILL REPORT TO ONCOMING NURSE.
[2024-08-08 20:15] VITALS: BP 140/63
[2024-08-08] MEDS ORDERED: MethylPREDNISolone Sod Succ 125 MG Vial IV SCH (21:00)
[2024-08-09 00:23] VITALS: BP 134/79
[2024-08-09 04:11] VITALS: BP 144/84
[2024-08-09 08:47] VITALS: BP 144/69
[2024-08-09 11:19] VITALS: BP 163/85
[2024-08-09] MEDS ORDERED: Ipratropium/Albuterol SulF 2.5-0.5MG/3 ML Amp INH SCH (13:00)
[2024-08-09] MEDS ORDERED: Albuterol 2.5 MG/3 ML VIAL INH SCH (13:55)
[2024-08-09] MEDS ORDERED: Misc. Inhaler INH SCH (14:00)
[2024-08-09] MEDS ORDERED: ALBU90OI INH (17:13)
[2024-08-09] MEDS ORDERED: ESCI10 PO (17:15)
--- NOTE | 2024-08-09 18:23 | NUR ---
SHIFT SUMMARY- PT ALERT AND ORIENTED. CARE MANAGEMENT CAME AND SPOKE TO THE PT ABOUT DISCHARGING TO SNF FOR ABX INFUSION. PT DOES NOT WANT TO DO THAT, SHE STATES SHE CAN COME INTO THE HOSPITAL THREE TIMES A DAY FOR A WEEK. CARE MANAGEMENT IS LOOKING INTO IF THIS IS POSSIBLE. PT IS 1P SBA WITH AMBULATION FOR O2 TUBE MANAGEMENT PER PHYSICAL THERAPY. PT WAS ABLE TO SHOWER HERSELF TODAY WITH STAFF STANDING BY UNTIL SHE WAS IN THE SHOWER. SHE WAS INDEPENDENT IN THE SHOWER. PT SITTING UP IN BED, CALL LIGHT IN REACH VISITOR AT THE BEDSIDE, NO S&S OF DISTRESS NOTED.
[2024-08-09 19:58] VITALS: BP 139/78
[2024-08-10 04:23] VITALS: BP 171/81
[2024-08-10 04:25] VITALS: BP 166/102
--- NOTE | 2024-08-10 06:41 | NUR ---
SHIFT SUMMARY: Pt admitted for COPD exacerbation and is a full code. is alert and able to make needs known. ADLs have been SBA. denies pain or discomfort when asked. Telly reports sinus in the 60s with no events. On 1lpm via NC.
--- NOTE | 2024-08-10 06:43 | NUR ---
SHIFT SUMMARY: Pt is admitted for COPD exacerbation and is a full code. Is alert and able to make needs known. ADLs have been SBA. on droplet ISO. denies pain or discomfort when asked. Telly reports sinus in the 80s with no events. On 3lpm of O2 via nc.
[2024-08-10] MEDS ORDERED: Sodium Chloride 3% For Inhalation 15 ML VIAL.NEB INH SCH (07:00)
[2024-08-10] MEDS ORDERED: Misc. Inhaler INH SCH (07:00)
[2024-08-10 07:42] VITALS: BP 162/79
[2024-08-10] MEDS ORDERED: PredniSONE 20 MG Tab PO SCH (10:00)
[2024-08-10 16:06] VITALS: BP 158/84
[2024-08-10] MEDS ORDERED: Albuterol 2.5 MG/3 ML VIAL INH PRN (16:15)
--- NOTE | 2024-08-10 17:07 | NUR ---
SHIFT SUMMARY- PT HAS HAD NO ACUTE CHANGE T/O THE SHIFT. SHE IS CONTINUING ON TID ABX. SPUTUM CULTURE RESULTED. CALLED AND LEFT A MESSAGE WITH INFECTION CONTROL TO ASK FOR ASSISTANCE INB DETERMINING THE NEED FOR ISOLATION. PT IS IN BED, CALL LIGHT IN REACH NO S&S OF DISTRESS NOTED AT THIS TIME.
[2024-08-10 19:22] VITALS: BP 137/84
[2024-08-10] MEDS ORDERED: MethylPREDNISolone Sod Succ 125 MG Vial IV SCH (21:00)
[2024-08-10 23:33] VITALS: BP 145/82
[2024-08-11 03:33] VITALS: BP 146/66
[2024-08-11 06:19] LABS: Hematocrit 32.8 % (33.0-51.0); Hemoglobin 10.5 g/dL (11.5-16.0); Mean Corpuscular HGB 26.6 pg (26.0-34.0); Mean Corpuscular Volume 83 fL (80-100); Mean Platelet Volume 8.3 fL (9.1-12.4); Platelet Count 280 K/mm3 (150-400); RDW Coefficient Variation 14.1 % (11.7-14.2); RDW Standard Deviation 43.3 fL (35.1-46.3); Red Blood Cell Count 3.95 M/mm3 (3.80-5.20); White Blood Cell Count 10.47 K/mm3 (4.00-11.30)
[2024-08-11 06:36] LABS: Bun/Creatinine Ratio 67.9 (12.0-20.0); Calcium, Blood 8.9 mg/dL (8.5-10.1); Creatinine, Blood 0.37 mg/dL (0.40-1.00); Potassium, Blood 4.3 mmol/L (3.5-5.5)
[2024-08-11 07:46] VITALS: BP 162/92
[2024-08-11 12:08] VITALS: BP 146/92
[2024-08-11 16:40] VITALS: BP 149/83
--- NOTE | 2024-08-11 17:11 | NUR ---
PT STATES FEELS NOT OKAY TO GO HOME TODAY. IS CHALLENGING DISCHARGE WITH MEDICARE. NO FURTHER CONCERNS NOTED TODAY. CONTINUES COARSE AND WHEEZY T.O. IN ROOM. STATES PROBLEM WITH GETTING HER TO IV THERAPY TID. HE STATES HE WORKS. NO OTHER CONCERNS NOTED. BED INLOW POSITIOIN, CALLLITE IN REACH, CALLS APPROP
[2024-08-11 19:29] VITALS: BP 159/76
[2024-08-12 00:17] VITALS: BP 131/78
[2024-08-12 04:32] VITALS: BP 162/80
--- NOTE | 2024-08-12 06:27 | NUR ---
SHIFT SUMMARY PT A&OX4 AND ANSWERS QUESTIONS APPROPRIATELY. PT RECEIVED SCHEDULED AND PRN MEDICATIONS WITH NO ADVERSE EFFECTS. PT VSS, NO COMPLAINTS OF CP/PRESSURE OR SOB. PT IV REPLACED, NEW IV ON RIGHT FOREARM PATENT AND SALINE LOCKED. PT SPENT MOST OF THE SHIFT IN BE WITH EYES CLOSED AND RESPIRATIONS EVEN AND UNLABORED. REPOSITIONED Q2HRS. FALL PRECAUTIONS IN PLACE AND CALL LIGHT IN REACH.
[2024-08-12 07:07] VITALS: BP 161/83
[2024-08-12 12:17] VITALS: BP 137/78
--- NOTE | 2024-08-12 16:24 | NUR ---
PT WILL BE DISCHARGED TOMORROW BEFORE NOON. PTHAD NO SOB, C/O PAIN OR CHEST PAIN. PT HAS NO QUESTIONS OR CONCERNS AT THIS TIME.
[2024-08-12 16:36] VITALS: BP 119/72
[2024-08-12 19:58] VITALS: BP 123/84
[2024-08-13 04:51] VITALS: BP 143/73
--- NOTE | 2024-08-13 06:32 | NUR ---
SUMMARY: PT A/OX4, CALLS APPROPRIATELY TO SPECIFY NEEDS AND IS PLEASANT AND COOPERATIVE W/CARE. SHE'S SBD/INDEPENDENT IN ROOM AND AWARE OF LIMITATIONS. HR SLIGHT ELEVATED W/EXERTION BUT RECOVERS AT REST. SHE'S NSR-S.TACH ON TEL AT 80'S-90'S BPM, HIGH OF 130'S WHILE AMBULATING. LS REMAIN COARSE W/WHEEZES AND PT REPORTS PRODUCTIVE COUGH W/OSORIO SPUTUM. IV ABX RECEIVED PER EMAR THEN SL'D. SHE REMAINS ON 2.5L O2 VIA NC PER HOME DOSE. PLAN IS FOR D/C TODAY AND PT WILL REQUIRE 5 MORE DAYS IV ABX OUTPATIENT. NORCO PROVIDED PER PT REQUEST FOR TOLERABLE RELIEF OF BACK AND L.LOWER LOBE PAIN. VSS/AFEBRILE, NO ACUTE CHANGES. WCTM AND REPORT TO DAY RN.
--- NOTE | 2024-08-13 07:33 | NUR ---
ASSUMPTION OF CARE: ASSUMED CARE OF PATIENT. COMPLETED SHIFT CHANGE REPORT. SITTING UP IN BED, WATCHING TV. O2 @ 2.5LPM/NC. BREATHING EVEN AND UNLABORED. BED IN LOWEST POSITION. CALL LIGHT WITHIN REACH. NO ACUTE NEEDS.
[2024-08-13 07:44] VITALS: BP 148/82
[2024-08-13] MEDS ORDERED: PredniSONE 20 MG Tab PO SCH (09:00)
[2024-08-13] MEDS ORDERED: MEROPENEM114 IV (09:48)
--- NOTE | 2024-08-13 10:51 | NUR ---
DISCHARGE SUMMARY: A&Ox4. PLEASANT AND COOPERATIVE WITH CARE. CALLS APPROPRIATELY AND IS ABLE TO ADVOCATE NEEDS EFFECTIVELY. SBA c FWW FOR SHORT DISTANCE; WHEELCHAIR FOR LONG DISTANCE DUE TO O2 DEMANDS. CONTINENT OF BOWEL AND BLADDER. MEDS WHOLE c FLUIDS. TELE NSR s ECTOPY. C/O ANXIETY RE: GOING HOME. PRN ALPRAZOLAM ADMINISTERED. NO C/O PAIN OR DISCOMFORT, OTHERWISE. MAINTAINING SPO2 >92% ON 2.5LPM/NC WHICH IS HER BASELINE. IV AND TELE REMOVED BY PATRICK RIVERA. MEDICATIONS FAXED TO [facility]. INSTRUCTED TO FOLLOW-UP WITH PCP AND PULMONOLOGY. LEFT FLOOR 1015 WITH ALL BELONGINGS AND DISCHARGE PACKET, ESCORTED BY HER . TRANSPORTATION PROVIDED BY IN POV.
== END 2024-08-13 10:11 | disposition home or self-care (01) | DRG 189 ==
LOC: ER 10:26 → ERHOLD 20:04 → MEDS 20:04
PROVIDERS: Internal Medicine; Student in an Organized Health Care Education/Training Program; ADMIT Internal Medicine
DX: J96.21 Acute and chronic respiratory failure with hypoxia (principal); J47.1 Bronchiectasis with (acute) exacerbation; J44.1 Chronic obstructive pulmonary disease with (acute) exacerbation; E87.1 Hypo-osmolality and hyponatremia; Z16.20 Resistance to unspecified antibiotic; R64 Cachexia; M79.7 Fibromyalgia; J96.22 Acute and chronic respiratory failure with hypercapnia; F41.9 Anxiety disorder, unspecified; D64.9 Anemia, unspecified; Z88.1 Allergy status to other antibiotic agents; Z88.8 Allergy status to other drugs, medicaments and biological substances; Z86.19 Personal history of other infectious and parasitic diseases; K21.9 Gastro-esophageal reflux disease without esophagitis; I10 Essential (primary) hypertension; F32.A Depression, unspecified; Z90.49 Acquired absence of other specified parts of digestive tract; Z90.89 Acquired absence of other organs; Z90.710 Acquired absence of both cervix and uterus; Z98.890 Other specified postprocedural states; Z79.52 Long term (current) use of systemic steroids; Z87.19 Personal history of other diseases of the digestive system; Z74.01 Bed confinement status; Z68.23 Body mass index [BMI] 23.0-23.9, adult
CPT/HCPCS: 0241U; 36415; 71046; 80048; 80053; 82728; 83540; 83550; 83880; 84484; 85025; 85027; 87070; 87077; 87186; 87205; 93005; 93010; 94640; 94664; 94760; 94762; 96365; 96375; 97116; 97162; 97530; 99285-25; A9270; J1650; J1750; J2185; J2405; J2919; J7050; J7512

== ENCOUNTER 2024-08-13 15:56 | Day surgery (SDC) | payer MEDICARE, OTHER ==
[~2024-08-13 15:56] MED LIST changes: +ESCI10 PO; -Losartan Potassium 50 MG Tab PO SCH; +Meropenem 1,000 MG in NS 100 ML IV SCH; +PEPCID20 MG PO
[2024-08-13 16:10] VITALS: BP 133/71
== END 2024-08-13 16:37 | disposition home or self-care (01) ==
LOC: ATC 15:56
DX: J15.1 Pneumonia due to Pseudomonas (principal); Z22.39 Carrier of other specified bacterial diseases; J47.9 Bronchiectasis, uncomplicated; E88.01 Alpha-1-antitrypsin deficiency; I10 Essential (primary) hypertension; K21.9 Gastro-esophageal reflux disease without esophagitis; G25.81 Restless legs syndrome; E22.2 Syndrome of inappropriate secretion of antidiuretic hormone; Z88.1 Allergy status to other antibiotic agents; Z88.8 Allergy status to other drugs, medicaments and biological substances; Z79.52 Long term (current) use of systemic steroids; Z79.899 Other long term (current) drug therapy
CPT/HCPCS: 96365; J2185

== ENCOUNTER 2024-08-14 08:18 | Day surgery (SDC) | payer MEDICARE, OTHER ==
[2024-08-14 00:06] VITALS: BP 136/77
--- NOTE | 2024-08-14 00:45 | NUR ---
DISCHARGE THE PATIENT IS LEAVING THE FAICLITY AT 0045. INFUSIN FINISHED AT 0041. HEPARIN LOCKED PER [facility] ORDER
[2024-08-14 08:24] VITALS: BP 131/68
[2024-08-14 16:33] VITALS: BP 134/67
== END 2024-08-14 17:03 | disposition home or self-care (01) ==
LOC: ATC 08:18
DX: J15.1 Pneumonia due to Pseudomonas (principal); I10 Essential (primary) hypertension; K21.9 Gastro-esophageal reflux disease without esophagitis; F41.9 Anxiety disorder, unspecified; G25.81 Restless legs syndrome; E22.2 Syndrome of inappropriate secretion of antidiuretic hormone; Z88.1 Allergy status to other antibiotic agents; Z88.8 Allergy status to other drugs, medicaments and biological substances; Z79.899 Other long term (current) drug therapy
CPT/HCPCS: 96365; J1642; J2185

== ENCOUNTER 2024-08-15 08:31 | Day surgery (SDC) | payer MEDICARE, OTHER ==
[2024-08-15 00:05] VITALS: BP 156/80
--- NOTE | 2024-08-15 00:30 | NUR ---
ARRIVAL PT ARRIVED AROUND 0006, VSS. MEDIPORT FLUSHED, BLOOD RETURN NOTED. IV ABX INFUSING PER EMAR. AWAITING INFUSION TO FINISH
--- NOTE | 2024-08-15 00:44 | NUR ---
DISCHARGE PT HEP LOCKED PER EMAR. INFUSION COMPLETE. NO INFUSION REACTION NOTED. TO WHEEL PT OUT.
[2024-08-15 08:43] VITALS: BP 142/81
[2024-08-15 08:45] VITALS: BP 142/81
[2024-08-15 17:04] LABS: BASOPHILS ABSOLUTE AUTO 0.01 K/mm3 (0.00-0.23); BASOPHILS PERCENT AUTO 0 % (0-2); EOSINOPHILS ABSOLUTE AUTO 0.08 K/mm3 (0.00-0.68); EOSINOPHILS PERCENT AUTO 1 % (0-6); Hematocrit 33.5 % (33.0-51.0); Hemoglobin 11.1 g/dL (11.5-16.0); IMMATURE GRAN ABSOLUTE AUTO 0.13 K/mm3 (0.00-0.10); IMMATURE GRAN PERCENT AUTO 1 % (0-1); LYMPHOCYTES ABSOLUTE AUTO 0.87 K/mm3 (0.84-5.20); LYMPHOCYTES PERCENT AUTO 7 % (21-46); MONOCYTES ABSOLUTE AUTO 0.59 K/mm3 (0.16-1.47); MONOCYTES PERCENT AUTO 5 % (4-13); Mean Corpuscular HGB 27.3 pg (26.0-34.0); Mean Corpuscular HGB Conc 33.1 g/dL (31.5-36.5); Mean Corpuscular Volume 82 fL (80-100); Mean Platelet Volume 8.3 fL (9.1-12.4); NEUTROPHILS ABSOLUTE AUTO 11.04 K/mm3 (1.96-9.15); NEUTROPHILS PERCENT AUTO 87 % (41-73); Platelet Count 324 K/mm3 (150-400); RDW Coefficient Variation 14.7 % (11.7-14.2); RDW Standard Deviation 43.8 fL (35.1-46.3); Red Blood Cell Count 4.07 M/mm3 (3.80-5.20); White Blood Cell Count 12.72 K/mm3 (4.00-11.30)
[2024-08-15 17:19] LABS: Albumin, Blood 3.1 g/dL (3.4-5.0); Albumin/Globulin Ratio 0.7 (0.8-1.8); Bilirubin, Total 1.1 mg/dL (0.1-1.0); Bun/Creatinine Ratio 72.5 (12.0-20.0); Calcium, Blood 8.9 mg/dL (8.5-10.1); Creatinine, Blood 0.47 mg/dL (0.40-1.00); Globulin, Blood 4.3 g/dL (2.2-4.0); Total Protein, Blood 7.4 g/dL (6.4-8.2)
== END 2024-08-15 17:08 | disposition home or self-care (01) ==
LOC: ATC 08:31
PROVIDERS: Internal Medicine Infectious Disease
DX: J15.1 Pneumonia due to Pseudomonas (principal); J47.1 Bronchiectasis with (acute) exacerbation; E78.00 Pure hypercholesterolemia, unspecified; E88.01 Alpha-1-antitrypsin deficiency; I10 Essential (primary) hypertension; K21.9 Gastro-esophageal reflux disease without esophagitis; G25.81 Restless legs syndrome; Z79.899 Other long term (current) drug therapy; Z88.1 Allergy status to other antibiotic agents; Z88.2 Allergy status to sulfonamides; Z88.8 Allergy status to other drugs, medicaments and biological substances
CPT/HCPCS: 80053; 85025; 96365; J1642; J2185

== ENCOUNTER 2024-08-16 02:27 | Day surgery (SDC) | payer MEDICARE, OTHER ==
[2024-08-16 07:40] VITALS: BP 132/67
[2024-08-16 15:48] VITALS: BP 117/62
[2024-08-16 23:03] VITALS: BP 137/66
== END 2024-08-16 23:00 | disposition home or self-care (01) ==
LOC: ATC 02:27
DX: J15.1 Pneumonia due to Pseudomonas (principal); J47.9 Bronchiectasis, uncomplicated; E88.01 Alpha-1-antitrypsin deficiency; E78.2 Mixed hyperlipidemia; I10 Essential (primary) hypertension; K21.9 Gastro-esophageal reflux disease without esophagitis; G25.81 Restless legs syndrome; Z22.39 Carrier of other specified bacterial diseases; E22.2 Syndrome of inappropriate secretion of antidiuretic hormone; Z79.899 Other long term (current) drug therapy; Z88.1 Allergy status to other antibiotic agents; Z88.2 Allergy status to sulfonamides; Z88.8 Allergy status to other drugs, medicaments and biological substances
CPT/HCPCS: 96365; J1642; J2185

== ENCOUNTER 2024-08-17 03:56 | Day surgery (SDC) | payer MEDICARE, OTHER ==
[2024-08-17 07:40] VITALS: BP 137/68
[2024-08-17 15:48] VITALS: BP 120/71
[2024-08-17 23:09] VITALS: BP 147/71
== END 2024-08-17 23:00 | disposition home or self-care (01) ==
LOC: ATC 03:56
DX: J15.1 Pneumonia due to Pseudomonas (principal); J47.1 Bronchiectasis with (acute) exacerbation; E78.00 Pure hypercholesterolemia, unspecified; I10 Essential (primary) hypertension; K21.9 Gastro-esophageal reflux disease without esophagitis; G25.81 Restless legs syndrome; Z22.39 Carrier of other specified bacterial diseases; Z88.2 Allergy status to sulfonamides; Z88.8 Allergy status to other drugs, medicaments and biological substances
CPT/HCPCS: 96365; 96376; J1642; J2185

== ENCOUNTER 2024-08-18 03:19 | Day surgery (SDC) | payer MEDICARE, OTHER ==
[~2024-08-18 03:19] MED LIST changes: -Meropenem 1,000 MG in NS 100 ML IV SCH
[2024-08-18] MEDS ORDERED: Meropenem 1,000 MG in NS 100 ML IV SCH ×2 (06:00→19:00)
[2024-08-18 07:49] VITALS: BP 136/70
[2024-08-18 15:44] VITALS: BP 126/71
[2024-08-18 23:25] VITALS: BP 132/76
--- NOTE | 2024-08-19 00:05 | NUR ---
PT ARRIVED AND RECIEVED ABX DIRECTED. FLUSHED WITH 20ML NS, AND 5ML HEPARIN FLUSH, LOCKED, FRESH GREEN CAP PLACED. NO ADVERSE EFFECTS.
== END 2024-08-18 23:00 | disposition home or self-care (01) ==
LOC: ATC 03:19
DX: J15.1 Pneumonia due to Pseudomonas (principal); J47.1 Bronchiectasis with (acute) exacerbation; Z22.39 Carrier of other specified bacterial diseases; Z88.2 Allergy status to sulfonamides; Z88.8 Allergy status to other drugs, medicaments and biological substances
CPT/HCPCS: 96365; 96376; J1642; J2185

== ENCOUNTER 2024-08-19 04:50 | Day surgery (SDC) | payer MEDICARE, OTHER ==
[2024-08-19] MEDS ORDERED: Meropenem 1,000 MG in NS 100 ML IV SCH ×2 (06:00→23:25)
[2024-08-19 07:57] VITALS: BP 151/74
[2024-08-19 23:31] VITALS: BP 150/70
[2024-08-20 00:17] VITALS: BP 133/72
== END 2024-08-19 23:59 | disposition home or self-care (01) ==
LOC: ATC 04:50
DX: J15.1 Pneumonia due to Pseudomonas (principal); J47.1 Bronchiectasis with (acute) exacerbation; I10 Essential (primary) hypertension; K21.9 Gastro-esophageal reflux disease without esophagitis; G25.81 Restless legs syndrome; Z22.39 Carrier of other specified bacterial diseases; Z88.2 Allergy status to sulfonamides; Z88.8 Allergy status to other drugs, medicaments and biological substances
CPT/HCPCS: 96365; J1642; J2185

== ENCOUNTER 2024-08-20 03:56 | Day surgery (SDC) | payer MEDICARE, OTHER ==
[2024-08-19 23:31] VITALS: BP 150/70
[2024-08-20] MEDS ORDERED: Meropenem 1,000 MG in NS 100 ML IV SCH (06:00)
[2024-08-20 07:44] VITALS: BP 121/63
[2024-08-20 15:28] VITALS: BP 120/67
[2024-08-20 22:45] VITALS: BP 155/78
== END 2024-08-20 23:59 | disposition home or self-care (01) ==
LOC: ATC 03:56
DX: J15.1 Pneumonia due to Pseudomonas (principal); I10 Essential (primary) hypertension; K21.9 Gastro-esophageal reflux disease without esophagitis; F41.9 Anxiety disorder, unspecified; G25.81 Restless legs syndrome; Z88.1 Allergy status to other antibiotic agents; Z88.2 Allergy status to sulfonamides; Z79.899 Other long term (current) drug therapy
CPT/HCPCS: 96365; J1642; J2185

== ENCOUNTER 2024-08-22 15:58 | Day surgery (SDC) | payer MEDICARE, OTHER ==
[2024-08-22 16:31] VITALS: BP 121/67
[2024-08-22] MEDS ORDERED: ALPHA 1 PROTEINASE INHIBITOR IV SCH (16:35)
[2024-08-22 17:09] LABS: BASOPHILS ABSOLUTE AUTO 0.04 K/mm3 (0.00-0.23); BASOPHILS PERCENT AUTO 0 % (0-2); EOSINOPHILS ABSOLUTE AUTO 0.01 K/mm3 (0.00-0.68); EOSINOPHILS PERCENT AUTO 0 % (0-6); Hematocrit 33.3 % (33.0-51.0); Hemoglobin 10.7 g/dL (11.5-16.0); IMMATURE GRAN ABSOLUTE AUTO 0.04 K/mm3 (0.00-0.10); IMMATURE GRAN PERCENT AUTO 0 % (0-1); LYMPHOCYTES ABSOLUTE AUTO 0.31 K/mm3 (0.84-5.20); LYMPHOCYTES PERCENT AUTO 3 % (21-46); MONOCYTES ABSOLUTE AUTO 0.29 K/mm3 (0.16-1.47); MONOCYTES PERCENT AUTO 3 % (4-13); Mean Corpuscular HGB 27.6 pg (26.0-34.0); Mean Corpuscular HGB Conc 32.1 g/dL (31.5-36.5); Mean Corpuscular Volume 86 fL (80-100); Mean Platelet Volume 8.3 fL (9.1-12.4); NEUTROPHILS ABSOLUTE AUTO 9.06 K/mm3 (1.96-9.15); NEUTROPHILS PERCENT AUTO 93 % (41-73); Platelet Count 325 K/mm3 (150-400); RDW Coefficient Variation 15.4 % (11.7-14.2); Red Blood Cell Count 3.88 M/mm3 (3.80-5.20); White Blood Cell Count 9.75 K/mm3 (4.00-11.30)
[2024-08-22 17:46] LABS: Albumin, Blood 3.2 g/dL (3.4-5.0); Albumin/Globulin Ratio 0.7 (0.8-1.8); Bilirubin, Total 0.6 mg/dL (0.1-1.0); Bun/Creatinine Ratio 88.8 (12.0-20.0); Calcium, Blood 9.2 mg/dL (8.5-10.1); Creatinine, Blood 0.39 mg/dL (0.40-1.00); Globulin, Blood 4.4 g/dL (2.2-4.0); Potassium, Blood 4.6 mmol/L (3.5-5.5); Total Protein, Blood 7.6 g/dL (6.4-8.2)
== END 2024-08-22 17:22 | disposition home or self-care (01) ==
LOC: ATC 15:58
PROVIDERS: Family Medicine; Internal Medicine Infectious Disease
DX: E88.01 Alpha-1-antitrypsin deficiency (principal); I10 Essential (primary) hypertension; E22.2 Syndrome of inappropriate secretion of antidiuretic hormone; K21.9 Gastro-esophageal reflux disease without esophagitis; F41.9 Anxiety disorder, unspecified; G25.81 Restless legs syndrome; Z88.1 Allergy status to other antibiotic agents; Z79.899 Other long term (current) drug therapy
CPT/HCPCS: 80053; 82150; 83690; 85025; 96365; J0256; J1642

== ENCOUNTER 2024-08-30 10:59 | Emergency (ER) | payer MEDICARE, OTHER ==
[~2024-08-30] VITALS: Ht 152.4 cm; Wt 52.2 kg
[2024-08-30 12:00] LABS: BASOPHILS ABSOLUTE AUTO 0.05 K/mm3 (0.00-0.23); BASOPHILS PERCENT AUTO 1 % (0-2); EOSINOPHILS ABSOLUTE AUTO 0.12 K/mm3 (0.00-0.68); EOSINOPHILS PERCENT AUTO 1 % (0-6); Hematocrit 28.5 % (33.0-51.0); Hemoglobin 9.7 g/dL (11.5-16.0); IMMATURE GRAN ABSOLUTE AUTO 0.04 K/mm3 (0.00-0.10); IMMATURE GRAN PERCENT AUTO 0 % (0-1); LYMPHOCYTES ABSOLUTE AUTO 0.44 K/mm3 (0.84-5.20); LYMPHOCYTES PERCENT AUTO 5 % (21-46); MONOCYTES ABSOLUTE AUTO 0.87 K/mm3 (0.16-1.47); MONOCYTES PERCENT AUTO 10 % (4-13); Mean Corpuscular HGB 28.2 pg (26.0-34.0); Mean Corpuscular Volume 83 fL (80-100); Mean Platelet Volume 8.7 fL (9.1-12.4); NEUTROPHILS ABSOLUTE AUTO 7.41 K/mm3 (1.96-9.15); NEUTROPHILS PERCENT AUTO 83 % (41-73); Platelet Count 263 K/mm3 (150-400); RDW Standard Deviation 45.3 fL (35.1-46.3); Red Blood Cell Count 3.44 M/mm3 (3.80-5.20); White Blood Cell Count 8.93 K/mm3 (4.00-11.30)
[2024-08-30 12:22] LABS: Albumin/Globulin Ratio 0.7 (0.8-1.8); Bilirubin, Total 0.9 mg/dL (0.1-1.0); Bun/Creatinine Ratio 65.2 (12.0-20.0); Calcium, Blood 9.3 mg/dL (8.5-10.1); Creatinine, Blood 0.46 mg/dL (0.40-1.00); Globulin, Blood 4.3 g/dL (2.2-4.0); Potassium, Blood 3.9 mmol/L (3.5-5.5); Total Protein, Blood 7.3 g/dL (6.4-8.2)
[2024-08-30] MEDS ORDERED: Morphine Sulfate 4 MG/1 ML Injection IV ONE (13:05)
[2024-08-30] MEDS ORDERED: Ondansetron HCl 2 MG / ML 2ML Vial IV ONE (13:05)
[2024-08-30 13:19] VITALS: BP 116/80
[2024-08-30] MEDS ORDERED: HYDROCODONE-AC1 EA10 PO (14:44)
[2024-08-30] MEDS ORDERED: CELE100 PO (14:44)
[2024-08-30] MEDS ORDERED: COLACE100 MG PO (14:44)
== END 2024-08-30 15:03 | disposition home or self-care (01) ==
LOC: ER 10:59
PROVIDERS: Emergency Medicine
DX: M48.54XA Collapsed vertebra, not elsewhere classified, thoracic region, initial encounter for fracture (principal); J44.9 Chronic obstructive pulmonary disease, unspecified; K21.9 Gastro-esophageal reflux disease without esophagitis; I10 Essential (primary) hypertension; F41.9 Anxiety disorder, unspecified; Z88.1 Allergy status to other antibiotic agents; Z88.8 Allergy status to other drugs, medicaments and biological substances; Z88.2 Allergy status to sulfonamides; Z88.0 Allergy status to penicillin; Z79.899 Other long term (current) drug therapy
CPT/HCPCS: 74177; 80053; 83690; 85025; 96374-59; 96375; 99284-25; J2270; J2405; Q9967

== ENCOUNTER 2024-09-05 03:43 | Day surgery (SDC) | payer MEDICARE, OTHER ==
[~2024-09-05 03:43] MED LIST changes: +CELE100 PO; +COLACE100 MG PO; +HYDROCODONE-AC1 EA10 PO
[2024-09-05] MEDS ORDERED: ALPHA IV SCH (16:30)
[2024-09-05 16:45] VITALS: BP 141/72
== END 2024-09-05 23:00 | disposition home or self-care (01) ==
LOC: ATC 03:43
DX: E88.01 Alpha-1-antitrypsin deficiency (principal); J47.9 Bronchiectasis, uncomplicated; I10 Essential (primary) hypertension; G25.81 Restless legs syndrome; K21.9 Gastro-esophageal reflux disease without esophagitis; F41.9 Anxiety disorder, unspecified; E22.2 Syndrome of inappropriate secretion of antidiuretic hormone; E78.00 Pure hypercholesterolemia, unspecified; Z79.1 Long term (current) use of non-steroidal anti-inflammatories (NSAID); Z79.899 Other long term (current) drug therapy; Z88.1 Allergy status to other antibiotic agents; Z88.2 Allergy status to sulfonamides; Z88.8 Allergy status to other drugs, medicaments and biological substances
CPT/HCPCS: 96365; J0256; J1642

== ENCOUNTER 2024-09-26 05:04 | Day surgery (SDC) | payer MEDICARE, OTHER ==
[2024-09-26 16:00] VITALS: BP 124/61
[2024-09-26] MEDS ORDERED: ALPHA IV SCH (16:15)
[2024-09-26 17:50] LABS: BASOPHILS ABSOLUTE AUTO 0.06 K/mm3 (0.00-0.23); BASOPHILS PERCENT AUTO 0 % (0-2); EOSINOPHILS ABSOLUTE AUTO 0.04 K/mm3 (0.00-0.68); EOSINOPHILS PERCENT AUTO 0 % (0-6); Hematocrit 30.7 % (33.0-51.0); Hemoglobin 9.8 g/dL (11.5-16.0); IMMATURE GRAN ABSOLUTE AUTO 0.07 K/mm3 (0.00-0.10); IMMATURE GRAN PERCENT AUTO 1 % (0-1); LYMPHOCYTES ABSOLUTE AUTO 0.39 K/mm3 (0.84-5.20); LYMPHOCYTES PERCENT AUTO 3 % (21-46); MONOCYTES ABSOLUTE AUTO 0.55 K/mm3 (0.16-1.47); MONOCYTES PERCENT AUTO 4 % (4-13); Mean Corpuscular HGB 27.3 pg (26.0-34.0); Mean Corpuscular HGB Conc 31.9 g/dL (31.5-36.5); Mean Corpuscular Volume 86 fL (80-100); Mean Platelet Volume 8.8 fL (9.1-12.4); NEUTROPHILS ABSOLUTE AUTO 13.82 K/mm3 (1.96-9.15); NEUTROPHILS PERCENT AUTO 93 % (41-73); Platelet Count 406 K/mm3 (150-400); RDW Coefficient Variation 15.2 % (11.7-14.2); RDW Standard Deviation 48.2 fL (35.1-46.3); Red Blood Cell Count 3.59 M/mm3 (3.80-5.20); White Blood Cell Count 14.93 K/mm3 (4.00-11.30)
[2024-09-26 18:06] LABS: Albumin/Globulin Ratio 0.6 (0.8-1.8); Bilirubin, Total 0.4 mg/dL (0.1-1.0); Bun/Creatinine Ratio 134.4 (12.0-20.0); Calcium, Blood 9.2 mg/dL (8.5-10.1); Creatinine, Blood 0.32 mg/dL (0.40-1.00); Globulin, Blood 4.8 g/dL (2.2-4.0); Potassium, Blood 4.3 mmol/L (3.5-5.5); Total Protein, Blood 7.8 g/dL (6.4-8.2)
== END 2024-09-26 17:29 | disposition home or self-care (01) ==
LOC: ATC 05:04
PROVIDERS: Internal Medicine Infectious Disease
DX: E88.01 Alpha-1-antitrypsin deficiency (principal); J47.1 Bronchiectasis with (acute) exacerbation; A49.8 Other bacterial infections of unspecified site; E78.00 Pure hypercholesterolemia, unspecified; K21.9 Gastro-esophageal reflux disease without esophagitis; G25.81 Restless legs syndrome; E87.1 Hypo-osmolality and hyponatremia; Z88.2 Allergy status to sulfonamides; Z88.8 Allergy status to other drugs, medicaments and biological substances
CPT/HCPCS: 80053; 85025; 96365; J0256; J1642

== ENCOUNTER 2024-10-08 07:00 | Inpatient (IN) | payer MEDICARE, OTHER ==
[~2024-10-08] VITALS: Ht 152.4 cm; Wt 41.1 kg
[~2024-10-08 07:00] MED LIST changes: -UREA; +UREA PO
[2024-10-08] MEDS ORDERED: Albuterol 2.5 MG/3 ML VIAL ONE (07:14)
[2024-10-08] MEDS ORDERED: Ipratropium/Albuterol SulF 2.5-0.5MG/3 ML Amp ONE (07:14)
[2024-10-08] MEDS ORDERED: Albuterol 2.5 MG/3 ML VIAL INH SCH ×2 (07:15→10:40)
[2024-10-08] MEDS ORDERED: Ipratropium/Albuterol SulF 2.5-0.5MG/3 ML Amp INH ONE (07:25)
[2024-10-08 07:43] LABS: BASOPHILS ABSOLUTE AUTO 0.07 K/mm3 (0.00-0.23); BASOPHILS PERCENT AUTO 1 % (0-2); EOSINOPHILS ABSOLUTE AUTO 0.33 K/mm3 (0.00-0.68); EOSINOPHILS PERCENT AUTO 3 % (0-6); Hematocrit 36.3 % (33.0-51.0); Hemoglobin 11.8 g/dL (11.5-16.0); IMMATURE GRAN ABSOLUTE AUTO 0.04 K/mm3 (0.00-0.10); IMMATURE GRAN PERCENT AUTO 0 % (0-1); LYMPHOCYTES ABSOLUTE AUTO 1.35 K/mm3 (0.84-5.20); LYMPHOCYTES PERCENT AUTO 14 % (21-46); MONOCYTES ABSOLUTE AUTO 0.65 K/mm3 (0.16-1.47); MONOCYTES PERCENT AUTO 7 % (4-13); Mean Corpuscular HGB 27.6 pg (26.0-34.0); Mean Corpuscular HGB Conc 32.5 g/dL (31.5-36.5); Mean Corpuscular Volume 85 fL (80-100); NEUTROPHILS ABSOLUTE AUTO 7.51 K/mm3 (1.96-9.15); NEUTROPHILS PERCENT AUTO 76 % (41-73); RDW Coefficient Variation 15.3 % (11.7-14.2); RDW Standard Deviation 47.7 fL (35.1-46.3); Red Blood Cell Count 4.27 M/mm3 (3.80-5.20); White Blood Cell Count 9.95 K/mm3 (4.00-11.30)
[2024-10-08 07:50] LABS: Albumin, Blood 3.2 g/dL (3.4-5.0); Albumin/Globulin Ratio 0.6 (0.8-1.8); Bilirubin, Total 0.6 mg/dL (0.1-1.0); Bun/Creatinine Ratio 42.8 (12.0-20.0); Calcium, Blood 9.5 mg/dL (8.5-10.1); Creatinine, Blood 0.42 mg/dL (0.40-1.00); Globulin, Blood 5.2 g/dL (2.2-4.0); Potassium, Blood 4.4 mmol/L (3.5-5.5); Total Protein, Blood 8.4 g/dL (6.4-8.2)
[2024-10-08 08:01] LABS: Platelet Count 431 K/mm3 (150-400)
[2024-10-08 08:34] LABS: Influenza A, PCR NEGATIVE (NEGATIVE); Influenza B, PCR NEGATIVE (NEGATIVE); Resp Syncytial Virus, PCR NEGATIVE (NEGATIVE); SARS-Cov-2 (COVID-19) PCR, MMC NEGATIVE (NEGATIVE)
[2024-10-08] MEDS ORDERED: XANAX0.25 MG PO (08:35)
[2024-10-08] MEDS ORDERED: Sertraline HCl 50 MG Tab PO ONE (10:40)
[2024-10-08] MEDS ORDERED: ALPRAZolam 0.25 MG Tab PO ONE (10:40)
[2024-10-08] MEDS ORDERED: OxyCODONE HCL 5 MG TAB PO PRN (12:35)
[2024-10-08] MEDS ORDERED: Magnesium Hydroxide Conc 10 ML UDC PO PRN (12:35)
[2024-10-08] MEDS ORDERED: Albuterol 2.5 MG/3 ML VIAL INH PRN (12:40)
[2024-10-08] MEDS ORDERED: Acetylcysteine 200 MG/ML 4ML Vial INH SCH (12:45)
[2024-10-08] MEDS ORDERED: Ondansetron 4 MG SoluTab SL PRN (12:45)
[2024-10-08] MEDS ORDERED: Acetaminophen 325 MG TABLET PO PRN (12:45)
[2024-10-08] MEDS ORDERED: Dornase Alfa 1 MG/ML Neb INH SCH (12:45)
[2024-10-08] MEDS ORDERED: ALPRAZolam 0.25 MG Tab PO PRN (12:45)
[2024-10-08] MEDS ORDERED: Meropenem 1,000 MG in NS 100 ML IV SCH (16:00)
[2024-10-08] MEDS ORDERED: Ipratropium/Albuterol SulF 2.5-0.5MG/3 ML Amp INH SCH (16:25)
[2024-10-08] MEDS ORDERED: Sodium Chloride For Inhalation 7% 4 ML VIAL.NEB INH SCH (16:35)
[2024-10-08 16:57] VITALS: BP 128/62
[2024-10-08] MEDS ORDERED: NS 250 ML IV PRN (17:25)
--- NOTE | 2024-10-08 18:07 | NUR ---
PT ADMITTED TODAY AT 1647, ORIENTED TO ROOM AND CALL LIGHT. PT ON 3L O2 VIA NC, BASELINE IS 2.5L AT HOME. SR-ST IN 90-LOW 100 ON TELE. HOME MED REC REVIEWED WITH PT AND SPOUSE. PT A&OX4, ABLE TO MAKE NEEDS KNOWN. SPOUSE TO BRING IN HOME MEDICATION TO BE VERIFIED BY THE PHARMACY. PT DENIED PAIN AT THIS TIME. CALL LIGHT IN REACH.
[2024-10-08 19:47] VITALS: BP 116/64
[2024-10-08] MEDS ORDERED: Lactobacil 2-S.Thermo-Bifido 1 1 Cap PO SCH (21:00)
[2024-10-08] MEDS ORDERED: Losartan Potassium 50 MG Tab PO SCH (21:00)
[2024-10-08] MEDS ORDERED: MethylPREDNISolone Sod Succ 40 MG VIAL IV SCH (21:00)
[2024-10-08] MEDS ORDERED: ROPINIROLE 4 MG PO SCH (21:30)
[2024-10-09 03:39] VITALS: BP 131/78
[2024-10-09] MEDS ORDERED: Albuterol 2.5 MG/3 ML VIAL INH SCH (07:15)
[2024-10-09 08:54] VITALS: BP 131/65
[2024-10-09] MEDS ORDERED: Enoxaparin 40 MG/0.4 ML SYR SC SCH (09:00)
[2024-10-09] MEDS ORDERED: Famotidine 20 MG Tab PO SCH (09:00)
[2024-10-09] MEDS ORDERED: Cyanocobalamin 500 MCG Tab PO SCH (09:00)
[2024-10-09] MEDS ORDERED: Sertraline HCl 100 MG Tab PO SCH (09:00)
[2024-10-09] MEDS ORDERED: Polyethylene Glycol 3350 17 gm PO SCH (09:00)
[2024-10-09] MEDS ORDERED: Metoprolol Succinate 25 MG TABCR PO SCH (09:00)
[2024-10-09] MEDS ORDERED: Azithromycin 250 MG Tab PO SCH (09:00)
[2024-10-09 09:03] LABS: BASOPHILS ABSOLUTE AUTO 0.02 K/mm3 (0.00-0.23); BASOPHILS PERCENT AUTO 0 % (0-2); EOSINOPHILS ABSOLUTE AUTO 0.02 K/mm3 (0.00-0.68); EOSINOPHILS PERCENT AUTO 0 % (0-6); Hematocrit 30.8 % (33.0-51.0); IMMATURE GRAN ABSOLUTE AUTO 0.03 K/mm3 (0.00-0.10); IMMATURE GRAN PERCENT AUTO 0 % (0-1); LYMPHOCYTES ABSOLUTE AUTO 0.62 K/mm3 (0.84-5.20); LYMPHOCYTES PERCENT AUTO 6 % (21-46); MONOCYTES ABSOLUTE AUTO 0.52 K/mm3 (0.16-1.47); MONOCYTES PERCENT AUTO 5 % (4-13); Mean Corpuscular HGB Conc 32.5 g/dL (31.5-36.5); Mean Corpuscular Volume 86 fL (80-100); Mean Platelet Volume 8.6 fL (9.1-12.4); NEUTROPHILS ABSOLUTE AUTO 8.54 K/mm3 (1.96-9.15); NEUTROPHILS PERCENT AUTO 88 % (41-73); Platelet Count 320 K/mm3 (150-400); RDW Coefficient Variation 15.2 % (11.7-14.2); RDW Standard Deviation 48.4 fL (35.1-46.3); Red Blood Cell Count 3.57 M/mm3 (3.80-5.20); White Blood Cell Count 9.75 K/mm3 (4.00-11.30)
[2024-10-09 09:36] LABS: Albumin, Blood 2.8 g/dL (3.4-5.0); Albumin/Globulin Ratio 0.6 (0.8-1.8); Bilirubin, Total 0.6 mg/dL (0.1-1.0); Bun/Creatinine Ratio 65.8 (12.0-20.0); Calcium, Blood 9.7 mg/dL (8.5-10.1); Creatinine, Blood 0.38 mg/dL (0.40-1.00); Globulin, Blood 4.7 g/dL (2.2-4.0); Potassium, Blood 4.1 mmol/L (3.5-5.5); Total Protein, Blood 7.5 g/dL (6.4-8.2)
[2024-10-09] MEDS ORDERED: [UNRECOGNIZED DRUG - OTHER] PO SCH (10:37)
[2024-10-09 12:56] VITALS: BP 138/81
[2024-10-09] MEDS ORDERED: Sodium Chloride 3% For Inhalation 15 ML VIAL.NEB INH SCH (13:40)
[2024-10-09] MEDS ORDERED: ROPINIROLE 4 MG PO SCH (15:30)
[2024-10-09] MEDS ORDERED: Polyethylene Glycol 3350 17 gm PO PRN (15:40)
[2024-10-09 16:23] VITALS: BP 128/71
--- NOTE | 2024-10-09 18:41 | NUR ---
SUMMARY PATIENT A/OX4. STAND-BY ASSIST WITH FWW. SOB WITH EXERTION. SLIGHT TREMORS NOTED THIS MORNING AFTER ALBUTEROL TX AND IV STEROIDS GIVEN. PATIENT ON 3L NC. 2.5-[address] ABD COMPLETED PT REPORTED ABD DISTENTION, BLOATING AND AN ABNORMAL AMOUNT OF GAS TO DR. SAENZ. CT SHOWS CONSTIPATION, PER DR. SAENZ INCRASE MIRILAX, START SENOKOT AND MAY NEED ENEMA IF NO RELIEF. PT REPORTED SMALL LOOSE STOOL THIS AM SO ORIGINALLY HELD MIRILAX, GIVEN LATE AFTER IMAGING RESULTS. CALLING APPROPRIATELY. ABLE TO MAKE NEEDS KNOWN.
[2024-10-09 19:27] VITALS: BP 125/66
[2024-10-09] MEDS ORDERED: Sennosides 8.6 MG Tab PO SCH (21:00)
[2024-10-10 04:00] VITALS: BP 147/86
--- NOTE | 2024-10-10 04:38 | NUR ---
SHIFT SUMMARY PT ALERT ORIENTED X 4 ABLE TO VERBALIZE NEEDS VSS ON 3L VIA NC SATTING AT 95%. C/O PAIN MEDICATED WITH OXY WITH GOOD PAIN RELIEF. REMAINS ON ZITHROMAX QDAY AND MEROPENUM Q8HR. 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 C/O ANXIETY MEDICATED WITH XANAX WITH GOOD RELIEF. CONTINUES ON TELEMETRY AT NSR AT 82. RESTING IN BED AT THIS TIME WITH CALL LIGHT IN REWACH
[2024-10-10 08:06] VITALS: BP 128/68
[2024-10-10] MEDS ORDERED: Cholecalciferol 1000 Unit Tablet (=25MCG) PO SCH (09:00)
[2024-10-10 11:27] VITALS: BP 136/81
[2024-10-10] MEDS ORDERED: Sod Phosphate/Sod Biphosphate 132 ML BTL PR SCH (14:00)
[2024-10-10 15:40] VITALS: BP 149/90
[2024-10-10 15:42] VITALS: BP 152/83
--- NOTE | 2024-10-10 18:33 | NUR ---
END OF SHIFT PAIN AND ANXIETY CONTROLED WITH RX, LG BM THIS AFTERNOON, POSSIBLE DISCHARGE TOMORROW. ON BASELINE O2
[2024-10-10 19:15] VITALS: BP 124/67
--- NOTE | 2024-10-11 04:03 | NUR ---
SHIFT SUMMARY PT ALERT ORIENTED X 4 ABLE TO VERBALIZE NEEDS AMBULATES WITH 1 PERSON SBA AND WALKER TO THE BATHROOM. C/O BACK PAIN MEDICATED WITH OXY WITH GOOD PAIN RELIEF. REMAINS ON TELE AT NSR AT 89 WITH PACS. 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 MD TO TRY TO GET [facility] OF [facility] TO GET A PLAN FOR HER ANTIBIOTICS ON DISCHARGE. VSS ON 3L VIA NC WHICH IS HER BASELINE. RESTING IN BED AT THIS TIME WITH CALL LIGHT IN REACH
[2024-10-11 04:09] VITALS: BP 137/81
[2024-10-11 07:49] VITALS: BP 138/74
[2024-10-11 09:55] LABS: BASOPHILS ABSOLUTE AUTO 0.03 K/mm3 (0.00-0.23); BASOPHILS PERCENT AUTO 0 % (0-2); EOSINOPHILS ABSOLUTE AUTO 0.01 K/mm3 (0.00-0.68); EOSINOPHILS PERCENT AUTO 0 % (0-6); Hematocrit 35.3 % (33.0-51.0); Hemoglobin 11.3 g/dL (11.5-16.0); IMMATURE GRAN ABSOLUTE AUTO 0.03 K/mm3 (0.00-0.10); IMMATURE GRAN PERCENT AUTO 0 % (0-1); LYMPHOCYTES ABSOLUTE AUTO 0.89 K/mm3 (0.84-5.20); LYMPHOCYTES PERCENT AUTO 9 % (21-46); MONOCYTES ABSOLUTE AUTO 0.66 K/mm3 (0.16-1.47); MONOCYTES PERCENT AUTO 6 % (4-13); Mean Corpuscular HGB 27.9 pg (26.0-34.0); Mean Corpuscular Volume 87 fL (80-100); Mean Platelet Volume 8.1 fL (9.1-12.4); NEUTROPHILS ABSOLUTE AUTO 8.66 K/mm3 (1.96-9.15); NEUTROPHILS PERCENT AUTO 84 % (41-73); Platelet Count 378 K/mm3 (150-400); RDW Coefficient Variation 15.6 % (11.7-14.2); RDW Standard Deviation 49.4 fL (35.1-46.3); Red Blood Cell Count 4.05 M/mm3 (3.80-5.20); White Blood Cell Count 10.28 K/mm3 (4.00-11.30)
[2024-10-11 10:30] LABS: Bun/Creatinine Ratio 61.4 (12.0-20.0); Calcium, Blood 9.3 mg/dL (8.5-10.1); Creatinine, Blood 0.39 mg/dL (0.40-1.00)
[2024-10-11] MEDS ORDERED: OXYC5 PO (11:48)
[2024-10-11] MEDS ORDERED: ROPINIROLE HCL4 MG PO (11:59)
[2024-10-11] MEDS ORDERED: ROSUVASTATIN CAL5 MG PO (12:18)
[2024-10-11] MEDS ORDERED: PROZAC2010 PO (12:19)
[2024-10-11] MEDS ORDERED: SODIUM CHLORIDE INH (14:52)
[2024-10-11] MEDS ORDERED: B-12500 MC2 PO (14:53)
[2024-10-11] MEDS ORDERED: ALBU90OI INH (14:53)
[2024-10-11] MEDS ORDERED: Vitamin D1000 UNI1 PO (14:54)
[2024-10-11] MEDS ORDERED: SENN187 PO (14:55)
[2024-10-11 15:18] VITALS: BP 139/71
[2024-10-11] MEDS ORDERED: UREA PO (15:20)
[2024-10-11] MEDS ORDERED: Acetaminophen325 M1 PO (15:21)
[2024-10-11] MEDS ORDERED: ACETADOTE200 MG/1 M INH (15:22)
[2024-10-11] MEDS ORDERED: ALBU2.5V5 INH (15:23)
[2024-10-11] MEDS ORDERED: MEROPENEM1 G1 IV (15:24)
[2024-10-11] MEDS ORDERED: MIRALAX17 GM PO (15:25)
[2024-10-11] MEDS ORDERED: PRED20 PO (15:29)
--- NOTE | 2024-10-11 18:19 | NUR ---
PT VERBALIZED UNDERSTANDING OF DISCHARGE INSTRUCTIONS, NEW MEDICATOIN AND ABX INFUSION SCHEDULE. PT DENIED PAIN AND LEFT VIA WC WITH STAFF AND . PORTABLE O2 IN CAR.
== END 2024-10-11 18:10 | disposition home or self-care (01) | DRG 191 ==
LOC: ER 07:00 → MEDS 12:32 → ERHOLD 12:32 → MEDS 16:43
PROVIDERS: Student in an Organized Health Care Education/Training Program; ADMIT Internal Medicine
DX: J47.1 Bronchiectasis with (acute) exacerbation (principal); E87.1 Hypo-osmolality and hyponatremia; J96.11 Chronic respiratory failure with hypoxia; M48.54XA Collapsed vertebra, not elsewhere classified, thoracic region, initial encounter for fracture; G89.29 Other chronic pain; F41.9 Anxiety disorder, unspecified; I10 Essential (primary) hypertension; M41.86 Other forms of scoliosis, lumbar region; R10.9 Unspecified abdominal pain; K59.00 Constipation, unspecified; Z99.81 Dependence on supplemental oxygen; Z88.1 Allergy status to other antibiotic agents; Z88.2 Allergy status to sulfonamides; Z88.8 Allergy status to other drugs, medicaments and biological substances; Z88.0 Allergy status to penicillin; Z90.49 Acquired absence of other specified parts of digestive tract; Z22.39 Carrier of other specified bacterial diseases; Z86.19 Personal history of other infectious and parasitic diseases
CPT/HCPCS: 0241U; 36415; 71045; 74176; 80048; 80053; 83880; 84484; 85025; 93005; 93010; 94640; 94644; 94645; 94664; 94760; 94762; 97110; 97116; 97162; 97530; 99285-25; A9270; J1650; J2185; J2919; J7050

== ENCOUNTER 2024-10-12 01:07 | Day surgery (SDC) | payer MEDICARE, OTHER ==
[~2024-10-12 01:07] MED LIST changes: +ACETADOTE200 MG/1 M INH; +Acetaminophen325 M1 PO; +MIRALAX17 GM PO; +OXYC5 PO; +PROZAC2010 PO; +ROSUVASTATIN CAL5 MG PO; +SODIUM CHLORIDE INH; +Vitamin D1000 UNI1 PO; +XANAX0.25 MG PO
[2024-10-12] MEDS ORDERED: Meropenem 1,000 MG in NS 100 ML IV SCH (06:00)
[2024-10-12 07:42] VITALS: BP 102/56
[2024-10-12 15:33] VITALS: BP 110/69
[2024-10-12 23:03] VITALS: BP 124/64
[2024-10-12 23:50] VITALS: BP 135/67
--- NOTE | 2024-10-13 00:17 | NUR ---
PT TO RM 205 FOR IV ABX INFUSION. ARRIVED APPROX 2300, VSS. INFUSION COMPLETE & NO REACTION. PT DC APPROX [id number].
== END 2024-10-12 23:00 | disposition home or self-care (01) ==
LOC: ATC 01:07
DX: J47.1 Bronchiectasis with (acute) exacerbation (principal); J40 Bronchitis, not specified as acute or chronic; J96.11 Chronic respiratory failure with hypoxia; J44.1 Chronic obstructive pulmonary disease with (acute) exacerbation; I10 Essential (primary) hypertension; G89.29 Other chronic pain; M54.9 Dorsalgia, unspecified; E87.1 Hypo-osmolality and hyponatremia; K21.9 Gastro-esophageal reflux disease without esophagitis; M79.7 Fibromyalgia; Z22.39 Carrier of other specified bacterial diseases; Z79.899 Other long term (current) drug therapy; Z88.0 Allergy status to penicillin; Z88.1 Allergy status to other antibiotic agents; Z88.2 Allergy status to sulfonamides; Z99.81 Dependence on supplemental oxygen
CPT/HCPCS: 96365; 96367; J1642; J2185

== ENCOUNTER 2024-10-13 02:41 | Day surgery (SDC) | payer MEDICARE, OTHER ==
[2024-10-13] MEDS ORDERED: Meropenem 1,000 MG in NS 100 ML IV SCH (06:00)
[2024-10-13 07:56] VITALS: BP 123/71
[2024-10-13 15:56] VITALS: BP 125/75
[2024-10-13] MEDS ORDERED: Meropenem 1,000 MG in NS 100 ML IV ONE (22:55)
[2024-10-13 23:15] VITALS: BP 130/65
[2024-10-13 23:44] VITALS: BP 124/62
[2024-11-01] MEDS ORDERED: FAMO40 PO (12:39)
[2024-11-01] MEDS ORDERED: OXAYDO5 M1 PO (16:41)
[2024-11-12] MEDS ORDERED: Crestor40 MG PO (17:54)
[2024-11-12] MEDS ORDERED: ROPINIROLE HCL4 MG PO (19:42)
[2024-11-13] MEDS ORDERED: UREAPRO454 GM PO (11:02)
== END 2024-10-13 23:00 | disposition home or self-care (01) ==
LOC: ATC 02:41
DX: J47.1 Bronchiectasis with (acute) exacerbation (principal); J40 Bronchitis, not specified as acute or chronic; Z22.39 Carrier of other specified bacterial diseases; I10 Essential (primary) hypertension; K21.9 Gastro-esophageal reflux disease without esophagitis; J44.1 Chronic obstructive pulmonary disease with (acute) exacerbation; Z88.8 Allergy status to other drugs, medicaments and biological substances; Z88.2 Allergy status to sulfonamides; Z88.1 Allergy status to other antibiotic agents; Z79.899 Other long term (current) drug therapy
CPT/HCPCS: 96365; J1642; J2185

== ENCOUNTER 2024-10-14 04:50 | Day surgery (SDC) | payer MEDICARE, OTHER ==
[2024-10-14] MEDS ORDERED: Meropenem 1,000 MG in NS 100 ML IV SCH (06:00)
[2024-10-14 07:47] VITALS: BP 120/69
[2024-10-14] MEDS ORDERED: Meropenem 1,000 MG in NS 100 ML IV ONE (22:50)
[2024-10-14 23:11] VITALS: BP 135/81
== END 2024-10-14 23:00 | disposition home or self-care (01) ==
LOC: ATC 04:50
DX: J47.1 Bronchiectasis with (acute) exacerbation (principal); J21.9 Acute bronchiolitis, unspecified; J96.11 Chronic respiratory failure with hypoxia; I10 Essential (primary) hypertension; K21.9 Gastro-esophageal reflux disease without esophagitis; M79.7 Fibromyalgia; G89.29 Other chronic pain; M54.9 Dorsalgia, unspecified; E87.1 Hypo-osmolality and hyponatremia; Z22.39 Carrier of other specified bacterial diseases; Z79.899 Other long term (current) drug therapy; Z88.1 Allergy status to other antibiotic agents; Z88.2 Allergy status to sulfonamides; Z88.8 Allergy status to other drugs, medicaments and biological substances
CPT/HCPCS: 96365; J1642; J2185

== ENCOUNTER 2024-10-15 00:32 | Day surgery (SDC) | payer MEDICARE, OTHER ==
[2024-10-15] MEDS ORDERED: Meropenem 1,000 MG in NS 100 ML IV SCH (03:00)
[2024-10-15 07:38] VITALS: BP 133/70
[2024-10-15 15:41] VITALS: BP 128/62
[2024-10-15 22:49] VITALS: BP 137/71
[2024-10-15 23:30] VITALS: BP 134/82
== END 2024-10-15 23:00 | disposition home or self-care (01) ==
LOC: ATC 00:32
DX: J47.1 Bronchiectasis with (acute) exacerbation (principal); J21.0 Acute bronchiolitis due to respiratory syncytial virus; J96.11 Chronic respiratory failure with hypoxia; I10 Essential (primary) hypertension; G89.29 Other chronic pain; M54.9 Dorsalgia, unspecified; E87.1 Hypo-osmolality and hyponatremia; K21.9 Gastro-esophageal reflux disease without esophagitis; M79.7 Fibromyalgia; Z22.39 Carrier of other specified bacterial diseases; Z79.899 Other long term (current) drug therapy; Z88.1 Allergy status to other antibiotic agents; Z88.2 Allergy status to sulfonamides; Z88.8 Allergy status to other drugs, medicaments and biological substances
CPT/HCPCS: 96365; 96376; J1642; J2185

== ENCOUNTER 2024-10-16 05:55 | Day surgery (SDC) | payer MEDICARE, OTHER ==
[2024-10-16] MEDS ORDERED: Meropenem 1,000 MG in NS 100 ML IV SCH (06:00)
[2024-10-16 07:48] VITALS: BP 140/71
[2024-10-16 15:49] VITALS: BP 136/93
[2024-10-16 16:22] VITALS: BP 135/74
[2024-10-16 22:56] VITALS: BP 142/72
--- NOTE | 2024-10-16 23:30 | NUR ---
PATIENT ARRIVAL @2245 VSS,PORT FLUSHED AND ABX INFUSED. PATIENT IS HEPARIN LOCKED, LEAVES @2330
[2024-11-01] MEDS ORDERED: FAMO40 PO (12:39)
[2024-11-01] MEDS ORDERED: OXAYDO5 M1 PO (16:41)
[2024-11-12] MEDS ORDERED: Crestor40 MG PO (17:54)
[2024-11-12] MEDS ORDERED: ROPINIROLE HCL4 MG PO (19:42)
[2024-11-13] MEDS ORDERED: UREAPRO454 GM PO (11:02)
== END 2024-10-16 23:14 | disposition home or self-care (01) ==
LOC: ATC 05:55
DX: J47.1 Bronchiectasis with (acute) exacerbation (principal); J21.0 Acute bronchiolitis due to respiratory syncytial virus; Z22.39 Carrier of other specified bacterial diseases; J96.11 Chronic respiratory failure with hypoxia; J40 Bronchitis, not specified as acute or chronic; I10 Essential (primary) hypertension; K21.9 Gastro-esophageal reflux disease without esophagitis; Z88.1 Allergy status to other antibiotic agents; Z88.8 Allergy status to other drugs, medicaments and biological substances; Z79.899 Other long term (current) drug therapy
CPT/HCPCS: 96365; J1642; J2185

== ENCOUNTER 2024-10-17 03:44 | Day surgery (SDC) | payer MEDICARE, OTHER ==
[2024-10-17] MEDS ORDERED: Meropenem 1,000 MG in NS 100 ML IV SCH (07:00)
[2024-10-17 07:59] VITALS: BP 129/58
[2024-10-17 08:39] LABS: BASOPHILS ABSOLUTE AUTO 0.04 K/mm3 (0.00-0.23); BASOPHILS PERCENT AUTO 0 % (0-2); EOSINOPHILS ABSOLUTE AUTO 0.19 K/mm3 (0.00-0.68); EOSINOPHILS PERCENT AUTO 2 % (0-6); Hematocrit 35.6 % (33.0-51.0); Hemoglobin 11.4 g/dL (11.5-16.0); IMMATURE GRAN ABSOLUTE AUTO 0.03 K/mm3 (0.00-0.10); IMMATURE GRAN PERCENT AUTO 0 % (0-1); LYMPHOCYTES ABSOLUTE AUTO 1.77 K/mm3 (0.84-5.20); LYMPHOCYTES PERCENT AUTO 17 % (21-46); MONOCYTES ABSOLUTE AUTO 0.79 K/mm3 (0.16-1.47); MONOCYTES PERCENT AUTO 8 % (4-13); Mean Corpuscular HGB 28.2 pg (26.0-34.0); Mean Corpuscular Volume 88 fL (80-100); Mean Platelet Volume 8.6 fL (9.1-12.4); NEUTROPHILS PERCENT AUTO 73 % (41-73); Platelet Count 343 K/mm3 (150-400); RDW Coefficient Variation 15.5 % (11.7-14.2); RDW Standard Deviation 49.9 fL (35.1-46.3); Red Blood Cell Count 4.04 M/mm3 (3.80-5.20); White Blood Cell Count 10.32 K/mm3 (4.00-11.30)
--- NOTE | 2024-10-17 08:53 | NUR ---
PT ARRIVED TO [facility] ROOM 6 AT 0749. PT STATES THAT SHE BELIEVES THE MEROPENEM IS CAUSING SOME OF HER MEDICAL PROBLEMS SUCH A TYPE OF SHOCK OR ALLERGIC REACTION TO IT. PT ALSO REPORTS THAT HER PCP TOLD HER SHE NO LONGER HAS PSEUDOMONIS AND THEREFORE PT BELIEVES SHE DOESN'T NEED THE MEROPENEM. PT REQUESTED THAT WE HOLD THIS MORNINGS DOSE, DRAW HER WEEKLY LABS FROM HER PORT, AND THEN DEACCESS HER PORT. PT HAS A 1200 CONFERENCE CALL WITH [facility] TODAY TO DISCUSS OFFICIALLY DISCONTINUING THE MEROPENEM. PT TO REQUEST A NEW UPDATED ORDER BE SENT TO US FROM [facility] AFTER THIS CONFERENCE CALL TODAY AND PT WILL CALL US AND UPDATE US WELL.
[2024-10-17 08:59] LABS: Albumin/Globulin Ratio 0.7 (0.8-1.8); Bilirubin, Total 0.5 mg/dL (0.1-1.0); Bun/Creatinine Ratio 65.1 (12.0-20.0); Calcium, Blood 8.9 mg/dL (8.5-10.1); Creatinine, Blood 0.38 mg/dL (0.40-1.00); Globulin, Blood 4.2 g/dL (2.2-4.0); Potassium, Blood 3.7 mmol/L (3.5-5.5); Total Protein, Blood 7.2 g/dL (6.4-8.2)
--- NOTE | 2024-10-17 12:19 | NUR ---
LABS FAXED TO DR PRIEST
== END 2024-10-17 08:03 | disposition home or self-care (01) ==
LOC: ATC 03:44
PROVIDERS: Internal Medicine Infectious Disease
DX: J47.1 Bronchiectasis with (acute) exacerbation (principal); J21.0 Acute bronchiolitis due to respiratory syncytial virus; J96.11 Chronic respiratory failure with hypoxia; I10 Essential (primary) hypertension; G89.29 Other chronic pain; M54.9 Dorsalgia, unspecified; E87.1 Hypo-osmolality and hyponatremia; K21.9 Gastro-esophageal reflux disease without esophagitis; M79.7 Fibromyalgia; Z22.39 Carrier of other specified bacterial diseases; Z79.2 Long term (current) use of antibiotics; Z79.899 Other long term (current) drug therapy; Z88.0 Allergy status to penicillin; Z88.1 Allergy status to other antibiotic agents; Z88.2 Allergy status to sulfonamides; Z88.8 Allergy status to other drugs, medicaments and biological substances; Z90.49 Acquired absence of other specified parts of digestive tract; Z99.81 Dependence on supplemental oxygen
CPT/HCPCS: 36591; 80053; 85025; J1642